=== PATIENT | male | born 1945 | race Caucasian/White ===

== ENCOUNTER 2023-01-17 14:15 | Emergency (ER) | payer OTHER, MEDICARE, SELFPAY ==
--- NOTE | 2023-01-17 14:16 | XR_ITS ---
WS: [id number] Portable AP upright chest, 01/17/2023 Clinical Data: chest pain Comparison: Portable chest, 02/01/2015 Findings: No nodules, masses or effusions are seen. The heart is normal. The pulmonary vascularity is not increased. No pneumonia or pneumothorax is seen. The aortic arch shows mild tortuosity. Monitor leads are on the chest wall. Impression: Atherosclerosis.
--- NOTE | 2023-01-17 14:17 | ECG_ITS ---
[facility] Test Date: 2023-01-17 Pat Name: Emery Ramires Department: Room: Gender: Male Applications Support Specialist: : 1945 Requested By: Lui Alcantara Order Number: [id number] Ulises MD: Jeaneth Gaona M.D. Measurements Intervals [place] Rate: 76 P: 21 ME: 188 QRS: 8 QRSD: 104 T: 77 QT: 382 QTc: 431 Interpretive Statements SINUS RHYTHM WITH OCCASIONAL VENTRICULAR PREMATURE COMPLEXES WITH FREQUENT SUPRAVENTRICULAR PREMATURE COMPLEXES POSSIBLE LEFT ATRIAL ENLARGEMENT [-0.1mV P-WAVE IN V1/V2] NONSPECIFIC ST & T-WAVE ABNORMALITY ABNORMAL RHYTHM ECG INTERPRETATION BASED ON A DEFAULT AGE OF 40 YEARS No previous ECG available for comparison Electronically Signed On 01-17-2023 21:33:34 CDT by Jeaneth Gaona M.D. [id number]
--- NOTE | 2023-01-17 14:26 | W.ED.CHESTPA ---
HPI - Chest Pain General: Chief Complaint: Chest Pain Stated Complaint: chest pain Time Seen by Provider: 01/17/23 14:16 Source: patient Mode of arrival: EMS History of Present Illness: 77-year-old male presents emergency room stating he has a history of coronary disease he was recently hospitalized at [place] and he evidently was supposed to have bypass surgery it was delayed he ended up becoming frustrated and left AMA a couple of days ago. He is not having any chest pain now. It is difficult to get him to focus on what precipitated his visit to the emergency room today ultimately was able to get from that is primarily because he was told he had major heart problems and needed bypass urgently that he came back. He spends the majority of his time in telling me how frustrated he was with how things transpired at [place]. He denies any chest pain shortness of breath or discomfort now no abdominal pain no other symptoms at all other than he is scared because he was told he need surgery urgently. He had chest pain earlier today but it has not recurred. Onset (ago): minute(s) Timing of current episode: episodic Prior episodes: Yes Onset: during rest Pain location: left chest Relieving factors: nothing Exacerbating factors: nothing Associated symptoms: Deny abdominal pain, dyspnea or fever(s) Review of Systems Const: Denies: fever(s) or chills Card: Denies: chest pain Resp: Denies: dyspnea GI: Denies: abdominal pain : Denies: dysuria, urinary frequency or urinary urgency Musc: Denies: neck pain or back pain Skin/Breast: Denies: rash Physical Exam Const: COMMON NORMALS: no acute distress GENERAL APPEARANCE: cooperative and comfortable ORIENTATION/CONSCIOUSNESS: Yes awake, Yes oriented to person, Yes oriented to place and Yes oriented to time HENMT: COMMON NORMALS: normocephalic, atraumatic and hearing grossly normal bilaterally HEAD & SCALP: normocephalic and atraumatic Resp: COMMON NORMALS: normal respiratory effort, No retractions, No use of accessory muscles and clear to auscultation bilaterally AUSCULTATION: clear to auscultation bilaterally Cardio: COMMON NORMALS: regular rate, regular rhythm and No murmurs present (Cardio) RATE: regular rate RHYTHM: regular rhythm GI: COMMON NORMALS: Soft to palpation and No hepatosplenomegaly present AUSCULTATION: Yes normoactive bowel sounds PALPATION: Yes Soft to palpation, No Tenderness to palpation present (GI), No Guarding due to palpation present (GI) and Yes No hepatosplenomegaly present Extremity: COMMON NORMALS: normal to inspection, capillary refill normal, no clubbing, cyanosis or edema, no calf tenderness and no pedal edema Neuro: SENSORIUM/ORIENTATION: Yes oriented to person, Yes oriented to place and Yes oriented to time Skin: COMMON NORMALS: no rashes or lesions noted GENERAL SKIN EXAM: no rashes or lesions noted Course Vital Signs: Vital signs: Vital Signs Temperature 97.9 F 01/17/23 18:30 Pulse Rate 78 01/17/23 18:30 Respiratory Rate 18 01/17/23 18:30 Blood Pressure 115/81 01/17/23 18:30 Pulse Oximetry 100 01/17/23 18:30 Oxygen Delivery Me thod Room Air 01/17/23 14:46 MDM - Chest Pain Medical Decision Making No acute EKG changes troponins trending negative. Patient is not having any chest pain at this time. We did attempt to get records from [place] were not able to do so but I was able to talk to one of the physicians who cared for him while he was there. He was scheduled for bypass and instead opted to sign out AGAINST MEDICAL ADVICE. He is actually below the troponin level that he had while he was at [place] according to the records would I talk to the chief transfer and pumphouse operator on the phone who is reviewing his labs for comparison for us. I encouraged the patient to contact the cardiology group he was seeing at [place] to discuss what could be done to get him scheduled for what ever procedure they had anticipated doing. The other option would be to establish with another cardiology group which would have to reevaluate all the previous work-up and likely refer. Patient had anticipated that by signing out from [place] and coming to the emergency room his surgery could be rescheduled and expedited. At this point he is not having an acute coronary event. Discussed with him that by choosing to leave [place] unfortunately he probably has ended up creating a greater delay to the time of his surgery. The physician I talked to on-call for cardiology from [place] stated they would make contact with the patient. He was familiar with this patient and had participated in his care at [place]. Medical Records I reviewed the patient's medical records. Lab Data I reviewed the patient's lab results. 01/17/23 14:30 01/17/23 14:30 Laboratory Results WBC 12.58 10^3/uL (3.29-11.43) H 01/17/23 14:30 RBC 3.98 10^6/uL (3.85-5.65) 01/17/23 14:30 Hgb 12.30 g/dL (11.27-16.99) 01/17/23 14:30 Hct 37.8 % (37-53) 01/17/23 14:30 MCV 95.0 fl (82-101) 01/17/23 14:30 MCH 30.9 pg (27-33) 01/17/23 14:30 MCHC 32.5 g/dL (30-55) 01/17/23 14:30 RDW 13.0 % (12.1-15.1) 01/17/23 14:30 Plt Count 283 10^3/cmm (157-399) 01/17/23 14:30 MPV 11.9 fL (7.4-10.4) H 01/17/23 14:30 Neut % (Auto) 80.0 % 01/17/23 14:30 Lymph % (Auto) 10.3 % 01/17/23 14:30 [place] % (Auto) 7.6 % 01/17/23 14:30 Eos % (Auto) 0.7 % 01/17/23 14:30 Baso % (Auto) 0.7 % 01/17/23 14:30 Neut # (Auto) 10.07 10^3/uL (1.8-7.7) H 01/17/23 14:30 Lymph # (Auto) 1.3 10^3/uL (0.8-4.8) 01/17/23 14:30 [place] # (Auto) 1.0 10^3/uL (0.2-0.9) H 01/17/23 14:30 Eos # (Auto) 0.1 10^3/uL (0.0-0.8) 01/17/23 14:30 Baso # (Auto) 0.1 10^3/uL (0.0-0.1) 01/17/23 14:30 Nucleated RBC % (auto) 0 % 01/17/23 14:30 Nucleated RBCs # 0.0 /100WBC 01/17/23 14:30 Sodium 140 mmol/L (136-145) 01/17/23 14:30 Potassium 4.3 mmol/L (3.5-5.1) 01/17/23 14:30 Chloride 104 mmol/L (98-107) 01/17/23 14:30 Carbon Dioxide 23 mmol/L (22-29) 01/17/23 14:30 Anion Gap 17.3 (5-19) 01/17/23 14:30 BUN 16 mg/dL (8-23) 01/17/23 14:30 Creatinine 1.1 mg/dL (0.7-1.2) 01/17/23 14:30 GFR Calculation Not Reportable 01/17/23 14:30 Glucose 174 mg/dL (65-115) H 01/17/23 14:30 Calculated Osmolality 295 mOsm/kg (285-295) 01/17/23 14:30 Calcium 8.7 mg/dL (8.5-10.5) 01/17/23 14:30 Total Bilirubin 0.6 mg/dL (0.15-1.2) 01/17/23 14:30 AST 26 U/L (0-40) 01/17/23 14:30 ALT 50 U/L (0-41) H 01/17/23 14:30 Alkaline Phosphatase 94 U/L (40-130) 01/17/23 14:30 Creatine Kinase 69 U/L (39-308) 01/17/23 14:30 Troponin T Baseline 34 ng/L (0-15) H 01/17/23 14:30 Troponin T 120 Minute 32.14 ng/L (0-15) H 01/17/23 16:35 Delta Troponin T -1.86 ABS# (0-10) L 01/17/23 16:35 Total Protein 6.7 g/dL (6.6-8.7) 01/17/23 14:30 Albumin 3.9 g/dL (3.5-5.2) 01/17/23 14:30 Globulin 2.8 g/dL (1.3-4.6) 01/17/23 14:30 All radiology interpretation(s) finalized by discharge Discharge Plan Discharge Patient Disposition: Home Clinical Impression: CAD (coronary artery disease) Condition: Stable Discharge Orders: Discharge ED (Routine); Ordered 01/17/23 Ordered By: Lui Victoria Patient Instructions: Opioid Safety, Pain Management Coding Level of Care Code ED Control Integration Engineer for Jason Dunlap
[2023-01-17 14:27] VITALS: BP 115/81; PULSE 87; RESP 16; TEMP 36.9; O2SAT 96; BMI 28.1
[2023-01-17 14:31] VITALS: PULSE 72; TEMP 37.1
[2023-01-17 14:35] LABS: Basophils # 0.1 10^3/uL (0.0-0.1); Basophils % 0.7 %; Eosinophils # 0.1 10^3/uL (0.0-0.8); Eosinophils % 0.7 %; Hematocrit 37.8 % (37-53); Lymphocytes # 1.3 10^3/uL (0.8-4.8); Lymphocytes % 10.3 %; Mean Corpuscular HGB Conc 32.5 g/dL (30-55); Mean Corpuscular Hemoglobin 30.9 pg (27-33); Mean Platelet Volume 11.9 fL (7.4-10.4); Monocytes % 7.6 %; Neutrophils # 10.07 10^3/uL (1.8-7.7); Nucleated Red Blood Cells % 0 %; Platelet Count 283 10^3/cmm (157-399); Red Blood Count 3.98 10^6/uL (3.85-5.65); White Blood Count 12.58 10^3/uL (3.29-11.43)
[2023-01-17 14:46] VITALS: BP 127/97; RESP 18; O2SAT 98
--- NOTE | 2023-01-17 14:47 | PC.PHAR ---
Addendum entered by Daiana Vargas 01/17/23 16:02: [facility] PM 01/17/23 Original Note: [facility] 2:45 PM 01/17/23
[2023-01-17 14:53] LABS: Alanine Aminotransferase 50 U/L (0-41); Albumin Level 3.9 g/dL (3.5-5.2); Alkaline Phosphatase 94 U/L (40-130); Anion Gap 17.3 (5-19); Aspartate Amino Transferase 26 U/L (0-40); Blood Urea Nitrogen 16 mg/dL (8-23); Calcium 8.7 mg/dL (8.5-10.5); Carbon Dioxide 23 mmol/L (22-29); Chloride 104 mmol/L (98-107); Globulin 2.8 g/dL (1.3-4.6); Glucose 174 mg/dL (65-115); Osmolality Calculated 295 mOsm/kg (285-295); Potassium 4.3 mmol/L (3.5-5.1); Sodium 140 mmol/L (136-145); Total Bilirubin 0.6 mg/dL (0.15-1.2); Total Protein 6.7 g/dL (6.6-8.7); Troponin(5th) Baseline 34 ng/L (0-15)
[2023-01-17 15:17] LABS: Creatine Phosphokinase 69 U/L (39-308)
[2023-01-17 15:31] VITALS: BP 128/82; PULSE 82
[2023-01-17 16:01] VITALS: BP 115/81
--- NOTE | 2023-01-17 16:17 | ECG_ITS ---
[facility] Test Date: 2023-01-17 Pat Name: Emery Ramires Department: Room: Gender: Male Nuclear Licensing Engineer: : 1945 Requested By: Lui Alcantara Order Number: [id number] Reading MD: Jeaneth Gaona M.D. Measurements Intervals [place] Rate: 75 P: 52 ME: 183 QRS: 18 QRSD: 104 T: 120 QT: 396 QTc: 444 Interpretive Statements SINUS RHYTHM WITH OCCASIONAL SUPRAVENTRICULAR PREMATURE COMPLEXES NONSPECIFIC ST & T-WAVE ABNORMALITY No previous ECG available for comparison Electronically Signed On 01-17-2023 21:39:37 CDT by Jeaenth Gaona M.D. [id number]
[2023-01-17 17:21] LABS: Troponin 5 2HR 32.14 ng/L (0-15)
[2023-01-17 17:35] LABS: Troponin 5 2HR Delta -1.86 ABS# (0-10)
[2023-01-17 18:30] VITALS: BP 115/81; PULSE 78; RESP 18; TEMP 36.6; O2SAT 100
== END 2023-01-17 18:30 | disposition home or self-care (01) ==
PROVIDERS: Emergency Provider Family Medicine; PCP Nurse Practitioner Family
DX: I25.10 Atherosclerotic heart disease of native coronary artery without angina pectoris (principal)
CPT/HCPCS: 36415; 71045; 80053; 82550; 84484; 85025; 93005; 99285

== ENCOUNTER 2023-02-06 16:46 | Inpatient (IN) | payer OTHER, SELFPAY ==
[2023-02-06 16:47] VITALS: BP 128/58; PULSE 73; RESP 17; TEMP 36.6; O2SAT 100; BMI 28.1
--- NOTE | 2023-02-06 19:14 | ECG_ITS ---
[facility] Test Date: 2023-02-06 Pat Name: Emery Ramires Department: Room: Gender: Male Wealth Management Director: : 1945 Requested By: Meghan Tinoco Order Number: [id number] Ulises MD: Brendan Zhang M.D. Measurements Intervals [place] Rate: 73 P: 27 CA: 160 QRS: 9 QRSD: 109 T: 70 QT: 415 QTc: 459 Interpretive Statements SINUS RHYTHM POSSIBLE ANTERIOR MYOCARDIAL INFARCTION , OF INDETERMINATE AGE [30 ms Q WAVE IN V3/V4, OR R < 0.2 mV IN V4] Compared to ECG 01/17/2023 16:13:04 Myocardial infarct finding now present T-wave abnormality no longer present Electronically Signed On 02-07-2023 6:23:54 CDT by Brendan Zhang M.D. [id number]
--- NOTE | 2023-02-06 19:14 | W.ED.GENADLT ---
HPI - General Adult General: Chief complaint: General Medical Stated complaint: [facility] Time Seen by Provider: 02/06/23 18:56 Source: patient Mode of arrival: wheelchair Limitations: no limitations History of Present Illness: Patient presents emergency department today brought by friends for evaluation treatment for lab work. Chart review shows patient was evaluated here in the emergency department several weeks ago after he left AMA from [facility] due to frustrations with delay in heart surgery. Chart review shows he came to the emergency department in an effort to expedite getting his heart surgery performed-he was asymptomatic at the time of his evaluation in the ER, but, wound up going to [facility] and had triple bypass -Per patient, with Dr. Plata on 01/25/2023. We do not have any records of this visit or surgery at this time. Per patient report, he again left AMA after his surgery and did not participate in cardiac rehab. For that reason they did not provide him any of his discharge medications. Patient typically sees the CT and when he spoke to them about getting his medications, they sent him here to the emergency department stating he needed lab work for his blood thinner use. Patient does not know what blood thinners he was on. He does not know what medications he was supposed to have at the time of his AMA. Patient reports significant bilateral lower extremity swelling having developed recently. Patient also reports he developed A-fib after his procedure. Patient comes in today with a stack of papers-not from his heart surgery but from the CT. On it it indicates Eliquis 5 mg tablets to be taken twice a day for A-fib. It also indicates Plavix 75 mg daily. It also lists Lasix 40 mg daily as well as metoprolol 12.5 twice a day and amiodarone 200 mg tablet twice a day. He also has medications listed for diabetes-insulin specifically, Flomax, and other medications-primarily for constipation. Review of Systems General: Reports: 10 or more systems reviewed and unremarkable except in HPI and below Physical Exam Const: COMMON NORMALS: no acute distress, patient oriented x3, no limitations and alert HENMT: COMMON NORMALS: normocephalic, atraumatic, hearing grossly normal bilaterally, Normal external nose present and moist oral mucous membranes HEAD & SCALP: normocephalic and atraumatic NOSE: Normal external nose present Eye: COMMON NORMALS: Equal, round and reactive pupils present, EOMs intact bilaterally and conjunctivae normal CONJUNCTIVA: Yes conjunctivae normal PUPIL: Yes Equal, round and reactive pupils present Neck/C-Spine: COMMON NORMALS: full ROM and no meningeal signs Lymph: LYMPHATIC: no lymphadenopathy noted Chest: OTHER: Patient with well-healing surgical wound appreciated overlying the sternum. No signs of erythema or draining. Resp: COMMON NORMALS: normal respiratory effort, No retractions and No use of accessory muscles OTHER: Pulse ox 98% on room air. Cardio: COMMON NORMALS: regular rate and regular rhythm RATE: regular rate RHYTHM: regular rhythm GI: COMMON NORMALS: Normal to inspection, nondistended, normoactive bowel sounds present, Soft to palpation and non-tender PALPATION: Yes Soft to palpation : COMMON NORMALS: Yes no CVA tenderness BLADDER/KIDNEY EXAM: Yes no CVA tenderness Back/Pelvis: COMMON NORMALS: no CVA tenderness and thoraco-lumbar ROM normal Extremity: GENERAL: Yes normal exam except as noted OTHER: Patient with full range of motion appreciated to the extremities. Patient has obvious 2-3+ pitting edema starting mid sexton bilaterally affecting the ankles and feet. Neuro: COMMON NORMALS: patient oriented x3, CN's II-XII intact bilaterally, moves all extremities, no focal motor deficits and no sensory deficits noted SENSORIUM/ORIENTATION: Yes alert MENINGEAL SIGNS: Yes no meningeal signs Course Vital Signs: Vital signs: Vital Signs Temperature 97.9 F 02/06/23 16:47 Pulse Rate 68 02/06/23 23:05 Respiratory Rate 18 02/06/23 23:05 Blood Pressure 136/49 02/06/23 23:05 Pulse Oximetry 98 02/06/23 23:05 Oxygen Delivery Me thod Room Air 02/06/23 23:05 MDM - General Adult Medical Decision Making Patient presented to the emergency department today requesting his hospital discharge medication be prescribed and dispensed. He does not have his discharge paperwork from [facility] as he left from cardiac rehab AMA. [facility] told him he needed to have lab work done and that we could prescribe these medications to him. I did discuss the case with Dr. Bergeron at length during the patient's evaluation. Patient reports he is post to be on a blood thinning medication. He is not sure what the medication is. He also states that they were going to give him medicine to keep fluid from accumulating in his lower legs but he did not receive that medication either. Patient is denying any acute chest pains. He denies shortness of breath, cough, or fevers. EKG reveals no acute changes but, patient has some significant findings on his lab work today. Patient has an elevated white blood cell count. Patient has a BNP greater than 9000. Chest x-ray shows cardiomegaly with a mild to moderate left-sided pleural effusion and mild right-sided pleural effusion. Patient's oxygen saturation has been in the upper 90s on room air during his time here in the emergency department. I discussed with the patient the concern for findings of CHF including the pleural effusions. Explained to him that the recommendation would be for him to be admitted to get back on track with cardiac rehab, his chronic medications and, the acute medications recommended for his postoperative status. Patient states he will not be transferred to [place]. He states he lives here in [place] and wants to remain here. I told him that I would attempt to reach out to the providers here but, it is very possible that given his recent surgery at an outside health system, they may wish to have him transferred back to [facility]. I reached out to cardiology and spoke with Dr. Zhang. After going through the patient's x-rays and lab work, he agreed to be a consult to this patient after hospital admission. I then spoke with Dr. Doan regarding the findings of CHF. She did request we obtain the discharge paperwork from [facility] on this patient but agrees to the admission at this time. At this time, I did asked Dr. Espinosa to help place an order for admission as Dr. Bergeron has left for the evening. We will defer care for further intervention and treatment of this patient to the hospitalist services at this time. Differential Diagnosis DDx: Postop complication, pericardial effusion, myocarditis, CHF, pneumonia, electrolyte imbalance, [place] Lab Data 02/06/23 19:31 02/06/23 19:31 Radiology Impressions Chest X-Ray 02/06/23 19:15 IMPRESSION: 1. Mild cardiomegaly noted. 2. Left lower lobe atelectasis versus infiltrate. 3. Mild atelectasis at the right lung base. 4. Small to moderate sized left pleural effusion. 5. Small right pleural effusion. Laboratory Results WBC 19.32 10^3/uL (3.29-11.43) H 02/06/23 19: RBC 3.74 10^6/uL (3.85-5.65) L 02/06/23 19:31 Hgb 11.40 g/dL (11.27-16.99) 02/06/23 19: Hct 36.4 % (37-53) L 02/06/23: MCV 97.3 fl (82-101) 02/06/23 19: MCH 30.5 pg (27-33) 02/06/23 19: MCHC 31.3 g/dL (30-55) 02/06/23: RDW 13.1 % (12.1-15.1) 02/06/23: Plt Count 535 10^3/cmm (157-399) H 02/06/23: MPV 9.5 fL (7.4-10.4) 02/06/23 19: Neut % (Auto) 81.4 % 02/06/23 19: Lymph % (Auto) 8.2 % 02/06/23 19:31 [place] % (Auto) 7.3 % 02/06/23: Eos % (Auto) 1.1 % 02/06/23: Baso % (Auto) 0.6 % 02/06/23: Neut # (Auto) 15.71 10^3/uL (1.8-7.7) H 02/06/23 19: Lymph # (Auto) 1.6 10^3/uL (0.8-4.8) 02/06/23 19:31 [place] # (Auto) 1.4 10^3/uL (0.2-0.9) H 02/06/23: Eos # (Auto) 0.2 10^3/uL (0.0-0.8) 02/06/23: Baso # (Auto) 0.1 10^3/uL (0.0-0.1) 02/06/23 19:31 Nucleated RBC % (auto) 0 % 02/06/23: Nucleated RBCs # 0.0 /100WBC 02/06/23 19:31 PT 16.40 SECONDS (12.1-14.9) H 02/06/23 19:31 INR 1.28 (0.8-1.2) H 02/06/23 19:31 APTT 32.3 SECONDS (23.9-36.7) 02/06/23 19:31 Sodium 138 mmol/L (136-145) 02/06/23 19:31 Potassium 4.8 mmol/L (3.5-5.1) 02/06/23 19:31 Chloride 103 mmol/L (98-107) 02/06/23 19:31 Carbon Dioxide 25 mmol/L (22-29) 02/06/23 19:31 Anion Gap 14.8 (5-19) 02/06/23 19:31 BUN 37 mg/dL (8-23) H 02/06/23 19:31 Creatinine 1.3 mg/dL (0.7-1.2) H 02/06/23 19:31 GFR Calculation Not Reportable 02/06/23 19:31 Glucose 218 mg/dL (65-115) H 02/06/23 19:31 Calculated Osmolality 301 mOsm/kg (285-295) H 02/06/23 19:31 Calcium 8.3 mg/dL (8.5-10.5) L 02/06/23 19:31 Total Bilirubin 0.3 mg/dL (0.15-1.2) 02/06/23 19:31 AST 22 U/L (0-40) 02/06/23 19:31 ALT 32 U/L (0-41) 02/06/23 19:31 Alkaline Phosphatase 108 U/L (40-130) 02/06/23 19:31 NT-Pro-B Natriuret Pep 9128 pg/mL (0-450) H 02/06/23 19:31 Total Protein 6.7 g/dL (6.6-8.7) 02/06/23 19:31 Albumin 3.5 g/dL (3.5-5.2) 02/06/23 19:31 Globulin 3.2 g/dL (1.3-4.6) 02/06/23 19:31 All radiology interpretation(s) finalized by discharge Discharge Plan Discharge Patient Disposition: Admitted As Inpatient Admit Provider: Ramandeep Doan Clinical Impression: CHF (congestive heart failure), Pleural effusion, History of open heart surgery Condition: Stable Coding Level of Care Code ED Street Department Dispatcher for Jason Dunlap
--- NOTE | 2023-02-06 19:15 | XRR_ITS ---
PROCEDURE INFORMATION: Exam: XR Chest Exam date and time: 02/06/2023 8:14 PM Age: 77 years old Clinical indication: Cough; Additional info: Ble swelling, S/P triple bypass, ble swelling TECHNIQUE: Imaging protocol: Radiologic exam of the chest. Views: 1 view. COMPARISON: CR XR chest 1V portable [id number] 01/17/2023 2:25 PM FINDINGS: Lungs: Left lower lobe atelectasis versus infiltrate. Mild atelectasis at the right lung base. Pleural spaces: Small to moderate sized left pleural effusion. Small right pleural effusion. Heart/Mediastinum: Mild cardiomegaly. Bones/joints: Median sternotomy noted. XR/XR chest 1V [id number] IMPRESSION: 1. Mild cardiomegaly noted. 2. Left lower lobe atelectasis versus infiltrate. 3. Mild atelectasis at the right lung base. 4. Small to moderate sized left pleural effusion. 5. Small right pleural effusion.
[2023-02-06 19:38] LABS: Basophils # 0.1 10^3/uL (0.0-0.1); Basophils % 0.6 %; Eosinophils # 0.2 10^3/uL (0.0-0.8); Eosinophils % 1.1 %; Hematocrit 36.4 % (37-53); Lymphocytes # 1.6 10^3/uL (0.8-4.8); Lymphocytes % 8.2 %; Mean Corpuscular HGB Conc 31.3 g/dL (30-55); Mean Corpuscular Hemoglobin 30.5 pg (27-33); Mean Corpuscular Volume 97.3 fl (82-101); Mean Platelet Volume 9.5 fL (7.4-10.4); Monocytes # 1.4 10^3/uL (0.2-0.9); Monocytes % 7.3 %; Neutrophils # 15.71 10^3/uL (1.8-7.7); Neutrophils % 81.4 %; Nucleated Red Blood Cells % 0 %; Platelet Count 535 10^3/cmm (157-399); Red Blood Count 3.74 10^6/uL (3.85-5.65); Red Cell Distribution Width 13.1 % (12.1-15.1); White Blood Count 19.32 10^3/uL (3.29-11.43)
[2023-02-06 19:47] LABS: INR 1.28 (0.8-1.2)
[2023-02-06 19:48] LABS: Partial Thromboplastin Time 32.3 SECONDS (23.9-36.7)
[2023-02-06 19:52] VITALS: BP 144/74; PULSE 78; RESP 18; O2SAT 98
[2023-02-06 20:03] LABS: Alanine Aminotransferase 32 U/L (0-41); Albumin Level 3.5 g/dL (3.5-5.2); Alkaline Phosphatase 108 U/L (40-130); Aspartate Amino Transferase 22 U/L (0-40); Blood Urea Nitrogen 37 mg/dL (8-23); Calcium 8.3 mg/dL (8.5-10.5); Carbon Dioxide 25 mmol/L (22-29); Chloride 103 mmol/L (98-107); Globulin 3.2 g/dL (1.3-4.6); Glucose 218 mg/dL (65-115); NT Pro B Type Natriuretic Pept 9128 pg/mL (0-450); Osmolality Calculated 301 mOsm/kg (285-295); Sodium 138 mmol/L (136-145); Total Bilirubin 0.3 mg/dL (0.15-1.2); Total Protein 6.7 g/dL (6.6-8.7)
[2023-02-06 20:07] LABS: Anion Gap 14.8 (5-19); Potassium 4.8 mmol/L (3.5-5.1)
[2023-02-06 21:06] VITALS: PULSE 73; RESP 20; O2SAT 96
[2023-02-06] MEDS: FUROsemide 10 mg/mL SDV 4mL 40 MG IVP (22:24)
[2023-02-06 23:05] VITALS: BP 136/49; PULSE 68; RESP 18; O2SAT 98
[2023-02-07] VITALS (11 sets, daily range): BP systolic 105–123; BP diastolic 48–70; PULSE 60–76; RESP 15–19; TEMP 36.4–36.9; O2SAT 93–98
--- NOTE | 2023-02-07 02:54 | P.HP_ITS ---
Providers/Chief Complaint Admitting Physician: Ramandeep Doan MD Primary Care Provider: Ruby Lindsey Chief Complaint: [facility] History of Present Illness Emery Ramires is a 77 year old male who was recently diagnosed with coronary artery disease, underwent angiogram at [facility] about a month ago which showed significant three-vessel coronary artery disease, moderate LV dysfunction and transthoracic echo suggestive of moderate to severe MR. He is status post CABG (FU to distal LAD, saphenous vein graft to obtuse marginal, extensive RCA endarterectomy and saphenous graft to distal RCA at the proximal) at [facility] on January 25, 2023. Postoperative echo showed good overall function and no abnormalities with the valvular function. Postoperative course was notable for development of atrial fibrillation needing amiodarone infusion. He underwent BELÉN cardioversion on January 30, 2023. He was started on Eliquis. Course also complicated by LORETA, it appears peak creatinine was at 1.69. Aldactone was on hold. Diuretics were converted to oral on February 03, 2023. It appears he was to be discharged with a LifeVest and arrangements were being made for the same. Sternal incision was noted to be healing well. No apparent infectious complications. He was recommended to be discharged to inpatient rehab on February 05, 2023, however patient declined to go to rehab and instead opted to return home. Patient states that since he left [facility] he never got any prescriptions. I am able to review some of the paperwork from [facility] and the list of his discharge medications include amiodarone 200 mg p.o. twice daily for 14 days followed by 200 mg daily for the next 2 weeks. Eliquis 5 mg twice daily, Pepcid 20 mg daily, Lasix 40 mg daily for 14 days, insulin glargine 30 units subcutaneous with breakfast, insulin lispro sliding scale with meals, metoprolol 25 mg p.o. twice daily, oxycodone 5 mg every 4 hours as needed for pain, rosuvastatin 20 mg daily, Plavix 75 mg daily, paroxetine. His pre-existing amlodipine, aspirin and glipizide, hydrochlorothiazide, lisinopril were discontinued. Patient states that since returning home he went to the [place] today to get all of his prescriptions, however it appears since there were no records available his prescriptions were not filled and he was directed to come into the ER for labs. Here he reported bilateral lower extremity edema, he is noted to have pitting edema bilaterally and small to moderate bilateral pleural effusions, he states that his edema has been persisting ever since he left [facility], he has not noticed any improvement or worsening. He complains of some dyspnea on walking. Denies any chest pain palpitations or syncope. He is not currently established with cardiology services for outpatient at any hospital. He would like to continue further follow-ups here at [facility] in [place], declines going back to [facility]. Review of Systems General: Reports: 10 or more systems reviewed and unremarkable except in HPI and below Const: Denies: fever(s), chills or body aches Eyes: Denies: change in vision, blurry vision or photophobia ENMT: Reports: hoarseness; Denies: throat pain, enlarged tonsils, odynophagia or nasal congestion Card: Denies: chest pain, palpitations, irregular heart rhythm, edema, swelling of feet/ankles, lightheadedness, pre-syncope, dyspnea on exertion or orthopnea Resp: Denies: dyspnea, productive cough, non-productive cough, wheezing, stridor, pain on inspiration, change in phlegm color, hemoptysis or chest congestion GI: Denies: abdominal pain, nausea, vomiting, hematemesis, coffee ground emesis, dysphagia, heartburn, diarrhea, constipation, GI cramping, change in stool character, hematochezia or melena : Denies: flank pain, dysuria, urinary frequency, urinary urgency, urinary hesitancy or hematuria Musc: Denies: neck pain, back pain, extremity pain, joint swelling, joint warmth or deformity Neuro: Denies: headache(s), numbness in extremities, weakness in extremities, sensory changes, difficulty walking, frequent falls, dizziness, vertigo, behavioral changes, Slurred speech present or seizure-like activity Psych: Denies: anxiety, depression, suicidal ideation or homicidal ideation Endo: Denies: polyuria, polydipsia, tired all the time, cold intolerance or hot flashes Nathan/Lymph: Denies: easy bruising or easy bleeding Medications/Allergies Allergies Allergy/AdvReac Type Severity Reaction Status Date / Time procaine [From Novocain] Allergy ALGY-Difficulty Verified 02/06/23 16:57 Breathing PFSH Acute PFSH: Medical History (Updated 02/07/23 @ 05:20 by Ramandeep Doan MD) A-fib Diabetes Hypertension Surgical History (Updated 02/07/23 @ 05:20 by Ramandeep Doan MD) Hx of CABG Vitals/I&O/Wt Last Vital Signs Temp 97.9 F 02/06/23 16:47 Pulse 68 02/06/23 23:05 Resp 18 02/06/23 23:05 BP 136/49 02/06/23 23:05 Pulse Ox 98 02/06/23 23:05 O2 Del Method Room Air 02/07/23 01:00 Weight last 48 hrs Weight 83.915 kg Physical Exam Narrative: General: No acute distress, AO x3 HEENT: PERRLA, pupils bilaterally equal and reactive, pallors not present Chest: Normal vesicular breath sounds, no added sounds, equal good air entry bilaterally CVS: S1-S2 regular, no murmurs, no tachycardia, no gallops, no rubs Abdomen: Soft, nontender, no organomegaly, bowel sounds present Neuro: No focal deficits, no facial deformity, AO x3, power 5/5 in all limbs Extremities: pitting edema B/L LE , L>R, left is site of vein harvest, incisons healing well over chest wall and left leg Data 02/06/23 19:31 02/06/23 19:31 Other Labs: Radiology Impressions Chest X-Ray 02/06/23 19:15 IMPRESSION: 1. Mild cardiomegaly noted. 2. Left lower lobe atelectasis versus infiltrate. 3. Mild atelectasis at the right lung base. 4. Small to moderate sized left pleural effusion. 5. Small right pleural effusion. Laboratory Results WBC 19.32 10^3/uL (3.29-11.43) H 02/06/23 19:31 RBC 3.74 10^6/uL (3.85-5.65) L 02/06/23 19:31 Hgb 11.40 g/dL (11.27-16.99) 02/06/23 19:31 Hct 36.4 % (37-53) L 02/06/23 19:31 MCV 97.3 fl (82-101) 02/06/23 19:31 MCH 30.5 pg (27-33) 02/06/23 19: MCHC 31.3 g/dL (30-55) 02/06/23: RDW 13.1 % (12.1-15.1) 02/06/23 19: Plt Count 535 10^3/cmm (157-399) H 02/06/23 19: MPV 9.5 fL (7.4-10.4) 02/06/23: Neut % (Auto) 81.4 % 02/06/23: Lymph % (Auto) 8.2 % 02/06/23: [place] % (Auto) 7.3 % 02/06/23: Eos % (Auto) 1.1 % 02/06/23: Baso % (Auto) 0.6 % 02/06/23: Neut # (Auto) 15.71 10^3/uL (1.8-7.7) H 02/06/23: Lymph # (Auto) 1.6 10^3/uL (0.8-4.8) 02/06/23 19: [place] # (Auto) 1.4 10^3/uL (0.2-0.9) H 02/06/23: Eos # (Auto) 0.2 10^3/uL (0.0-0.8) 02/06/23: Baso # (Auto) 0.1 10^3/uL (0.0-0.1) 02/06/23: Nucleated RBC % (auto) 0 % 02/06/23: Nucleated RBCs # 0.0 /100WBC 02/06/23 19: PT 16.40 SECONDS (12.1-14.9) H 02/06/23: INR 1.28 (0.8-1.2) H 02/06/23: APTT 32.3 SECONDS (23.9-36.7) 02/06/23 19:31 Sodium 138 mmol/L (136-145) 02/06/23 19: Potassium 4.8 mmol/L (3.5-5.1) 02/06/23: Chloride 103 mmol/L (98-107) 02/06/23 19:31 Carbon Dioxide 25 mmol/L (22-29) 02/06/23 19:31 Anion Gap 14.8 (5-19) 02/06/23 19:31 BUN 37 mg/dL (8-23) H 02/06/23 19:31 Creatinine 1.3 mg/dL (0.7-1.2) H 02/06/23 19:31 GFR Calculation Not Reportable 02/06/23 19:31 Glucose 218 mg/dL (65-115) H 02/06/23 19:31 Calculated Osmolality 301 mOsm/kg (285-295) H 02/06/23 19:31 Calcium 8.3 mg/dL (8.5-10.5) L 02/06/23 19:31 Total Bilirubin 0.3 mg/dL (0.15-1.2) 02/06/23 19:31 AST 22 U/L (0-40) 02/06/23 19:31 ALT 32 U/L (0-41) 02/06/23 19:31 Alkaline Phosphatase 108 U/L (40-130) 02/06/23 19:31 NT-Pro-B Natriuret Pep 9128 pg/mL (0-450) H 02/06/23 19:31 Total Protein 6.7 g/dL (6.6-8.7) 02/06/23 19:31 Albumin 3.5 g/dL (3.5-5.2) 02/06/23 19:31 Globulin 3.2 g/dL (1.3-4.6) 02/06/23 19:31 Other data: Launch?Image [address] [address] XRay Report Signed Patient: Emery Ramires Unit #: [id number] : 1945 Age/Sex: 77 / M ADM Date: 02/06/23 Loc: ER Room/Bed: Attending Dr: Ordering Provider/Ordering MD: Meghan Duarte Date of Service: 02/06/23 Procedure(s): XR chest 1V 11371 Accession Number(s): [id number] Report Number: [id number] PROCEDURE INFORMATION: Exam: XR Chest Exam date and time: 02/06/2023 8:14 PM Age: 77 years old Clinical indication: Cough; Additional info: Ble swelling, S/P triple bypass, ble swelling TECHNIQUE: Imaging protocol: Radiologic exam of the chest. Views: 1 view. COMPARISON: CR XR chest 1V portable [id number] 01/17/2023 2:25 PM FINDINGS: Lungs: Left lower lobe atelectasis versus infiltrate. Mild atelectasis at the right lung base. Pleural spaces: Small to moderate sized left pleural effusion. Small right pleural effusion. Heart/Mediastinum: Mild cardiomegaly. Bones/joints: Median sternotomy noted. XR/XR chest 1V [id number] IMPRESSION: 1. ? Mild cardiomegaly noted. 2. ? Left lower lobe atelectasis versus infiltrate. 3. ? Mild atelectasis at the right lung base. 4. ? Small to moderate sized left pleural effusion. 5. ? Small right pleural effusion. A&P Assessment and plan (1) CHF (congestive heart failure): (2) Pleural effusion: (3) History of open heart surgery: Plan 77-year-old male with recent coronary artery bypass surgery as noted above on January 25, 2023, recently left the hospital on February 04, 2023. Has not taken any of his discharge medications since leaving the hospital. Came to the emergency room today needing prescriptions , was noted to have egn ateral lower extremity edema, bilateral pleural effusions, elevated white blood cell count, and atelectasis versus infiltrate on his chest x-ray. Complains of some dyspnea on exertion. Chest pain-free currently. EKG today shows sinus rhythm, no acute ST-T wave changes, troponins 30s range, downtrending at 2 hours, not concerning for ACS currently. Thus far he has received 40 mg of IV Lasix in the emergency room, will continue 20 mg IV every 12 hours. Closely monitor urine output and renal function with initiating diuresis. He has recently suffered from acute kidney injury, at the time of discharge it appears his creatinine was at 1.6, currently at 1.3 which is downtrending. Unable to comment on the nature (systolic/diastolic) or chronicity of CHF at this time as echocardiogram results are not available for review. Assuming chronic CHF given that he ws on diuretics and recommended a life vest at discharge. Records have been requested. CXR with atelactasis vs pneumonia - start CTX 1 gm iv daily currently , denies any symptoms such as cough or chest discomfort. Check procal, MRSA screen , bacterial Ag panel. Obtain WBC count from discharge. Continue medications recommneded at discharge as detailed above in HPI . cardiology consult to optimize medications and establish/expedite CV follow up here locally after recent surgery. Arrangements for life vest based on cardiology consult Dvt ppx: Eliquis Full code Attestations Medical Necessity Statement*: > 2 midnight admission anticipated for iv diuresis, review of recent surgery records, cardiology assessment Coding Level of Care Code Acute Code for Chg Fwd Diagnoses CHF (congestive heart failure) I50.9 Pleural effusion J90 History of open heart surgery Z98.890
[2023-02-07] MEDS: cefTRIAXone 1,000 MG in sodium chloride 0.9% (plus) 50 ML 100 MG IV (04:01)
[2023-02-07 06:24] LABS: Procalcitonin 0.11 ng/mL (0-0.5)
[2023-02-07 06:37] LABS: Estmated Average Glucose 148; Hemoglobin A1C 6.8 % (4.0-6.0)
--- NOTE | 2023-02-07 08:00 | P.CONIM_ITS ---
Providers/Reason For Consult Consulting Physician/Specialty*: Brendan Zhang MD/ Cardiology Reason for Consult*: CHF exacerbation Requesting Physician: Dr Doan Attending Physician: Gyu Frederick MD Primary Care [facility]: [facility] History of Present Illness History of Present Illness Emery Ramires is a 77 year old male with past medical history of diabetes, recent CABG on 01/25/2023 at [facility] in [place]. Patient was sent to rehab however came out early. Prior to cabg he had left [facility]. He has been having worsening dyspnea on exertion and lower extremity edema. Denies chest pain. NT proBNP is elevated. EKG did not show any ischemic changes. He was discharged home on LifeVest however he does not want to wear it at this time. He was also not taking all his medications. During hospitalization he was in A-fib and was discharged home on Eliquis as well. Review of Systems General: Reports: 10 or more systems reviewed and unremarkable except in HPI and below Const: Denies: fever(s), chills or body aches Eyes: Denies: change in vision, blurry vision or photophobia ENMT: Reports: hoarseness; Denies: throat pain, enlarged tonsils, odynophagia or nasal congestion Card: Reports: dyspnea on exertion; Denies: chest pain, palpitations, irregular heart rhythm, edema, swelling of feet/ankles, lightheadedness, pre-syncope or orthopnea Resp: Reports: dyspnea; Denies: productive cough, non-productive cough, wheezing, stridor, pain on inspiration, change in phlegm color, hemoptysis or chest congestion GI: Denies: diarrhea or constipation : Denies: flank pain, dysuria, urinary frequency, urinary urgency, urinary hesitancy or hematuria Musc: Denies: neck pain, back pain, extremity pain, joint swelling, joint warmth or deformity Neuro: Denies: headache(s), numbness in extremities, weakness in extremities, sensory changes, difficulty walking, frequent falls, dizziness, vertigo, behavioral changes, Slurred speech present or seizure-like activity Psych: Denies: anxiety, depression, suicidal ideation or homicidal ideation Endo: Denies: polyuria, polydipsia, tired all the time, cold intolerance or hot flashes Nathan/Lymph: Denies: easy bruising or easy bleeding Medications/Allergies Home Medications Medication Instructions Recorded Confirmed Last Taken Type amiodarone 200 mg tablet See Rx Instructions .Route .COMPLEX 02/07/23 02/07/23 Unknown History amlodipine 2.5 mg tablet 2.5 mg PO DAILY 02/07/23 02/07/23 Unknown History bromfenac 0.07 % eye drops 1 drp ophthalmic (eye) DAILY 02/07/23 02/07/23 Unknown History difluprednate 0.05 % eye drops 1 drp ophthalmic (eye) QID 02/07/23 02/07/23 Unknown History empagliflozin 25 mg tablet 12.5 mg PO DAILY 02/07/23 02/07/23 Unknown History glipizide 10 mg tablet 10 mg PO BID 02/07/23 02/07/23 Unknown History lisinopril 20 2 tab PO QAM 02/07/23 02/07/23 Unknown History mg-hydrochlorothiazide 12.5 mg tablet metoprolol tartrate 25 mg tablet 25 mg PO BID 02/07/23 02/07/23 Unknown History paroxetine HCl 30 mg tablet (Paxil) 30 mg PO DAILY 02/07/23 02/07/23 Unknown History timolol maleate 0.5 % eye drops 1 drp ophthalmic (eye) BEDTIME 02/07/23 02/07/23 Unknown History Allergies Allergy/AdvReac Type Severity Reaction Status Date / Time procaine [From Novocain] Allergy ALGY-Difficulty Verified 02/06/23 16:57 Breathing Current Medications Generic Name Dose Route Start Last Admin Trade Name Freq PRN Reason Stop Dose Admin Ceftriaxone Sodium 1,000 mg/ 50 mls @ 100 mls/hr 02/07/23 03:00 02/07/23 05:01 Sodium Chloride IV Infused Q24H CHRIST Infusion Protocol PFSH Acute PFSH: Medical History (Updated 02/08/23 @ 08:18 by Brendan Zhang M.D) A-fib Diabetes Hypertension Surgical History Hx of CABG Vitals/I&O/Wt Last Vital Signs Temp 98.3 F 02/07/23 07:39 Pulse 75 02/07/23 07:39 Resp 16 02/07/23 07:39 BP 120/61 02/07/23 07:39 Pulse Ox 93 02/07/23 07:39 O2 Del Method Room Air 02/07/23 07:39 02/06/23 02/07/23 02/07/23 22:59 06:59 14:59 Intake Total 50 / 50 Output Total 250 / 250 Balance -200 / -200 Weight last 48 hrs Weight 185 lb Physical Exam Narrative: GENERAL: Patient is alert, awake and oriented x3. [] NECK: No jugular vein distension. [] HEENT: No cyanosis. No icterus. No pallor. [] HEART: Regular S1 and S2. No murmur, rub or gallop. [] LUNGS: Clear to auscultate bilaterally. [] CENTRAL NERVOUS SYSTEM: Grossly nonfocal. [] EXTREMITIES: Lower extremities with 1-2+ edema bilaterally. Data 02/08/23 05:27 02/08/23 05:27 A&P Assessment and plan (1) CHF (congestive heart failure): (2) History of open heart surgery: (3) Pleural effusion: (4) A-fib: (5) Diabetes: (6) Hypertension: Plan Patient appears volume overloaded. Does not have any chest pain or EKG changes. At this time he needs IV diuresis. Monitor renal function. Close I&O's. Can obtain a limited echocardiogram. Can also obtain records from [facility] for the last known EF. I did have a discussion about LifeVest. He will not really compliant with LifeVest. Thank you for involving us with care of this patient. We will continue to follow. Please call with questions Consult Attestations Medical Necessity Statement: Care expected to cross 2 midnights. Coding Level of Care Code Acute Code for Chg Fwd Diagnoses CHF (congestive heart failure) I50.9 History of open heart surgery Z98.890 Pleural effusion J90 A-fib I48.91 Diabetes E11.9 Hypertension I10
[2023-02-07 08:01] LABS: Glucose Point of Care 170 mg/dL (70-110)
[2023-02-07] MEDS: pantoprazole DR 40 mg Tablet PO (08:55)
[2023-02-07] MEDS: amiodarone 200 mg Tablet PO ×2 (08:55→17:44)
[2023-02-07] MEDS: apixaban 5 mg Tablet PO ×2 (08:55→20:28)
[2023-02-07] MEDS: metoprolol tartrate 25 mg Tablet PO ×2 (08:55→20:27)
[2023-02-07] MEDS: insulin lispro 100 unit/1 mL SUBCUT ×3 (08:56→21:19)
[2023-02-07] MEDS: clopidogrel 75 mg Tablet PO (08:56)
--- NOTE | 2023-02-07 08:58 | PC.PHAR ---
PT UNABLE TO VERIFY ALL MEDICATIONS-PT STATES WHAT [facility] ON HIS [facility] MED LIST IS WHAT HE WAS TAKING BEFORE HE WENT INTO THE HOSPITAL-PT STATES HE TAKES NO INSULINS STATES HE USE TO BE ON INSULIN A LONG TIME AGO BUT STATES THE DR CHANGED TO GLIPIZIDE-PTS VA MED LIST HAS AMIODARONE 200MG BID FOR 14 DAYS THEN 200MG PO DAILY FOR 14 DAYS-AND METOPROLOL TARTRATE 25MG BID BOTH PENDING MEDS ON 02/05/23-PT STATES WHEN HE LEFT THE HOSPITAL AND REHAB HE WAS GIVEN NO MEDICATIONS-
--- NOTE | 2023-02-07 10:30 | PC.CHAP ---
Pastoral Care Encounter/Spiritual Assessment Type of Contact [] Declined intranet developer visit [] Patient/Family/Request visit [] Outpatient visit [] Follow-up visit [] Physician referral [] Code/Alert [x ] Routine visit [] Staff referral [] Actively dying [] Patient sleeping [] Family support [] [] Out of room [] Palliative care [] [x] Receiving care in room [] Pre-surgical visit [] Trauma [] Long length of stay [] ICU visit [] Other: Relational/Emotional Strength [x] Patient feels connected with others/family/visitors/staff [] Distress [] Loneliness/isolation [] Abandonment Spirituality of Patient [x] Person of Deborah [] Attends Orthodox of their Deborah [x] Believes in Prayer [] Reads Bible or Caodaism materials [] There are Spiritual issues to be addressed Correctional Counselor/Case Manager Interventions [x] Prayer [x] Active listening [x] Non-anxious presence [x] Spiritual/emotional support [] Crisis/trauma care [x] Spiritual counseling [] Bereavement support [] Provided bereavement packet [] Provided Bible/devotional materials [] Provided toy/stuffed animal, coloring book to patient or family member [] Provided Communion [] Anointing/[place] [] Salvation [x] Completed spiritual assessment [] Other: Impact on Illness or Injury [] Angry [] Fearful [] Anxious [] Often cries [] Exhaustion [] Unable to work [] Unable to attend uatsdin [] Unable to walk/stand [] Unable to read [] Unable to drive [] Unable to eat/drink [] Unable to sleep [] Unable to be with family [] Patient intubated [] Other: Summary confused about his health negetive feelings uder staff not sure when he well go home Time spent with patient 10 mins
[2023-02-07 11:13] LABS: Glucose Point of Care 137 mg/dL (70-110)
[2023-02-07] MEDS: FUROsemide 10 mg/mL SDV 2mL 20 MG IVP ×2 (12:49→20:28)
--- NOTE | 2023-02-07 15:18 | PM.PN ---
Subjective Subjective: Patient was seen this morning, he tells me that originally he was at [place] urgent care, when he had to acid reflux-like symptoms chest pain like symptoms, so he was sent to [facility], in which they ran a lot of tests, it sounds a lot like they did an angiogram on him, and he was found to have multivessel CAD from there he was transferred to [place], at [place] he tells me they did a lot of test, there was plans on doing an open heart surgery but they kept delaying it so he became upset and left AGAINST MEDICAL ADVICE, and went to [facility] in [place] where he had his open heart surgery January 25, since then he has been been in rehab, but he was not too impressed with rehab, so he left early he tells me, [facility] to [facility] of his medications, but he ended up here in the hospital, he does note he has lower extremity edema, increased shortness of breath, no fevers, no chills Vitals/I&O/Wt Last Vital Signs Temp 98.5 F 02/07/23 11:35 Pulse 62 02/07/23 11:35 Resp 18 02/07/23 11:35 BP 110/70 02/07/23 11:35 Pulse Ox 98 02/07/23 11:35 O2 Del Method Room Air 02/07/23 11:35 02/07/23 02/07/23 02/07/23 06:59 14:59 22:59 Intake Total 50 / 50 360 / 360 Output Total 250 / 250 750 / 750 Balance -200 / -200 -390 / -390 Weight last 48 hrs Weight 83.915 kg Physical Exam Const: COMMON NORMALS: no acute distress and patient oriented x3 Resp: COMMON NORMALS: normal respiratory effort, No retractions, No use of accessory muscles and clear to auscultation bilaterally AUSCULTATION: clear to auscultation bilaterally Cardio: COMMON NORMALS: regular rate, regular rhythm, S1 normal heart sound present and S2 normal heart sound present RATE: regular rate RHYTHM: regular rhythm HEART SOUNDS: S1 normal heart sound present and S2 normal heart sound present GI: COMMON NORMALS: Normal to inspection, nondistended, normoactive bowel sounds present and non-tender Extremity: COMMON NORMALS: no pedal edema Neuro: COMMON NORMALS: patient oriented x3 Data 02/06/23 19:31 02/06/23 19:31 A&P Assessment and plan (1) CHF (congestive heart failure): (2) Pleural effusion: (3) History of open heart surgery: Plan 77-year-old male with recent coronary artery bypass surgery as noted above on January 25, 2023, recently left the hospital on February 04, 2023. Has not taken any of his discharge medications since leaving the hospital. Came to the emergency room today needing prescriptions , was noted to have bilateral lower extremity edema, bilateral pleural effusions, elevated white blood cell count, and atelectasis versus infiltrate on his chest x-ray. Complains of some dyspnea on exertion. Chest pain-free currently. CHF exacerbation, systolic, requiring Lasix therapy, fluid restrictions EKG today shows sinus rhythm, no acute ST-T wave changes, troponins 30s range, Thus far he has received 40 mg of IV Lasix in the emergency room, will continue 20 mg IV every 12 hours. Closely monitor urine output and renal function with initiating diuresis. He has recently suffered from acute kidney injury, at the time of discharge it appears his creatinine was at 1.6, currently at 1.3 which is downtrending. Unable to comment on the nature (systolic/diastolic) or chronicity of CHF at this time as echocardiogram results are not available for review. Assuming chronic CHF given that he ws on diuretics and recommended a life vest at discharge. Records have been requested. CXR with atelactasis vs pneumonia - start CTX 1 gm iv daily currently , denies any symptoms such as cough or chest discomfort. Check procal, MRSA screen , bacterial Ag panel. Obtain WBC count from discharge. Continue medications recommneded at discharge as detailed above in HPI . cardiology consult to optimize medications and establish/expedite CV follow up here locally after recent surgery. Arrangements for life vest based on cardiology consult Plan for today is to continue diuresis, continue antibiotics, PT OT, continue Eliquis, Plavix, watch urine output Dvt ppx: Eliquis Full code Attestations Medical Necessity Statement*: This is a 77-year-old male, who requires hospitalization for CHF exacerbation, systolic, bilateral pleural effusions, history of CABG Diagnoses CHF (congestive heart failure) I50.9 Pleural effusion J90 History of open heart surgery Z98.890
[2023-02-07 17:00] LABS: Glucose Point of Care 251 mg/dL (70-110)
[2023-02-07] MEDS: atorvastatin 40 mg Tablet PO (20:27)
[2023-02-07 20:55] LABS: Glucose Point of Care 183 mg/dL (70-110)
[2023-02-07] MEDS: TRAMadol 50 mg Tablet PO (23:49)
[2023-02-08 03:20] VITALS: BP 123/69; PULSE 66; RESP 16; TEMP 36.6; O2SAT 94
[2023-02-08] MEDS: cefTRIAXone 1,000 MG in sodium chloride 0.9% (plus) 50 ML 100 MG IV (03:39)
[2023-02-08 05:46] LABS: Basophils # 0.1 10^3/uL (0.0-0.1); Basophils % 0.8 %; Eosinophils # 0.3 10^3/uL (0.0-0.8); Eosinophils % 1.8 %; Hematocrit 33.1 % (37-53); Lymphocytes # 1.9 10^3/uL (0.8-4.8); Lymphocytes % 12.7 %; Mean Corpuscular HGB Conc 31.1 g/dL (30-55); Mean Corpuscular Hemoglobin 30.5 pg (27-33); Mean Corpuscular Volume 97.9 fl (82-101); Mean Platelet Volume 9.2 fL (7.4-10.4); Monocytes # 1.1 10^3/uL (0.2-0.9); Monocytes % 7.3 %; Neutrophils # 11.09 10^3/uL (1.8-7.7); Neutrophils % 76.4 %; Nucleated Red Blood Cells % 0 %; Platelet Count 472 10^3/cmm (157-399); Red Blood Count 3.38 10^6/uL (3.85-5.65); White Blood Count 14.51 10^3/uL (3.29-11.43)
[2023-02-08 06:05] LABS: Alanine Aminotransferase 24 U/L (0-41); Albumin Level 3.1 g/dL (3.5-5.2); Alkaline Phosphatase 82 U/L (40-130); Anion Gap 14.4 (5-19); Aspartate Amino Transferase 14 U/L (0-40); Blood Urea Nitrogen 31 mg/dL (8-23); Calcium 8.2 mg/dL (8.5-10.5); Carbon Dioxide 25 mmol/L (22-29); Chloride 106 mmol/L (98-107); Globulin 2.6 g/dL (1.3-4.6); Glucose 149 mg/dL (65-115); Osmolality Calculated 301 mOsm/kg (285-295); Potassium 4.4 mmol/L (3.5-5.1); Sodium 141 mmol/L (136-145); Total Bilirubin 0.3 mg/dL (0.15-1.2); Total Protein 5.7 g/dL (6.6-8.7)
[2023-02-08 06:06] LABS: Magnesium 2.2 mg/dL (1.7-2.3)
[2023-02-08 07:04] LABS: Glucose Point of Care 156 mg/dL (70-110)
[2023-02-08 08:03] VITALS: BP 116/62; PULSE 59; RESP 18; TEMP 36.6; O2SAT 98
--- NOTE | 2023-02-08 08:22 | USCV_ITS ---
Emery Ramires Age: 77 Gender: M : 1945 Exam Date: 02/08/2023 09:56 Ordering Phys: Brendan Zhang M.D ([email or web address]) Technologist: Keron Pantoja Exam Location: [facility] [place] Indication: CHF BP: 116 / 62 HR: 72 Rhythm: Sinus Technical Quality: Adequate MEASUREMENTS (Male / Female) Normal Values 2D ECHO LVOT Diameter 2.1 cm LV Ejection Fraction MOD 2C 48.1 % LV Ejection Fraction 2C AL 47.6 % LA Diameter 4.0 cm LA Width 3.9 cm LA Height 4.9 cm RA Width 4.8 cm RA Height 5.9 cm Aorta at Sinotubular Diameter 2.7 cm M-MODE Aortic Annulus Diameter 3.3 cm LA Ao Ratio MM 1.1 MV E Point Septal Separation 1.3 cm DOPPLER AV Peak Velocity 154.0 cm/s LVOT Peak Velocity 92.0 cm/s AV Area Cont Eq vti 1.8 cm squared AV Area Cont Eq pk 2.0 cm squared MV Peak Velocity 172.0 cm/s MV Area PHT 4.3 cm squared Mitral E to A Ratio 1.1 MV E' Velocity 53.0 cm/s Mitral E to MV E' Ratio 17.9 Mitral E to LV E' Lateral Ratio 16.1 Mitral E to LV E' Septal Ratio 20.4 TR Peak Velocity 276.4 cm/s TR Peak Gradient 30.6 mmHg TR Mean Velocity 264.2 cm/s TR Mean Gradient 29.7 mmHg TR Velocity Time Integral 98.3 cm Right Atrial Pressure 8.0 mmHg Pulmonary Artery Systolic Pressu 38.6 mmHg PV Peak Velocity 83.3 cm/s RV Acceleration Time 0.1 s RV Ejection Time 0.3 s RV AcT/ET 0.2 FINDINGS Left Ventricle Normal left ventricular cavity size. Mildly decreased left ventricular systolic function. Left ventricular ejection fraction is estimated at 45 %. Mild global hypokinesis with severe hypokinesis of basal to mid inferoseptal, basal to mid anteroseptal, apical septal, basal to apical inferior ramirez. Right Ventricle Normal right ventricular size and systolic function. Right ventricular systolic pressure 43 mmHg. Right Atrium Mildly increased right atrial size. Left Atrium Moderately increased left atrial size. Mitral Valve Structurally normal mitral valve. No mitral valve stenosis. Mild to moderate mitral valve regurgitation. Aortic Valve Aortic valve not well visualized. Probably trileaflet aortic valve. No aortic valve stenosis. Moderate aortic valve regurgitation. Tricuspid Valve Structurally normal tricuspid valve. No tricuspid valve stenosis. Mild tricuspid valve regurgitation. Pulmonic Valve Pulmonic valve not well visualized. No pulmonary valve stenosis. Trace pulmonary valve regurgitation. Pericardium No pericardial effusion. Aorta Normal size aortic root and proximal ascending aorta. IVC Inferior vena cava not visualized. CONCLUSIONS 1. Normal left ventricular cavity size. Mildly decreased left ventricular systolic function. Left ventricular ejection fraction is estimated at 45 %. Mild global hypokinesis with severe hypokinesis of basal to mid inferoseptal, basal to mid anteroseptal, apical septal, basal to apical inferior ramirez. 2. Mild to moderate mitral valve regurgitation. 3. Mild tricuspid valve regurgitation and moderate aortic valve regurgitation. 4. Pulmonary artery pressure estimated at 43 mmHg. 5. No prior similar studies to compare Loraine Hale MD (Electronically Signed) Final Date: 10 February 2023 09:44 S
--- NOTE | 2023-02-08 08:22 | PM.PN ---
Subjective Subjective: Patient is feeling better. He wants to go home today. Has diuresed. Vitals/I&O/Wt Last Vital Signs Temp 97.9 F 02/08/23 08:03 Pulse 59 L 02/08/23 08:03 Resp 18 02/08/23 08:03 BP 116/62 02/08/23 08:03 Pulse Ox 98 02/08/23 08:03 O2 Del Method Room Air 02/08/23 08:03 02/07/23 02/08/23 02/08/23 22:59 06:59 14:59 Intake Total 840 / 1200 50 / 1250 Output Total 200 / 950 Balance 640 / 250 50 / 300 Weight last 48 hrs Weight 185 lb Physical Exam Narrative: GENERAL: Patient is alert, awake and oriented x3. [] NECK: No jugular vein distension. [] HEENT: No cyanosis. No icterus. No pallor. [] HEART: Regular S1 and S2. No murmur, rub or gallop. [] LUNGS: Clear to auscultate bilaterally. [] CENTRAL NERVOUS SYSTEM: Grossly nonfocal. [] EXTREMITIES: Lower extremities with 1-2+ edema bilaterally. Data 02/08/23 05:27 02/08/23 05:27 A&P Assessment and plan (1) Diabetes: (2) History of open heart surgery: (3) Pleural effusion: (4) A-fib: (5) Hypertension: Plan Patient's volume status has improved. Can switch to p.o. Lasix today. Echocardiogram shows mildly reduced LV systolic function with EF of 45%. And Continue Eliquis. Thank you for involving us with care of this patient. Please call with questions. Please call with questions Attestations Medical Necessity Statement*: Care expected to cross 2 midnights. Coding Level of Care Code Acute Code for Chg Fwd Diagnoses Diabetes E11.9 History of open heart surgery Z98.890 Pleural effusion J90 A-fib I48.91 Hypertension I10
--- NOTE | 2023-02-08 08:51 | PC.SOCIAL ---
Pg 2 IMM Explained to pt Pg 2 IMM. No questions voiced. Provided pt a copy. Initialed, dated, & timed a copy & placed in chart.
[2023-02-08] MEDS: clopidogrel 75 mg Tablet PO (09:11)
[2023-02-08] MEDS: pantoprazole DR 40 mg Tablet PO (09:11)
[2023-02-08] MEDS: apixaban 5 mg Tablet PO (09:11)
[2023-02-08] MEDS: insulin lispro 100 unit/1 mL SUBCUT ×2 (09:12→11:59)
[2023-02-08 09:25] LABS: NT Pro B Type Natriuretic Pept 9614 pg/mL (0-450)
[2023-02-08] MEDS: FUROsemide 10 mg/mL SDV 2mL 20 MG IVP (10:13)
[2023-02-08] MEDS: amiodarone 200 mg Tablet PO (10:15)
[2023-02-08 11:37] LABS: Glucose Point of Care 190 mg/dL (70-110)
--- NOTE | 2023-02-08 12:14 | PM.DCS ---
Discharge Providers Date of Admission: 02/06/23 23:45 Date of Discharge: February 08, 2023 Attending Provider at Admission: Ramandeep Doan MD Attending Provider at Discharge: Guy Frederick MD Primary Care Provider: [facility] Diagnoses at Discharge Discharge Diagnosis (1) CHF (congestive heart failure): Status: Acute (2) History of open heart surgery: Status: Acute (3) Pleural effusion: Status: Acute (4) A-fib: Status: Acute (5) Diabetes: Status: Acute (6) Hypertension: Status: Acute Reason for Visit Reason for Visit[facility] Hospital Course Hospital Course Emery Ramires is a 77 year old male who was recently diagnosed with coronary artery disease, underwent angiogram at [facility] about a month ago which showed significant three-vessel coronary artery disease, moderate LV dysfunction and transthoracic echo suggestive of moderate to severe MR. He is status post CABG (FU to distal LAD, saphenous vein graft to obtuse marginal, extensive RCA endarterectomy and saphenous graft to distal RCA at the proximal) at [facility] on January 25, 2023.? Postoperative echo showed good overall function and no abnormalities with the valvular function.? Postoperative course was notable for development of atrial fibrillation needing amiodarone infusion.? He underwent BELÉN cardioversion on January 30, 2023.? He was started on Eliquis.? Course also complicated by LORETA, it appears peak creatinine was at 1.69.? Aldactone was on hold. Diuretics were converted to oral on February 03, 2023.? It appears he was to be discharged with a LifeVest and arrangements were being made for the same.? Sternal incision was noted to be healing well.? No apparent infectious complications.? He was recommended to be discharged to inpatient rehab on February 05, 2023, however patient declined to go to rehab and instead opted to return home.? Patient states that since he left [place] he never got any prescriptions. I am able to review some of the paperwork from [facility] and the list of his discharge medications include amiodarone 200 mg p.o. twice daily for 14 days followed by 200 mg daily for the next 2 weeks. Eliquis 5 mg twice daily, Pepcid 20 mg daily, Lasix 40 mg daily for 14 days, insulin glargine 30 units subcutaneous with breakfast, insulin lispro sliding scale with meals, metoprolol 25 mg p.o. twice daily, oxycodone 5 mg every 4 hours as needed for pain, rosuvastatin 20 mg daily, Plavix 75 mg daily, paroxetine.? His pre-existing amlodipine, aspirin and glipizide, hydrochlorothiazide, lisinopril were discontinued. Patient states that since returning [facility], however it appears since there were no records available his prescriptions were not filled and he was directed to come into the ER for labs. Here he reported bilateral lower extremity edema, he is noted to have pitting edema bilaterally and small to moderate bilateral pleural effusions, he states that his edema has been persisting ever since he left [facility], he has not noticed any improvement or worsening.? He complains of some dyspnea on walking.? Denies any chest pain palpitations or syncope.? He is not currently established with cardiology services for outpatient at any hospital.? He would like to continue further follow-ups here at [facility] in [place], declines going back to [facility]. Patient was admitted to [facility], for CHF exacerbation, received inpatient diuresis, overall improved, discharged on Lasix 20 twice daily with potassium replacement therapy, follow-up cardiology in 1 week follow-up with primary care A-fib discharged on Eliquis 5 mg twice daily, discharged on amiodarone History of CAD, history of CABG, follow-up with cardiology, follow-up with [facility] in [place] Patient had concerns for pneumonia after hospitalization discharged on cefdinir, For diabetes, discharged on NovoLog, Patient was advised to monitor for chest pain, shortness of breath if so go to emergency room, Patient has declined LifeVest, understands morbidity mortality associated, Physical Exam Const: COMMON NORMALS: no acute distress and patient oriented x3 Resp: COMMON NORMALS: normal respiratory effort, No retractions, No use of accessory muscles and clear to auscultation bilaterally AUSCULTATION: clear to auscultation bilaterally Cardio: COMMON NORMALS: regular rate, regular rhythm, S1 normal heart sound present and S2 normal heart sound present RATE: regular rate RHYTHM: regular rhythm HEART SOUNDS: S1 normal heart sound present and S2 normal heart sound present GI: COMMON NORMALS: Normal to inspection, nondistended, normoactive bowel sounds present and non-tender Extremity: COMMON NORMALS: no pedal edema Neuro: COMMON NORMALS: patient oriented x3 Psych: COMMON NORMALS: mental status grossly normal Discharge Data Studies Completed and Pending Completed Studies During Hospitalization Category Date Time Status XR chest 1V [id number] Stat Exams 02/06/23 19:15 Completed Pending at discharge Category Date Time Status MRSA [Methicillin Resistant S.aureu] Routine Lab 02/07/23 05:40 Ordered CV. echo complete* [id number] Routine Ultrasound 02/08/23 08:22 Taken Radiology Impressions Chest X-Ray 02/06/23 19:15 IMPRESSION: 1. Mild cardiomegaly noted. 2. Left lower lobe atelectasis versus infiltrate. 3. Mild atelectasis at the right lung base. 4. Small to moderate sized left pleural effusion. 5. Small right pleural effusion. Laboratory Results WBC 14.51 10^3/uL (3.29-11.43) H 02/08/23 05:27 RBC 3.38 10^6/uL (3.85-5.65) L 02/08/23 05:27 Hgb 10.30 g/dL (11.27-16.99) L 02/08/23 05:27 Hct 33.1 % (37-53) L 02/08/23 05:27 MCV 97.9 fl (82-101) 02/08/23 05:27 MCH 30.5 pg (27-33) 02/08/23 05:27 MCHC 31.1 g/dL (30-55) 02/08/23 05:27 RDW 13.0 % (12.1-15.1) 02/08/23 05:27 Plt Count 472 10^3/cmm (157-399) H 02/08/23 05:27 MPV 9.2 fL (7.4-10.4) 02/08/23 05:27 Neut % (Auto) 76.4 % 02/08/23 05:27 Lymph % (Auto) 12.7 % 02/08/23 05:27 Page % (Auto) 7.3 % 02/08/23 05:27 Eos % (Auto) 1.8 % 02/08/23 05:27 Baso % (Auto) 0.8 % 02/08/23 05:27 Neut # (Auto) 11.09 10^3/uL (1.8-7.7) H 02/08/23 05:27 Lymph # (Auto) 1.9 10^3/uL (0.8-4.8) 02/08/23 05:27 Page # (Auto) 1.1 10^3/uL (0.2-0.9) H 02/08/23 05:27 Eos # (Auto) 0.3 10^3/uL (0.0-0.8) 02/08/23 05:27 Baso # (Auto) 0.1 10^3/uL (0.0-0.1) 02/08/23 05:27 Nucleated RBC % (auto) 0 % 02/08/23 05:27 Nucleated RBCs # 0.0 /100WBC 02/08/23 05:27 PT 16.40 SECONDS (12.1-14.9) H 02/06/23 19:31 INR 1.28 (0.8-1.2) H 02/06/23 19:31 APTT 32.3 SECONDS (23.9-36.7) 02/06/23 19:31 Sodium 141 mmol/L (136-145) 02/08/23 05:27 Potassium 4.4 mmol/L (3.5-5.1) 02/08/23 05:27 Chloride 106 mmol/L (98-107) 02/08/23 05:27 Carbon Dioxide 25 mmol/L (22-29) 02/08/23 05:27 Anion Gap 14.4 (5-19) 02/08/23 05:27 BUN 31 mg/dL (8-23) H 02/08/23 05:27 Creatinine 1.1 mg/dL (0.7-1.2) 02/08/23 05:27 GFR Calculation Not Reportable 02/08/23 05:27 Glucose 149 mg/dL (65-115) H 02/08/23 05:27 POC Glucose 190 mg/dL (70-110) H 02/08/23 11:29 Estimat Average Glucose 148 02/06/23 19:31 Hemoglobin A1c 6.8 % (4.0-6.0) H 02/06/23 19:31 Calculated Osmolality 301 mOsm/kg (285-295) H 02/08/23 05:27 Calcium 8.2 mg/dL (8.5-10.5) L 02/08/23 05:27 Magnesium 2.2 mg/dL (1.7-2.3) 02/08/23 05:27 Total Bilirubin 0.3 mg/dL (0.15-1.2) 02/08/23 05:27 AST 14 U/L (0-40) 02/08/23 05:27 ALT 24 U/L (0-41) 02/08/23 05:27 Alkaline Phosphatase 82 U/L (40-130) 02/08/23 05:27 NT-Pro-B Natriuret Pep 9614 pg/mL (0-450) H 02/08/23 05:27 Total Protein 5.7 g/dL (6.6-8.7) L 02/08/23 05:27 Albumin 3.1 g/dL (3.5-5.2) L 02/08/23 05:27 Globulin 2.6 g/dL (1.3-4.6) 02/08/23 05:27 Procalcitonin 0.11 ng/mL (0-0.5) 02/06/23 19:31 Vitals Last Vital Signs Temp 97.9 F 02/08/23 08:03 Pulse 59 L 02/08/23 08:03 Resp 18 02/08/23 08:03 BP 116/62 02/08/23 08:03 Pulse Ox 98 02/08/23 08:03 O2 Del Method Room Air 02/08/23 08:03 Discharge Plan Discharge Patient Disposition: Home Condition: Stable Prescriptions: New atorvastatin 40 mg Tablet 40 mg PO BEDTIME 30 Days Qty: 30 0RF clopidogrel 75 mg Tablet 75 mg PO DAILY 30 Days Qty: 30 0RF Eliquis 5 mg Tablet 5 mg PO BID@0900,2100 30 Days Qty: 60 0RF Novolog FlexPen U-100 Insulin 100 unit/mL (3 mL) insulin pen See Rx Instructions .ROUTE .COMPLEX Qty: 15 0RF Rx Instructions: Inject, subcu, 3 times daily, after meals, based on sign scale provided (DME) glucometer testing kit See Rx Instructions .Route .MEDSUPPLY Qty: 1 0RF Rx Instructions: lancets#100 strips#100 Lasix 20 mg tablet 20 mg PO BID 30 Days Qty: 60 0RF Klor-Con 10 10 mEq tablet extended release 10 meq PO BID 30 Days Qty: 60 0RF cefdinir 300 mg capsule 300 mg PO BID 5 Days Qty: 10 0RF Continued timolol maleate 0.5 % Drops 1 drp ophthalmic (eye) BEDTIME Qty: 10 0RF Rx Instructions: IN LEFT EYE difluprednate 0.05 % Drops 1 drp OPHTHALMIC (EYE) QID Qty: 5 0RF bromfenac 0.07 % Drops 1 drp OPHTHALMIC (EYE) DAILY Qty: 3 0RF Rx Instructions: IN LEFT EYE empagliflozin 25 mg Tablet 12.5 mg PO DAILY 30 Days Qty: 30 0RF Changed lisinopril-hydrochlorothiazide 20-12.5 mg Tablet 0.5 tab PO QAM 30 Days Qty: 15 0RF amiodarone 200 mg Tablet See Rx Instructions .ROUTE .COMPLEX Qty: 42 0RF Rx Instructions: TAKE ONE TAB PO BID 14 DAYS THEN ONE TAB DAILY FOR 14 DAYS Paxil 30 mg Tablet 15 mg PO DAILY 30 Days Qty: 15 0RF metoprolol tartrate 25 mg Tablet 12.5 mg PO BID 30 Days Qty: 30 0RF Discontinued glipizide 10 mg Tablet 10 mg PO BID amlodipine 2.5 mg Tablet 2.5 mg PO DAILY Discharge Orders: Discharge Order (Routine); Ordered 02/08/23 Ordered By: Guy Frederick Referrals: Ruby Lindsey APRN-BC [Primary Care Provider] - 1-3 days Inga Pittman FNP [Nurse Practitioner] - 1-3 days Discharge Diet: Cardiac Discharge Activity: Resume usual activity Patient Instructions: Opioid Safety Activity Restrictions/Additional Instructions: -Please monitor your blood sugars closely -Monitor your blood sugars 3 times daily as after meals -Please record your blood sugars, and a blood sugar log -For your NovoLog -Please inject blood sugar after meals based on sliding scale provided -Do not inject insulin if you do not eat as hypoglycemia kills -This is a NovoLog sliding scale -Insulin sliding ?fingerstick? Insulin ?141-180?0 units/sq 181-220?2 units/sq ?221-260?4 units/sq ?261-300 6 units/sq ?301-350?8 units/sq ?351-400 10 units/sq ?401-450?12 units/sq >450? 14units/sq -If your blood sugar is greater than 500 go to the emergency room -If your blood sugar is less than 60 or at anytime you feel lightheaded or dizzy or diaphoretic or have chest palpitations check your blood sugar, and eat a hard candy or drink orange juice and go immediately to the emergency room -Remember hypoglycemia kills, so?if his blood sugar is less than 60 we have to increase it by taking in a sugary meal such as a hard candy or orange juice and go to the emergency room -If you have any questions please call us where here to help -If you have chest pain or shortness of breath go to emergency room -follow-up primary care provider 1 week, recheck kidney function Discharge Attestations Time Spent in Discharge Care*: greater than 30 min Quality Metrics Clinical Quality Measures [ No reported AMI, CVA or VTE this stay] Coding Level of Care Code 01176 Total time (in minutes) for Discharge: 45 Diagnoses CHF (congestive heart failure) I50.9 History of open heart surgery Z98.890 Pleural effusion J90 A-fib I48.91 Diabetes E11.9 Hypertension I10
[2023-02-08 12:26] VITALS: BP 127/67; PULSE 67; RESP 16; TEMP 36.8; O2SAT 98
--- NOTE | 2023-02-08 15:33 | PC.NURSE ---
Discharge Note Patient discharged to home via private vehicle accompanied by friends. Discharge instructions reviewed with patient and/or agency sales representative. Mobile pharmacy medications and/or prescriptions provided. Belongings/home medications returned. Educated patient on how to use insulin pens and why insulin was required instead of PO medication.
[2023-02-08 15:35] VITALS: BP 127/67; PULSE 67; RESP 16; TEMP 36.8; O2SAT 98
[2023-02-09 13:49] LABS: Methicillin-Resist S.aureu PCR NOT DETECTED (NOT DETECTED)
== END 2023-02-08 15:36 | disposition home or self-care (01) | DRG 291 ==
LOC: ER 23:25 → MEDSURG 23:46
PROVIDERS: Admitting Provider Student in an Organized Health Care Education/Training Program; Emergency Provider Physician Assistant; PCP Nurse Practitioner Family; Visit Provider Family Medicine
DX: I11.0 Hypertensive heart disease with heart failure (principal); I50.23 Acute on chronic systolic (congestive) heart failure; E11.9 Type 2 diabetes mellitus without complications; Z79.4 Long term (current) use of insulin; Z79.01 Long term (current) use of anticoagulants; K59.00 Constipation, unspecified; I25.10 Atherosclerotic heart disease of native coronary artery without angina pectoris; Z95.1 Presence of aortocoronary bypass graft; I34.0 Nonrheumatic mitral (valve) insufficiency; I48.91 Unspecified atrial fibrillation
CPT/HCPCS: 36415; 36416; 71045; 80053; 82962; 83036; 83735; 83880; 84145; 85025; 85610; 85730; 86403; 87641; 93005; 93306; 96372; 96374; 97110; 97161; 97165; 97530; 99285; J0696; J1815; J1940

== ENCOUNTER 2023-02-09 19:07 | Emergency (ER) | payer OTHER, SELFPAY ==
[2023-02-09 19:10] VITALS: BP 137/71; PULSE 76; RESP 18; TEMP 36.7; O2SAT 94; BMI 30.4
--- NOTE | 2023-02-09 19:21 | ECG_ITS ---
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 Measurements Intervals [place] Rate: 77 P: 0 HI: 0 QRS: 21 QRSD: 106 T: 71 QT: 420 QTc: 476 Interpretive Statements SUPRAVENTRICULAR RHYTHM LOW QRS VOLTAGE IN PRECORDIAL LEADS [QRS DEFLECTION < 1.0 mV IN CHEST LEADS] POSSIBLE ANTERIOR MYOCARDIAL INFARCTION , OF INDETERMINATE AGE [30 ms Q WAVE IN V3/V4, OR R < 0.2 mV IN V4] Compared to ECG 02/06/2023 21:07:57 Supraventricular rhythm now present Low QRS voltage now present Sinus rhythm no longer present Myocardial infarct finding still present Electronically Signed On 02-10-2023 5:51:05 CONTACT LENS CUTTER by Loraine Hale M.D. [email or web address]
--- NOTE | 2023-02-09 19:21 | XRR_ITS ---
PROCEDURE INFORMATION: Exam: XR Chest Exam date and time: 02/09/2023 7:28 PM Age: 77 years old Clinical indication: Chest pressure; Prior surgery; Surgery date: <1 month; Patient HX: Chest pain; SOB; Recent cabg (01/25/23); Fluid retention; Additional info: Cp SOB TECHNIQUE: Imaging protocol: Radiologic exam of the chest. Views: 1 view. COMPARISON: CR (CHEST, ) 02/06/2023 8:14 PM FINDINGS: Lungs: Bibasilar atelectasis. Pleural spaces: Trace right and moderate left pleural effusion. Heart/Mediastinum: Unremarkable. No cardiomegaly. Bones/joints: Sternotomy wires. XR/XR chest 1V portable [id number] IMPRESSION: 1. Trace right and moderate left pleural effusion. 2. Sternotomy wires. 3. Bibasilar atelectasis.
[2023-02-09] MEDS: nitroglycerin 1 gm/inch oint Pkt 1 INCH TOPICAL (19:34)
[2023-02-09] MEDS: FUROsemide 10 mg/mL SDV 10mL 80 MG IVP (19:34)
[2023-02-09 19:35] LABS: Basophils # 0.1 10^3/uL (0.0-0.1); Basophils % 0.8 %; Eosinophils # 0.2 10^3/uL (0.0-0.8); Eosinophils % 1.2 %; Hematocrit 37.3 % (37-53); Lymphocytes # 1.7 10^3/uL (0.8-4.8); Lymphocytes % 10.2 %; Mean Corpuscular HGB Conc 31.4 g/dL (30-55); Mean Corpuscular Hemoglobin 30.4 pg (27-33); Mean Corpuscular Volume 96.9 fl (82-101); Mean Platelet Volume 9.7 fL (7.4-10.4); Monocytes # 1.1 10^3/uL (0.2-0.9); Monocytes % 6.4 %; Neutrophils # 13.64 10^3/uL (1.8-7.7); Neutrophils % 80.6 %; Nucleated Red Blood Cells % 0 %; Platelet Count 526 10^3/cmm (157-399); Red Blood Count 3.85 10^6/uL (3.85-5.65); Red Cell Distribution Width 13.2 % (12.1-15.1); White Blood Count 16.93 10^3/uL (3.29-11.43)
[2023-02-09 19:51] LABS: INR 1.18 (0.8-1.2)
[2023-02-09 19:52] LABS: Partial Thromboplastin Time 28.5 SECONDS (23.9-36.7)
--- NOTE | 2023-02-09 19:54 | ED_ITS ---
HPI - Chest Pain General: Chief Complaint: Chest Pain Stated Complaint: COUGH/EXTREMITY SWELLING Time Seen by Provider: 02/09/23 19:10 History of Present Illness: 77-year-old male with a history of coronary disease status post CABG recently, heart failure and atrial fibrillation. He presents with increased lower extremity swelling, shortness of breath and chest tightness. He says that he has been taking his Lasix at home, but it has not been helping. He has had water weight gain. No fever, some cough, no sputum production. Associated symptoms: Reports dyspnea; Deny abdominal pain, fever(s), nausea, palpitations or vomiting Review of Systems Const: Denies: fever(s) ENMT: Denies: throat pain Card: Reports: chest pain and irregular heart rhythm; Denies: palpitations Resp: Reports: dyspnea and non-productive cough GI: Denies: abdominal pain, nausea or vomiting PFS ED PFSH: Medical History A-fib Diabetes Hypertension Surgical History Hx of CABG Physical Exam Const: GENERAL APPEARANCE: cooperative; not frail appearing HENMT: COMMON NORMALS: normocephalic, atraumatic and Normal external nose present HEAD & SCALP: normocephalic and atraumatic FACE & SINUS: normal facial exam and face symmetric NOSE: Normal external nose present Eye: COMMON NORMALS: Equal, round and reactive pupils present and EOMs intact bilaterally PUPIL: Yes Equal, round and reactive pupils present Neck/C-Spine: GENERAL: Yes trachea midline Chest: CHEST: Yes Symmetrical chest wall rise Resp: COMMON NORMALS: normal respiratory effort, No retractions, No use of accessory muscles and clear to auscultation bilaterally AUSCULTATION: clear to auscultation bilaterally Cardio: COMMON NORMALS: regular rate and regular rhythm RATE: regular rate RHYTHM: regular rhythm GI: COMMON NORMALS: Normal to inspection, nondistended, normoactive bowel s ounds present Extremity: GENERAL: Yes edema (2-3+) Neuro: JESSICA COMA SCALE: document GCS findings [place] coma scale eye opening: Spontaneous Jessica coma scale verbal response: Orientated [place] coma scale motor response: Obey commands [place] coma scale total score: 15 SE NSORY EXAM: Yes extremities (intact) Psych: COMMON NORMALS: speech normal SPEECH: Yes normal speech Skin: COMMON NORMALS: no rashes or lesions noted GENERAL SKIN EXAM: no rashes or lesions noted Course Vital Signs: Vital signs: Vital Signs Temperature 98.0 F 02/09/23 19:10 Pulse Rate 75 02/09/23 22:00 Respiratory Rate 18 02/09/23 22:00 Blood Pressure 128/68 02/09/23 22:00 Pulse Oximetry 93 02/09/23 22:00 Oxygen Delivery Me thod Room Air 02/09/23 21:00 [facility] - Chest Pain Medical Decision Making Vital signs are stable. This patient is oxygenating appropriately on room air without respiratory distress. His white blood cell count is elevated 17. Plat elet count is also elevated. Blood sugar 173, BUN is 26 with a creatinine of 1.2. His BNP is 15,000. He has trace right and moderate left pleural effusions on chest x-ray, similar to his prior admission here. Urinalysis is negative. His troponin is -53 at 2 hours, indicating a decrease in heart strain likely from heart failure. He notes that his Lasix is not working well at home. He is currently taking 20 twice daily. We will discontinue, and put him on bumetanide to see if that improves his diuresis to some degree. After 80 mg of Lasix IV here, he has put out nearly 2 L and is feeling improved. Lab Data 02/09/23 19:20 02/09/23 20:07 Radiology Impressions Chest X-Ray 02/09/23 19:21 IMPRESSION: 1. Trace right and moderate left pleural effusion. 2. Sternotomy wires. 3. Bibasilar atelectasis. Laboratory Results WBC 16.93 10^3/uL (3.29-11.43) H 02/09/23 19:20 RBC 3.85 10^6/uL (3.85-5.65) 02/09/23 19:20 Hgb 11.70 g/dL (11.27-16.99) 02/09/23 19:20 Hct 37.3 % (37-53) 02/09/23 19:20 MCV 96.9 fl (82-101) 02/09/23 19:20 MCH 30.4 pg (27-33) 02/09/23 19:20 MCHC 31.4 g/dL (30-55) 02/09/23 19:20 RDW 13.2 % (12.1-15.1) 02/09/23 19:20 Plt Count 526 10^3/cmm (157-399) H 02/09/23 19:20 MPV 9.7 fL (7.4-10.4) 02/09/23 19:20 Neut % (Auto) 80.6 % 02/09/23 19:20 Lymph % (Auto) 10.2 % 02/09/23 19:20 [place] % (Auto) 6.4 % 02/09/23 19:20 Eos % (Auto) 1.2 % 02/09/23 19:20 Baso % (Auto) 0.8 % 02/09/23 19:20 Neut # (Auto) 13.64 10^3/uL (1.8-7.7) H 02/09/23 19:20 Lymph # (Auto) 1.7 10^3/uL (0.8-4.8) 02/09/23 19:20 [place] # (Auto) 1.1 10^3/uL (0.2-0.9) H 02/09/23 19:20 Eos # (Auto) 0.2 10^3/uL (0.0-0.8) 02/09/23 19:20 Baso # (Auto) 0.1 10^3/uL (0.0-0.1) 02/09/23 19:20 Nucleated RBC % (auto) 0 % 02/09/23 19:20 Nucleated RBCs # 0.0 /100WBC 02/09/23 19:20 PT 15.40 SECONDS (12.1-14.9) H 02/09/23 19:20 INR 1.18 (0.8-1.2) 02/09/23 19:20 APTT 28.5 SECONDS (23.9-36.7) 02/09/23 19:20 Sodium 139 mmol/L (136-145) 02/09/23 20:07 Potassium 4.3 mmol/L (3.5-5.1) 02/09/23 20:07 Chloride 102 mmol/L (98-107) 02/09/23 20:07 Carbon Dioxide 28 mmol/L (22-29) 02/09/23 20:07 Anion Gap 13.3 (5-19) 02/09/23 20:07 BUN 26 mg/dL (8-23) H 02/09/23 20:07 Creatinine 1.2 mg/dL (0.7-1.2) 02/09/23 20:07 GFR Calculation Not Reportable 02/09/23 20:07 Glucose 173 mg/dL (65-115) H 02/09/23 20:07 Calculated Osmolality 297 mOsm/kg (285-295) H 02/09/23 20:07 Calcium 8.4 mg/dL (8.5-10.5) L 02/09/23 20:07 Creatine Kinase 59 U/L (39-308) 02/09/23 20:07 Troponin T Baseline 80 ng/L (0-15) H 02/09/23 19:20 Troponin T 120 Minute 26.97 ng/L (0-15) H 02/09/23 21:32 Delta Troponin T -53.03 ABS# (0-10) L 02/09/23 21:32 NT-Pro-B Natriuret Pep 10582 pg/mL (0-450) H 02/09/23 20:07 Urine Color Colorless (Yellow) 02/09/23 20:39 Urine Appearance Clear (CLEAR) 02/09/23 20:39 Urine pH 7 (5-7) 02/09/23 20:39 Ur Specific [place] 1.005 (1.005-1.030) 02/09/23 20:39 Urine Protein Neg (Negative) 02/09/23 20:39 Urine Glucose (UA) 4+ (Normal) H 02/09/23 20:39 Urine Ketones Negative (Negative) 02/09/23 20:39 Urine Blood Trace (Negative) H 02/09/23 20:39 Urine Nitrate Negative (Negative) 02/09/23 20:39 Urine Bilirubin Neg (Negative) 02/09/23 20:39 Urine Urobilinogen Neg mg/dL (Negative) 02/09/23 20:39 Ur Leukocyte Esterase Negative (Negative) 02/09/23 20:39 Urine RBC Rare /hpf (0-2) 02/09/23 20:39 Urine WBC None /hpf (0-5) 02/09/23 20:39 Ur Squamous Epith Cells None /hpf (0-5) 02/09/23 20:39 Amorphous Sediment Not Reportable 02/09/23 20:39 Urine Bacteria None /hpf (NONE) 02/09/23 20:39 All radiology interpretation(s) finalized by discharge Discharge Plan Discharge Patient Disposition: Home Clinical Impression: CHF (congestive heart failure) Condition: Stable Prescriptions: New bumetanide 2 mg tablet 1 mg PO BID Qty: 30 0RF Discontinued furosemide [Lasix] 20 mg tablet 20 mg PO BID 30 Days Qty: 60 0RF No Action atorvastatin 40 mg Tablet 40 mg PO BEDTIME 30 Days Qty: 30 0RF clopidogrel 75 mg Tablet 75 mg PO DAILY 30 Days Qty: 30 0RF Eliquis 5 mg Tablet 5 mg PO BID@0900,2100 30 Days Qty: 60 0RF timolol maleate 0.5 % Drops 1 drp ophthalmic (eye) BEDTIME Qty: 10 0RF Rx Instructions: IN LEFT EYE difluprednate 0.05 % Drops 1 drp OPHTHALMIC (EYE) QID Qty: 5 0RF bromfenac 0.07 % Drops 1 drp OPHTHALMIC (EYE) DAILY Qty: 3 0RF Rx Instructions: IN LEFT EYE empagliflozin 25 mg Tablet 12.5 mg PO DAILY 30 Days Qty: 30 0RF Novolog FlexPen U-100 Insulin 100 unit/mL (3 mL) insulin pen See Rx Instructions .ROUTE .COMPLEX Qty: 15 0RF Rx Instructions: Inject, subcu, 3 times daily, after meals, based on sign [place] [place] glucom[place] kit See Rx Instructions .Route .MEDSUPPLY Qty: 1 0RF Rx Instructions: lancets#100 strips#100 Klor-Con 10 10 mEq tablet extended release 10 meq PO BID 30 Days Qty: 60 0RF lisinopril-hydrochlorothiazide 20-12.5 mg Tablet 0.5 tab PO QAM 30 Days Qty: 15 0RF amiodarone 200 mg Tablet See Rx Instructions .ROUTE .COMPLEX Qty: 42 0RF Rx Instructions: TAKE ONE TAB PO BID 14 DAYS THEN ONE TAB DAILY FOR 14 DAYS Paxil 30 mg Tablet 15 mg PO DAILY 30 Days Qty: 15 0RF metoprolol tartrate 25 mg Tablet 12.5 mg PO BID 30 Days Qty: 30 0RF cefdinir 300 mg capsule 300 mg PO BID 5 Days Qty: 10 0RF Discharge Orders: Discharge ED (Routine); Ordered 02/09/23 Ordered By: Durga Carter Referrals: Ruby Lindsey APRN-NATASHA [Primary Care Provider] - 1-3 days Patient Instructions: Heart Failure (ED), Opioid Safety, Pain Management Activity Restrictions/Additional Instructions: Stop your furosemide for now in favor of the medication you were prescribed tonight. Take twice daily as directed. Follow-up with your doctor next week. Return for worsening shortness of breath despite treatment, fever, worsening chest discomfort, any other concerning symptoms. Coding Level of Care Code ED Cleaner And Dyer for Jason Dunlap
[2023-02-09 19:59] LABS: Troponin(5th) Baseline 80 ng/L (0-15)
[2023-02-09 20:00] VITALS: BP 134/68; PULSE 70; RESP 20; O2SAT 93
[2023-02-09 20:40] LABS: Anion Gap 13.3 (5-19); Blood Urea Nitrogen 26 mg/dL (8-23); Calcium 8.4 mg/dL (8.5-10.5); Carbon Dioxide 28 mmol/L (22-29); Chloride 102 mmol/L (98-107); Creatine Phosphokinase 59 U/L (39-308); Creatinine Clr Calc Pharmacy 56.3844; Glucose 173 mg/dL (65-115); NT Pro B Type Natriuretic Pept 15130 pg/mL (0-450); Osmolality Calculated 297 mOsm/kg (285-295); Potassium 4.3 mmol/L (3.5-5.1); Sodium 139 mmol/L (136-145)
[2023-02-09 21:00] VITALS: BP 137/70; PULSE 77; RESP 18; O2SAT 93
[2023-02-09 21:04] LABS: Add Urine Culture? No; Add Urine Microscopic? YES; Bilirubin Urine Neg (Negative); Blood Urine Trace (Negative); Glucose Urine UA 4+ (Normal); Ketones Urine Negative (Negative); Leukocyte Esterase Urine Negative (Negative); Nitrate Urine Negative (Negative); Protein Urine Neg (Negative); RBC Urine RARE /hpf (0-2); Specific Gravity, Urine 1.005 (1.005-1.030); Urine Appearance Clear (CLEAR); Urine Color Colorless (Yellow); Urobilinogen Urine Neg (Negative); pH Urine 7 (5-7)
--- NOTE | 2023-02-09 21:43 | PC.NURSE ---
Pt. angry with logging rafter laborer when she tried to draw his second troponin level. Pt. has peripheral line in place , but cannot pull blood.
[2023-02-09 21:58] LABS: Troponin 5 2HR 26.97 ng/L (0-15)
[2023-02-09 22:00] VITALS: BP 128/68; PULSE 75; RESP 18; O2SAT 93
--- NOTE | 2023-02-11 09:05 | DCPLANNER ---
Message was sent to heart care on 02/11 at 0906. Clinic to contact patient.
== END 2023-02-09 22:58 | disposition home or self-care (01) ==
PROVIDERS: Emergency Provider Emergency Medicine; PCP Nurse Practitioner Family
DX: I11.0 Hypertensive heart disease with heart failure (principal); I50.9 Heart failure, unspecified; Z79.01 Long term (current) use of anticoagulants; Z79.02 Long term (current) use of antithrombotics/antiplatelets; Z79.4 Long term (current) use of insulin; I25.810 Atherosclerosis of coronary artery bypass graft(s) without angina pectoris; E11.9 Type 2 diabetes mellitus without complications; Z95.1 Presence of aortocoronary bypass graft
CPT/HCPCS: 36415; 71045; 80048; 81001; 82550; 83880; 84484; 85025; 85610; 85730; 93005; 96374; 99285; J1940

== ENCOUNTER → 2023-02-21 15:55 | Outpatient (BNVA) | payer OTHER, SELFPAY | PROVIDERS: PCP Nurse Practitioner Family; Visit Provider Nurse Practitioner Family | DX: I10 Essential (primary) hypertension (principal); I50.9 Heart failure, unspecified | CPT/HCPCS: 36415; 80048; 83880; 99214 ==

== ENCOUNTER → 2023-03-05 11:32 | Outpatient (BNVA) | payer OTHER, SELFPAY | PROVIDERS: PCP Nurse Practitioner Family; Visit Provider Nurse Practitioner Family | DX: I48.91 Unspecified atrial fibrillation (principal); I11.0 Hypertensive heart disease with heart failure; I50.23 Acute on chronic systolic (congestive) heart failure; I48.0 Paroxysmal atrial fibrillation | CPT/HCPCS: 93005; 99214 ==

== ENCOUNTER 2023-04-03 13:02 | Emergency (ER) | payer OTHER, SELFPAY ==
--- NOTE | 2023-04-03 13:07 | XRR_ITS ---
PROCEDURE INFORMATION: Exam: XR Chest Exam date and time: 04/03/2023 1:15 PM Age: 77 years old Clinical indication: Other: Chest pain; Prior surgery; Surgery date: 6+ months; Surgery type: Cabg; Additional info: Cp TECHNIQUE: Imaging protocol: Radiologic exam of the chest. Views: 1 view. COMPARISON: CR XR chest 1V portable [id number] 02/09/2023 7:28 PM FINDINGS: Lungs: No new focal consolidation. Pleural spaces: Moderate left pleural effusion. No pneumothorax. Heart/Mediastinum: No cardiomegaly. Bones/joints: No acute findings. XR/XR chest 1V portable [id number] IMPRESSION: Moderate left pleural effusion.
--- NOTE | 2023-04-03 13:10 | ECG_ITS ---
[facility] Test Date: 2023-04-03 Pat Name: Emery Ramires Department: Room: Gender: Male Suspender Maker: : 1945 Requested By: Curtis Espinosa Order Number: [id number] Ulises MD: Brendan Zhang M.D. Measurements Intervals [place] Rate: 131 P: 0 ND: 0 QRS: 8 QRSD: 80 T: 0 QT: 187 QTc: 276 Interpretive Statements ATRIAL FLUTTER WITH RAPID VENTRICULAR RESPONSE POSSIBLE ANTERIOR MYOCARDIAL INFARCTION , PROBABLY OLD [30 ms Q WAVE IN V3/V4, OR R < 0.2 mV IN V4] Compared to ECG 03/05/2023 11:38:26 Myocardial infarct finding now present Supraventricular tachycardia no longer present T-wave abnormality no longer present Electronically Signed On 04-04-2023 7:10:19 PRODUCT HANDLER by Brendan Zhang M.D. [id number]
[2023-04-03 13:11] VITALS: BP 132/84; PULSE 130; RESP 16; TEMP 37.1; O2SAT 98; BMI 30.1
[2023-04-03 13:37] LABS: Basophils # 0.1 10^3/uL (0.0-0.1); Basophils % 0.5 %; Eosinophils # 0.1 10^3/uL (0.0-0.8); Eosinophils % 0.5 %; Hematocrit 42.7 % (37-53); Lymphocytes # 1.8 10^3/uL (0.8-4.8); Lymphocytes % 12.4 %; Mean Corpuscular HGB Conc 31.9 g/dL (30-55); Mean Corpuscular Hemoglobin 29.2 pg (27-33); Mean Corpuscular Volume 91.8 fl (82-101); Mean Platelet Volume 10.6 fL (7.4-10.4); Monocytes # 1.1 10^3/uL (0.2-0.9); Monocytes % 7.7 %; Neutrophils # 11.18 10^3/uL (1.8-7.7); Neutrophils % 78.5 %; Nucleated Red Blood Cells % 0 %; Platelet Count 371 10^3/cmm (157-399); Red Blood Count 4.65 10^6/uL (3.85-5.65); Red Cell Distribution Width 14.2 % (12.1-15.1); White Blood Count 14.24 10^3/uL (3.29-11.43)
--- NOTE | 2023-04-03 13:51 | ED_ITS ---
HPI - Arrhythmia/Palpitations 2 General: Chief Complaint: Arrhythmia/Palpitations Stated Complaint: sent by [place], chest tightness Time Seen by Provider: 04/03/23 13:38 Source: patient Mode of arrival: ambulatory Limitations: no limitations History of Present Illness: 77-year-old male he had a CABG done 2 mo nths ago he is sent here from [facility] for atrial flutter. Patient states that he has a history atrial flutter he states he has not been taking his meds as prescribed at home he denies any chest pain he states he feels fine he has no medical complaints he has some slight palpitations denies any shortness of breath. Associated symptoms: Deny nausea or vomiting Review of Systems 2 Const: Denies: fever(s), chills, body aches or change in appetite ENMT: Denies: throat pain or dental pain Card: Reports: palpitations and irregular heart rhythm; Denies: chest pain Resp: Denies: dyspnea GI: Denies: abdominal pain, nausea, vomiting or diarrhea : Denies: dysuria Musc: Denies: neck pain or back pain Skin/Breast: Denies: rash Neuro: Denies: headache(s) PFSH ED 2 PFSH: Medical History Hypertension A-fib Diabetes Surgical History Hx of CABG Physical Exam 2 Const: COMMON NORMALS: no acute distress, patient oriented x3 and healthy appearing HENMT: COMMON NORMALS: normocephalic and atraumatic HEAD & SCALP: n ormocephalic and atraumatic Eye: COMMON NORMALS: Equal, round and reactive pupils present PUPIL: Yes Equal, round and reactive pupils present Neck/C-Spine: COMMON NORMALS: full ROM and supple Chest: COMMONS NORMALS: normal inspection of the chest and normal palpation of entire chest wall Resp: COMMON NORMALS: normal respiratory effort, No retractions, No use of accessory muscles and clear to auscultation bilaterally AUSCULTATION: clear to auscultation bilaterally Cardio: COMMON NORMALS: No murmurs present (Cardio) RATE: tachycardic R HYTHM: abnormal rhythm irregularly irregular GI: COMMON NORMALS: Normal to inspection, nondistended, normoactive bowel sounds present, Soft to palpation, non-tender and no masses PALPATION: Yes Soft to palpation Extremity: COMMON NORMALS: normal to inspection and full ROM Neuro: COMMON NORMALS: patient oriented x3, moves all extremities and no focal motor deficits Psych: COMMON NORMALS: mental status grossly normal, Normal thought process present and cooperative THOUGHT PROCESS: Normal thought process present Skin: COMMON NORMALS: no rashes or lesions noted and no wounds GENERAL SKIN EXAM: no rashes or lesions noted Course 2 Vital Signs: Vital signs: Vital Signs Temperature 98.8 F 04/03/23 13:11 Pulse Rate 130 H 04/03/23 13:11 Respiratory Rate 16 04/03/23 13:11 Blood Pressure 132/84 04/03/23 13:11 Pulse Oximetry 98 04/03/23 13:11 Oxygen Delivery Me thod Room Air 04/03/23 13:11 MDM - Arrhythmia/Palpitations Medical Decision Making Patient presents here in atrial flutter also CHF. Patient has been angry since he got here. When he first got here he states he cannot stay long he does not know [facility] he does not want to be here. Did give him Cardizem his heart rate still in the 130s when offered admission he refused he said he has meds at home and does not want to stay in the hospital he has to leave right now he understands the risk he does have medical decision-making capacity I discharged him he does have home health he is return if he changes his mind or worsens he understands. Medical Records I reviewed the patient's medical records. Lab Data I reviewed the patient's lab results. 04/03/23 13:28 04/03/23 13:28 Radiology Impressions Chest X-Ray 04/03/23 13:07 IMPRESSION: Moderate left pleural effusion. Laboratory Results WBC 14.24 10^3/uL (3.29-11.43) H 04/03/23 13:28 RBC 4.65 10^6/uL (3.85-5.65) 04/03/23 13:28 Hgb 13.60 g/dL (11.27-16.99) 04/03/23 13:28 Hct 42.7 % (37-53) 04/03/23 13:28 MCV 91.8 fl (82-101) 04/03/23 13:28 MCH 29.2 pg (27-33) 04/03/23 13:28 MCHC 31.9 g/dL (30-55) 04/03/23 13:28 RDW 14.2 % (12.1-15.1) 04/03/23 13:28 Plt Count 371 10^3/cmm (157-399) 04/03/23 13:28 MPV 10.6 fL (7.4-10.4) H 04/03/23 13:28 Neut % (Auto) 78.5 % 04/03/23 13:28 Lymph % (Auto) 12.4 % 04/03/23 13:28 [place] % (Auto) 7.7 % 04/03/23 13:28 Eos % (Auto) 0.5 % 04/03/23 13:28 Baso % (Auto) 0.5 % 04/03/23 13:28 Neut # (Auto) 11.18 10^3/uL (1.8-7.7) H 04/03/23 13:28 Lymph # (Auto) 1.8 10^3/uL (0.8-4.8) 04/03/23 13:28 [place] # (Auto) 1.1 10^3/uL (0.2-0.9) H 04/03/23 13:28 Eos # (Auto) 0.1 10^3/uL (0.0-0.8) 04/03/23 13:28 Baso # (Auto) 0.1 10^3/uL (0.0-0.1) 04/03/23 13:28 Nucleated RBC % (auto) 0 % 04/03/23 13:28 Nucleated RBCs # 0.0 /100WBC 04/03/23 13:28 PT 14.70 SECONDS (12.1-14.9) 04/03/23 13:28 INR 1.11 (0.8-1.2) 04/03/23 13:28 Sodium 137 mmol/L (136-145) 04/03/23 13:28 Potassium 4.7 mmol/L (3.5-5.1) 04/03/23 13:28 Chloride 99 mmol/L (98-107) 04/03/23 13:28 Carbon Dioxide 27 mmol/L (22-29) 04/03/23 13:28 Anion Gap 15.7 (5-19) 04/03/23 13:28 BUN 24 mg/dL (8-23) H 04/03/23 13:28 Creatinine 1.3 mg/dL (0.7-1.2) H 04/03/23 13:28 GFR Calculation Not Reportable 04/03/23 13:28 Glucose 235 mg/dL (65-115) H 04/03/23 13:28 Calculated Osmolality 296 mOsm/kg (285-295) H 04/03/23 13:28 Calcium 9.2 mg/dL (8.5-10.5) 04/03/23 13:28 Total Bilirubin 1.1 mg/dL (0.15-1.2) 04/03/23 13:28 AST 27 U/L (0-40) 04/03/23 13:28 ALT 33 U/L (0-41) 04/03/23 13:28 Alkaline Phosphatase 95 U/L (40-130) 04/03/23 13:28 Troponin T Baseline 39 ng/L (0-15) H 04/03/23 13:28 NT-Pro-B Natriuret Pep 51424 pg/mL (0-450) H 04/03/23 13:28 Total Protein 7.3 g/dL (6.6-8.7) 04/03/23 13:28 Albumin 4.2 g/dL (3.5-5.2) 04/03/23 13:28 Globulin 3.1 g/dL (1.3-4.6) 04/03/23 13:28 All radiology interpretation(s) finalized by discharge EKG Data EKG 1: I personally reviewed and interpreted this EKG as follows: EKG interpretation date: 04/03/23 EKG interpretation time: 13:10 Interpretation: atrial flutter hr [address] or t wave abnormalities qrs 80 qtc 264 Other EKG comments: Chest X-Ray 04/03/23 13:07 IMPRESSION: Moderate left pleural effusion. Discharge Plan Discharge Patient Disposition: Home Clinical Impression: A-fib Qualifiers: Atrial fibrillation type: paroxysmal Qualified Code(s): I48.0 - Paroxysmal atrial fibrillation Condition: Stable Prescriptions: No Action Novolog FlexPen U-100 Insulin 100 unit/mL (3 mL) insulin pen See Rx Instructions .ROUTE .COMPLEX Qty: 15 0RF Rx Instructions: 181-220 2 units/sq, 221-260 4 units/sq, 261-300 6 units/sq, 301-350 8 units/sq, 351-400 10 units/sq, 401-450 12 units/sq, >450 14 units/sq amiodarone 200 mg tablet 200 mg PO DAILY Qty: 90 3RF Rx Instructions: begin on 03/20/23 bumetanide 1 mg tablet 1 mg PO BID Qty: 180 1RF Klor-Con 10 10 mEq tablet extended release 10 meq PO BID 30 Days Qty: 180 1RF timolol maleate 0.5 % Drops 1 drp ophthalmic (eye) BEDTIME Qty: 10 0RF Rx Instructions: IN LEFT EYE difluprednate 0.05 % Drops 1 drp OPHTHALMIC (EYE) QID Qty: 5 0RF bromfenac 0.07 % Drops 1 drp OPHTHALMIC (EYE) DAILY Qty: 3 0RF Rx Instructions: IN LEFT EYE empagliflozin 25 mg Tablet 12.5 mg PO DAILY 30 Days Qty: 30 0RF (DME) glucometer testing kit See Rx Instructions .Route .MEDSUPPLY Qty: 1 0RF Rx Instructions: lancets#100 strips#100 lisinopril-hydrochlorothiazide 20-12.5 mg Tablet 0.5 tab PO QAM 30 Days Qty: 15 0RF Paxil 30 mg Tablet 15 mg PO DAILY 30 Days Qty: 15 0RF metoprolol tartrate 25 mg Tablet 12.5 mg PO BID 30 Days Qty: 30 0RF Discharge Orders: Discharge ED (Routine); Ordered 04/03/23 Ordered By: Curtis Espinosa Referrals: Ruby Lindsey APRN-NATASHA [Primary Care Provider] - Discharge Diet: Advance as tolerated Discharge Activity: Resume usual activity Patient Instructions: Atrial Flutter (ED) Coding Level of Care Code ED Manager Inspection for Jason Dunlap
[2023-04-03 13:55] LABS: Alanine Aminotransferase 33 U/L (0-41); Albumin Level 4.2 g/dL (3.5-5.2); Alkaline Phosphatase 95 U/L (40-130); Anion Gap 15.7 (5-19); Aspartate Amino Transferase 27 U/L (0-40); Blood Urea Nitrogen 24 mg/dL (8-23); Calcium 9.2 mg/dL (8.5-10.5); Carbon Dioxide 27 mmol/L (22-29); Chloride 99 mmol/L (98-107); Globulin 3.1 g/dL (1.3-4.6); Glucose 235 mg/dL (65-115); Osmolality Calculated 296 mOsm/kg (285-295); Potassium 4.7 mmol/L (3.5-5.1); Sodium 137 mmol/L (136-145); Total Bilirubin 1.1 mg/dL (0.15-1.2); Total Protein 7.3 g/dL (6.6-8.7)
[2023-04-03 13:57] LABS: Troponin(5th) Baseline 39 ng/L (0-15)
[2023-04-03 13:58] LABS: INR 1.11 (0.8-1.2)
[2023-04-03] MEDS: dilTIAZem 5 mg/mL SDV 5 mL 15 MG IVP (14:04)
[2023-04-03 14:21] LABS: NT Pro B Type Natriuretic Pept 12438 pg/mL (0-450)
[2023-04-03 15:04] VITALS: PULSE 131
[2023-04-03] MEDS: dilTIAZem 60 mg Tablet PO (15:04)
== END 2023-04-03 15:10 | disposition home or self-care (01) ==
PROVIDERS: Emergency Provider Emergency Medicine; PCP Nurse Practitioner Family
DX: I48.0 Paroxysmal atrial fibrillation (principal); Z79.4 Long term (current) use of insulin; J90 Pleural effusion, not elsewhere classified; I10 Essential (primary) hypertension; E11.9 Type 2 diabetes mellitus without complications; Z95.1 Presence of aortocoronary bypass graft
CPT/HCPCS: 36415; 71045; 80053; 83880; 84484; 85025; 85610; 93005; 96374; 99285; J3490

== ENCOUNTER 2023-04-05 16:55 | Inpatient (IN) | payer OTHER, SELFPAY ==
[2023-04-05 17:01] VITALS: BP 138/85; PULSE 117; RESP 18; TEMP 36.6; O2SAT 97; BMI 29.3
--- NOTE | 2023-04-05 17:10 | XRR_ITS ---
PROCEDURE INFORMATION: Exam: XR Chest Exam date and time: 04/05/2023 6:56 PM Age: 77 years old Clinical indication: Shortness of breath; Prior surgery; Surgery date: 1-6 months; Surgery type: Cabg x 2mo ago; Patient HX: Increased SOB; Recent cabg (2mo ago); Additional info: Increased SOB; Recent cabg (2mo ago) TECHNIQUE: Imaging protocol: Radiologic exam of the chest. Views: 1 view. COMPARISON: CR XR chest 1V portable [id number] 04/03/2023 1:15 PM FINDINGS: Lungs: No new focal consolidation. Pleural spaces: Similar moderate left pleural effusion. No pneumothorax. Heart/Mediastinum: Heart size unchanged. Bones/joints: No acute findings. XR/XR chest 1V portable [id number] IMPRESSION: No significant change.
--- NOTE | 2023-04-05 17:12 | ECG_ITS ---
[facility] Test Date: 2023-04-05 Pat Name: Emery Ramires Department: Room: Gender: Male Floor Director: : 1945 Requested By: Curtis Espinosa Order Number: [id number] Ulises MD: Brendan Zhang M.D. Measurements Intervals [place] Rate: 119 P: 0 [place]: 0 QRS: 120 QRSD: 121 T: 0 QT: 225 QTc: 317 Interpretive Statements ATRIAL TACHYCARDIA POSSIBLE RIGHT VENTRICULAR HYPERTROPHY [SOME/ALL OF: PROMINENT R IN V1, LATE TRANSITION, RAD, FATIMAH, SSS] SEPTAL MYOCARDIAL INFARCTION , PROBABLY OLD [40+ ms Q WAVE IN V1/V2] Compared to ECG 04/03/2023 13:10:15 Atrial abnormality now present Myocardial infarct finding still present Electronically Signed On 04-06-2023 13:33:31 FOSTER CARE THERAPIST by Brendan Zhang M.D. [id number]
--- NOTE | 2023-04-05 18:15 | W.ED.SOB ---
Documented by User: DONALD Rob 04/05/23 19:38 HPI - SOB/Dyspnea General: Chief Complaint: Shortness of Breath/Dyspnea Stated Complaint: sob Time Seen by Provider: 04/05/23 17:34 History of Present Illness: HPI Narrative: Mr. Ramires is a 77-year-old man that presents to the emergency department with complaints of tachycardia and shortness of breath. Onset of symptoms several days ago. He was seen on 04/03 here in the emergency department with A-fib RVR and CHF. He signed out AMA Patient was evaluated yesterday by a walk-in clinic/PCP(?) and was started on bumex. He was referred to the emergency department if his symptoms did not improve. Patient ambulated in without difficulty and denies chest pain. He does not appear to be in any acute distress. He does have a history of A-fib, congestive heart failure, and underwent cardiac bypass 2 months ago. He has taken his prescribed medications without any relief of symptoms Associated symptoms: Reports lightheadedness, orthopnea and palpitations; Deny abdominal pain, chest congestion, chest pain, dizziness, extremity pain, fever(s), nausea, polydipsia, polyuria or vomiting Review of Systems General: Reports: 10 or more systems reviewed and unremarkable except in HPI and below Const: Denies: fever(s), chills, change in appetite, change in weight, fatigue or malaise Card: Reports: palpitations, irregular heart rhythm, edema, swelling of feet/ankles, lightheadedness, dyspnea on exertion and orthopnea; Denies: chest pain or leg pain with exertion Resp: Denies: dyspnea, productive cough, non-productive cough, wheezing, stridor or chest congestion GI: Denies: abdominal pain, nausea, vomiting, dysphagia, diarrhea, constipation, bloating, GI cramping or hematochezia : Denies: flank pain, dysuria, urinary frequency, urinary urgency, urinary hesitancy, oliguria or hematuria Musc: Denies: neck pain, back pain, extremity pain, joint pain, joint swelling, joint redness, joint warmth or muscle weakness Skin/Breast: Denies: rash, pruritus, erythema, photosensitivity or new lesions Neuro: Denies: headache(s), numbness in extremities, weakness in extremities, sensory changes, lack of coordination, difficulty walking, frequent falls, dizziness, confusion, Slurred speech present, difficulty communicating thoughts, seizure-like activity or involuntary movements Endo: Denies: polyuria, polydipsia or tired all the time Nathan/Lymph: Denies: easy bruising or easy bleeding PFSH ED PFSH: Medical History Hypertension A-fib Diabetes Surgical History Hx of CABG Physical Exam Const: COMMON NORMALS: no acute distress, patient oriented x3 and alert GENERAL APPEARANCE: cooperative ORIENTATION/CONSCIOUSNESS: Yes awake, Yes oriented to person, Yes oriented to place and Yes oriented to time Neck/C-Spine: COMMON NORMALS: full ROM GENERAL: Yes normal visual inspection Lymph: LYMPHATIC: no lymphadenopathy noted Chest: COMMONS NORMALS: normal inspection of the chest Breast/axilla inspection: Yes no chest deformity, asymmetry, normal contours, no nodules, masses, tenderness Resp: COMMON NORMALS: normal respiratory effort, No retractions, No use of accessory muscles and clear to auscultation bilaterally EFFORT & INSPECTION: Yes able to speak in complete sentences and Yes symmetric chest movement AUSCULTATION: clear to auscultation bilaterally Cardio: COMMON NORMALS: regular rate, regular rhythm and Peripheral pulses 2+ throughout RATE: regular rate RHYTHM: regular rhythm PERIPHERAL PULSES: Peripheral pulses 2+ throughout GI: COMMON NORMALS: Normal to inspection, nondistended, normoactive bowel sounds present, Soft to palpation, non-tender and No hepatosplenomegaly present INSPECTION: Yes normal to inspection AUSCULTATION: Yes normoactive bowel sounds PALPATION: Yes Soft to palpation and Yes No hepatosplenomegaly present RECTAL EXAM: Yes deferred Extremity: COMMON NORMALS: normal to inspection GENERAL: Yes normal exam except as noted Neuro: COMMON NORMALS: patient oriented x3 SENSORIUM/ORIENTATION: Yes alert, Yes oriented to person, Yes oriented to place and Yes oriented to time CRANIAL NERVES: Yes CN normal except as noted Psych: COMMON NORMALS: mental status grossly normal, Normal thought process present, cooperative, activity/motor behavior normal, denies homicidal ideation and denies suicidal ideation THOUGHT PROCESS: Normal thought process present Skin: COMMON NORMALS: no rashes or lesions noted, no wounds and turgor normal GENERAL SKIN EXAM: no rashes or lesions noted and turgor normal Course Vital Signs: Vital signs: Vital Signs Temperature 98 F 04/05/23 17:01 Pulse Rate 131 H 04/05/23 20:37 Respiratory Rate 32 H 04/05/23 20:37 Blood Pressure 110/83 04/05/23 20:37 Pulse Oximetry 95 04/05/23 20:37 Oxygen Delivery Me thod Room Air 04/05/23 18:59 MDM - SOB/Dyspnea Lab Data 04/05/23 18:13 04/05/23 18:13 Labs/Radiology: Radiology Impressions Chest X-Ray 04/05/23 17:10 IMPRESSION: No significant change. Laboratory Results WBC 13.29 10^3/uL (3.29-11.43) H 04/05/23 18:13 RBC 4.76 10^6/uL (3.85-5.65) 04/05/23 18:13 Hgb 14.00 g/dL (11.27-16.99) 04/05/23 18:13 Hct 42.8 % (37-53) 04/05/23 18:13 MCV 89.9 fl (82-101) 04/05/23 18:13 MCH 29.4 pg (27-33) 04/05/23 18:13 MCHC 32.7 g/dL (30-55) 04/05/23 18:13 RDW 14.4 % (12.1-15.1) 04/05/23 18:13 Plt Count 404 10^3/cmm (157-399) H 04/05/23 18:13 MPV 10.9 fL (7.4-10.4) H 04/05/23 18:13 Neut % (Auto) 77.1 % 04/05/23 18:13 Lymph % (Auto) 12.1 % 04/05/23 18:13 [place] % (Auto) 9.3 % 04/05/23 18:13 Eos % (Auto) 0.2 % 04/05/23 18:13 Baso % (Auto) 0.7 % 04/05/23 18:13 Neut # (Auto) 10.25 10^3/uL (1.8-7.7) H 04/05/23 18:13 Lymph # (Auto) 1.6 10^3/uL (0.8-4.8) 04/05/23 18:13 [place] # (Auto) 1.2 10^3/uL (0.2-0.9) H 04/05/23 18:13 Eos # (Auto) 0.0 10^3/uL (0.0-0.8) 04/05/23 18:13 Baso # (Auto) 0.1 10^3/uL (0.0-0.1) 04/05/23 18:13 Nucleated RBC % (auto) 0 % 04/05/23 18:13 Nucleated RBCs # 0.0 /100WBC 04/05/23 18:13 PT 16.30 SECONDS (12.1-14.9) H 04/05/23 18:13 INR 1.27 (0.8-1.2) H 04/05/23 18:13 Sodium 136 mmol/L (136-145) 04/05/23 18:13 Potassium 5.0 mmol/L (3.5-5.1) 04/05/23 18:13 Chloride 97 mmol/L (98-107) L 04/05/23 18:13 Carbon Dioxide 21 mmol/L (22-29) L 04/05/23 18:13 Anion Gap 23.0 (5-19) H 04/05/23 18:13 BUN 44 mg/dL (8-23) H 04/05/23 18:13 Creatinine 1.9 mg/dL (0.7-1.2) H 04/05/23 18:13 GFR Calculation Not Reportable 04/05/23 18:13 Glucose 199 mg/dL (65-115) H 04/05/23 18:13 Calculated Osmolality 299 mOsm/kg (285-295) H 04/05/23 18:13 Calcium 9.2 mg/dL (8.5-10.5) 04/05/23 18:13 Total Bilirubin 1.1 mg/dL (0.15-1.2) 04/05/23 18:13 AST 51 U/L (0-40) H 04/05/23 18:13 ALT 59 U/L (0-41) H 04/05/23 18:13 Alkaline Phosphatase 118 U/L (40-130) 04/05/23 18:13 Troponin T Baseline 51 ng/L (0-15) H 04/05/23 18:13 Troponin T 120 Minute 44.11 ng/L (0-15) H 04/05/23 20:20 Delta Troponin T -6.89 ABS# (0-10) L 04/05/23 20:20 NT-Pro-B Natriuret Pep 58413 pg/mL (0-450) H 04/05/23 18:13 Total Protein 7.2 g/dL (6.6-8.7) 04/05/23 18:13 Albumin 4.4 g/dL (3.5-5.2) 04/05/23 18:13 Globulin 2.8 g/dL (1.3-4.6) 04/05/23 18:13 Influenza Type A Ag negative (Negative) 04/05/23 18:03 Influenza Type B Ag negative (Negative) 04/05/23 18:03 Discharge Plan Discharge Patient Disposition: Admitted As Inpatient Admit Provider: Dexter Weinberg Clinical Impression: CHF (congestive heart failure), Hypertension, A-fib Condition: Stable Coding Level of Care Code ED Room Service Attendant for Chg Fwd Documented by User: Javid Friend MD 04/06/23 00:28 HPI - SOB/Dyspnea General: Chief Complaint: Shortness of Breath/Dyspnea Stated Complaint: sob Time Seen by Provider: 04/05/23 17:34 [facility] ED PFSH: Medical History Hypertension A-fib Diabetes Surgical History Hx of CABG Course Consultations: Consultation #1: Discussed patient with Dr. Wheeler who gladly accept patient for inpatient treatment. She remained stable without any acute distress. His heart rate did improved below 100. Vital Signs: Vital signs: Vital Signs Temperature 98 F 04/05/23 17:01 Pulse Rate 131 H 04/05/23 20:37 Respiratory Rate 32 H 04/05/23 20:37 Blood Pressure 110/83 04/05/23 20:37 Pulse Oximetry 95 04/05/23 20:37 Oxygen Delivery Me thod Room Air 04/05/23 18:59 MDM - SOB/Dyspnea Medical Decision Making Took over care pending admission to the hospitalist. Took over the care from midlevel. Upon reassessment patient was awake alert denies any chest pain or shortness of breath at this time. Patient is responding very well to the Lasix which was given IV. Discussed the lab findings and the x-ray finding with patient and family at bedside. Discussed patient with hospitalist patient admitted for further evaluation. Patient was given IV Cardizem drip and bolus. She was given IV digoxin and heart rate improved significantly prior to admission. Differential Diagnosis Likely acute exacerbation of chronic obstructive airways disease, congestive heart failure, community acquired pneumonia, asthma with exacerbation and pulmonary embolism Lab Data 04/05/23 18:13 04/05/23 18:13 Labs/Radiology: Radiology Impressions Chest X-Ray 04/05/23 17:10 IMPRESSION: No significant change. Laboratory Results WBC 13.29 10^3/uL (3.29-11.43) H 04/05/23 18:13 RBC 4.76 10^6/uL (3.85-5.65) 04/05/23 18:13 Hgb 14.00 g/dL (11.27-16.99) 04/05/23 18:13 Hct 42.8 % (37-53) 04/05/23 18:13 MCV 89.9 fl (82-101) 04/05/23 18:13 MCH 29.4 pg (27-33) 04/05/23 18:13 MCHC 32.7 g/dL (30-55) 04/05/23 18:13 RDW 14.4 % (12.1-15.1) 04/05/23 18:13 Plt Count 404 10^3/cmm (157-399) H 04/05/23 18:13 MPV 10.9 fL (7.4-10.4) H 04/05/23 18:13 Neut % (Auto) 77.1 % 04/05/23 18:13 Lymph % (Auto) 12.1 % 04/05/23 18:13 [place] % (Auto) 9.3 % 04/05/23 18:13 Eos % (Auto) 0.2 % 04/05/23 18:13 Baso % (Auto) 0.7 % 04/05/23 18:13 Neut # (Auto) 10.25 10^3/uL (1.8-7.7) H 04/05/23 18:13 Lymph # (Auto) 1.6 10^3/uL (0.8-4.8) 04/05/23 18:13 [place] # (Auto) 1.2 10^3/uL (0.2-0.9) H 04/05/23 18:13 Eos # (Auto) 0.0 10^3/uL (0.0-0.8) 04/05/23 18:13 Baso # (Auto) 0.1 10^3/uL (0.0-0.1) 04/05/23 18:13 Nucleated RBC % (auto) 0 % 04/05/23 18:13 Nucleated RBCs # 0.0 /100WBC 04/05/23 18:13 PT 16.30 SECONDS (12.1-14.9) H 04/05/23 18:13 INR 1.27 (0.8-1.2) H 04/05/23 18:13 Sodium 136 mmol/L (136-145) 04/05/23 18:13 Potassium 5.0 mmol/L (3.5-5.1) 04/05/23 18:13 Chloride 97 mmol/L (98-107) L 04/05/23 18:13 Carbon Dioxide 21 mmol/L (22-29) L 04/05/23 18:13 Anion Gap 23.0 (5-19) H 04/05/23 18:13 BUN 44 mg/dL (8-23) H 04/05/23 18:13 Creatinine 1.9 mg/dL (0.7-1.2) H 04/05/23 18:13 GFR Calculation Not Reportable 04/05/23 18:13 Glucose 199 mg/dL (65-115) H 04/05/23 18:13 Calculated Osmolality 299 mOsm/kg (285-295) H 04/05/23 18:13 Calcium 9.2 mg/dL (8.5-10.5) 04/05/23 18:13 Total Bilirubin 1.1 mg/dL (0.15-1.2) 04/05/23 18:13 AST 51 U/L (0-40) H 04/05/23 18:13 ALT 59 U/L (0-41) H 04/05/23 18:13 Alkaline Phosphatase 118 U/L (40-130) 04/05/23 18:13 Troponin T Baseline 51 ng/L (0-15) H 04/05/23 18:13 Troponin T 120 Minute 44.11 ng/L (0-15) H 04/05/23 20:20 Delta Troponin T -6.89 ABS# (0-10) L 04/05/23 20:20 NT-Pro-B Natriuret Pep 40027 pg/mL (0-450) H 04/05/23 18:13 Total Protein 7.2 g/dL (6.6-8.7) 04/05/23 18:13 Albumin 4.4 g/dL (3.5-5.2) 04/05/23 18:13 Globulin 2.8 g/dL (1.3-4.6) 04/05/23 18:13 Influenza Type A Ag negative (Negative) 04/05/23 18:03 Influenza Type B Ag negative (Negative) 04/05/23 18:03 No radiology studies performed this visit EKG Data EKG 1: Interpretation: Atrial flutter tacky with rapid ventricular response. Rate of 131. Nonspecific ST changes. No ST elevation. QTc 291. Critical Care Time Critical Care Time: Critical Care Time: Yes Total Critical Care Time: 45 Attestation: Time spent reviewing patient's chart and past medical record. Time spent discussing patient with family. Time spent reevaluating patient after each treatment. Time spent discussing patient with the hospitalist. Discharge Plan Discharge Patient Disposition: Admitted As Inpatient Admit Provider: Dexter Weinberg Clinical Impression: CHF (congestive heart failure), Hypertension, A-fib Condition: Stable Coding Level of Care Code ED Room Service Attendant for Jason Dunlap
[2023-04-05 18:23] LABS: Basophils # 0.1 10^3/uL (0.0-0.1); Basophils % 0.7 %; Eosinophils % 0.2 %; Hematocrit 42.8 % (37-53); Lymphocytes # 1.6 10^3/uL (0.8-4.8); Lymphocytes % 12.1 %; Mean Corpuscular HGB Conc 32.7 g/dL (30-55); Mean Corpuscular Hemoglobin 29.4 pg (27-33); Mean Corpuscular Volume 89.9 fl (82-101); Mean Platelet Volume 10.9 fL (7.4-10.4); Monocytes # 1.2 10^3/uL (0.2-0.9); Monocytes % 9.3 %; Neutrophils # 10.25 10^3/uL (1.8-7.7); Neutrophils % 77.1 %; Nucleated Red Blood Cells % 0 %; Platelet Count 404 10^3/cmm (157-399); Red Blood Count 4.76 10^6/uL (3.85-5.65); Red Cell Distribution Width 14.4 % (12.1-15.1); White Blood Count 13.29 10^3/uL (3.29-11.43)
[2023-04-05 18:25] LABS: Influenza A by IFA negative (Negative); Influenza B by IFA negative (Negative)
[2023-04-05 18:35] LABS: INR 1.27 (0.8-1.2)
[2023-04-05 18:42] LABS: Troponin(5th) Baseline 51 ng/L (0-15)
[2023-04-05 18:51] LABS: Alanine Aminotransferase 59 U/L (0-41); Albumin Level 4.4 g/dL (3.5-5.2); Alkaline Phosphatase 118 U/L (40-130); Aspartate Amino Transferase 51 U/L (0-40); Blood Urea Nitrogen 44 mg/dL (8-23); Calcium 9.2 mg/dL (8.5-10.5); Carbon Dioxide 21 mmol/L (22-29); Chloride 97 mmol/L (98-107); Globulin 2.8 g/dL (1.3-4.6); Glucose 199 mg/dL (65-115); NT Pro B Type Natriuretic Pept 24823 pg/mL (0-450); Osmolality Calculated 299 mOsm/kg (285-295); Sodium 136 mmol/L (136-145); Total Bilirubin 1.1 mg/dL (0.15-1.2); Total Protein 7.2 g/dL (6.6-8.7)
[2023-04-05] MEDS: dilTIAZem 5 mg/mL SDV 5 mL 10 MG IVP (18:56)
[2023-04-05] MEDS: FUROsemide 10 mg/mL SDV 4mL 40 MG IVP (18:56)
[2023-04-05 18:59] VITALS: BP 114/83; PULSE 128; RESP 19; O2SAT 96
[2023-04-05] MEDS: dilTIAZem 100 MG in sodium chloride 0.9% (add-van) 100 ML IV (19:50)
[2023-04-05 19:53] VITALS: BP 113/79; PULSE 127; RESP 18; O2SAT 96
--- NOTE | 2023-04-05 19:57 | ECG_ITS ---
[facility] Test Date: 2023-04-05 Pat Name: Emery Ramires Department: Room: Gender: Male Net Manager: : 1945 Requested By: Yaron Landa Order Number: [id number] Ulises MD: Brendan Zhang M.D. Measurements Intervals [place] Rate: 127 P: -74 VT: 176 QRS: 92 QRSD: 115 T: 222 QT: 408 QTc: 594 Interpretive Statements ATIRAL FLUTTER WITH RVR BORDERLINE RIGHT AXIS DEVIATION [QRS AXIS > 90] MODERATE INTRAVENTRICULAR CONDUCTION DELAY [110+ ms QRS DURATION] NONSPECIFIC ST & T-WAVE ABNORMALITY Compared to ECG 04/05/2023 17:12:13 Intraventricular conduction delay now present T-wave abnormality now present Atrial abnormality no longer present Myocardial infarct finding no longer present Electronically Signed On 04-06-2023 13:35:10 FEED HOUSE SUPERVISOR by Brendan Zhang M.D. [id number]
--- NOTE | 2023-04-05 20:36 | ECG_ITS ---
[facility] Test Date: 2023-04-05 Pat Name: Emery Ramires Department: Room: Gender: Male Business Supervisor: : 1945 Requested By: Yaron Landa Order Number: [id number] Ulises MD: Brendan Zhang M.D. Measurements Intervals [place] Rate: 131 P: 0 OR: 0 QRS: 77 QRSD: 121 T: 210 QT: 291 QTc: 429 Interpretive Statements ATRIAL FLUTTER WITH RAPID VENTRICULAR RESPONSE MODERATE INTRAVENTRICULAR CONDUCTION DELAY [110+ ms QRS DURATION] NONSPECIFIC T-WAVE ABNORMALITY Compared to ECG 04/05/2023 19:57:46 Sinus tachycardia no longer present T-wave abnormality still present Electronically Signed On 04-06-2023 13:34:39 PROJECT/PRODUCTION MANAGER IMAGING by Brendan Zhang M.D. [id number]
[2023-04-05 20:37] VITALS: BP 110/83; PULSE 131; RESP 32; O2SAT 95
[2023-04-05] MEDS: digoxin 250 mcg/ml INJ 2 mL IVP (20:45)
[2023-04-05 20:53] LABS: Troponin 5 2HR 44.11 ng/L (0-15)
[2023-04-05 21:58] VITALS: BMI 29.0
[2023-04-05 22:00] VITALS: PULSE 87
[2023-04-05] MEDS: cefTRIAXone 1,000 MG in sodium chloride 0.9% (plus) 50 ML 100 MG IV (22:57)
[2023-04-06] VITALS (11 sets, daily range): BP systolic 93–116; BP diastolic 59–71; PULSE 82–108; RESP 10–26; TEMP 36.4–36.5; O2SAT 92–98
--- NOTE | 2023-04-06 00:15 | P.HP_ITS ---
Providers/Chief Complaint 2 Admitting Physician: Dexter Weinberg MD Primary Care Provider: Ruby Lindsey [facility] Chief Complaint: sob History of Present Illness Emery Ramires is a 77 year old male with PMH coronary artery disease, s/p CABG at [facility] January 25, 2023 course complicated by A fib s/p cardioversion Jan 30, on amiodarone and Eliquis thereafter, CHF last known EF 45%, Supposed to be on Bumex, however has not been compliant with medications recently due to being overwhelmed by polypharmacy. He presents to the ER today with c/o dyspnea, A fib with RVR and orthopena with increased LE swelling. Review of Systems 2 General: Reports: 10 or more systems reviewed and unremarkable except in HPI and below Const: Denies: fever(s), chills or body aches Eyes: Denies: change in vision, blurry vision or photophobia ENMT: Reports: hoarseness; Denies: throat pain, enlarged tonsils, odynophagia or nasal congestion Card: Denies: chest pain, palpitations, irregular heart rhythm, edema, swelling of feet/ankles, lightheadedness, pre-syncope, dyspnea on exertion or orthopnea Resp: Denies: dyspnea, productive cough, non-productive cough, wheezing, stridor, pain on inspiration, change in phlegm color, hemoptysis or chest congestion GI: Denies: abdominal pain, nausea, vomiting, hematemesis, coffee ground emesis, dysphagia, heartburn, diarrhea, constipation, GI cramping, change in stool character, hematochezia or melena : Denies: flank pain, dysuria, urinary frequency, urinary urgency, urinary hesitancy or hematuria Musc: Denies: neck pain, back pain, extremity pain, joint swelling, joint warmth or deformity Neuro: Denies: headache(s), numbness in extremities, weakness in extremities, sensory changes, difficulty walking, frequent falls, dizziness, vertigo, behavioral changes, Slurred speech present or seizure-like activity Psych: Denies: anxiety, depression, suicidal ideation or homicidal ideation Endo: Denies: polyuria, polydipsia, tired all the time, cold intolerance or hot flashes Nathan/Lymph: Denies: easy bruising or easy bleeding Medications/Allergies Home Medications Medication Instructions Recorded Confirmed Last Taken Type bromfenac 0.07 % eye drops 1 drp ophthalmic (eye) DAILY #3 mL 02/08/23 03/05/23 Unknown Rx difluprednate 0.05 % eye drops 1 drp ophthalmic (eye) QID #5 mL 02/08/23 03/05/23 Unknown Rx empagliflozin 25 mg tablet 12.5 mg (1/2 x 25 mg) PO DAILY 30 02/08/23 03/05/23 Unknown Rx days #30 tabs glucometer testing kit #1 ea 02/08/23 03/05/23 Unknown Rx lisinopril 20 0.5 tab PO QAM 30 days #15 tabs 02/08/23 03/05/23 Unknown Rx mg-hydrochlorothiazide 12.5 mg tablet metoprolol tartrate 25 mg tablet 12.5 mg (1/2 x 25 mg) PO BID 30 02/08/23 03/05/23 Unknown Rx days #30 tabs paroxetine HCl 30 mg tablet (Paxil) 15 mg (1/2 x 30 mg) PO DAILY 30 02/08/23 03/05/23 Unknown Rx days #15 tabs timolol maleate 0.5 % eye drops 1 drp ophthalmic (eye) BEDTIME #10 02/08/23 03/05/23 Unknown Rx mL amiodarone 200 mg tablet 200 mg PO DAILY #90 tabs 03/05/23 03/05/23 Unknown Rx bumetanide 1 mg tablet 1 mg PO BID #180 tabs 03/05/23 03/05/23 Unknown Rx insulin aspart U-100 100 unit/mL See Rx Instructions .Route 03/05/23 03/05/23 Unknown Rx (3 mL) subcutaneous pen (Novolog .COMPLEX #15 mL FlexPen U-100 Insulin aspart) potassium chloride 10 mEq 10 meq PO BID 30 days #180 tabs 03/05/23 03/05/23 Unknown Rx tablet,extended release (Klor-Con) Allergies Allergy/AdvReac Type Severity Reaction Status Date / Time procaine [From Novocain] Allergy ALGY-Difficulty Verified 03/05/23 11:11 Breathing PFSH Acute 2 PFSH: Medical History (Updated 04/06/23 @ 02:16 by Ramandeep Doan MD) CAD (coronary artery disease) Hypertension A-fib Diabetes Surgical History Hx of CABG Vitals/I&O/Wt Last Vital Signs Temp 98 F 04/05/23 17:01 Pulse 131 H 04/05/23 20:37 Resp 32 H 04/05/23 20:37 BP 110/83 04/05/23 20:37 Pulse Ox 95 04/05/23 20:37 O2 Del Method Room Air 04/05/23 18:59 04/05/23 04/05/23 04/06/23 14:59 22:59 06:59 Intake Total 33.417 / 33.417 50 / 83.417 Output Total 400 / 400 Balance -366.583 / -366.583 50 / -316.583 Weight last 48 hrs Weight 86.545 kg Weight 87.543 kg Physical Exam 2 Narrative: General: No acute distress, AO x3 HEENT: PERRLA, pupils bilaterally equal and reactive, pallors not present Chest: Normal vesicular breath sounds, no added sounds, equal good air entry bilaterally CVS: S1-S2 regular, no murmurs, no tachycardia, no gallops, no rubs Abdomen: Soft, nontender, no organomegaly, bowel sounds present Neuro: No focal deficits, no facial deformity, AO x3, power 5/5 in all limbs Extremities: LE pitting edema B/L Data 04/05/23 18:13 04/05/23 18:13 A&P Assessment and plan (1) Atrial fibrillation with RVR: Presenting with A fib with RVR Likely related to non compliance as as result of being overwhelmed with multiple medications and reading about their side effect profile Currently on a cardizem gtt which we will continue with attempt to titrate Overlap with po metoprolol 25mg BID and attempt to wean down drip Continue home dose of amiodarone at 200mg daily States that he has home health services starting next week and feels that he will do better with supervision and encouragement from nurse Continue Eliquis 5mg BID (2) CHF (congestive heart failure): Acute on chronic systolic HF 45% received lasix 40mg IVP x 1 continue lasix 40mg IVP daily monitor I/o and kidney function closely Hold lisinopril as cr at 1.9 Qualifiers: Heart failure chronicity: acute on chronic Heart failure type: systolic Qualified Code(s): I50.23 - Acute on chronic systolic (congestive) heart failure Plan DM: insulin sliding scale Dvt ppx: Eliquis will suffice Full code Attestations 2 Medical Necessity Statement*: > 2 midnight admission is anticipated for above care Coding Level of Care Code Acute Code for Chg Fwd High MDM includes number and complexity of problems actively addressed during encounter, amount and/or complexity of data reviewed/ordered and described risk of complication, morbidity or mortality of management as documented Diagnoses Atrial fibrillation with RVR I48.91 Acute on chronic systolic congestive heart failure I50.23 Heart failure chronicity: acute on chronic Heart failure type: systolic
[2023-04-06 00:50] LABS: Estmated Average Glucose 174; Hemoglobin A1C 7.7 % (4.0-6.0)
[2023-04-06 01:19] LABS: Troponin 5 6HR 46.41 ng/L (0-15)
[2023-04-06 01:20] LABS: Troponin 5 6HR Delta -4.59 ng/L (0-12)
[2023-04-06] MEDS: metoprolol tartrate 25 mg Tablet PO ×3 (02:01→17:47)
[2023-04-06 06:19] LABS: Glucose Point of Care 232 mg/dL (70-110)
--- NOTE | 2023-04-06 09:12 | P.CONIM_ITS ---
Providers/Reason For Consult 2 Attending Physician: Luis Carlos Vazquez Primary Care Provider: Ruby Lindsey History of Present Illness History of Present Illness Emery Ramires is a 77 year old male Medications/Allergies Home Medications Medication Instructions Recorded Confirmed Last Taken Type bromfenac 0.07 % eye drops 1 drp ophthalmic (eye) DAILY #3 mL 02/08/23 03/05/23 Unknown Rx difluprednate 0.05 % eye drops 1 drp ophthalmic (eye) QID #5 mL 02/08/23 03/05/23 Unknown Rx empagliflozin 25 mg tablet 12.5 mg (1/2 x 25 mg) PO DAILY 30 02/08/23 03/05/23 Unknown Rx days #30 tabs glucometer testing kit #1 ea 02/08/23 03/05/23 Unknown Rx lisinopril 20 0.5 tab PO QAM 30 days #15 tabs 02/08/23 03/05/23 Unknown Rx mg-hydrochlorothiazide 12.5 mg tablet metoprolol tartrate 25 mg tablet 12.5 mg (1/2 x 25 mg) PO BID 30 02/08/23 03/05/23 Unknown Rx days #30 tabs paroxetine HCl 30 mg tablet (Paxil) 15 mg (1/2 x 30 mg) PO DAILY 30 02/08/23 03/05/23 Unknown Rx days #15 tabs timolol maleate 0.5 % eye drops 1 drp ophthalmic (eye) BEDTIME #10 02/08/23 03/05/23 Unknown Rx mL amiodarone 200 mg tablet 200 mg PO DAILY #90 tabs 03/05/23 03/05/23 Unknown Rx bumetanide 1 mg tablet 1 mg PO BID #180 tabs 03/05/23 03/05/23 Unknown Rx insulin aspart U-100 100 unit/mL See Rx Instructions .Route 03/05/23 03/05/23 Unknown Rx (3 mL) subcutaneous pen (Novolog .COMPLEX #15 mL FlexPen U-100 Insulin aspart) potassium chloride 10 mEq 10 meq PO BID 30 days #180 tabs 03/05/23 03/05/23 Unknown Rx tablet,extended release (Klor-Con) Allergies Allergy/AdvReac Type Severity Reaction Status Date / Time procaine [From Novocain] Allergy ALGY-Difficulty Verified 03/05/23 11:11 Breathing Current Medications Generic Name Dose Route Start Last Admin Trade Name Margie PRN Reason Stop Dose Admin Diltiazem HCl 100 mg/ Sodium 100 mls @ 0 mls/hr 04/05/23 19:45 04/06/23 04:00 Chloride IV 0 mg/hr .Q0M CHRIST 0 mls/hr Titration Protocol Per Protocol Metoprolol Tartrate 25 mg 04/06/23 00:10 04/06/23 02:01 Metoprolol Tartrate 25 Mg Tablet PO 25 mg BID CHRIST Administration PFSH Acute 2 PFSH: Medical History (Updated 04/06/23 @ 02:16 by Ramandeep Doan MD) CAD (coronary artery disease) Hypertension A-fib Diabetes Surgical History Hx of CABG Vitals/I&O/Wt Last Vital Signs Temp 97.5 F L 04/06/23 04:00 Pulse 89 04/06/23 08:00 Resp 22 H 04/06/23 04:00 BP 98/59 04/06/23 04:00 Pulse Ox 97 04/06/23 04:00 O2 Del Method Room Air 04/06/23 04:00 04/05/23 04/06/23 04/06/23 22:59 06:59 14:59 Intake Total 33.417 / 33.417 564.042 / 597.459 Output Total 400 / 400 Balance -366.583 / -366.583 564.042 / 197.459 Weight last 48 hrs Weight 190 lb 11.2 oz Weight 190 lb 12.8 oz Weight 193 lb Data 04/05/23 18:13 04/05/23 18:13 Coding Level of Care Code Acute Code for Chg Fwd
--- NOTE | 2023-04-06 09:20 | USR_ITS ---
PROCEDURE INFORMATION: Exam: US Retroperitoneal; Complete; Kidneys and Bladder Exam date and time: 04/06/2023 2:27 PM Age: 77 years old Clinical indication: Condition or disease; Kidney or ureter condition; Other: Jason TECHNIQUE: Imaging protocol: Real-time ultrasound of the retroperitoneum with image documentation. Complete exam focused on the kidneys and bladder. COMPARISON: No relevant prior studies available. FINDINGS: Right kidney: Normal. No stones. No hydronephrosis. Measures 9.6 cm. Incidental note is made of cyst in interpolar region measuring 2.7 cm. Left kidney: Normal. No stones. No hydronephrosis. Measures 9.7 cm. Urinary bladder: Unremarkable. US/US renal BI* [id number] IMPRESSION: Unremarkable kidneys and bladder.
[2023-04-06] MEDS: apixaban 5 mg Tablet PO ×2 (10:21→20:50)
[2023-04-06] MEDS: insulin lispro 100 unit/1 mL SUBCUT ×3 (10:21→20:51)
[2023-04-06] MEDS: pantoprazole DR 40 mg Tablet PO (10:21)
[2023-04-06] MEDS: amiodarone 200 mg Tablet PO (10:21)
[2023-04-06 11:28] LABS: Glucose Point of Care 138 mg/dL (70-110)
[2023-04-06 15:04] LABS: Creatine Phosphokinase 192 U/L (39-308)
[2023-04-06 17:24] LABS: Glucose Point of Care 237 mg/dL (70-110)
[2023-04-06 17:24] LABS: Glucose Point of Care 241 mg/dL (70-110)
[2023-04-06 20:29] LABS: Glucose Point of Care 220 mg/dL (70-110)
--- NOTE | 2023-04-06 21:26 | P.PN_ITS ---
Subjective 2 Subjective: Denies chest pain or pressure. Overall feeling slightly better. Has been producing urine. Vitals/I&O/Wt Last Vital Signs Temp 97.5 F L 04/06/23 19:12 Pulse 99 04/06/23 19:12 Resp 22 H 04/06/23 19:12 BP 98/67 04/06/23 19:12 Pulse Ox 92 04/06/23 19:12 O2 Del Method Room Air 04/06/23 19:12 04/06/23 04/06/23 04/06/23 06:59 14:59 22:59 Intake Total 564.042 / 597.459 480 / 480 480 / 960 Output Total 300 / 300 Balance 564.042 / 197.459 180 / 180 480 / 660 Weight last 48 hrs Weight 86.5 kg Weight 86.545 kg Weight 87.543 kg Physical Exam 2 Narrative: Sitting up at bedside. Const: COMMON NORMALS: patient oriented x3 and alert GENERAL APPEARANCE: c ooperative ORIENTATION/CONSCIOUSNESS: Yes awake HENMT: COMMON NORMALS: oropharynx normal Neck/C-Spine: COMMON NORMALS: no JVD Resp: COMMON NORMALS: normal respiratory effort and clear to auscultation bilaterally AUSCULTATION: clear to auscultation bilaterally Cardio: COMMON NORMALS: no JVD, regular rhythm, S1 normal heart sound present, S2 normal heart sound present and No murmurs present (Cardio) RHYTHM: regular rhythm HEART SOUNDS: S1 normal heart sound present and S2 normal heart sound present GI: COMMON NORMALS: Normal to inspection, nondistended, normoactive bowel sounds present, Soft to palpation and non-tender PALPATION: Yes Soft to palpation Extremity: COMMON NORMALS: no joint enlargement GENERAL: Yes edema (3+) Neuro: COMMON NORMALS: patient oriented x3 and moves all extremities S ENSORIUM/ORIENTATION: Yes alert Skin: COMMON NORMALS: no rashes or lesions noted GENERAL SKIN EXAM: no rashes or lesions noted Data 04/05/23 18:13 04/05/23 18:13 A&P Assessment and plan (1) LORETA (acute kidney injury): Reviewed chemistry, BUN, creatinine, with noted worsened renal function, creatinine up to 1.9. He is producing urine. Requested kidney ultrasound. CK. Assess intravascular depletion, he does report having diarrhea with multiple bowel movements a day recently. Will request C. difficile. However, he also has continued diuretics, and Zaroxolyn was added recently to his Bumex. For now held off additional diuretics. Avoiding IV fluids due to CHF decompensation. Follow-up kidney function. (2) CHF (congestive heart failure): Reviewed vitals, CBC, CMP, NT proBNP, I&O, weight. Discussed with him noted worsened renal function, creatinine up to 1.9. Holding off additional diuretics. Holding off on hydration due to risk of further decompensation of CHF. Patient blood pressure noted soft. Reduce metoprolol down to 12.5 mg, at risk of further hypotension, bradycardia. Monitor on telemetry. Has weaned off diltiazem drip. Encouraged him to elevate lower extremities. monitor I/o and kidney function closely Hold lisinopril as cr at 1.9 Qualifiers: Heart failure chronicity: acute on chronic Heart failure type: systolic Qualified Code(s): I50.23 - Acute on chronic systolic (congestive) heart failure (3) Atrial fibrillation with RVR: A-fib with RVR improved. Blood pressure soft. Decrease metoprolol to 12.5 mg. Has weaned off Cardizem drip. Continue amiodarone. Continue Eliquis. Monitor on telemetry. Follow-up chemistry, magnesium. Likely related to non compliance as as result of being overwhelmed with multiple medications and reading about their side effect profile States that he has home health services starting next week and feels that he will do better with supervision and encouragement from nurse Plan DM: insulin sliding scale Physical deconditioning: Did not have rehabilitation after CABG. Will request PT evaluation. Dvt ppx: Eliquis will suffice Full code Attestations 2 Medical Necessity Statement*: Continue admission for assessment management of decompensated CHF, LORETA with worsening renal function, soft blood pressure, optimization of control of A-fib with RVR. Diagnoses LORETA (acute kidney injury) N17.9 Acute on chronic systolic congestive heart failure I50.23 Heart failure chronicity: acute on chronic Heart failure type: systolic Atrial fibrillation with RVR I48.91
[2023-04-07] VITALS (9 sets, daily range): BP systolic 99–121; BP diastolic 64–88; PULSE 73–120; RESP 17–32; TEMP 36.3–36.9; O2SAT 93–98
[2023-04-07 03:29] LABS: Basophils # 0.1 10^3/uL (0.0-0.1); Basophils % 0.7 %; Eosinophils # 0.1 10^3/uL (0.0-0.8); Eosinophils % 0.6 %; Hematocrit 40.7 % (37-53); Lymphocytes # 2.1 10^3/uL (0.8-4.8); Lymphocytes % 15.8 %; Mean Corpuscular HGB Conc 32.2 g/dL (30-55); Mean Corpuscular Hemoglobin 29.5 pg (27-33); Mean Corpuscular Volume 91.7 fl (82-101); Monocytes # 1.5 10^3/uL (0.2-0.9); Monocytes % 11.3 %; Neutrophils # 9.39 10^3/uL (1.8-7.7); Neutrophils % 70.9 %; Nucleated Red Blood Cells % 0 %; Platelet Count 314 10^3/cmm (157-399); Red Blood Count 4.44 10^6/uL (3.85-5.65); Red Cell Distribution Width 14.6 % (12.1-15.1); White Blood Count 13.23 10^3/uL (3.29-11.43)
[2023-04-07 04:00] LABS: Alanine Aminotransferase 60 U/L (0-41); Albumin Level 3.6 g/dL (3.5-5.2); Alkaline Phosphatase 119 U/L (40-130); Blood Urea Nitrogen 61 mg/dL (8-23); Calcium 8.4 mg/dL (8.5-10.5); Carbon Dioxide 25 mmol/L (22-29); Chloride 97 mmol/L (98-107); Globulin 2.9 g/dL (1.3-4.6); Glucose 155 mg/dL (65-115); Magnesium 2.3 mg/dL (1.7-2.3); Osmolality Calculated 298 mOsm/kg (285-295); Sodium 134 mmol/L (136-145); Thyroid Stimulating Hormone 2.47 uIU/mL (0.27-4.20); Total Bilirubin 0.3 mg/dL (0.15-1.2); Total Protein 6.5 g/dL (6.6-8.7)
[2023-04-07 04:03] LABS: Anion Gap 16.4 (5-19); Aspartate Amino Transferase 50 U/L (0-40); Potassium 4.4 mmol/L (3.5-5.1)
[2023-04-07 07:42] LABS: Glucose Point of Care 176 mg/dL (70-110)
[2023-04-07] MEDS: insulin lispro 100 unit/1 mL SUBCUT ×3 (09:21→21:21)
[2023-04-07] MEDS: apixaban 5 mg Tablet PO ×2 (09:21→21:21)
[2023-04-07] MEDS: amiodarone 200 mg Tablet PO (09:21)
[2023-04-07] MEDS: pantoprazole DR 40 mg Tablet PO (09:21)
[2023-04-07] MEDS: metoprolol tartrate 25 mg Tablet 12.5 MG PO ×2 (09:21→18:16)
[2023-04-07 12:11] LABS: Glucose Point of Care 339 mg/dL (70-110)
[2023-04-07 16:43] LABS: Glucose Point of Care 123 mg/dL (70-110)
--- NOTE | 2023-04-07 19:55 | PC.NURSE ---
made aware patient bm is soft, not diarrhea. said ok to stop cdiff sample.
--- NOTE | 2023-04-07 19:59 | P.PN_ITS ---
Subjective 2 Subjective: He has been feeling tired. Having orthopnea. Vitals/I&O/Wt Last Vital Signs Temp 97.9 F 04/07/23 16:00 Pulse 120 H 04/07/23 16:00 Resp 24 H 04/07/23 16:00 BP 121/88 04/07/23 16:00 Pulse Ox 98 04/07/23 16:00 O2 Del Method Room Air 04/07/23 16:00 04/07/23 04/07/23 04/07/23 06:59 14:59 22:59 Intake Total 720 / 720 240 / 960 Output Total 350 / 650 Balance -350 / 310 720 / 720 240 / 960 Weight last 48 hrs Weight 88.632 kg Weight 86.5 kg Weight 86.545 kg Physical Exam 2 Narrative: Sitting up at bedside. Const: COMMON NORMALS: patient oriented x3 and alert GENERAL APPEARANCE: c ooperative ORIENTATION/CONSCIOUSNESS: Yes awake HENMT: COMMON NORMALS: oropharynx normal Neck/C-Spine: COMMON NORMALS: no JVD Resp: COMMON NORMALS: normal respiratory effort and clear to auscultation bilaterally AUSCULTATION: clear to auscultation bilaterally Cardio: COMMON NORMALS: no JVD, regular rhythm, S1 normal heart sound present, S2 normal heart sound present and No murmurs present (Cardio) RHYTHM: regular rhythm HEART SOUNDS: S1 normal heart sound present and S2 normal heart sound present GI: COMMON NORMALS: Normal to inspection, nondistended, normoactive bowel sounds present, Soft to palpation and non-tender PALPATION: Yes Soft to palpation Extremity: COMMON NORMALS: no joint enlargement GENERAL: Yes edema (3+) Neuro: COMMON NORMALS: patient oriented x3 and moves all extremities S ENSORIUM/ORIENTATION: Yes alert Skin: COMMON NORMALS: no rashes or lesions noted GENERAL SKIN EXAM: no rashes or lesions noted Data 04/07/23 03:10 04/07/23 03:10 Micro: Microbiology 04/05/23 21:43 Blood Culture - Preliminary Blood 04/05/23 21:37 Blood Culture - Preliminary Blood A&P Assessment and plan (1) LORETA (acute kidney injury): Without further worsening of renal function but without improvement, creatinine at 1.9. He is having somewhat dry mouth, diarrhea has subsided. At the moment still concern for intravascular depletion, although does have lower extremity edema. Encouraged him to elevate lower extremities. Will hold off on IV hydration given high risk of fluid overload/decompensation of CHF, he is already having symptoms of orthopnea, dyspnea on exertion. Reassess renal function. Reassess electrolytes. Reviewed vitals, CBC, CMP. Magnesium. TSH. Recheck labs requested. Reviewed ultrasound of kidney, CK. Assess intravascular depletion, he does report having diarrhea with multiple bowel movements a day recently. However, he also has continued diuretics, and Zaroxolyn was added recently to his Bumex. For now held off additional diuretics. Avoiding IV fluids due to CHF decompensation. Follow-up kidney function. (2) CHF (congestive heart failure): Creatinine 1.9. Holding off additional diuretics. Holding off on hydration due to risk of further decompensation of CHF. Patient blood pressure noted soft. Reduce metoprolol down to 12.5 mg, at risk of further hypotension, bradycardia. Monitor on telemetry. Has weaned off diltiazem drip. Encouraged him to elevate lower extremities. monitor I/o and kidney function closely Hold lisinopril as cr at 1.9 Qualifiers: Heart failure chronicity: acute on chronic Heart failure type: systolic Qualified Code(s): I50.23 - Acute on chronic systolic (congestive) heart failure (3) Atrial fibrillation with RVR: A-fib with RVR improved. Blood pressure soft. Decrease metoprolol to 12.5 mg. Has weaned off Cardizem drip. Continue amiodarone. Continue Eliquis. Monitor on telemetry. Follow-up chemistry, magnesium. Likely related to non compliance as as result of being overwhelmed with multiple medications and reading about their side effect profile States that he has home health services starting next week and feels that he will do better with supervision and encouragement from nurse Plan DM: insulin sliding scale Physical deconditioning: Did not have rehabilitation after CABG. Would benefit from cardiac rehab. Dvt ppx: Eliquis will suffice Full code Attestations 2 Medical Necessity Statement*: Continue admission for assessment management of decompensated CHF, LORETA Diagnoses LORETA (acute kidney injury) N17.9 Acute on chronic systolic congestive heart failure I50.23 Heart failure chronicity: acute on chronic Heart failure type: systolic Atrial fibrillation with RVR I48.91
[2023-04-07 21:41] LABS: Glucose Point of Care 316 mg/dL (70-110)
[2023-04-08] VITALS (8 sets, daily range): BP systolic 102–127; BP diastolic 67–91; PULSE 73–119; RESP 12–26; TEMP 36.4–36.6; O2SAT 96–100
[2023-04-08 05:38] LABS: Basophils # 0.1 10^3/uL (0.0-0.1); Basophils % 0.8 %; Eosinophils % 0.1 %; Hematocrit 42.9 % (37-53); Lymphocytes # 2.2 10^3/uL (0.8-4.8); Lymphocytes % 15.4 %; Mean Corpuscular HGB Conc 31.7 g/dL (30-55); Mean Corpuscular Hemoglobin 29.6 pg (27-33); Mean Corpuscular Volume 93.3 fl (82-101); Mean Platelet Volume 10.8 fL (7.4-10.4); Monocytes # 1.6 10^3/uL (0.2-0.9); Neutrophils % 71.9 %; Nucleated Red Blood Cells % 0 %; Platelet Count 380 10^3/cmm (157-399); Red Cell Distribution Width 14.6 % (12.1-15.1); White Blood Count 14.33 10^3/uL (3.29-11.43)
[2023-04-08 06:12] LABS: Anion Gap 14.2 (5-19); Blood Urea Nitrogen 67 mg/dL (8-23); Calcium 8.6 mg/dL (8.5-10.5); Carbon Dioxide 27 mmol/L (22-29); Chloride 98 mmol/L (98-107); Glucose 156 mg/dL (65-115); Osmolality Calculated 303 mOsm/kg (285-295); Potassium 4.2 mmol/L (3.5-5.1); Sodium 135 mmol/L (136-145)
[2023-04-08 06:15] LABS: Magnesium 2.5 mg/dL (1.7-2.3)
[2023-04-08 07:34] LABS: Glucose Point of Care 157 mg/dL (70-110)
[2023-04-08] MEDS: insulin lispro 100 unit/1 mL SUBCUT ×4 (08:13→22:18)
[2023-04-08] MEDS: metoprolol tartrate 25 mg Tablet 12.5 MG PO (08:14)
[2023-04-08] MEDS: amiodarone 200 mg Tablet PO (08:14)
[2023-04-08] MEDS: apixaban 5 mg Tablet PO ×2 (08:14→21:02)
[2023-04-08] MEDS: pantoprazole DR 40 mg Tablet PO (08:14)
--- NOTE | 2023-04-08 11:54 | P.CONIM_ITS ---
Providers/Reason For Consult 2 Consulting Physician/Specialty*: INO Gaona MD/cardiology Reason for Consult*: Patient with atrial fibrillation and rapid ventricular rate not responding to amiodarone, calcium valentin and beta-valentin Requesting Physician: Dr. Vazquez Attending Physician: Luis Carlos Vazquez Primary Care Provider: Ruby [facility] History of Present Illness History of Present Illness Emery Ramires is a 77 year old male with history of atherosclerotic heart disease, status post coronary artery bypass surgery, presenting with complaints of shortness of breath and generalized weakness. Found to be in atrial fibrillation with rapid ventricular rate, not responding to amiodarone, beta- valentin and Calcium channel valentin. This patient had a three-vessel coronary bypass surgery at the [facility] in [place] in January of this year. Prior to this, he presented with with complaints of heartburn-like symptoms associated with left arm pain to the [facility] clinic. He underwent a cardiac catheterization at the [facility]. He was recommended for coronary bypass surgery. Initially he was sent to [facility] in [place]. According the patient, his surgery was postponed multiple times and for that reason, he went to the [facility] by himself. Patient underwent a three-vessel coronary bypass surgery at the [facility]-(UF to distal LAD, saphenous vein graft to obtuse marginal, extensive RCA endarterectomy and saphenous graft to distal RCA ). Following the bypass surgery, he developed atrial fibrillation while still being in the hospital. He had a electrical cardioversion once . He was placed on amiodarone and a beta-valentin. He was also prescribed Eliquis. According the patient, he was confused with all his medications and apparently he stopped taking many of these medications at home. He tried having shortness of breath and chest tightness along with generalized weakness for the last 2 weeks. He also has been noticing swelling of both lower extremities. He was finding it difficult to lie flat. No fever, chills or cough. No abdominal pain or dysuria. No other associated symptoms. Patient has a history of chronic renal insufficiency. Also is known to have insulin requiring diabetes, high blood pressure and dyslipidemia. No history for CVA or peripheral artery disease. No history for liver disease or bleeding disorders. Apparently this patient was admitted to this hospital on 02/07/2023 With the features of decompensated heart failure. He was told to have a LV ejection fraction around 19% before and was recommended LifeVest. The patient declined. The LV ejection fraction by echocardiogram on 02/08/2023 was found to be 45% He has no history for smoking abuse or alcohol abuse. One of his brothers had atherosclerotic heart disease and of the same. No other relevant family history. Review of Systems 2 Narrative: CONSTITUTIONAL: No fever or chills. Feeling of weakness/tiredness as mentioned above EYES: No blurring of vision or other visual disturbances lately. ENT: No hoarseness of voice, auditory disturbances or sore throat. CARDIOVASCULAR: As mentioned above. RESPIRATORY: Shortness of breath as mentioned above GASTROINTESTINAL: No hematemesis or melena. GENITOURINARY: No dysuria or hematuria. INTEGUMENTARY: No skin rashes or history of skin cancer. NEURO: No transient ischemic attacks or amaurosis. PSYCHIATRIC: No history of psychosis or major depression. HEMATOLOGIC: Has been noncompliant with oral anticoagulation ENDOCRINE: No history of polyuria or polydipsia. MUSCULOSKELETAL: No recent joint pain or swelling. ALLERGY/IMMUNOLOGY: As mentioned above. Medications/Allergies Home Medications Medication Instructions Recorded Confirmed Last Taken Type bromfenac 0.07 % eye drops 1 drp ophthalmic (eye) DAILY #3 mL 02/08/23 04/06/23 Unknown Rx difluprednate 0.05 % eye drops 1 drp ophthalmic (eye) QID #5 mL 02/08/23 04/06/23 Unknown Rx empagliflozin 25 mg tablet 12.5 mg (1/2 x 25 mg) PO DAILY 30 02/08/23 04/06/23 Unknown Rx days #30 tabs glucometer testing kit #1 ea 02/08/23 04/06/23 Unknown Rx lisinopril 20 0.5 tab PO QAM 30 days #15 tabs 02/08/23 04/06/23 Unknown Rx mg-hydrochlorothiazide 12.5 mg tablet metoprolol tartrate 25 mg tablet 12.5 mg (1/2 x 25 mg) PO BID 30 02/08/23 04/06/23 Unknown Rx days #30 tabs paroxetine HCl 30 mg tablet (Paxil) 15 mg (1/2 x 30 mg) PO DAILY 30 02/08/23 04/06/23 Unknown Rx days #15 tabs timolol maleate 0.5 % eye drops 1 drp ophthalmic (eye) BEDTIME #10 02/08/23 04/06/23 Unknown Rx mL amiodarone 200 mg tablet 200 mg PO DAILY #90 tabs 03/05/23 04/06/23 Unknown Rx bumetanide 1 mg tablet 1 mg PO BID #180 tabs 03/05/23 04/06/23 Unknown Rx insulin aspart U-100 100 unit/mL See Rx Instructions .Route 03/05/23 04/06/23 Unknown Rx (3 mL) subcutaneous pen (Novolog .COMPLEX #15 mL FlexPen U-100 Insulin aspart) potassium chloride 10 mEq 10 meq PO BID 30 days #180 tabs 03/05/23 04/06/23 Unknown Rx tablet,extended release (Klor-Con) clopidogrel 75 mg tablet 75 mg PO DAILY 04/06/23 04/06/23 Unknown History Allergies Allergy/AdvReac Type Severity Reaction Status Date / Time procaine [From Novocain] Allergy ALGY-Difficulty Verified 03/05/23 11:11 Breathing Current Medications Generic Name Dose Route Start Last Admin Trade Name Freq PRN Reason Stop Dose Admin Amiodarone HCl 200 mg 04/06/23 09:00 04/08/23 08:14 Amiodarone 200 Mg Tablet PO 200 mg DAILY CHRIST Administration Apixaban 5 mg 04/06/23 09:00 04/08/23 08:14 Apixaban 5 Mg Tablet PO 5 mg BID@0900,2100 CHRIST Administration Diltiazem HCl 100 mg/ Sodium 100 mls @ 0 mls/hr 04/05/23 19:45 04/07/23 19:22 Chloride IV Infused .Q0M CHRIST Titration Protocol Per Protocol Insulin Human Lispro 0 unit 04/06/23 08:00 04/08/23 08:13 Insulin Lispro 100 Unit/1 Ml SUBCUT 4 unit WM&BEDTIME CHRIST Administration Protocol Metoprolol Tartrate 12.5 mg 04/07/23 09:00 04/08/23 08:14 Metoprolol Tartrate 25 Mg Tablet PO 12.5 mg BID CHRIST Administration Pantoprazole Sodium 40 mg 04/06/23 09:00 04/08/23 08:[address] 40 Mg Tablet PO 40 mg DAILY CHRIST Administration PFSH Acute 2 PFSH: Medical History CAD (coronary artery disease) Hypertension A-fib Diabetes Surgical History Hx of CABG Vitals/I&O/Wt Last Vital Signs Temp 97.8 F 04/08/23 07:41 Pulse 119 H 04/08/23 07:41 Resp 16 04/08/23 07:41 BP 127/91 04/08/23 07:41 Pulse Ox 96 04/08/23 07:41 O2 Del Method Nasal Cannula 04/08/23 04:00 04/07/23 04/08/23 04/08/23 22:59 06:59 14:59 Intake Total 240 / 960 720 / 720 Balance 240 / 960 720 / 720 Weight last 48 hrs Weight 198 lb Weight 195 lb 6.4 oz Physical Exam 2 Narrative: GENERAL: The patient is alert and oriented times three. Not in any acute distress. HEENT: No significant pallor, icterus or lymphadenopathy.Oral cavity: There are no mucous membrane lesions. NECK: Trachea appears to be central. No masses noted. No JVD or thyromegaly appreciated. RESPIRATORY: Chest is symmetrical. No intercostals muscle retraction or any accessory muscle activation. There is no chest wall tenderness. Breath sounds are heard bilaterally. No rales or rhonchi heard. No evidence of any consolidation. BREASTS: Deferred. HEART: The heart sounds are normal. No S3 or S4. Short systolic murmur in the lower sternal border. No diastolic murmurs.. No pericardial rub ABDOMEN: No vessel pulsations or distention. No tenderness. No organomegaly appreciated. Bowel sounds are normally heard. : Deferred. RECTAL: Deferred. LYMPHATIC: No lymphadenopathy noted in the neck. EXTREMITIES: 2+ edema both lower extremities. No cyanosis. The peripheral pulses are deep to palpate MUSCULOSKELETAL: No acute joint deformities or swelling SKIN: There are no significant rashes or ecchymosis NEUROPSYCHIATRIC: The patient is alert and oriented x3. Appears to be in a good mood. No tremors or rigidity noted. Data 04/09/23 04:34 04/09/23 04:34 Other Labs: Laboratory Last Values WBC 14.33 10^3/uL (3.29-11.43) H 04/08/23 05:27 RBC 4.60 10^6/uL (3.85-5.65) 04/08/23 05:27 Hgb 13.60 g/dL (11.27-16.99) 04/08/23 05:27 Hct 42.9 % (37-53) 04/08/23 05:27 MCV 93.3 fl (82-101) 04/08/23 05:27 MCH 29.6 pg (27-33) 04/08/23 05:27 MCHC 31.7 g/dL (30-55) 04/08/23 05:27 RDW 14.6 % (12.1-15.1) 04/08/23 05:27 Plt Count 380 10^3/cmm (157-399) 04/08/23 05:27 MPV 10.8 fL (7.4-10.4) H 04/08/23 05:27 Neut % (Auto) 71.9 % 04/08/23 05:27 Lymph % (Auto) 15.4 % 04/08/23 05:27 [place] % (Auto) 11.0 % 04/08/23 05:27 Eos % (Auto) 0.1 % 04/08/23 05:27 Baso % (Auto) 0.8 % 04/08/23 05:27 Neut # (Auto) 10.30 10^3/uL (1.8-7.7) H 04/08/23 05:27 Lymph # (Auto) 2.2 10^3/uL (0.8-4.8) 04/08/23 05:27 [place] # (Auto) 1.6 10^3/uL (0.2-0.9) H 04/08/23 05:27 Eos # (Auto) 0.0 10^3/uL (0.0-0.8) 04/08/23 05:27 Baso # (Auto) 0.1 10^3/uL (0.0-0.1) 04/08/23 05:27 Nucleated RBC % (auto) 0 % 04/08/23 05:27 Nucleated RBCs # 0.0 /100WBC 04/08/23 05:27 PT 16.30 SECONDS (12.1-14.9) H 04/05/23 18:13 INR 1.27 (0.8-1.2) H 04/05/23 18:13 Sodium 135 mmol/L (136-145) L 04/08/23 05:27 Potassium 4.2 mmol/L (3.5-5.1) 04/08/23 05:27 Chloride 98 mmol/L (98-107) 04/08/23 05:27 Carbon Dioxide 27 mmol/L (22-29) 04/08/23 05:27 Anion Gap 14.2 (5-19) 04/08/23 05:27 BUN 67 mg/dL (8-23) H 04/08/23 05:27 Creatinine 1.9 mg/dL (0.7-1.2) H 04/08/23 05:27 GFR Calculation Not Reportable 04/08/23 05:27 Glucose 156 mg/dL (65-115) H 04/08/23 05:27 POC Glucose 157 mg/dL (70-110) H 04/08/23 06:33 Estimat Average Glucose 174 04/05/23 18:13 Hemoglobin A1c 7.7 % (4.0-6.0) H 04/05/23 18:13 Calculated Osmolality 303 mOsm/kg (285-295) H 04/08/23 05:27 Calcium 8.6 mg/dL (8.5-10.5) 04/08/23 05:27 Magnesium 2.5 mg/dL (1.7-2.3) H 04/08/23 05:27 Total Bilirubin 0.3 mg/dL (0.15-1.2) 04/07/23 03:10 AST 50 U/L (0-40) H 04/07/23 03:10 ALT 60 U/L (0-41) H 04/07/23 03:10 Alkaline Phosphatase 119 U/L (40-130) 04/07/23 03:10 Creatine Kinase 192 U/L (39-308) 04/06/23 00:40 Troponin T Baseline 51 ng/L (0-15) H 04/05/23 18:13 Troponin T 120 Minute 44.11 ng/L (0-15) H 04/05/23 20:20 Delta Troponin T -6.89 ABS# (0-10) L 04/05/23 20:20 Troponin T Hi Sens 6Hr 46.41 ng/L (0-15) H 04/06/23 00:40 Troponin T Hi Sens 6Hr Delta -4.59 ng/L (0-12) L 04/06/23 00:40 NT-Pro-B Natriuret Pep 98378 pg/mL (0-450) H 04/05/23 18:13 Total Protein 6.5 g/dL (6.6-8.7) L 04/07/23 03:10 Albumin 3.6 g/dL (3.5-5.2) 04/07/23 03:10 Globulin 2.9 g/dL (1.3-4.6) 04/07/23 03:10 TSH 2.47 uIU/mL (0.27-4.20) 04/07/23 03:10 Influenza Type A Ag negative (Negative) 04/05/23 18:03 Influenza Type B Ag negative (Negative) 04/05/23 18:03 Micro: Microbiology 04/05/23 21:43 Blood Culture - Preliminary Blood 04/05/23 21:37 Blood Culture - Preliminary Blood Other data: Chest x-ray Mild cardiomegaly. Moderate left-sided pleural effusion The EKG shows Atrial fibrillation with rapid ventricular rate Diffuse nonspecific T wave changes. Poor R wave progression Echocardiogram on 02/08/2023 1. Normal left ventricular cavity size. Mildly decreased left ventricular systolic function. Left ventricular ejection fraction is estimated at 45 %. Mild global hypokinesis with severe hypokinesis of basal to mid inferoseptal, basal to mid anteroseptal, apical septal, basal to apical inferior ramirez. 2. Mild to moderate mitral valve regurgitation. 3. Mild tricuspid valve regurgitation and moderate aortic valve regurgitation. 4. Pulmonary artery pressure estimated at 43 mmHg. 5. No prior similar studies to compare A&P Assessment and plan (1) Atrial fibrillation with RVR: in view of the patient's LV systolic dysfunction, I may discontinue the Cardizem and go up on the metoprolol. (2) Acute on chronic systolic heart failure: Patient may be carefully treated with IV diuretics. Currently on the other current medications. (3) Atherosclerotic heart disease of [place] coronary artery without angina pectoris: No evidence of any mitral injury. May continue on the current medications. Qualifiers: [place] vs. transplanted heart: [place] heart Qualified Code(s): I25.10 - Atherosclerotic heart disease of [place] coronary artery without angina pectoris (4) Benign hypertension: Currently normotensive. The blood pressure and the heart rate needs to be closely monitored because of medication changes. (5) Dyslipidemia: May continue on the current medications. (6) Diabetes: may continue on the current management. Qualifiers: Diabetes mellitus complication status: without complication Diabetes mellitus terminal operations supervisor insulin use: without half-way use Diabetes mellitus type: t ype 2 Qualified Code(s): E11.9 - Type 2 diabetes mellitus without complications Plan Based on the results of the above tests and the patient's clinical progress, further recommendations will be made. He is a patient continues to be in atrial fibrillation, we may consider electrical cardioversion. Will keep him n.p.o. after midnight. Reevaluate in the morning. We may have to do a BELÉN cardioversion since the patient was noncompliant with the oral anticoagulation. Thank you for the opportunity to evaluate this patient and make these recommendations Consult Attestations 2 Medical Necessity Statement: patient requires continued hospital stay for close monitoring and further management Coding Level of Care Code 99448 Diagnoses Atrial fibrillation with RVR I48.91 Acute on chronic systolic heart failure I50.23 Atherosclerosis of [place] coronary artery of [place] heart without angina pectoris I25.10 [place] vs. transplanted heart: [place] heart Benign hypertension I10 Dyslipidemia E78.5 Type 2 diabetes mellitus without complication, without long-term current use of insulin E11.9 Diabetes mellitus complication status: without complication Diabetes mellitus terminal operations supervisor insulin use: without terminal operations supervisor use Diabetes mellitus type: type 2
--- NOTE | 2023-04-08 12:03 | PC.SOCIAL ---
IMM Update Pg. 2 of IMM updated and reviewed with patient who verbalized understanding. Copy provided. Copy placed in chart.
[2023-04-08 12:51] LABS: Glucose Point of Care 261 mg/dL (70-110)
--- NOTE | 2023-04-08 13:44 | P.PN_ITS ---
Subjective 2 Subjective: He has been feeling tired. Having orthopnea. Vitals/I&O/Wt Last Vital Signs Temp 97.8 F 04/08/23 07:41 Pulse 119 H 04/08/23 07:41 Resp 16 04/08/23 07:41 BP 127/91 04/08/23 07:41 Pulse Ox 96 04/08/23 07:41 O2 Del Method Nasal Cannula 04/08/23 04:00 04/07/23 04/08/23 04/08/23 22:59 06:59 14:59 Intake Total 240 / 960 720 / 720 Balance 240 / 960 720 / 720 Weight last 48 hrs Weight 89.811 kg Weight 88.632 kg Physical Exam 2 Narrative: Sitting up at bedside. Const: COMMON NORMALS: patient oriented x3 and alert GENERAL APPEARANCE: c ooperative ORIENTATION/CONSCIOUSNESS: Yes awake HENMT: COMMON NORMALS: oropharynx normal Neck/C-Spine: COMMON NORMALS: no JVD Resp: COMMON NORMALS: normal respiratory effort and clear to auscultation bilaterally AUSCULTATION: clear to auscultation bilaterally Cardio: COMMON NORMALS: no JVD, regular rhythm, S1 normal heart sound present, S2 normal heart sound present and No murmurs present (Cardio) RHYTHM: regular rhythm HEART SOUNDS: S1 normal heart sound present and S2 normal heart sound present GI: COMMON NORMALS: Normal to inspection, nondistended, normoactive bowel sounds present, Soft to palpation and non-tender PALPATION: Yes Soft to palpation Extremity: COMMON NORMALS: no joint enlargement GENERAL: Yes edema (2+) Neuro: COMMON NORMALS: patient oriented x3 and moves all extremities S ENSORIUM/ORIENTATION: Yes alert Skin: COMMON NORMALS: no rashes or lesions noted GENERAL SKIN EXAM: no rashes or lesions noted Data 04/08/23 05:27 04/08/23 05:27 Micro: Microbiology 04/05/23 21:43 Blood Culture - Preliminary Blood 04/05/23 21:37 Blood Culture - Preliminary Blood A&P Assessment and plan (1) LORETA (acute kidney injury): Without improvement in creatinine so far. Continue to hold diuretics. Possible component of cardiorenal renal etiology with cardiomyopathy, atrial fibrillation. Discussed with cardiology, appreciate consultation, reviewed note, plans for DC cardioversion as he seems to be dependent on atrial kick both with renal function worsening, as well as symptomatically with fatigue, decompensation of CHF. Reviewed kidney ultrasound. No obstruction. Decompressed urinary bladder. Check UA. Check urine creatinine, urine urea. Reviewed vitals, CBC, Without further worsening of renal function but without improvement, creatinine at 1.9. He is having somewhat dry mouth, diarrhea has subsided. At the moment still concern for intravascular depletion, although does have lower extremity edema. Encouraged him to elevate lower extremities. Will hold off on IV hydration given high risk of fluid overload/decompensation of CHF, he is already having symptoms of orthopnea, dyspnea on exertion. Assess intravascular depletion, he does report having diarrhea with multiple bowel movements a day recently. However, he also has continued diuretics, and Zaroxolyn was added recently to his Bumex. For now held off additional diuretics. Avoiding IV fluids due to CHF decompensation. Follow-up kidney function. (2) CHF (congestive heart failure): Discussed with cardiology, appreciate consultation. He is dependent on atrial kick it appears, plans for BELÉN cardioversion. He understands that there is possibility that rhythm will revert again into atrial fibrillation. At this point consideration may be given to ablation although she understands that also may not guarantee staying in sinus rhythm. Creatinine 1.9. Holding off additional diuretics. Holding off on hydration due to risk of further decompensation of CHF. Patient blood pressure noted soft. Metoprolol cased to 25 mg twice daily. Soft blood pressure. Monitor blood pressures, risk of hypotension. Monitor on telemetry. Has weaned off diltiazem drip. Encouraged him to elevate lower extremities. monitor I/o and kidney function closely Hold lisinopril as cr at 1.9 Qualifiers: Heart failure chronicity: acute on chronic Heart failure type: systolic Qualified Code(s): I50.23 - Acute on chronic systolic (congestive) heart failure (3) Atrial fibrillation with RVR: Reviewed chemistry. Reviewed magnesium. Discussed with cardiology. As he is symptomatic, with fatigue, decompensated CHF, possible cardiorenal component, dependent on atrial kick, plans for cardioversion tomorrow. Recheck chemistry. Likely related to non compliance as as result of being overwhelmed with multiple medications and reading about their side effect profile States that he has home health services starting next week and feels that he will do better with supervision and encouragement from nurse Plan Leukocytosis: Reviewed CBC. Leukocytosis, predominantly neutrophilic, monocytic. Check UA. Check respiratory viral panel. Constipation: Diarrhea resolved, now reports some constipation. Declined magnesium citrate. Added senna instead. DM: Reviewed Accu-Cheks. Continue sliding scale insulin. Change to consistent carbohydrate diet. 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 Would benefit from cardiac rehab. Dvt ppx: Eliquis will suffice Full code Attestations 2 Medical Necessity Statement*: Continue admission for assessment management of difficult to control symptomatic atrial fibrillation with RVR, decompensated CHF, LORETA in a gentleman with underlying cardiomyopathy. Diagnoses LORETA (acute kidney injury) N17.9 Acute on chronic systolic congestive heart failure I50.23 Heart failure chronicity: acute on chronic Heart failure type: systolic Atrial fibrillation with RVR I48.91
--- NOTE | 2023-04-08 16:26 | PC.NURSE ---
pt refused mag citrated ordered by hospitalist for his constipation. he said he wants it milder than this medication. he is concerned of taking this and has a harsh effect. notified hospitalist.
[2023-04-08 17:15] LABS: Glucose Point of Care 199 mg/dL (70-110)
[2023-04-08] MEDS: sennosides 8.6 mg Tablet PO (18:44)
[2023-04-08] MEDS: metoprolol tartrate 25 mg Tablet PO (21:02)
[2023-04-08 21:37] LABS: Glucose Point of Care 147 mg/dL (70-110)
--- NOTE | 2023-04-08 23:13 | XRR_ITS ---
PROCEDURE INFORMATION: Exam: XR Abdomen Exam date and time: 04/09/2023 12:24 AM Age: 77 years old Clinical indication: Patient HX: Persistent loose stool; Additional info: Diarrhea TECHNIQUE: Imaging protocol: Radiologic exam of the abdomen. Views: Frontal supine view of the abdomen. 1 View. COMPARISON: CR (CHEST, ) 05/04/2023 18:56 FINDINGS: Gastrointestinal tract: Small amount of gas and stool in the distal colon and rectum. The remainder of the abdomen is gasless. Bones/joints: Sternotomy wires. XR/XR KUB portable [id number] IMPRESSION: Nonspecific nonobstructive bowel gas pattern.
--- NOTE | 2023-04-08 23:44 | PC.NURSE ---
Patient insistent on talking with doctor. Stating that you are not a doctor when I asked what symptoms he was having. Dr Chiang notified and talked with patient. GI cocktail and ambien was ordered.
[2023-04-08] MEDS: zolpidem 5 mg Tablet PO (23:54)
[2023-04-08] MEDS: lidocaine 2% viscous 15 ML, aluminum-mag hydrox-simethicon 30 ML, sucralfate oral liq 1 GM PO (23:54)
[2023-04-09] VITALS (12 sets, daily range): BP systolic 94–144; BP diastolic 60–103; PULSE 56–69; RESP 18–28; TEMP 36.8; O2SAT 96–99; BMI 30.3
[2023-04-09 00:30] LABS: Adenovirus Not Detected (NOT DETECT); Chlamydia Pneumoniae Not Detected (NOT DETECT); Coronavirus 229E,HKU1,NL63,OC4 Not Detected (NOT DETECT); Human Metapneumovirus Not Detected (NOT DETECT); Human Rhinovirus/Enterovirus Not Detected (NOT DETECT); Influenza A Not Detected (NOT DETECT); Influenza A H1 Not Detected (NOT DETECT); Influenza A H1-2009 Not Detected (NOT DETECT); Influenza A H3 Not Detected (NOT DETECT); Influenza B Not Detected (NOT DETECT); Mycoplasma Pneumoniae Not Detected (NOT DETECT); Parainfluenza Virus Type 1 Not Detected (NOT DETECT); Parainfluenza Virus Type 2 Not Detected (NOT DETECT); Parainfluenza Virus Type 3 Not Detected (NOT DETECT); Parainfluenza Virus Type 4 Not Detected (NOT DETECT); Respiratory Syncytial Virus A Not Detected (NOT DETECT); Respiratory Syncytial Virus B Not Detected (NOT DETECT); SARS-COV-2 Not Detected (NOT DETECT)
--- NOTE | 2023-04-09 00:48 | CTR_ITS ---
PROCEDURE INFORMATION: Exam: CT Head Without Contrast Exam date and time: 04/09/2023 12:59 AM Age: 77 years old Clinical indication: Injury or trauma; Blunt trauma (contusions or hematomas); Patient HX: Fall in inpatient room. Small abrasion to upper forehead. Patient lethargic. TECHNIQUE: Imaging protocol: Computed tomography of the head without contrast. Radiation optimization: All CT scans at this facility use at least one of these dose optimization techniques: automated exposure control; mA and/or kV adjustment per patient size (includes targeted exams where dose is matched to clinical indication); or iterative reconstruction. REPORTING DATA: Count of CT and Cardiac NM exams in prior 12 months: This patient has received 0 known CTs and 0 known cardiac nuclear medicine studies in the 12 months prior to the current study. COMPARISON: No relevant prior studies available. RADIATION DOSE METRICS: Total DLP (mGy-cm): 1823.25 FINDINGS: Brain: No acute intracranial hemorrhage or mass effect. There is mild decreased attenuation in the periventricular white matter, likely from microvascular disease. No definite acute infarct by CT. MRI would be more sensitive/specific for detection, as clinically directed. Cerebral ventricles: Ventricle size is normal for age. Paranasal sinuses: Included paranasal sinuses are essentially clear. Mastoid air cells: No significant acute finding. Bones/joints: No definite acute skull fracture. Soft tissues: No significant acute finding. Vasculature: Vascular calcifications in the internal carotid and vertebral basilar systems. CT/CT head wo con* [id number] IMPRESSION: 1. No acute intracranial hemorrhage or mass effect. 2. Changes of microvascular disease. 3. No definite acute infarct by CT, see above. 4. Other findings discussed above.
[2023-04-09 00:55] LABS: Glucose Point of Care 138 mg/dL (70-110)
--- NOTE | 2023-04-09 01:50 | PC.NURSE ---
Fall 53 - This nurse was called into pt room to help assist pt back to bed. Pt was laying on left side with head near main door frame. Pt was arousable to verbal command but fell back to sleep immediately. Pt placed on clerical investigator immediately and spo2, both wnl. Pt had lac to medial forehead with blood dripping on floor. Physician called to bedside. Pt assisted back to bed x 3 RN, placed on all monitors and transported to CT.
--- NOTE | 2023-04-09 02:54 | PC.NURSE ---
Educated patient on medications GI cocktail and ashwin, administered medications. Asked patient if I could assist him back to bed, patient stated I will go to bed when I'm ready . Patient was sitting on side of bed with bedside in front of him when nurse left the room.
--- NOTE | 2023-04-09 02:58 | PC.NURSE ---
Was called into patient room, patient was lying on left side with head lac to medial forehead with blood dripping on floor. Patient was able to follow commands but was lethargic. Patient was assisted to a sitting position then assisted to bed x 3 RN's. Patient vitals were assessed and was found to be wnl. Dr was called to room and ordered head ct without contrast. Patient was taken by bed to CT.
--- NOTE | 2023-04-09 03:22 | PC.NURSE ---
Patient converted into sinus rhythm at 21:25.
[2023-04-09 05:16] LABS: Basophils # 0.1 10^3/uL (0.0-0.1); Basophils % 0.5 %; Hematocrit 42.6 % (37-53); Lymphocytes # 1.1 10^3/uL (0.8-4.8); Lymphocytes % 6.5 %; Mean Corpuscular HGB Conc 32.6 g/dL (30-55); Mean Corpuscular Hemoglobin 29.7 pg (27-33); Mean Platelet Volume 11.1 fL (7.4-10.4); Monocytes # 1.3 10^3/uL (0.2-0.9); Monocytes % 7.3 %; Neutrophils # 14.84 10^3/uL (1.8-7.7); Neutrophils % 84.5 %; Nucleated Red Blood Cells % 0.1 %; Platelet Count 386 10^3/cmm (157-399); Red Blood Count 4.68 10^6/uL (3.85-5.65); Red Cell Distribution Width 15.2 % (12.1-15.1); White Blood Count 17.55 10^3/uL (3.29-11.43)
[2023-04-09 05:44] LABS: Blood Urea Nitrogen 76 mg/dL (8-23); Calcium 8.6 mg/dL (8.5-10.5); Carbon Dioxide 20 mmol/L (22-29); Chloride 98 mmol/L (98-107); Glucose 190 mg/dL (65-115); Osmolality Calculated 302 mOsm/kg (285-295); Sodium 132 mmol/L (136-145)
[2023-04-09 06:29] LABS: Glucose Point of Care 177 mg/dL (70-110)
--- NOTE | 2023-04-09 07:27 | ECG_ITS ---
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 Measurements Intervals [place] Rate: 67 P: 31 MT: 245 QRS: 87 QRSD: 132 T: 149 QT: 447 QTc: 474 Interpretive Statements SINUS RHYTHM WITH FIRST DEGREE AV BLOCK INTRAVENTRICULAR CONDUCTION DELAY [130+ ms QRS DURATION] Compared to ECG 04/05/2023 20:36:22 First degree AV block now present Atrial flutter no longer present T-wave abnormality no longer present Electronically Signed On 04-09-2023 21:39:51 BUSINESS INTELLIGENCE MANAGER by Jeaneth Gaona M.D. [id number]
--- NOTE | 2023-04-09 08:52 | PC.NURSE ---
pt still sleeping post administration of ambien last night. HR-69, SR w/firstdegree av block on ekg. BP-121/73, RR-23, spo2 on RA-98%. Bed Alarm on.
--- NOTE | 2023-04-09 09:03 | CTR_ITS ---
PROCEDURE INFORMATION: Exam: CT Chest Without Contrast; Diagnostic Exam date and time: 04/09/2023 12:41 PM Age: 77 years old Clinical indication: Other: Malaise; Prior surgery; Surgery date: 6+ months; Surgery type: Cabg; Additional info: Malaise, worsening leukocytosis TECHNIQUE: Imaging protocol: Diagnostic computed tomography of the chest without contrast. Radiation optimization: All CT scans at this facility use at least one of these dose optimization techniques: automated exposure control; mA and/or kV adjustment per patient size (includes targeted exams where dose is matched to clinical indication); or iterative reconstruction. COMPARISON: CR (CHEST, ) 04/05/2023 6:56 PM RADIATION DOSE METRICS: Total DLP (mGy-cm): 888.75 FINDINGS: Lungs: Compressive left lower lobe atelectasis. Mild dependent atelectasis. Streaky linear horizontal opacities at the dependent left upper and left lower lobes. Bilateral calcified granulomata. Pleural spaces: Moderate agbt-oebjxea-sqys-right pleural effusions. No pneumothorax. Heart: Cardiomegaly. No pericardial effusion. Coronary arteries: Moderate to heavy coronary artery calcification. Status post CABG. Lymph nodes: No enlarged lymph nodes. Calcified hilar lymph nodes in keeping with sequela of old granulomatous disease. Vasculature: Mild systemic atherosclerotic calcification without aortic aneurysm. Bones/joints: No acute fracture. Prior median sternotomy. Multilevel syndesmophytes, costovertebral ankylosis and supraspinous calcification. Soft tissues: Unremarkable. PROCEDURE INFORMATION: Exam: CT Abdomen And Pelvis Without Contrast Exam date and time: 04/09/2023 12:41 PM Age: 77 years old Clinical indication: Other: Malaise; Prior surgery; Surgery date: 6+ months; Surgery type: Cabg; Additional info: Malaise, worsening leukocytosis TECHNIQUE: Imaging protocol: Computed tomography of the abdomen and pelvis without contrast. Radiation optimization: All CT scans at this facility use at least one of these dose optimization techniques: automated exposure control; mA and/or kV adjustment per patient size (includes targeted exams where dose is matched to clinical indication); or iterative reconstruction. COMPARISON: 1. CR (ABDOMEN, ) 04/09/2023 12:24 AM 2. US renal BI* [id number] 04/06/2023 2:27 PM 3. CR (CHEST, ) 04/05/2023 6:56 PM RADIATION DOSE METRICS: Total DLP (mGy-cm): 888.75 FINDINGS: Liver: Normal without focal lesions. Gallbladder and bile ducts: Mild layering hyperdensity in the gallbladder compatible with sludge. No calcified stones. No biliary ductal dilatation. Pancreas: Normal without ductal dilatation. Spleen: Tiny splenic calcifications in keeping with sequela of old granulomatous disease. No splenomegaly. Adrenal glands: Bilateral adrenal thickening may indicate hyperplasia. Kidneys and ureters: Simple right renal cyst requires no dedicated imaging follow-up. Mild symmetric bilateral perirenal fat stranding. Otherwise unremarkable. Stomach and bowel: No bowel dilatation to suggest obstruction. Colonic diverticulosis without findings of diverticulitis. Appendix: Evidence of prior appendectomy. Intraperitoneal space: Mild free fluid in the pelvis and left abdomen. No free air or focal well organized fluid collection. Vasculature: Heavy systemic atherosclerotic calcification without abdominal aortic aneurysm. Lymph nodes: No enlarged lymph nodes. Urinary bladder: Underdistended urinary bladder with mild circumferential wall thickening. Reproductive: Enlarged prostate measures 4.7 cm in transverse dimension. Otherwise unremarkable as visualized. Bones/joints: No acute fracture. Degenerative changes along the spine, pubic symphysis and hips. Mild grade 1 anterolisthesis of L5 on S1 in the setting of bilateral L5 pars interarticularis defects. Right sacroiliac joint ankylosis, possibly early on the left. Soft tissues: Small fat containing bilateral inguinal hernias. Diffuse body wall edema. CT/[place] [id number] IMPRESSION: 1. Moderate jjec-bodgalh-vhah-right pleural effusions with mild compressive left lower lobe atelectasis. 2. Mild streaky left lung opacities with ground-glass attenuation favored to represent atelectasis, early infiltrate not entirely excluded. 3. Cardiomegaly with coronary artery calcification status post CABG. 4. Bony findings may be seen in the setting of ankylosing spondylitis. IMPRESSION: 1. Circumferential urinary bladder wall thickening may be on the basis of underdistention, cystitis, or chronic outlet obstruction in the setting of prostatomegaly. 2. Mild ascites. 3. Additional chronic and incidental findings as above, to include atherosclerosis and colonic diverticulosis. COMMENTS: Consistent with the [employer]'s Incidental Findings Committee white paper (J Am Jessica Radiol 2018): Any incidental renal lesion less than 1 cm or classified as too small to characterize, or any incidental cystic renal lesion characterized as simple-appearing, is likely benign. No follow-up imaging is recommended for these lesions per consensus recommendations based on imaging criteria.
[2023-04-09] MEDS: amiodarone 200 mg Tablet PO (09:57)
[2023-04-09] MEDS: apixaban 5 mg Tablet PO (09:58)
[2023-04-09] MEDS: metoprolol tartrate 25 mg Tablet PO (09:58)
[2023-04-09 10:00] LABS: LAB Peripheral Smear Sent for Review
[2023-04-09 10:15] LABS: Alanine Aminotransferase 534 U/L (0-41); Albumin Level 3.9 g/dL (3.5-5.2); Alkaline Phosphatase 210 U/L (40-130); Aspartate Amino Transferase 653 U/L (0-40); Globulin 2.4 g/dL (1.3-4.6); Total Bilirubin 0.9 mg/dL (0.15-1.2); Total Protein 6.3 g/dL (6.6-8.7)
--- NOTE | 2023-04-09 12:04 | USCV_ITS ---
Emery Ramires Age: 77 Gender: M : 1945 Exam Date: 04/09/2023 15:25 Ordering Phys: Luis Carlos Vazquez MD Technologist: JAYRO [place] [facility] [place]ication: DECOMPENSATED CHF BP: 116 / 70 HR: 104 Rhythm: Sinus Technical Quality: Adequate MEASUREMENTS (Male / Female) Normal Values 2D ECHO LVOT Diameter 2.0 cm LV Ejection Fraction MOD 2C 28.3 % LV Ejection Fraction 2C AL 27.7 % LA Diameter 4.7 cm LA Width 4.1 cm LA Height 5.0 cm RA Width 4.2 cm RA Height 5.5 cm Aorta at Sinotubular Diameter 2.6 cm IVC Diameter 2.9 cm M-MODE Aortic Annulus Diameter 3.6 cm LA Ao Ratio MM 1.3 MV E Point Septal Separation 1.6 cm DOPPLER AV Peak Velocity 97.0 cm/s LVOT Peak Velocity 67.0 cm/s AV Area Cont Eq vti 1.9 cm squared AV Area Cont Eq pk 2.2 cm squared MV Peak Velocity 145.0 cm/s MV Area PHT 5.4 cm squared Mitral E to A Ratio 2.4 MV E' Velocity 68.5 cm/s Mitral E to MV E' Ratio 20.9 Mitral E to LV E' Lateral Ratio 15.0 Mitral E to LV E' Septal Ratio 34.5 TR Peak Velocity 222.9 cm/s TR Peak Gradient 19.9 mmHg TR Mean Velocity 186.3 cm/s TR Mean Gradient 15.4 mmHg TR Velocity Time Integral 76.1 cm TV Peak E Velocity 53.0 cm/s Right Atrial Pressure 15.0 mmHg Pulmonary Artery Systolic Pressu 34.9 mmHg PV Peak Velocity 73.0 cm/s RV Acceleration Time 0.0 s RV Ejection Time 0.3 s RV AcT/ET 0.2 FINDINGS Left Ventricle Left ventricle is dilated. LV systolic function is severely reduced with EF of 25 to 30%. Severe global hypokinesis. Grade 3 diastolic dysfunction Right Ventricle Dilated and hypokinetic Right Atrium Dilated Left Atrium Dilated Mitral Valve Structurally normal valve. Moderate mitral regurgitation Aortic Valve Structurally normal aortic valve. No significant stenosis or regurgitation. Tricuspid Valve Mild tricuspid regurgitation. RVSP is 35 to 40 mmHg. Mild pulmonary hypertension Pulmonic Valve Not well visualized. Mild pulmonic regurgitation. Pericardium Normal. Pleural effusion is seen Aorta Normal in size IVC Dilated CONCLUSIONS LV systolic function is severely reduced with EF of 25 to 30%. Grade 3 diastolic dysfunction. Biatrial enlargement. Moderate mitral regurgitation Mild tricuspid regurgitation. Mild pulmonary hypertension Mild pulmonic regurgitation Pleural effusion is noted IVC is dilated. LV systolic function has decreased significantly from last echo from 02/2023 and is severely reduced now. Brendan Zhang MD (Electronically Signed) Final Date: 09 April 2023 17:00 S
[2023-04-09 12:10] LABS: Glucose Point of Care 167 mg/dL (70-110)
[2023-04-09 13:03] LABS: Lactic Sepsis W/Reflex 3.3 mmol/L (0.5-2.2)
[2023-04-09] MEDS: linezolid premix 600 MG/300 ML PREMIX 300 MG IV (13:20)
[2023-04-09] MEDS: piperacillin-tazobactam 3.375 GM in sodium chloride 0.9% (plus) 50 ML IV ×2 (13:44→21:13)
[2023-04-09] MEDS: clopidogrel 75 mg Tablet PO (13:44)
--- NOTE | 2023-04-09 14:06 | P.CONIM_ITS ---
Providers/Reason For Consult 2 Consulting Physician/Specialty*: kommana/Nephrology Reason for Consult*: LORETA Attending Physician: Luis Carlos Vazquez Primary Care Provider: Ruby Lindsey History of Present Illness History of Present Illness Emery Ramires is a 77 year old male Patient is a 77-year-old male with past medical history of coronary artery disease, prior CABG, CHF with ejection fraction 45%, A-fib, who presented to the emergency department due to shortness of breath. Patient was noted to have pulmonary edema and increased leg swelling, and he was noncompliant with his diuretics. Also noted to be in A-fib with RVR. His creatinine on presentation was 1.9 he was placed on Lasix, cardiology following patient. Repeat echocardiogram showed ejection fraction of 25 to 30% and his renal function has progressively gotten worse in the last few days to 2.4 of creatinine currently. Was noted also to have altered mental status, likely metabolic encephalopathy. Today patient was started on dobutamine drip per cardiology. No hydronephrosis on CT. Bilateral pleural effusions seen on CT. Review of Systems 2 Narrative: Other review of systems negative Medications/Allergies Home Medications Medication Instructions Recorded Confirmed Last Taken Type bromfenac 0.07 % eye drops 1 drp ophthalmic (eye) DAILY #3 mL 02/08/23 04/06/23 Unknown Rx difluprednate 0.05 % eye drops 1 drp ophthalmic (eye) QID #5 mL 02/08/23 04/06/23 Unknown Rx empagliflozin 25 mg tablet 12.5 mg (1/2 x 25 mg) PO DAILY 30 02/08/23 04/06/23 Unknown Rx days #30 tabs glucometer testing kit #1 ea 02/08/23 04/06/23 Unknown Rx lisinopril 20 0.5 tab PO QAM 30 days #15 tabs 02/08/23 04/06/23 Unknown Rx mg-hydrochlorothiazide 12.5 mg tablet metoprolol tartrate 25 mg tablet 12.5 mg (1/2 x 25 mg) PO BID 30 02/08/23 04/06/23 Unknown Rx days #30 tabs paroxetine HCl 30 mg tablet (Paxil) 15 mg (1/2 x 30 mg) PO DAILY 30 02/08/23 04/06/23 Unknown Rx days #15 tabs timolol maleate 0.5 % eye drops 1 drp ophthalmic (eye) BEDTIME #10 02/08/23 04/06/23 Unknown Rx mL amiodarone 200 mg tablet 200 mg PO DAILY #90 tabs 03/05/23 04/06/23 Unknown Rx bumetanide 1 mg tablet 1 mg PO BID #180 tabs 03/05/23 04/06/23 Unknown Rx insulin aspart U-100 100 unit/mL See Rx Instructions .Route 03/05/23 04/06/23 Unknown Rx (3 mL) subcutaneous pen (Novolog .COMPLEX #15 mL FlexPen U-100 Insulin aspart) potassium chloride 10 mEq 10 meq PO BID 30 days #180 tabs 03/05/23 04/06/23 Unknown Rx tablet,extended release (Klor-Con) clopidogrel 75 mg tablet 75 mg PO DAILY 04/06/23 04/06/23 Unknown History Allergies Allergy/AdvReac Type Severity Reaction Status Date / Time procaine [From Novocain] Allergy ALGY-Difficulty Verified 03/05/23 11:11 Breathing Current Medications Generic Name Dose Route Start Last Admin Trade Name Freq PRN Reason Stop Dose Admin Amiodarone HCl 200 mg 04/06/23 09:00 04/09/23 09:57 Amiodarone 200 Mg Tablet PO 200 mg DAILY CHRIST Administration Apixaban 5 mg 04/06/23 09:00 04/09/23 09:58 Apixaban 5 Mg Tablet PO 5 mg BID@0900,2100 CHRIST Administration Clopidogrel Bisulfate 75 mg 04/09/23 12:25 04/09/23 13:44 Clopidogrel 75 Mg Tablet PO 75 mg DAILY CHRIST Administration Piperacillin Sod/Tazobactam 50 mls @ 12.5 mls/hr 04/09/23 12:15 04/09/23 13:44 Sod 3.375 gm/ Sodium Chloride IV 12.5 mls/hr Q8H CHRIST Administration Protocol Linezolid 600 mg in 300 mls @ 300 mls/hr 04/09/23 12:30 04/09/23 13:20 Zyvox Premix IV 300 mls/hr Q12H CHRIST Administration Protocol Insulin Human Lispro 0 unit 04/06/23 08:00 04/09/23 14:03 Insulin Lispro 100 Unit/1 Ml SUBCUT Not Given WM&BEDTIME CHRIST Protocol Metoprolol Tartrate 25 mg 04/08/23 21:00 04/09/23 09:58 Metoprolol Tartrate 25 Mg Tablet PO 25 mg BID@0900,2100 CHRIST Administration Senna 8.6 mg 04/08/23 16:42 04/08/23 18:44 Sennosides 8.6 Mg Tablet PO 8.6 mg BEDTIME PRN Administration CONSTIPATION PFSH Acute 2 PFSH: Medical History CAD (coronary artery disease) Hypertension A-fib Diabetes Surgical History Hx of CABG Vitals/I&O/Wt Last Vital Signs Temp 98 F 04/08/23 20:03 Pulse 56 L 04/09/23 12:00 Resp 27 H 04/09/23 12:00 BP 116/70 04/09/23 12:00 Pulse Ox 97 04/09/23 12:00 O2 Del Method Room Air 04/09/23 12:00 04/08/23 04/09/23 04/09/23 22:59 06:59 14:59 Intake Total 360 / 1330 0 / 1330 Output Total 100 / 100 0 / 100 Balance 260 / 1230 0 / 1230 Weight last 48 hrs Weight 89.811 kg Physical Exam 2 Narrative: Awake alert, mild distress HEENT Has edema Data 04/09/23 04:34 04/09/23 04:34 A&P Assessment and plan (1) LORETA (acute kidney injury): Plan 1. Acute on chronic kidney disease: Creatinine was normal at 1.0 in February/2023. Etiology of LORETA likely cardiorenal in the setting of worsening ejection fraction. -No hydronephrosis, no nephrotoxin exposure no IV contrast -Started on dobutamine drip, -Will give a dose of IV Lasix 60 mg for an monitor the response, if not responded we will try Lasix drip 2. Hyponatremia: Likely hypervolemic, check urine sodium and osmolality 3. Metabolic acidosis: Mild, will add Bicitra 4. CHF: With worsening ejection fraction, dropped from 45% to 25 to 30% currently, diuretics as above, on dobutamine drip 5. History of A-fib Patient evaluated using audiovisual cart. Time spent 40 minutes. Consult Attestations 2 Medical Necessity Statement: Per medicine team Coding Level of Care Code Acute Code for Chg Fwd Diagnoses LORETA (acute kidney injury) N17.9
[2023-04-09 14:24] LABS: Reflex Lactate Order REFLEX LACTIC ORDERD
[2023-04-09] MEDS: albumin 25 G/100 ML BAG 60 G IV (14:43)
--- NOTE | 2023-04-09 16:17 | P.PN_ITS ---
Subjective 2 Subjective: Patient is complaining of being tired and dizzy. Had an echocardiogram today. LV ejection fraction is around 25%. The rhythm converted to normal sinus last night. Currently he is in sinus rhythm/sinus bradycardia. The BUN and creatinine levels are going up. No fever or chills. No cough. The urine output has been low Medications: Medication Review Details: Current Medications Acetaminophen (Acetaminophen 325 Mg Tablet) 650 mg PO Q6H PRN PRN Reason: Mild/Mod Pain Or Temp >/= 101 Amiodarone HCl (Amiodarone 200 Mg Tablet) 200 mg PO DAILY [facility] Last Admin: 04/09/23 09:57 Dose: 200 mg Apixaban (Apixaban 5 Mg Tablet) 5 mg PO BID@0900,2100 [facility] Last Admin: 04/09/23 09:58 Dose: 5 mg Clopidogrel Bisulfate (Clopidogrel 75 Mg Tablet) 75 mg PO DAILY [facility] Last Admin: 04/09/23 13:44 Dose: 75 mg Dextrose (Dextrose 50% Syringe 50 Ml) 25 ml IVP ONCE PRN; Protocol PRN Reason: hypoglycemia protocol Dextrose (Dextrose 50% Syringe 50 Ml) 50 ml IVP PRN PRN; Protocol PRN Reason: hypoglycemia protocol Dextrose (D5w) 500 mls @ 0 mls/hr IV ONCE PRN; Protocol PRN Reason: Adult Acute Hypoglycemia Prot Piperacillin Sod/Tazobactam (Sod 3.375 gm/ Sodium Chloride) 50 mls @ 12.5 mls/hr IV Q8H [facility]; Protocol Last Titration: 04/09/23 14:54 Dose: 0 mls/hr Linezolid (Zyvox Premix) 600 mg in 300 mls @ 300 mls/hr IV Q12H [facility]; Protocol Last Titration: 04/09/23 14:55 Dose: 0 mls/hr Insulin Human Lispro (Insulin Lispro 100 Unit/1 Ml) 0 unit SUBCUT WM&BEDTIME [facility]; Protocol Last Admin: 04/09/23 14:03 Dose: Not Given Metoprolol Tartrate (Metoprolol Tartrate 25 Mg Tablet) 25 mg PO BID@0900,2100 [facility] Last Admin: 04/09/23 09:58 Dose: 25 mg Morphine Sulfate (Morphine 4 Mg/Ml Sdv 1 Ml) 2 mg IVP Q4H PRN PRN Reason: SEVERE PAIN Non-Formulary Medication (Paroxetine Hcl [Paxil]) 15 mg PO DAILY [facility] Sen[facility] (Sennosides 8.6 Mg Tablet) 8.6 mg PO BEDTIME PRN PRN Reason: CONSTIPATION Last Admin: 04/08/23 18:44 Dose: 8.6 mg Vitals/I&O/Wt Last Vital Signs Temp 98 F 04/08/23 20:03 Pulse 56 L 04/09/23 12:00 Resp 27 H 04/09/23 12:00 BP 116/70 04/09/23 12:00 Pulse Ox 97 04/09/23 12:00 O2 Del Method Room Air 04/09/23 12:00 04/09/23 04/09/23 04/09/23 06:59 14:59 22:59 Intake Total 0 / 1330 432.583 / 432.583 Output Total 0 / 100 Balance 0 / 1230 432.583 / 432.583 Weight last 48 hrs Weight 198 lb Physical Exam 2 Narrative: GENERAL: The patient is alert and oriented times three. Not in any acute distress. HEENT: No significant pallor, icterus or lymphadenopathy.Oral cavity: There are no mucous membrane lesions. NECK: Trachea appears to be central. No masses noted. No JVD or thyromegaly appreciated. RESPIRATORY: Chest is symmetrical. No intercostals muscle retraction or any accessory muscle activation. There is no chest wall tenderness. Breath sounds are heard bilaterally. No rales or rhonchi heard. No evidence of any consolidation. BREASTS: Deferred. HEART: The heart sounds are normal. No S3 or S4. Short systolic murmur in the lower sternal border. No diastolic murmurs.. No pericardial rub ABDOMEN: No vessel pulsations or distention. No tenderness. No organomegaly appreciated. Bowel sounds are normally heard. : Deferred. RECTAL: Deferred. LYMPHATIC: No lymphadenopathy noted in the neck. EXTREMITIES: 1+ edema both lower extremities. No cyanosis. The peripheral pulses are deep to palpate. Some features of chronic venous stasis. MUSCULOSKELETAL: No acute joint deformities or swelling SKIN: There are no significant rashes or ecchymosis NEUROPSYCHIATRIC: The patient is alert and oriented x3. Appears to be in a good mood. No tremors or rigidity noted. Data 04/09/23 04:34 04/09/23 04:34 Other Labs: Laboratory Last Values WBC 17.55 10^3/uL (3.29-11.43) H 04/09/23 04:34 RBC 4.68 10^6/uL (3.85-5.65) 04/09/23 04:34 Hgb 13.90 g/dL (11.27-16.99) 04/09/23 04:34 Hct 42.6 % (37-53) 04/09/23 04:34 MCV 91.0 fl (82-101) 04/09/23 04:34 MCH 29.7 pg (27-33) 04/09/23 04:34 MCHC 32.6 g/dL (30-55) 04/09/23 04:34 RDW 15.2 % (12.1-15.1) H 04/09/23 04:34 Plt Count 386 10^3/cmm (157-399) 04/09/23 04:34 MPV 11.1 fL (7.4-10.4) H 04/09/23 04:34 Neut % (Auto) 84.5 % 04/09/23 04:34 Lymph % (Auto) 6.5 % 04/09/23 04:34 [place] % (Auto) 7.3 % 04/09/23 04:34 Eos % (Auto) 0.0 % 04/09/23 04:34 Baso % (Auto) 0.5 % 04/09/23 04:34 Neut # (Auto) 14.84 10^3/uL (1.8-7.7) H 04/09/23 04:34 Lymph # (Auto) 1.1 10^3/uL (0.8-4.8) 04/09/23 04:34 Madison # (Auto) 1.3 10^3/uL (0.2-0.9) H 04/09/23 04:34 Eos # (Auto) 0.0 10^3/uL (0.0-0.8) 04/09/23 04:34 Baso # (Auto) 0.1 10^3/uL (0.0-0.1) 04/09/23 04:34 Nucleated RBC % (auto) 0.1 % 04/09/23 04:34 Nucleated RBCs # 0.0 /100WBC 04/09/23 04:34 Peripher Smr Path Cons Sent for review 04/09/23 04:34 PT 16.30 SECONDS (12.1-14.9) H 04/05/23 18:13 INR 1.27 (0.8-1.2) H 04/05/23 18:13 Sodium 132 mmol/L (136-145) L 04/09/23 04:34 Potassium 5.0 mmol/L (3.5-5.1) 04/09/23 04:34 Chloride 98 mmol/L (98-107) 04/09/23 04:34 Carbon Dioxide 20 mmol/L (22-29) L 04/09/23 04:34 Anion Gap 19.0 (5-19) 04/09/23 04:34 BUN 76 mg/dL (8-23) H 04/09/23 04:34 Creatinine 2.4 mg/dL (0.7-1.2) H 04/09/23 04:34 GFR Calculation Not Reportable 04/09/23 04:34 Glucose 190 mg/dL (65-115) H 04/09/23 04:34 POC Glucose 167 mg/dL (70-110) H 04/09/23 11:53 Estimat Average Glucose 174 04/05/23 18:13 Hemoglobin A1c 7.7 % (4.0-6.0) H 04/05/23 18:13 Calculated Osmolality 302 mOsm/kg (285-295) H 04/09/23 04:34 Lactic Acid 3.3 mmol/L (0.5-2.2) H 04/09/23 12:26 Calcium 8.6 mg/dL (8.5-10.5) 04/09/23 04:34 Magnesium 2.5 mg/dL (1.7-2.3) H 04/08/23 05:27 Total Bilirubin 0.9 mg/dL (0.15-1.2) 04/09/23 04:34 Direct Bilirubin 0.40 mg/dL (0.00-0.30) H 04/09/23 04:34 AST 653 U/L (0-40) H 04/09/23 04:34 ALT 534 U/L (0-41) H 04/09/23 04:34 Alkaline Phosphatase 210 U/L (40-130) H 04/09/23 04:34 Creatine Kinase 192 U/L (39-308) 04/06/23 00:40 Troponin T Baseline 51 ng/L (0-15) H 04/05/23 18:13 Troponin T 120 Minute 44.11 ng/L (0-15) H 04/05/23 20:20 Delta Troponin T -6.89 ABS# (0-10) L 04/05/23 20:20 Troponin T Hi Sens 6Hr 46.41 ng/L (0-15) H 04/06/23 00:40 Troponin T Hi Sens 6Hr Delta -4.59 ng/L (0-12) L 04/06/23 00:40 NT-Pro-B Natriuret Pep 56462 pg/mL (0-450) H 04/05/23 18:13 Total Protein 6.3 g/dL (6.6-8.7) L 04/09/23 04:34 Albumin 3.9 g/dL (3.5-5.2) 04/09/23 04:34 Globulin 2.4 g/dL (1.3-4.6) 04/09/23 04:34 TSH 2.47 uIU/mL (0.27-4.20) 04/07/23 03:10 Nasal Influ A H1 2008 PCR Not detected (NOT DETECT) 04/08/23 22:40 Adenovirus (PCR) Not detected (NOT DETECT) 04/08/23 22:40 C. pneumoniae DNA (PCR) Not detected (NOT DETECT) 04/08/23 22:40 Coronavirus 229E (PCR) Not detected (NOT DETECT) 04/08/23 22:40 Human Metapneumovir PCR Not detected (NOT DETECT) 04/08/23 22:40 Influenza A (H1) PCR Not detected (NOT DETECT) 04/08/23 22:40 Influenza A (H3) PCR Not detected (NOT DETECT) 04/08/23 22:40 Influenza Type A Ag negative (Negative) 04/05/23 18:03 Influenza Type A (PCR) Not detected (NOT DETECT) 04/08/23 22:40 Influenza Type B Ag negative (Negative) 04/05/23 18:03 Influenza Type B (PCR) Not detected (NOT DETECT) 04/08/23 22:40 M. pneumoniae (PCR) Not detected (NOT DETECT) 04/08/23 22:40 Parainfluenza 1 (PCR) Not detected (NOT DETECT) 04/08/23 22:40 Parainfluenza 2 (PCR) Not detected (NOT DETECT) 04/08/23 22:40 Parainfluenza 3 (PCR) Not detected (NOT DETECT) 04/08/23 22:40 Parainfluenza 4 (PCR) Not detected (NOT DETECT) 04/08/23 22:40 RSV Type A (PCR) Not detected (NOT DETECT) 04/08/23 22:40 RSV Type B (PCR) Not detected (NOT DETECT) 04/08/23 22:40 Entero/Rhino (PCR) Not detected (NOT DETECT) 04/08/23 22:40 SARS-CoV-2 (PCR) Not detected (NOT DETECT) 04/08/23 22:40 A&P Assessment and plan (1) Acute on chronic systolic heart failure: The heart failure seems to be fairly compensated. The patient has class -III heart failure symptoms (2) Atherosclerotic heart disease of [place] coronary artery without angina pectoris: Patient currently has no ischemic symptoms. However the worsening of the left- ventricular systolic function could suggest underlying coronary ischemia. This may need to be further evaluated Qualifiers: [place] vs. transplanted heart: [place] heart Qualified Code(s): I25.10 - Atherosclerotic heart disease of [place] coronary artery without angina pectoris (3) Atrial fibrillation with RVR: Currently the patient is in sinus rhythm. (4) Acute kidney injury superimposed on chronic kidney disease: The worsening kidney function, etiology is unclear. Patient has been having diarrhea at home. It seems to be getting worse. This might be contributing to the worsening BUN/creatinine ratio. Low output state also could be a contributing factor. (5) Benign hypertension: Currently normotensive. Continue on the current medication. (6) Dyslipidemia: Continue on the current medicines. (7) Elevated liver enzymes: The exact etiology is not clear. Because of the high enzyme, I may hold off on the amiodarone at this point Ischemia could be a contributing factor. Other etiologies cannot be excluded. A liver ultrasound might be helpful Plan Because of the low urine output and worsening LV systolic function, it might be appropriate to try a low-dose of Dobutrex, starting 2.5 mics per KG per minute to a maximum of 5 mics per KG per minute. Need to watch for any tachyarrhythmia. May need to consider a Myocardial perfusion imaging to evaluate for any ischemia. Attestations 2 Medical Necessity Statement*: Patient requires continued hospital stay for close monitoring and further management Coding Level of Care Code 13786 Diagnoses Acute on chronic systolic heart failure I50.23 Atherosclerosis of [place] coronary artery of [place] heart without angina pectoris I25.10 [place] vs. transplanted heart: [place] heart Atrial fibrillation with RVR I48.91 Acute kidney injury superimposed on chronic kidney disease N17.9; N18.9 Benign hypertension I10 Dyslipidemia E78.5 Elevated liver enzymes R74.8
[2023-04-09 16:52] LABS: Lactic Acid level (Lactate) 3.9 mmol/L (0.5-2.2)
[2023-04-09 17:33] LABS: Glucose Point of Care 199 mg/dL (70-110)
--- NOTE | 2023-04-09 18:00 | PC.NURSE ---
pt refused to stay in bed-he said he needs to go to the bathroom now. Pt stated, i want to be independent and not tied up in bed. Explained to pt that he still need to let the nurse know to assist him with his IV drips and higgins catheter and his his risk for fall. Pt stated, I want to go to the bathroom. Assisted pt to bathroom. pt has unsteady gait. Informed pt that he needs to push the button when he is ready to go back to bed.
--- NOTE | 2023-04-09 18:06 | PC.NURSE ---
pt refused to have another IV access yet due to incompatibility of dobutamine and antibiotics and he is going to the bathroom.
[2023-04-09 18:27] LABS: Hepatitis A Antibody IgM Non-Reactive (Nonreactive); Hepatitis B Core IgM Non-Reactive (Nonreactive); Hepatitis B Surface Antigen Non-Reactive (Nonreactive); Hepatitis C Virus Antibody Non-Reactive (Nonreactive)
[2023-04-09] MEDS: DOBUTamine drip 500 MG/250 ML PREMIX 6.74 MG IV (18:27)
[2023-04-09] MEDS: insulin lispro 100 unit/1 mL SUBCUT ×2 (18:36→22:30)
--- NOTE | 2023-04-09 18:40 | USR_ITS ---
PROCEDURE INFORMATION: Exam: US Abdomen, Limited; Right Upper Quadrant Exam date and time: 04/09/2023 8:31 PM Age: 77 years old Clinical indication: Abnormal findings; Abnormal lab test; Other: Worsening transaminitis; Additional info: Hepatobiliary US, worsening transaminitis TECHNIQUE: Imaging protocol: Real time ultrasound of the abdomen with image documentation. Limited exam focused on the right upper quadrant. COMPARISON: [place] [id number] 04/09/2023 12:41 PM FINDINGS: Pleural spaces: Chest: Right lower lung pleural effusion. Liver: Diffuse increased echogenicity is seen consistent with hepatic steatosis. There is hepatomegaly the liver span is 18 cm. There is Marielena hepatic ascites seen. Gallbladder: Normal. No gallstones. There is wall thickening. GB wall measures 8 0.7 mm negative Rachel sign Biliary ducts: Normal. No stones. No dilation. Pancreas: Visualized pancreas is unremarkable. Right kidney: Small cyst lower pole 9.7 mm. Benign cyst lower pole 2.5 cm x 2.5 cm No mass. No hydronephrosis. Measures 11.4 cm x 4.8 cm x 6.6 cm Spleen: Partial visualization of the spleen showing no focal abnormality. Aorta: The abdominal aorta and IVC are unremarkable US/US gall bladder [id number] IMPRESSION: 1. Right lower lung pleural effusion 2. Hepatomegaly and hepatic steatosis 3. Gallbladder wall thickening no gallstones 4. Marielena hepatic ascites. 5. Benign cyst right kidney
--- NOTE | 2023-04-09 19:36 | P.PN_ITS ---
Subjective 2 Subjective: He converted to sinus rhythm overnight, but also had a difficult night, could not sleep, received Ambien, subsequently fell he states he knows somewhat confused state, sustained a small laceration on his forehead. He has been feeling overall weak. No other new symptoms. Vitals/I&O/Wt Last Vital Signs Temp 98 F 04/08/23 20:03 Pulse 68 04/09/23 19:17 Resp 18 04/09/23 19:17 BP 106/66 04/09/23 16:00 Pulse Ox 98 04/09/23 19:17 O2 Del Method Room Air 04/09/23 19:17 04/09/23 04/09/23 04/09/23 06:59 14:59 22:59 Intake Total 0 / 1330 432.583 / 432.583 135.417 / 568.000 Output Total 0 / 100 Balance 0 / 1230 432.583 / 432.583 135.417 / 568.000 Weight last 48 hrs Weight 89.811 kg Physical Exam 2 Narrative: Earlier in the day lethargic. Subsequently more awake. Const: COMMON NORMALS: patient oriented x3 and alert GENERAL APPEARANCE: c ooperative ORIENTATION/CONSCIOUSNESS: Yes awake HENMT: COMMON NORMALS: oropharynx normal Neck/C-Spine: COMMON NORMALS: no JVD Resp: COMMON NORMALS: normal respiratory effort and clear to auscultation bilaterally AUSCULTATION: clear to auscultation bilaterally Cardio: COMMON NORMALS: no JVD, regular rhythm, S1 normal heart sound present, S2 normal heart sound present and No murmurs present (Cardio) RHYTHM: regular rhythm HEART SOUNDS: S1 normal heart sound present and S2 normal heart sound present GI: COMMON NORMALS: Normal to inspection, nondistended, normoactive bowel sounds present, Soft to palpation and non-tender PALPATION: Yes Soft to palpation Extremity: COMMON NORMALS: no joint enlargement NARRATIVE EXTREMITY EXAM: Extremities cool to touch. GENERAL: Yes edema (2+) Neuro: COMMON NORMALS: patient oriented x3 and moves all extremities S ENSORIUM/ORIENTATION: Yes alert Skin: COMMON NORMALS: no rashes or lesions noted GENERAL SKIN EXAM: no rashes or lesions noted Data 04/09/23 04:34 04/09/23 04:34 A&P Assessment and plan (1) Acute encephalopathy: Lethargic through the day today, possibly prolonged effect of Ambien. Later in the day more awake. Acute encephalopathy, also with noted soft blood pressure, after converted to sinus rhythm also some bradycardia, but noted worsened kidney injury and low urine output today, requested CMP and with finding of worsened transaminitis, concern for worsening ejection fraction with decompensated congestive heart failure, fatigue, obtained reassessment echocardiogram. Ejection fraction noted with severe reduction down to 25-30%, grade 3 diastolic dysfunction. Moderate mitral regurgitation. Mild tricuspid regurgitation. Mild pulmonary hypertension. Dilated IVC. Concern for low output heart failure. In the afternoon he is more awake, lucid, discussed with him the above concerns. Discussed with cardiology, discussed options for treatment, starting dobutamine drip, risk of arrhythmia with atrial fibrillation or other possibly life- threatening arrhythmia with cardiomyopathy. He denies other new symptoms, but also noted some worsening leukocytosis today, CT chest abdomen pelvis obtained, noted moderate pleural effusions worse on the left, some hazy streaking in lower lungs, possibly atelectasis, requested I-S, however, could not exclude pneumonia, discussed with him starting prickly on antibiotics with Zosyn, linezolid for now. Reassess. Obtained lactic acid, noted 3.3. Not a candidate for fluid resuscitation. In case of possible sepsis obtain blood culture. On reassessment with good capillary refill. He has developed constipation, but otherwise abdomen is soft, nontender, benign. With risk of arrhythmia, possibility of progressively worsening cardiomyopathy, transferred to intensive care unit requested, although due to high census currently in bed is not available. He is on waiting list. Per discussion with patient he would like his brother bobby to be cold in case of changes in his condition. I attempted to reach his brother Mario to give him an update as well but could not get a hold of him on the listed phone number. Per discussion with patient additionally he feels it would not be reasonable to start chest compressions in case of PEA, but otherwise he would be okay with resuscitation/CPR in case of shockable rhythm, defibrillation, cardioversion, medications, etc. (2) LORETA (acute kidney injury): Discussed with him worsening LORETA. Creatinine up to 2.4 this morning. As noted above obtain repeat echocardiogram with noted worsening ejection fraction, noted valvular abnormalities. Discussed with nephrology. Discussing with him he is okay with placing Cabrera catheter. Monitor JOSE. As per above discussion starting dobutamine, transfer to ICU. As per discussion with nephrology trial of Lasix.Discussed with him he is at risk of progressive renal failure and may end up requiring renal replacement therapy. Reviewed BUN, creatinine, anion gap, potassium potassium noted with rise up to 5. Change diet to low potassium. Reviewed CT abdomen pelvis, no urinary bladder dilation/sign of obstruction. (3) CHF (congestive heart failure): Decompensated congestive heart failure, concern for worsening ejection fraction, low output heart failure. Noted moderate pleural effusions worse on the left on CT scan. Peripheral edema. Worsening LORETA appears to be progressing to renal failure. Worsened transaminitis. Soft blood pressure. Bradycardia. Fatigue. Discussed with cardiology, will plan repeat echocardiogram, noted worsening ejection fraction down to 25-30%. Moderate MVR. Mild TVR. Mild pulmonary hypertension. Mild PVR. Pleural effusions. Dilated IVC. Discussed with him risk of arrhythmia, blood pressure fluctuation with dobutamine infusion. He is agreeable to start, would like to try to see if could see improvement. Request records from [facility]. Cardiology may additionally reach out tomorrow to colleagues in [place] for consideration of [employer]. Hold lisinopril At discharge from [place] he was supposed to go with a LifeVest but refused. Additionally as per discussion with him has not been taking his medications at home. EKG without sign of ischemia, but could be at risk of decreased perfusion/bypass graft stenosis, cardiology considering additional assessment with stress testing. 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 Possible Takotsubo? His brother had last week in the hospital room next to his. Qualifiers: Heart failure chronicity: acute on chronic Heart failure type: systolic Qualified Code(s): I50.23 - Acute on chronic systolic (congestive) heart failure (4) Transaminitis: Added liver function test, noted worsened transaminitis, AST up to 653, ALT up to 534. Noted some worsening of alk phos 210. Requested hepatitis panel. Concern for low output heart failure as above, additionally discussed with cardiology, possibility of amiodarone toxicity contributing, amiodarone held at this time. Has not been on statin at home. Records requested. (5) Goals of care, counseling/discussion: Per discussion with patient he would like his brother bobby to be cold in case of changes in his condition. I attempted to reach his brother Mario to give him an update as well but could not get a hold of him on the listed phone number. Per discussion with patient additionally he feels it would not be reasonable to start chest compressions in case of PEA, but otherwise he would be okay with resuscitation/CPR in case of shockable rhythm, defibrillation, cardioversion, medications, etc. (6) Atrial fibrillation with RVR: Converted to sinus rhythm overnight. Reviewed chemistry. Reviewed magnesium. Discussed with cardiology. As he is symptomatic, with fatigue, decompensated CHF, possible cardiorenal component, dependent on atrial kick, plans for cardioversion tomorrow. Recheck chemistry. Likely related to non compliance as as result of being overwhelmed with multiple medications and reading about their side effect profile States that he has home health services starting next week and feels that he will do better with supervision and encouragement from nurse Plan Leukocytosis: Reviewed CBC. Leukocytosis, predominantly neutrophilic, monocytic. Check UA. Check respiratory viral panel. Reviewed WBC, hemoglobin, platelets. Worsening leukocytosis today up to 17.55. Concern for low output heart failure, possibility of organ hypoperfusion. Assess CT chest abdomen pelvis. Some haziness in the lower lungs, atelectasis suspected but cannot exclude pneumonia. For now empiric coverage with Zosyn, linezolid. Blood cultures obtained. Lactic acidosis noted but suspect secondary to cardiac cause. CT abdomen unremarkable. Reviewed viral panel, noted unremarkable. UA so far uncollected.No recurrence of diarrhea. Pleural effusions: Moderate pleural effusions noted on CT review, left greater than right. Trial of diuresis. Dobutamine for suspected low output heart failure. May benefit from thoracentesis but is on Eliquis, hold Eliquis, Lovenox for now. Fall overnight: Small laceration of the forehead. Acute encephalopathy overnight, possibly combination low output heart failure, Ambien. Not sure if may be orthostatic. Discussed with him bedrest for now. Constipation: Diarrhea resolved, now reports some constipation. Senna instead. DM: Reviewed Accu-Cheks. Continue sliding scale insulin. Change to consistent carbohydrate diet. 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 Would benefit from cardiac rehab if recovers from above. Discussed with him prognosis guarded given worsened now severe cardiomyopathy, suspected low output failure. Could not reach his brother to discuss. Attestations 2 Medical Necessity Statement*: Continue admission for decompensated congestive heart failure, suspected low output heart failure, worsening acute kidney injury, concern for progression to renal failure, worsened transaminitis. Diagnoses Acute encephalopathy G93.40 LORETA (acute kidney injury) N17.9 Acute on chronic systolic congestive heart failure I50.23 Heart failure chronicity: acute on chronic Heart failure type: systolic Transaminitis R74.01 Goals of care, counseling/discussion Z71.89 Atrial fibrillation with RVR I48.91
[2023-04-09] MEDS: FUROsemide 10 mg/mL SDV 10mL 60 MG IVP (19:48)
--- NOTE | 2023-04-09 20:05 | PC.NURSE ---
shift report vegetable farmworker shift, pt has been sleepy and lethargic. Able to appropriately answer questions when asked. Oriented to person, place and time. Pt stated he is just tired and weak. Decrease appetite, refused meal trays. Oral liquid intake is tolerated. 0930AM- Notified hospitalist Pt HR- has maintained to SR since conversion last night. Left lobe lung sounds noted to be absent and diminished. SpO2-98-100% on room air. Noted SB HR-upper 50s to 60s after oral amiodarone and 25 mg metoprolol were taken this morning. pt reports of diarrhea. 1100AM pt started to have pale and cool skin,still sleepy and lethargic, no urine output noted. pt ushered to ct scan for abd/pelvis/chest. 1423-pt is sitting up on edge of bed, awake, alert and talking to his brother Mario at bedside. Educated pt on starting new IV to start his antibiotics. pt verbalizes understanding. 1730-Hospitalist in room with pt. received order to insert Cabrera and start on dobutamine drip.Educated pt that we need to also start a new IV access due to incompatibilities of iv antibiotics with dobutamine. pt agreeable to start Cabrera cath and iv access. 1800pm pt is adamant to go to the bathroom to have a bowel movement. educated pt that dr wants him to be on bedrest. pt has been refusing. assisted to the bathroom. noted unsteadiness on his legs. BED ALARM reset. 1846pm-received voalte message and a transfer order to icu for close monitoring. notified warehouse order selector about the transfer order.
--- NOTE | 2023-04-09 21:21 | PC.NURSE ---
Patient complaining of needing to urinate while having an abdominal scan. Checked higgins catheter for patency, draining appropriately. Educated patient on presence of higgins catheter and why it was needed, also educated on orders to be moved to ICU. Patient became belligerent with both nurses and lab, raising voice, refusing care. Patient refused Enoxaparin and blood sugar check. ICU nurse came to transfer patient and he exhibited same behavior towards that nurse. Notified hospitalist, Dr. Chiang of patients behavior. Dr came and spoke to patient about his concerns, patient transferred to ICU via bed.
[2023-04-09 21:43] LABS: Anion Gap 22.8 (5-19); Calcium 8.4 mg/dL (8.5-10.5); Carbon Dioxide 21 mmol/L (22-29); Chloride 94 mmol/L (98-107); Glucose 253 mg/dL (65-115); Osmolality Calculated 311 mOsm/kg (285-295); Potassium 4.8 mmol/L (3.5-5.1); Sodium 133 mmol/L (136-145)
[2023-04-09 21:58] LABS: Blood Urea Nitrogen 88 mg/dL (8-23)
[2023-04-09] MEDS: oxybutynin chloride XL 5 MG TABLET 15 MG PO (22:18)
[2023-04-09] MEDS: enoxaparin 100 mg/mL Syringe 90 MG SUBCUT (22:29)
[2023-04-09 23:32] LABS: Glucose Point of Care 208 mg/dL (70-110)
[2023-04-10] VITALS (36 sets, daily range): BP systolic 90–120; BP diastolic 50–74; PULSE 63–81; RESP 14–30; O2SAT 92–99; BMI 30.3
[2023-04-10 00:18] LABS: Bilirubin Urine Neg (Negative); Blood Urine 3+ (Negative); Glucose Urine UA Norm (Normal); Ketones Urine Negative (Negative); Leukocyte Esterase Urine Negative (Negative); Nitrate Urine Negative (Negative); Protein Urine Neg (Negative); Urine Appearance SL Hazy (CLEAR); Urine Color Yellow (Yellow); Urobilinogen Urine Neg (Negative); pH Urine 5 (5-7)
[2023-04-10 00:20] LABS: Add Urine Microscopic? YES; RBC Urine 25-40 /hpf (0-2)
[2023-04-10 00:21] LABS: Bacteria Urine 1+ /hpf
[2023-04-10 00:22] LABS: Add Urine Culture? Yes; Mucus Urine 1+ /hpf
[2023-04-10 00:24] LABS: Urine Creatinine 67 mg/dL (39-259)
[2023-04-10 00:26] LABS: Other Casts Urine WAXY /lpf
[2023-04-10] MEDS: linezolid premix 600 MG/300 ML PREMIX 300 MG IV ×2 (00:53→12:20)
[2023-04-10 01:01] LABS: Urea Nitrogen,Urine Random 414 mg/dL
--- NOTE | 2023-04-10 02:34 | PC.NURSE ---
Pt complaining of excess pain with the higgins catheter. nurse suggested exchanging for a smaller size. pt agreeable. no issues with insertion. no current complaints from patient.
[2023-04-10] MEDS: piperacillin-tazobactam 3.375 GM in sodium chloride 0.9% (plus) 50 ML IV ×3 (04:50→20:09)
[2023-04-10 05:31] LABS: Basophils # 0.1 10^3/uL (0.0-0.1); Basophils % 0.3 %; Hematocrit 38.2 % (37-53); Lymphocytes # 1.2 10^3/uL (0.8-4.8); Lymphocytes % 8.3 %; Mean Corpuscular Hemoglobin 29.4 pg (27-33); Mean Corpuscular Volume 89.3 fl (82-101); Mean Platelet Volume 10.9 fL (7.4-10.4); Monocytes # 1.6 10^3/uL (0.2-0.9); Monocytes % 11.3 %; Neutrophils # 11.45 10^3/uL (1.8-7.7); Neutrophils % 79.3 %; Nucleated Red Blood Cells % 0.1 %; Platelet Count 347 10^3/cmm (157-399); Red Blood Count 4.28 10^6/uL (3.85-5.65); Red Cell Distribution Width 15.6 % (12.1-15.1); White Blood Count 14.46 10^3/uL (3.29-11.43)
[2023-04-10 05:56] LABS: Anion Gap 19.9 (5-19); Calcium 8.4 mg/dL (8.5-10.5); Carbon Dioxide 24 mmol/L (22-29); Chloride 95 mmol/L (98-107); Glucose 199 mg/dL (65-115); Osmolality Calculated 311 mOsm/kg (285-295); Potassium 4.9 mmol/L (3.5-5.1); Sodium 134 mmol/L (136-145)
[2023-04-10 06:09] LABS: Blood Urea Nitrogen 90 mg/dL (8-23)
--- NOTE | 2023-04-10 07:52 | PM.PN ---
Subjective Subjective: Patient on dobutamine drip. Renal function worsening. Vitals/I&O/Wt Last Vital Signs Temp 98.2 F 04/09/23 20:10 Pulse 68 04/10/23 06:00 Resp 26 H 04/10/23 05:00 BP 104/64 04/10/23 05:00 Pulse Ox 98 04/10/23 05:00 O2 Del Method Room Air 04/10/23 05:00 04/09/23 04/10/23 04/10/23 22:59 06:59 14:59 Intake Total 315.417 / 748.000 530 / 1278.000 Output Total 590 / 590 Balance 315.417 / 748.000 -60 / 688.000 Weight last 48 hrs Weight 199 lb 8 oz Weight 199 lb 8 oz Physical Exam Narrative: GENERAL: Patient is alert, awake and oriented x3. [] NECK: No jugular vein distension. [] HEENT: No cyanosis. No icterus. No pallor. [] HEART: Regular S1 and S2. No murmur, rub or gallop. [] LUNGS: Clear to auscultate bilaterally. [] CENTRAL NERVOUS SYSTEM: Grossly nonfocal. [] EXTREMITIES: Lower extremities with 1-2+ edema bilaterally. [] Urinary Catheter Management: Cabrera Latex Free: Cath Placed During This Visit: yes Reason for Continuing Indwelling Catheter: Accurate Measurement of Urinary Output in Critically Ill Patients Urinary Catheter Date of Insertion: 04/10/23 Urinary Catheter Time of Insertion: 02:30 Data 04/11/23 05:50 04/11/23 05:50 A&P Assessment and plan (1) Acute on chronic systolic heart failure: Patient is overall volume overloaded. His renal function is worsening secondary to cardiorenal syndrome. Continue dobutamine and will need higher doses of IV Lasix. May need Lasix drip (2) Atherosclerotic heart disease of enterprise coronary artery without angina pectoris: Patient currently has no ischemic symptoms. He has significant drop in cardiac function. Will need coronary angiography once renal function stabilizes. Qualifiers: [place] vs. transplanted heart: enterprise heart Qualified Code(s): I25.10 - Atherosclerotic heart disease of enterprise coronary artery without angina pectoris (3) Atrial fibrillation with RVR: Currently the patient is in sinus rhythm. (4) Acute kidney injury superimposed on chronic kidney disease: Cardiorenal. Continue diuresis with dobutamine. Monitor I&O's. (5) Benign hypertension: Currently normotensive. Continue on the current medication. (6) Dyslipidemia: Continue on the current medicines. (7) Elevated liver enzymes: Plan Thank you for involving us with care of this patient. Will continue to follow. Please call with questions. Attestations Medical Necessity Statement*: Care expected to cross 2 midnights. Coding Level of Care Code Acute Code for [facility] Fwd Diagnoses Acute on chronic systolic heart failure I50.23 Atherosclerosis of enterprise coronary artery of enterprise heart without angina pectoris I25.10 [place] vs. transplanted heart: enterprise heart Atrial fibrillation with RVR I48.91 Acute kidney injury superimposed on chronic kidney disease N17.9; N18.9 Benign hypertension I10 Dyslipidemia E78.5 Elevated liver enzymes R74.8
--- NOTE | 2023-04-10 08:00 | NM_ITS ---
WS: [id number] NUCLEAR MEDICINE LUNG VENTILATION AND PERFUSION CLINICAL INFORMATION: assess for PE TECHNIQUE: Ventilation/perfusion lung scan with 32.0 mCi technetium 99m DTPA and 5 mCi Tc 99m MAA. COMPARISON: None. FINDINGS: Cardiomegaly. LEFT greater than RIGHT pleural effusions. Moderate LEFT pleural effusion. Patchy radio tracer deposition on the ventilatory images. No large mismatched ventilation/perfusion defects to ind icate pulmonary embolus. IMPRESSION: 1. Low probability for pulmonary embolus.
[2023-04-10 08:07] LABS: Glucose Point of Care 186 mg/dL (70-110)
--- NOTE | 2023-04-10 09:06 | PC.SOCIAL ---
IMM Updated Updated pt on IMM. No questions voiced. Provided pt a copy. Initialed, dated, & timed copy in chart.
[2023-04-10] MEDS: insulin lispro 100 unit/1 mL SUBCUT ×3 (10:06→20:31)
[2023-04-10] MEDS: FUROsemide 10 mg/mL SDV 10mL 60 MG IVP ×2 (10:06→20:13)
[2023-04-10] MEDS: oxybutynin chloride XL 5 MG TABLET 15 MG PO (10:06)
[2023-04-10] MEDS: clopidogrel 75 mg Tablet PO (10:06)
[2023-04-10 10:37] LABS: Alanine Aminotransferase 566 U/L (0-41); Albumin Level 3.7 g/dL (3.5-5.2); Alkaline Phosphatase 157 U/L (40-130); Aspartate Amino Transferase 380 U/L (0-40); Globulin 2.5 g/dL (1.3-4.6); Total Protein 6.2 g/dL (6.6-8.7)
--- NOTE | 2023-04-10 11:31 | PM.PN ---
Subjective Subjective: on dobutamine gtt Medications: Reviewed: Yes Vitals/I&O/Wt Last Vital Signs Temp 98.2 F 04/09/23 20:10 Pulse 67 04/10/23 08:00 Resp 27 H 04/10/23 08:00 BP 97/58 04/10/23 08:00 Pulse Ox 98 04/10/23 05:00 O2 Del Method Room Air 04/10/23 05:00 04/09/23 04/10/23 04/10/23 22:59 06:59 14:59 Intake Total 315.417 / 748.000 530 / 1278.000 180 / 180 Output Total 590 / 590 Balance 315.417 / 748.000 -60 / 688.000 180 / 180 Weight last 48 hrs Weight 90.492 kg Weight 90.492 kg Physical Exam Narrative: Awake alert, mild distress HEENT Has edema Urinary Catheter Management: Cabrera Latex Free: Cath Placed During This Visit: yes Reason for Continuing Indwelling Catheter: Accurate Measurement of Urinary Output in Critically Ill Patients Urinary Catheter Date of Insertion: 04/10/23 Urinary Catheter Time of Insertion: 02:30 Data 04/10/23 05:05 04/10/23 05:05 A&P Assessment and plan (1) LORETA (acute kidney injury): Plan 1. Acute on chronic kidney disease: Creatinine was normal at 1.0 in February/2023. Etiology of LORETA likely cardiorenal in the setting of worsening ejection fraction. -No hydronephrosis, no nephrotoxin exposure no IV contrast -Started on dobutamine drip, -s/p IV Lasix 60 mg - he is in room air , gentle diuresis - ordered Po lasix - worsening BUN /cr , may require renal replacement therapy 2. Hyponatremia: Likely hypervolemic, check urine sodium and osmolality 3. Metabolic acidosis: Mild, will add Bicitra 4. CHF: decreased ejection fraction, dropped from 45% to 25 to 30% currently, diuretics as above, on dobutamine drip 5. History of A-fib Patient evaluated using audiovisual cart. Time spent 20 minutes. Attestations Medical Necessity Statement*: per [facility] Coding Level of Care Code Acute Code for [facility] Diagnoses LORETA (acute kidney injury) N17.9
[2023-04-10 11:55] LABS: Glucose Point of Care 222 mg/dL (70-110)
--- NOTE | 2023-04-10 13:30 | P.PN_ITS ---
Subjective 2 Subjective: Today he is feeling mildly better. Energy is slightly better. Later on reporting poor appetite, nausea. Vitals/I&O/Wt Last Vital Signs Temp 98.2 F 04/09/23 20:10 Pulse 77 04/10/23 12:00 Resp 29 H 04/10/23 12:00 BP 115/71 04/10/23 12:00 Pulse Ox 98 04/10/23 05:00 O2 Del Method Room Air 04/10/23 05:00 04/09/23 04/10/23 04/10/23 22:59 06:59 14:59 Intake Total 315.417 / 748.000 530 / 1278.000 350 / 350 Output Total 590 / 590 850 / 850 Balance 315.417 / 748.000 -60 / 688.000 -500 / -500 Weight last 48 hrs Weight 90.492 kg Weight 90.492 kg Physical Exam 2 Const: COMMON NORMALS: patient oriented x3 and alert GENERAL APPEARANCE: c ooperative ORIENTATION/CONSCIOUSNESS: Yes awake HENMT: COMMON NORMALS: oropharynx normal Neck/C-Spine: COMMON NORMALS: no JVD Resp: COMMON NORMALS: normal respiratory effort and clear to auscultation bilaterally AUSCULTATION: clear to auscultation bilaterally Cardio: COMMON NORMALS: no JVD, regular rhythm, S1 normal heart sound present, S2 normal heart sound present and No murmurs present (Cardio) RHYTHM: regular rhythm HEART SOUNDS: S1 normal heart sound present and S2 normal heart sound present GI: COMMON NORMALS: Normal to inspection, nondistended, normoactive bowel sounds present, Soft to palpation and non-tender PALPATION: Yes Soft to palpation Extremity: COMMON NORMALS: no joint enlargement NARRATIVE EXTREMITY EXAM: Extremities warm and to touch. GENERAL: Yes edema (2+) Neuro: COMMON NORMALS: patient oriented x3 and moves all extremities S ENSORIUM/ORIENTATION: Yes alert Skin: COMMON NORMALS: no rashes or lesions noted GENERAL SKIN EXAM: no rashes or lesions noted Urinary Catheter Management: Cabrera Latex Free: Cath Placed During This Visit: yes Reason for Continuing Indwelling Catheter: Accurate Measurement of Urinary Output in Critically Ill Patients Urinary Catheter Date of Insertion: 04/10/23 Urinary Catheter Time of Insertion: 02:30 Data 04/10/23 05:05 04/10/23 05:05 A&P Assessment and plan (1) CHF (congestive heart failure): Low output heart failure with cardiorenal syndrome, shock liver, acute encephalopathy. Cardiorenal syndrome and improved today, creatinine still elevated, but transaminitis and mental status have improved. Continue dobutamine. Received diuretic last night and today. Reviewed nephrology note, discussed with cardiology., Per discussion with cardiology continue diuretics with dobutamine. Pending reassessment, subsequent consideration of risk stratification, possibly stress test. Echocardiogram, noted worsening ejection fraction down to 25-30%. Moderate MVR. Mild TVR. Mild pulmonary hypertension. Mild PVR. Pleural effusions. Dilated IVC. Discussed with him risk of arrhythmia, blood pressure fluctuation with dobutamine infusion. He is agreeable to start, would like to try to see if could see improvement. Request records from [facility]. 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 Hold lisinopril At discharge from [place] he was supposed to go with a LifeVest but refused. Additionally as per discussion with him has not been taking his medications at home. EKG without sign of ischemia, but could be at risk of decreased perfusion/bypass graft stenosis, cardiology considering additional assessment with stress testing. 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 Possible Takotsubo? His brother had last week in the hospital room next to his. Discussed with his brother Mario. Discussed with watch case polisher. Qualifiers: Heart failure chronicity: acute on chronic Heart failure type: systolic Qualified Code(s): I50.23 - Acute on chronic systolic (congestive) heart failure (2) LORETA (acute kidney injury): Reviewed nephrology note. Discussed with cardiology. Assessed to be in cardiorenal syndrome. Blood pressure, mental status, transaminitis with improvement with dobutamine. So far renal function without improvement, BUN reviewed, noted worsened to 90, creatinine reviewed, noted worsened to 2.7. Urine without urine output. We discussed with him in case of worsening renal dysfunction, renal failure, may need dialysis. Continue dobutamine. Monitor JOSE. Reviewed CT abdomen pelvis, no urinary bladder dilation/sign of obstruction. (3) Acute encephalopathy: Resolved. Lethargic through the day today, possibly prolonged effect of Ambien. Later in the day more awake. Acute encephalopathy, also with noted soft blood pressure, after converted to sinus rhythm also some bradycardia, but noted worsened kidney injury and low urine output today, requested CMP and with finding of worsened transaminitis, concern for worsening ejection fraction with decompensated congestive heart failure, fatigue, obtained reassessment echocardiogram. Ejection fraction noted with severe reduction down to 25-30%, grade 3 diastolic dysfunction. Moderate mitral regurgitation. Mild tricuspid regurgitation. Mild pulmonary hypertension. Dilated IVC. Concern for low output heart failure. In the afternoon he is more awake, lucid, discussed with him the above concerns. Discussed with cardiology, discussed options for treatment, starting dobutamine drip, risk of arrhythmia with atrial fibrillation or other possibly life- threatening arrhythmia with cardiomyopathy. He denies other new symptoms, but also noted some worsening leukocytosis today, CT chest abdomen pelvis obtained, noted moderate pleural effusions worse on the left, some hazy streaking in lower lungs, possibly atelectasis, requested I-S, however, could not exclude pneumonia, discussed with him starting prickly on antibiotics with Zosyn, linezolid for now. Reassess. Obtained lactic acid, noted 3.3. Not a candidate for fluid resuscitation. In case of possible sepsis obtain blood culture. On reassessment with good capillary refill. He has developed constipation, but otherwise abdomen is soft, nontender, benign. With risk of arrhythmia, possibility of progressively worsening cardiomyopathy, transferred to intensive care unit requested, although due to high census currently in bed is not available. He is on waiting list. Per discussion with patient he would like his brother bobby to be cold in case of changes in his condition. I attempted to reach his brother Mario to give him an update as well but could not get a hold of him on the listed phone number. Per discussion with patient additionally he feels it would not be reasonable to start chest compressions in case of PEA, but otherwise he would be okay with resuscitation/CPR in case of shockable rhythm, defibrillation, cardioversion, medications, etc. (4) Transaminitis: Reviewed AST, ALT, alk phos. T. bili. Suspected hypoperfusion, shock liver secondary to low output cardiac failure, possible component from amiodarone, but with rapid improvement today after initiation of dobutamine, less likely secondary to amiodarone. It has been held just in case. Reassess liver parameters. Reviewed hepatitis panel. Concern for low output heart failure as above, additionally discussed with cardiology, possibility of amiodarone toxicity contributing, amiodarone held at this time. Has not been on statin at home. Records requested. (5) Goals of care, counseling/discussion: Per discussion with patient he would like his brother Mario to be cold in case of changes in his condition. Per discussion with patient additionally he feels it would not be reasonable to start chest compressions in case of PEA, but otherwise he would be okay with resuscitation/CPR in case of shockable rhythm, defibrillation, cardioversion, medications, etc. (6) Atrial fibrillation with RVR: Converted to sinus rhythm overnight. Reviewed chemistry. Reviewed magnesium. Discussed with cardiology. As he is symptomatic, with fatigue, decompensated CHF, possible cardiorenal component, dependent on atrial kick, plans for cardioversion tomorrow. Recheck chemistry. Likely related to non compliance as as result of being overwhelmed with multiple medications and reading about their side effect profile States that he has home health services starting next week and feels that he will do better with supervision and encouragement from nurse Plan Leukocytosis: Reviewed WBC, noted improving today. He has had no appetite, although suspect this may be due to worsening renal function. Discussed with him and his brother with low output failure, possibility of GI translocation, elevated risk of infection, compromised immune response. She is empirically on antibiotic coverage. Continue. Afebrile. Leukocytosis with improvement. Reviewed CBC. Leukocytosis, predominantly neutrophilic, monocytic. Check UA. Check respiratory viral panel. Reviewed WBC, hemoglobin, platelets. Worsening leukocytosis today up to 17.55. Concern for low output heart failure, possibility of organ hypoperfusion. Assess CT chest abdomen pelvis. Some haziness in the lower lungs, atelectasis suspected but cannot exclude pneumonia. For now empiric coverage with Zosyn, linezolid. Blood cultures obtained. Lactic acidosis noted but suspect secondary to cardiac cause. CT abdomen unremarkable. Reviewed viral panel, noted unremarkable. UA so far uncollected.No recurrence of diarrhea. Pleural effusions: Moderate pleural effusions noted on CT review, left greater than right. Trial of diuresis. Dobutamine for suspected low output heart failure. May benefit from thoracentesis but is on Eliquis, hold Eliquis, Lovenox for now. Fall overnight: Small laceration of the forehead. Acute encephalopathy overnight, possibly combination low output heart failure, Ambien. Not sure if may be orthostatic. Discussed with him bedrest for now. Constipation: Diarrhea resolved, now reports some constipation. Senna instead. DM: Reviewed Accu-Cheks. With acceptable control,Continue as currently. 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 Would benefit from cardiac rehab if recovers from above. Given worsening cardiac function bedrest for now. Discussed with him prognosis guarded given worsened now severe cardiomyopathy, suspected low output failure. Discussed with his brother. Attestations 2 Medical Necessity Statement*: Continue admission for assessment management of decompensated CHF, low heart failure, multiorgan injury, worsening renal dysfunction, progressing to renal failure, additional comorbidities as above. Coding Level of Care Code Critical Care >/= 30 minutes Critical care time (in minutes): 40 The high probability of a clinically significant, sudden or life threatening deterioration, as referenced in this documentation, required my full and direct attention, intervention and personal management. The critical care time shown is in addition to time spent performing any reported separately billable procedures and includes the following: [x] Data and vital sign review and interpretation [x ] Patient assessment, examination and intervention [x] Medication orders and management [x] Patient/Family updates as able [x] Care Coordination and Documentation. Diagnoses Acute on chronic systolic congestive heart failure I50.23 Heart failure chronicity: acute on chronic Heart failure type: systolic LORETA (acute kidney injury) N17.9 Acute encephalopathy G93.40 Transaminitis R74.01 Goals of care, counseling/discussion Z71.89 Atrial fibrillation with RVR I48.91
[2023-04-10 15:29] LABS: KAPPA LIGHT CHAIN, FREE, SERUM 59.3 mg/L (3.3-19.4); LAMBDA LIGHT CHAIN, FREE, SERU 37.1 mg/L (5.7-26.3)
[2023-04-10] MEDS: FUROsemide 40 mg Tablet PO (15:55)
[2023-04-10] MEDS: ondansetron 2 mg/ML SDV 2 mL 4 MG IVP (16:46)
[2023-04-10 17:39] LABS: Glucose Point of Care 142 mg/dL (70-110)
[2023-04-10 20:30] LABS: Glucose Point of Care 218 mg/dL (70-110)
[2023-04-10] MEDS: enoxaparin 100 mg/mL Syringe 90 MG SUBCUT (20:31)
[2023-04-11] VITALS (64 sets, daily range): BP systolic 96–131; BP diastolic 43–75; PULSE 62–86; RESP 16–30; TEMP 36.6–37.2; O2SAT 82–94
[2023-04-11] MEDS: linezolid premix 600 MG/300 ML PREMIX 300 MG IV ×2 (00:24→13:28)
[2023-04-11] MEDS: piperacillin-tazobactam 3.375 GM in sodium chloride 0.9% (plus) 50 ML IV ×3 (04:24→20:47)
[2023-04-11 06:10] LABS: Basophils % 0.3 %; Eosinophils % 0.2 %; Hematocrit 40.9 % (37-53); Lymphocytes # 1.1 10^3/uL (0.8-4.8); Lymphocytes % 9.8 %; Mean Corpuscular HGB Conc 30.3 g/dL (30-55); Mean Corpuscular Hemoglobin 29.5 pg (27-33); Mean Corpuscular Volume 97.1 fl (82-101); Mean Platelet Volume 10.4 fL (7.4-10.4); Monocytes # 1.3 10^3/uL (0.2-0.9); Monocytes % 12.1 %; Neutrophils % 76.7 %; Nucleated Red Blood Cells % 0 %; Platelet Count 202 10^3/cmm (157-399); Red Blood Count 4.21 10^6/uL (3.85-5.65); Red Cell Distribution Width 16.2 % (12.1-15.1); White Blood Count 10.69 10^3/uL (3.29-11.43)
[2023-04-11 06:38] LABS: Alanine Aminotransferase 368 U/L (0-41); Albumin Level 3.1 g/dL (3.5-5.2); Alkaline Phosphatase 122 U/L (40-130); Blood Urea Nitrogen 72 mg/dL (8-23); Calcium 7.9 mg/dL (8.5-10.5); Carbon Dioxide 21 mmol/L (22-29); Chloride 95 mmol/L (98-107); Globulin 2.6 g/dL (1.3-4.6); Glucose 181 mg/dL (65-115); Osmolality Calculated 300 mOsm/kg (285-295); Sodium 132 mmol/L (136-145); Total Bilirubin 0.9 mg/dL (0.15-1.2); Total Protein 5.7 g/dL (6.6-8.7)
[2023-04-11 06:46] LABS: Anion Gap 19.8 (5-19); Potassium 3.8 mmol/L (3.5-5.1)
[2023-04-11 06:47] LABS: Aspartate Amino Transferase 138 U/L (0-40)
[2023-04-11] MEDS: DOBUTamine drip 500 MG/250 ML PREMIX 6.74 MG IV (07:27)
--- NOTE | 2023-04-11 07:56 | PM.PN ---
Subjective Subjective: Patient is diuresing well. Feeling much better today. Renal function improving. Vitals/I&O/Wt Last Vital Signs Temp 97.8 F 04/11/23 07:30 Pulse 70 04/11/23 07:30 Resp 18 04/11/23 07:30 BP 113/57 04/11/23 07:30 Pulse Ox 91 04/11/23 07:30 O2 Del Method Room Air 04/11/23 07:30 04/10/23 04/11/23 04/11/23 22:59 06:59 14:59 Intake Total 438.812 / 1088.812 357.542 / 1446.354 33.026 / 33.026 Output Total 1000 / 1850 1850 / 3700 Balance -561.188 / -761.188 -1492.458 / -2253.646 33.026 / 33.026 Weight last 48 hrs Weight 192 lb Weight 199 lb 8 oz Weight 199 lb 8 oz Physical Exam Narrative: GENERAL: Patient is alert, awake and oriented x3. [] NECK: No jugular vein distension. [] HEENT: No cyanosis. No icterus. No pallor. [] HEART: Regular S1 and S2. No murmur, rub or gallop. [] LUNGS: Clear to auscultate bilaterally. [] CENTRAL NERVOUS SYSTEM: Grossly nonfocal. [] EXTREMITIES: Lower extremities with 1-2+ edema bilaterally. [] Urinary Catheter Management: Cabrera Latex Free: Cath Placed During This Visit: yes Reason for Continuing Indwelling Catheter: Accurate Measurement of Urinary Output in Critically Ill Patients Urinary Catheter Date of Insertion: 04/10/23 Urinary Catheter Time of Insertion: 02:30 Data 04/12/23 04:33 04/12/23 04:33 Micro: Microbiology 04/09/23 12:31 Blood Culture - Preliminary Blood 04/09/23 12:26 Blood Culture - Preliminary Blood A&P Assessment and plan (1) Acute on chronic systolic heart failure: Patient is responding well to IV Lasix 60 mg twice daily and dobutamine. Continue diuresis. His symptoms sever secondary to cardiorenal syndrome (2) Atherosclerotic heart disease of three affiliated coronary artery without angina pectoris: Patient currently has no ischemic symptoms. He has significant drop in cardiac function. Will need coronary angiography once renal function stabilizes. Qualifiers: [place] vs. transplanted heart: three affiliated heart Qualified Code(s): I25.10 - Atherosclerotic heart disease of three affiliated coronary artery without angina pectoris (3) Atrial fibrillation with RVR: Currently the patient is in sinus rhythm. Continue monitoring. (4) Acute kidney injury superimposed on chronic kidney disease: Cardiorenal. Continue diuresis with dobutamine. Monitor I&O's. (5) Benign hypertension: Currently normotensive. Continue on the current medication. (6) Dyslipidemia: Continue on the current medicines. (7) Elevated liver enzymes: Plan Thank you for involving us with care of this patient. Will continue to follow. Please call with questions. Attestations Medical Necessity Statement*: Care expected to cross 2 midnights. Coding Level of Care Code Acute Code for [facility] Fwd Diagnoses Acute on chronic systolic heart failure I50.23 Atherosclerosis of three affiliated coronary artery of three affiliated heart without angina pectoris I25.10 [place] vs. transplanted heart: three affiliated heart Atrial fibrillation with RVR I48.91 Acute kidney injury superimposed on chronic kidney disease N17.9; N18.9 Benign hypertension I10 Dyslipidemia E78.5 Elevated liver enzymes R74.8
[2023-04-11 08:30] LABS: Glucose Point of Care 185 mg/dL (70-110)
[2023-04-11 08:40] LABS: Anti-Nuclear AB Pattern #2 Nuclear, Centromere; Anti-Nuclear Antibody Pattern Nuclear, Homogeneous; Anti-Nuclear Antibody Screen POSITIVE (NEGATIVE)
--- NOTE | 2023-04-11 08:44 | P.PN_ITS ---
Subjective 2 Subjective: alert, feels better, reports cough, less edema Vitals/I&O/Wt Last Vital Signs Temp 97.8 F 04/11/23 07:30 Pulse 70 04/11/23 07:30 Resp 18 04/11/23 07:30 BP 113/57 04/11/23 07:30 Pulse Ox 91 04/11/23 07:30 O2 Del Method Room Air 04/11/23 07:30 04/10/23 04/11/23 04/11/23 22:59 06:59 14:59 Intake Total 438.812 / 1088.812 357.542 / 1446.354 33.026 / 33.026 Output Total 1000 / 1850 1850 / 3700 Balance -561.188 / -761.188 -1492.458 / -2253.646 33.026 / 33.026 Weight last 48 hrs Weight 87.09 kg Weight 90.492 kg Weight 90.492 kg Physical Exam 2 Const: COMMON NORMALS: no acute distress and alert Extremity: NARRATIVE EXTREMITY EXAM: trace edema Neuro: SENSORIUM/ORIENTATION: Yes alert Urinary Catheter Management: Cabrera Latex Free: Cath Placed During This Visit: yes Reason for Continuing Indwelling Catheter: Accurate Measurement of Urinary Output in Critically Ill Patients Urinary Catheter Date of Insertion: 04/10/23 Urinary Catheter Time of Insertion: 02:30 Data 04/11/23 05:50 04/11/23 05:50 Other Labs: + BANDAR 1:320 nuclear homogenous + BANDAR 1:1280 nuclear centromere K/L 1.6 albumin 3.1, corrected calcium 8.7 LFTs improving Micro: Microbiology 04/09/23 12:31 Blood Culture - Preliminary Blood 04/09/23 12:26 Blood Culture - Preliminary Blood Echo: Radiologist's impression: LV systolic function is severely reduced with EF of 25 to 30%. Grade 3 diastolic dysfunction. Biatrial enlargement. Moderate mitral regurgitation Mild tricuspid regurgitation. Mild pulmonary hypertension Mild pulmonic regurgitation Pleural effusion is noted IVC is dilated. LV systolic function has decreased significantly from last echo from 02/2023 and is severely reduced now. CT Abd/Pel: Radiologist's impression: NO contrrast Adrenal glands: Bilateral adrenal thickening may indicate hyperplasia. Kidneys and ureters: Simple right renal cyst requires no dedicated imaging follow-up. Mild symmetric bilateral perirenal fat stranding. Otherwise unremarkable US: Radiologist's impression: Right kidney: Normal. No stones. No hydronephrosis. Measures 9.6 cm. Incidental note is made of cyst in interpolar region measuring 2.7 cm. Left kidney: Normal. No stones. No hydronephrosis. Measures 9.7 cm. Urinary bladder: Unremarkable. Other data: seen via telemedicine with assistance of RN at bedside A&P Assessment and plan (1) LORETA (acute kidney injury): Plan 1. Acute kidney injury, HFrEF, cardiorenal, diuresing on dobutamine infusion and IV furosemide. Renal function improving 2. Metabolic acidosis improved 3. + BANDAR, denies history of lupus, will order DsDNA and complements. + hematuria, no overt proteinuria Recommend: continue IV dobutamine and lasix Attestations 2 Medical Necessity Statement*: see above Time Spent in Patient Care: 16 - 35 minutes Coding Level of Care Code Acute Code for [facility] Fwd Diagnoses LORETA (acute kidney injury) N17.9
[2023-04-11] MEDS: insulin lispro 100 unit/1 mL SUBCUT ×3 (08:59→20:49)
[2023-04-11] MEDS: oxybutynin chloride XL 5 MG TABLET 15 MG PO (09:00)
[2023-04-11] MEDS: FUROsemide 10 mg/mL SDV 10mL 60 MG IVP ×2 (09:03→20:47)
[2023-04-11] MEDS: clopidogrel 75 mg Tablet PO (09:03)
--- NOTE | 2023-04-11 10:50 | PC.NURSE ---
Pt has a neoprene gun case at bedside. He is using thisto pad his cellphone. No weapons resent.
[2023-04-11 11:57] LABS: Glucose Point of Care 227 mg/dL (70-110)
--- NOTE | 2023-04-11 17:14 | P.PN_ITS ---
Subjective 2 Subjective: He feels his condition is improving. Feeling stronger. Vitals/I&O/Wt Last Vital Signs Temp 98.3 F 04/11/23 13:30 Pulse 74 04/11/23 16:30 Resp 18 04/11/23 16:30 BP 109/58 04/11/23 16:30 Pulse Ox 94 04/11/23 16:30 O2 Del Method Room Air 04/11/23 16:30 04/11/23 04/11/23 04/11/23 06:59 14:59 22:59 Intake Total 357.542 / 1446.354 483.026 / 483.026 Output Total 1850 / 3700 1250 / 1250 Balance -1492.458 / -2253.646 -766.974 / -766.974 Weight last 48 hrs Weight 87.09 kg Weight 90.492 kg Weight 90.492 kg Physical Exam 2 Narrative: Earlier in the day lethargic. Subsequently more awake. Const: COMMON NORMALS: patient oriented x3 and alert GENERAL APPEARANCE: c ooperative ORIENTATION/CONSCIOUSNESS: Yes awake HENMT: COMMON NORMALS: oropharynx normal Neck/C-Spine: COMMON NORMALS: no JVD Resp: COMMON NORMALS: normal respiratory effort and clear to auscultation bilaterally AUSCULTATION: clear to auscultation bilaterally Cardio: COMMON NORMALS: no JVD, regular rhythm, S1 normal heart sound present, S2 normal heart sound present and No murmurs present (Cardio) RHYTHM: regular rhythm HEART SOUNDS: S1 normal heart sound present and S2 normal heart sound present GI: COMMON NORMALS: Normal to inspection, nondistended, normoactive bowel sounds present, Soft to palpation and non-tender PALPATION: Yes Soft to palpation Extremity: COMMON NORMALS: no joint enlargement NARRATIVE EXTREMITY EXAM: Extremities warmer to touch. GENERAL: Yes edema (2+) Neuro: COMMON NORMALS: patient oriented x3 and moves all extremities S ENSORIUM/ORIENTATION: Yes alert Skin: COMMON NORMALS: no rashes or lesions noted GENERAL SKIN EXAM: no rashes or lesions noted Urinary Catheter Management: Cabrera Latex Free: Cath Placed During This Visit: yes Reason for Continuing Indwelling Catheter: Accurate Measurement of Urinary Output in Critically Ill Patients Urinary Catheter Date of Insertion: 04/10/23 Urinary Catheter Time of Insertion: 02:30 Data 04/11/23 05:50 04/11/23 05:50 Micro: Microbiology 04/09/23 23:53 Urine Culture - Preliminary Urine,Clean Catch 04/09/23 12:31 Blood Culture - Preliminary Blood 04/09/23 12:26 Blood Culture - Preliminary Blood A&P Assessment and plan (1) CHF (congestive heart failure): Improvement in symptoms of CHF, improvement in blood pressure, improvement in alertness, improvement in transaminitis, some improvement in renal function, some increase in urine output, some improvement in creatinine down to 2.2. Continue low rate debridement for now 2.5. Poor peripheral access, lost IV, difficulty with placing IV, needing dobutamine, lab work, requested PICC line. Reviewed vitals, CBC, CMP, JOSE, reviewed nephrology note. Additional studies requested for autoimmune etiology. Discussed with pacs administrator. Low output heart failure with cardiorenal syndrome, shock liver, acute encephalopathy. Cardiorenal syndrome and improved today, creatinine still elevated, but transaminitis and mental status have improved. Continue dobutamine. Received diuretic last night and today. Reviewed nephrology note, discussed with cardiology., Per discussion with cardiology continue diuretics with dobutamine. Pending reassessment, subsequent consideration of risk stratification, possibly stress test. Echocardiogram, noted worsened ejection fraction down to 25-30%. Moderate MVR. Mild TVR. Mild pulmonary hypertension. Mild PVR. Pleural effusions. Dilated IVC. Discussed with him risk of arrhythmia, blood pressure fluctuation with dobutamine infusion. He is agreeable to start, would like to try to see if could see improvement. Request records from [facility]. Cardiology may additionally reach out tomorrow to colleagues in [place] for consideration of ESTIMATING ENGINEER. Hold lisinopril At discharge from [place] he was supposed to go with a LifeVest but refused. Additionally as per discussion with him has not been taking his medications at home. EKG without sign of ischemia, but could be at risk of decreased perfusion/bypass graft stenosis, cardiology considering additional assessment with stress testing. 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 Possible Takotsubo? His brother had last week in the hospital room next to his. Discussed with his brother Mario. Discussed with case resource manager. Qualifiers: Heart failure chronicity: acute on chronic Heart failure type: systolic Qualified Code(s): I50.23 - Acute on chronic systolic (congestive) heart failure (2) LORETA (acute kidney injury): With improvement. Producing urine. Creatinine with improvement. Reviewed nephrology note. Additional studies added for autoimmune etiologies. Reviewed nephrology note. Discussed with cardiology. Assessed to be in cardiorenal syndrome. Blood pressure, mental status, transaminitis with improvement with dobutamine. So far renal function without improvement, BUN reviewed, noted worsened to 90, creatinine reviewed, noted worsened to 2.7. Urine without urine output. We discussed with him in case of worsening renal dysfunction, renal failure, may need dialysis. Continue dobutamine. Monitor JOSE. Reviewed CT abdomen pelvis, no urinary bladder dilation/sign of obstruction. (3) Acute encephalopathy: Resolved. Lethargic through the day today, possibly prolonged effect of Ambien. Later in the day more awake. Acute encephalopathy, also with noted soft blood pressure, after converted to sinus rhythm also some bradycardia, but noted worsened kidney injury and low urine output today, requested CMP and with finding of worsened transaminitis, concern for worsening ejection fraction with decompensated congestive heart failure, fatigue, obtained reassessment echocardiogram. Ejection fraction noted with severe reduction down to 25-30%, grade 3 diastolic dysfunction. Moderate mitral regurgitation. Mild tricuspid regurgitation. Mild pulmonary hypertension. Dilated IVC. Concern for low output heart failure. In the afternoon he is more awake, lucid, discussed with him the above concerns. Discussed with cardiology, discussed options for treatment, starting dobutamine drip, risk of arrhythmia with atrial fibrillation or other possibly life- threatening arrhythmia with cardiomyopathy. Risk of tachycardia, hypotension with dobutamine. Monitor closely. Monitor electrolytes. Recheck magnesium. He denies other new symptoms, but also noted some worsening leukocytosis today, CT chest abdomen pelvis obtained, noted moderate pleural effusions worse on the left, some hazy streaking in lower lungs, possibly atelectasis, requested I-S, however, could not exclude pneumonia, discussed with him starting prickly on antibiotics with Zosyn, linezolid for now. Reassess. Obtained lactic acid, noted 3.3. Not a candidate for fluid resuscitation. In case of possible sepsis obtain blood culture. On reassessment with good capillary refill. He has developed constipation, but otherwise abdomen is soft, nontender, benign. With risk of arrhythmia, possibility of progressively worsening cardiomyopathy, transferred to intensive care unit requested, although due to high census currently in bed is not available. He is on waiting list. Per discussion with patient he would like his brother bobby to be cold in case of changes in his condition. I attempted to reach his brother Mario to give him an update as well but could not get a hold of him on the listed phone number. Per discussion with patient additionally he feels it would not be reasonable to start chest compressions in case of PEA, but otherwise he would be okay with resuscitation/CPR in case of shockable rhythm, defibrillation, cardioversion, medications, etc. (4) Transaminitis: Reviewed T. bili, AST, LT, alk phos. AST, ALT improving, alk phos normalized. T. bili normal. Reassess CMP. Continue dobutamine. Suspected hypoperfusion, shock liver secondary to low output cardiac failure, possible component from amiodarone, but with rapid improvement today after initiation of dobutamine, less likely secondary to amiodarone. It has been held just in case. Reassess liver parameters. Reviewed hepatitis panel. Concern for low output heart failure as above, additionally discussed with cardiology, possibility of amiodarone toxicity contributing, amiodarone held at this time. Has not been on statin at home. Records requested. (5) Goals of care, counseling/discussion: Per discussion with patient he would like his brother Mario to be called in case of changes in his condition. Per discussion with patient additionally he feels it would not be reasonable to start chest compressions in case of PEA, but otherwise he would be okay with resuscitation/CPR in case of shockable rhythm, defibrillation, cardioversion, medications, etc. (6) Atrial fibrillation with RVR: Converted to sinus rhythm. Reviewed chemistry. Reviewed magnesium. Discussed with cardiology. As he is symptomatic, with fatigue, decompensated CHF, possible cardiorenal component, dependent on atrial kick, plans for cardioversion tomorrow. Recheck chemistry. Likely related to non compliance as as result of being overwhelmed with multiple medications and reading about their side effect profile States that he has home health services starting next week and feels that he will do better with supervision and encouragement from nurse Plan Leukocytosis: Reviewed WBC, noted normalized. For now continue empiric antibiotics. Continue dobutamine as above. He denies any change in symptoms. Urine culture reviewed, without growth. Blood culture reviewed, no growth to date. He has had no appetite, although suspect this may be due to worsening renal function. Discussed with him and his brother with low output failure, possibility of GI translocation, elevated risk of infection, compromised immune response. She is empirically on antibiotic coverage. Continue. Afebrile. Leukocytosis with improvement. For now empiric coverage with Zosyn, linezolid. Monitor with risk of adrenal cytosis with linezolid. Pleural effusions: Moderate pleural effusions noted on CT review, left greater than right. Trial of diuresis. Dobutamine for suspected low output heart failure. May benefit from thoracentesis but is on Eliquis, hold Eliquis, Lovenox for now. Diuresis as above. Producing urine. Fall overnight: Small laceration of the forehead. Acute encephalopathy overnight, possibly combination low output heart failure, Ambien. Not sure if may be orthostatic. Discussed with him bedrest for now. Constipation: Constipation, but reports having bowel movement last night. Diarrhea resolved, now reports some constipation. Senna instead. DM: Reviewed Accu-Cheks. With acceptable control,Continue as currently. 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 Would benefit from cardiac rehab if recovers from above. Given worsening cardiac function bedrest for now. Discussed with him prognosis guarded given worsened now severe cardiomyopathy, suspected low output failure. Discussed with his brother. Attestations 2 Medical Necessity Statement*: Continue admission for assessment and management of low output heart failure with multiorgan injury. Diagnoses Acute on chronic systolic congestive heart failure I50.23 Heart failure chronicity: acute on chronic Heart failure type: systolic LORETA (acute kidney injury) N17.9 Acute encephalopathy G93.40 Transaminitis R74.01 Goals of care, counseling/discussion Z71.89 Atrial fibrillation with RVR I48.91
[2023-04-11 17:18] LABS: Glucose Point of Care 121 mg/dL (70-110)
--- NOTE | 2023-04-11 19:29 | PC.NURSE ---
Shift summary: Pt rested in the bed for most of the shift. He did sit on the side of the bed for dinner with the agreement that he would use the call light before he became drowsy. He remained in sinus, first degree block throughout the shift, no ectopy noted. He remained normotensive. Afebrile this shift. he does have pitting edema lower legs, this am 1+, it did increase to 2+ after dangling off side of bed at dinner. Dobutamine remained infusing at 2.5mcg/kg/min. He has someanxiety about medical care. he stated when he was discharged after his CABG they just handed him a big bag of medications and it ws up to him to figure it out. He stated it was overwhelming. He was offered a PICC today, as one IV blew and needed to be stuck 3 times to get another. ( he also has Dobutamine infusing). He decline stating he just could not handling it( referring to the line going up thorough his arm to the subclavian vessel. He stated it scared he. This nurse offered reassurance but he still declined. He is also worried about te swelling i his legs, he does not want this to go on forever. We then discussed CHF and the CHF stoplight.
[2023-04-11 20:39] LABS: Glucose Point of Care 276 mg/dL (70-110)
[2023-04-11] MEDS: enoxaparin 100 mg/mL Syringe 90 MG SUBCUT (20:47)
[2023-04-12] VITALS (41 sets, daily range): BP systolic 106–132; BP diastolic 45–78; PULSE 71–108; RESP 16–29; TEMP 36.3–37.1; O2SAT 88–98
[2023-04-12] MEDS: linezolid premix 600 MG/300 ML PREMIX 300 MG IV ×3 (00:37→23:50)
[2023-04-12] MEDS: piperacillin-tazobactam 3.375 GM in sodium chloride 0.9% (plus) 50 ML IV ×3 (04:29→20:08)
[2023-04-12 04:48] LABS: Basophils # 0.1 10^3/uL (0.0-0.1); Basophils % 0.5 %; Eosinophils # 0.1 10^3/uL (0.0-0.8); Eosinophils % 0.7 %; Hematocrit 38.8 % (37-53); Lymphocytes # 1.2 10^3/uL (0.8-4.8); Lymphocytes % 11.1 %; Mean Corpuscular HGB Conc 32.7 g/dL (30-55); Mean Corpuscular Hemoglobin 29.9 pg (27-33); Mean Corpuscular Volume 91.3 fl (82-101); Mean Platelet Volume 10.4 fL (7.4-10.4); Monocytes # 1.3 10^3/uL (0.2-0.9); Monocytes % 12.2 %; Neutrophils # 8.16 10^3/uL (1.8-7.7); Neutrophils % 74.5 %; Nucleated Red Blood Cells % 0 %; Platelet Count 270 10^3/cmm (157-399); Red Blood Count 4.25 10^6/uL (3.85-5.65); White Blood Count 10.96 10^3/uL (3.29-11.43)
[2023-04-12 05:11] LABS: Alanine Aminotransferase 245 U/L (0-41); Albumin Level 3.2 g/dL (3.5-5.2); Alkaline Phosphatase 109 U/L (40-130); Anion Gap 13.2 (5-19); Aspartate Amino Transferase 68 U/L (0-40); Blood Urea Nitrogen 60 mg/dL (8-23); Calcium 8.2 mg/dL (8.5-10.5); Carbon Dioxide 32 mmol/L (22-29); Chloride 99 mmol/L (98-107); Globulin 2.5 g/dL (1.3-4.6); Glucose 149 mg/dL (65-115); Magnesium 2.1 mg/dL (1.7-2.3); Osmolality Calculated 312 mOsm/kg (285-295); Potassium 3.2 mmol/L (3.5-5.1); Sodium 141 mmol/L (136-145); Total Bilirubin 0.9 mg/dL (0.15-1.2); Total Protein 5.7 g/dL (6.6-8.7)
[2023-04-12] MEDS: potassium chloride ER 20 mEq Tablet 40 MEQ PO (06:14)
[2023-04-12 06:47] LABS: Complement C3 64 mg/dL (90-180); Phosphorus 3.5 mg/dL (2.5-4.5)
--- NOTE | 2023-04-12 07:38 | P.PN_ITS ---
Subjective 2 Subjective: Patient is overall doing well. no chest pain. Diuresing well. Vitals/I&O/Wt Last Vital Signs Temp 97.8 F 04/11/23 19:30 Pulse 85 04/12/23 06:00 Resp 22 H 04/12/23 06:00 BP 115/52 04/12/23 06:00 Pulse Ox 88 L 04/12/23 06:00 O2 Del Method Room Air 04/11/23 18:30 04/11/23 04/12/23 04/12/23 22:59 06:59 14:59 Intake Total 800 / 1283.026 350 / 1633.026 Output Total 850 / 2100 1700 / 3800 Balance -50 / -816.974 -1350 / -2166.974 Weight last 48 hrs Weight 191 lb Weight 192 lb Physical Exam 2 Narrative: GENERAL: Patient is alert, awake and oriented x3. [] NECK: No jugular vein distension. [] HEENT: No cyanosis. No icterus. No pallor. [] HEART: Regular S1 and S2. No murmur, rub or gallop. [] LUNGS: Clear to auscultate bilaterally. [] CENTRAL NERVOUS SYSTEM: Grossly nonfocal. [] EXTREMITIES: Lower extremities with 1-2+ edema bilaterally. [] Urinary Catheter Management: Cabrera Latex Free: Cath Placed During This Visit: yes Reason for Continuing Indwelling Catheter: Accurate Measurement of Urinary Output in Critically Ill Patients Urinary Catheter Date of Insertion: 04/10/23 Urinary Catheter Time of Insertion: 02:30 Data 04/12/23 04:33 04/12/23 04:33 Micro: Microbiology 04/09/23 23:53 Urine Culture - Preliminary Urine,Clean Catch A&P Assessment and plan (1) Acute on chronic systolic heart failure: Patient continues to diurese well. Continue IV Lasix. Continue dobutamine for now. Close I&O's. Monitor renal function. Symptoms were secondary to cardiorenal syndrome (2) Atherosclerotic heart disease of [place] coronary artery without angina pectoris: Patient currently has no ischemic symptoms. He has significant drop in cardiac function. Will need coronary angiography once renal function stabilizes. Qualifiers: [place] vs. transplanted heart: [place] heart Qualified Code(s): I25.10 - Atherosclerotic heart disease of [place] coronary artery without angina pectoris (3) Atrial fibrillation with RVR: Currently the patient is in sinus rhythm. Continue monitoring. (4) Acute kidney injury superimposed on chronic kidney disease: Cardiorenal. Continue diuresis with dobutamine. Monitor I&O's. (5) Benign hypertension: Currently normotensive. Continue on the current medication. (6) Dyslipidemia: Continue on the current medicines. (7) Elevated liver enzymes: Plan Thank you for involving us with care of this patient. Will continue to follow. Please call with questions. Attestations 2 Medical Necessity Statement*: Care expected to cross 2 midnights. Coding Level of Care Code Acute Code for [facility] Fwd Diagnoses Acute on chronic systolic heart failure I50.23 Atherosclerosis of [place] coronary artery of [place] heart without angina pectoris I25.10 [place] vs. transplanted heart: [place] heart Atrial fibrillation with RVR I48.91 Acute kidney injury superimposed on chronic kidney disease N17.9; N18.9 Benign hypertension I10 Dyslipidemia E78.5 Elevated liver enzymes R74.8
[2023-04-12 07:49] LABS: Glucose Point of Care 138 mg/dL (70-110)
[2023-04-12] MEDS: clopidogrel 75 mg Tablet PO (08:15)
[2023-04-12] MEDS: FUROsemide 10 mg/mL SDV 10mL 60 MG IVP (08:16)
[2023-04-12] MEDS: oxybutynin chloride XL 5 MG TABLET 15 MG PO (08:16)
[2023-04-12 11:16] LABS: Glucose Point of Care 225 mg/dL (70-110)
[2023-04-12] MEDS: insulin lispro 100 unit/1 mL SUBCUT ×3 (12:30→20:13)
--- NOTE | 2023-04-12 12:38 | P.PN_ITS ---
Subjective 2 Subjective: feeling better Vitals/I&O/Wt Last Vital Signs Temp 98.0 F 04/12/23 12:00 Pulse 77 04/12/23 12:00 Resp 23 H 04/12/23 12:00 BP 128/64 04/12/23 12:00 Pulse Ox 93 04/12/23 12:00 O2 Del Method Room Air 04/11/23 18:30 04/11/23 04/12/23 04/12/23 22:59 06:59 14:59 Intake Total 800 / 1283.026 350 / 1633.026 150 / 150 Output Total 850 / 2100 1700 / 3800 Balance -50 / -816.974 -1350 / -2166.974 150 / 150 Weight last 48 hrs Weight 86.636 kg Weight 87.09 kg Physical Exam 2 Const: COMMON NORMALS: no acute distress and alert Extremity: NARRATIVE EXTREMITY EXAM: trace edema Neuro: SENSORIUM/ORIENTATION: Yes alert Urinary Catheter Management: Cabrera Latex Free: Cath Placed During This Visit: yes Reason for Continuing Indwelling Catheter: Accurate Measurement of Urinary Output in Critically Ill Patients Urinary Catheter Date of Insertion: 04/10/23 Urinary Catheter Time of Insertion: 02:30 Data 04/12/23 04:33 04/12/23 13:45 Other Labs: Ca 8.4, Mg 2.1, phos 3.5 C3 low, dsDNA pending Micro: Microbiology 04/09/23 23:53 Urine Culture - Final Urine,Clean Catch Other data: seen via telemedicine with assistance of RN at bedside A&P Assessment and plan (1) LORETA (acute kidney injury): Plan 1. Acute kidney injury, HFrEF, cardiorenal, diuresing on dobutamine infusion and IV furosemide. Renal function improving 2. Hypokalemia, metabolic alkalosis, replace KCL, reduce furosemide 4. + BANDAR, low C3, DsDNA pending. Recommend rheumatology follow-up as outpatient Recommend: Change furosemide to oral Attestations 2 Medical Necessity Statement*: per primary service Time Spent in Patient Care: 16 - 35 minutes Coding Level of Care Code Acute Code for [facility] Fwd Diagnoses LORETA (acute kidney injury) N17.9
[2023-04-12 14:45] LABS: Anion Gap 14.7 (5-19); Blood Urea Nitrogen 49 mg/dL (8-23); Calcium 8.4 mg/dL (8.5-10.5); Carbon Dioxide 31 mmol/L (22-29); Chloride 98 mmol/L (98-107); Glucose 299 mg/dL (65-115); Osmolality Calculated 314 mOsm/kg (285-295); Potassium 3.7 mmol/L (3.5-5.1); Sodium 140 mmol/L (136-145)
[2023-04-12] MEDS: FUROsemide 40 mg Tablet PO (15:25)
[2023-04-12 16:35] LABS: Glucose Point of Care 203 mg/dL (70-110)
[2023-04-12] MEDS: DOBUTamine drip 500 MG/250 ML PREMIX 6.74 MG IV (16:42)
--- NOTE | 2023-04-12 19:28 | PC.NURSE ---
Shift SUmmary: Uneventful shift. Patient spent most of the day sitting on side of bed. Remained on dobutamine drip at 2.5. Total urine output was 2550 ml. Patient reports swelling in legs has decreased.
[2023-04-12 19:53] LABS: Glucose Point of Care 300 mg/dL (70-110)
[2023-04-12] MEDS: enoxaparin 100 mg/mL Syringe 90 MG SUBCUT (20:13)
--- NOTE | 2023-04-12 20:50 | P.PN_ITS ---
Subjective 2 Subjective: He feels he continues to gradually improve. Vitals/I&O/Wt Last Vital Signs Temp 98.7 F 04/12/23 20:00 Pulse 73 04/12/23 20:00 Resp 24 H 04/12/23 20:00 BP 132/62 04/12/23 20:00 Pulse Ox 94 04/12/23 20:00 O2 Del Method Room Air 04/11/23 18:30 04/12/23 04/12/23 04/12/23 06:59 14:59 22:59 Intake Total 350 / 1633.026 150 / 150 1874.105 / 2024.105 Output Total 1700 / 3800 2550 / 2550 Balance -1350 / -2166.974 150 / 150 -675.895 / -525.895 Weight last 48 hrs Weight 86.636 kg Weight 87.09 kg Physical Exam 2 Const: COMMON NORMALS: patient oriented x3 and alert GENERAL APPEARANCE: c ooperative ORIENTATION/CONSCIOUSNESS: Yes awake HENMT: COMMON NORMALS: oropharynx normal Neck/C-Spine: COMMON NORMALS: no JVD Resp: COMMON NORMALS: normal respiratory effort and clear to auscultation bilaterally AUSCULTATION: clear to auscultation bilaterally Cardio: COMMON NORMALS: no JVD, regular rhythm, S1 normal heart sound present, S2 normal heart sound present and No murmurs present (Cardio) RHYTHM: regular rhythm HEART SOUNDS: S1 normal heart sound present and S2 normal heart sound present GI: COMMON NORMALS: Normal to inspection, nondistended, normoactive bowel sounds present, Soft to palpation and non-tender PALPATION: Yes Soft to palpation Extremity: COMMON NORMALS: no joint enlargement NARRATIVE EXTREMITY EXAM: Extremities warm to touch. GENERAL: Yes edema (1+) Neuro: COMMON NORMALS: patient oriented x3 and moves all extremities S ENSORIUM/ORIENTATION: Yes alert Skin: COMMON NORMALS: no rashes or lesions noted GENERAL SKIN EXAM: no rashes or lesions noted Urinary Catheter Management: Cabrera Latex Free: Cath Placed During This Visit: yes Reason for Continuing Indwelling Catheter: Accurate Measurement of Urinary Output in Critically Ill Patients Urinary Catheter Date of Insertion: 04/10/23 Urinary Catheter Time of Insertion: 02:30 Data 04/12/23 04:33 04/12/23 13:45 Micro: Microbiology 04/05/23 21:43 Blood Culture - Final Blood 04/09/23 23:53 Urine Culture - Final Urine,Clean Catch A&P Assessment and plan (1) CHF (congestive heart failure): Continue to gradually improve. Weaned off oxygen. Renal function gradually improving. Discussed with nephrology, agree with cutting down Lasix. Reviewed nephrology note. Discussed with cardiology. Reviewed cardiology note. Discussed with case packer and sealer. Reviewed CBC, CMP. Renal function improving, transaminitis improving. Continue dobutamine at this time. Monitor for arrhythmia with increase in risk with dobutamine. Monitor for hypotension. Low output heart failure with cardiorenal syndrome, shock liver, acute encephalopathy. Cardiorenal syndrome and improved today, creatinine still elevated, but transaminitis and mental status have improved. Continue dobutamine. Received diuretic last night and today. Reviewed nephrology note, discussed with cardiology., Per discussion with cardiology continue diuretics with dobutamine. Pending reassessment, subsequent consideration of risk stratification, possibly stress test. Echocardiogram, noted worsened ejection fraction down to 25-30%. Moderate MVR. Mild TVR. Mild pulmonary hypertension. Mild PVR. Pleural effusions. Dilated IVC. Discussed with him risk of arrhythmia, blood pressure fluctuation with dobutamine infusion. He is agreeable to start, would like to try to see if could see improvement. Request records from [facility]. Cardiology may additionally reach out tomorrow to colleagues in [place] for consideration of APPLICATION DEVELOPMENT CONSULTANT. Hold lisinopril At discharge from [place] he was supposed to go with a LifeVest but refused. Additionally as per discussion with him has not been taking his medications at home. EKG without sign of ischemia, but could be at risk of decreased perfusion/bypass graft stenosis, cardiology considering additional assessment with stress testing. 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 Possible Takotsubo? His brother had last week in the hospital room next to his. Discussed with his brother Mario. Discussed with case packer and sealer. Qualifiers: Heart failure chronicity: acute on chronic Heart failure type: systolic Qualified Code(s): I50.23 - Acute on chronic systolic (congestive) heart failure (2) LORETA (acute kidney injury): With improvement. Producing urine. Creatinine with improvement. Reviewed nephrology note. Additional studies added for autoimmune etiologies. Reviewed nephrology note. Discussed with cardiology. Assessed to be in cardiorenal syndrome. Blood pressure, mental status, transaminitis with improvement with dobutamine. So far renal function without improvement, BUN reviewed, noted worsened to 90, creatinine reviewed, noted worsened to 2.7. Urine without urine output. We discussed with him in case of worsening renal dysfunction, renal failure, may need dialysis. Continue dobutamine. Monitor JOSE. Reviewed CT abdomen pelvis, no urinary bladder dilation/sign of obstruction. (3) Acute encephalopathy: Resolved. Lethargic through the day today, possibly prolonged effect of Ambien. Later in the day more awake. Acute encephalopathy, also with noted soft blood pressure, after converted to sinus rhythm also some bradycardia, but noted worsened kidney injury and low urine output today, requested CMP and with finding of worsened transaminitis, concern for worsening ejection fraction with decompensated congestive heart failure, fatigue, obtained reassessment echocardiogram. Ejection fraction noted with severe reduction down to 25-30%, grade 3 diastolic dysfunction. Moderate mitral regurgitation. Mild tricuspid regurgitation. Mild pulmonary hypertension. Dilated IVC. Concern for low output heart failure. In the afternoon he is more awake, lucid, discussed with him the above concerns. Discussed with cardiology, discussed options for treatment, starting dobutamine drip, risk of arrhythmia with atrial fibrillation or other possibly life- threatening arrhythmia with cardiomyopathy. Risk of tachycardia, hypotension with dobutamine. Monitor closely. Monitor electrolytes. Recheck magnesium. He denies other new symptoms, but also noted some worsening leukocytosis today, CT chest abdomen pelvis obtained, noted moderate pleural effusions worse on the left, some hazy streaking in lower lungs, possibly atelectasis, requested I-S, however, could not exclude pneumonia, discussed with him starting prickly on antibiotics with Zosyn, linezolid for now. Reassess. Obtained lactic acid, noted 3.3. Not a candidate for fluid resuscitation. In case of possible sepsis obtain blood culture. On reassessment with good capillary refill. He has developed constipation, but otherwise abdomen is soft, nontender, benign. With risk of arrhythmia, possibility of progressively worsening cardiomyopathy, transferred to intensive care unit requested, although due to high census currently in bed is not available. He is on waiting list. Per discussion with patient he would like his brother adals to be cold in case of changes in his condition. I attempted to reach his brother Mario to give him an update as well but could not get a hold of him on the listed phone number. Per discussion with patient additionally he feels it would not be reasonable to start chest compressions in case of PEA, but otherwise he would be okay with resuscitation/CPR in case of shockable rhythm, defibrillation, cardioversion, medications, etc. (4) Transaminitis: Reviewed T. bili, AST, LT, alk phos. AST, ALT improving, alk phos normalized. T. bili normal. Reassess CMP. Continue dobutamine. Suspected hypoperfusion, shock liver secondary to low output cardiac failure, possible component from amiodarone, but with rapid improvement today after initiation of dobutamine, less likely secondary to amiodarone. It has been held just in case. Reassess liver parameters. Reviewed hepatitis panel. Concern for low output heart failure as above, additionally discussed with cardiology, possibility of amiodarone toxicity contributing, amiodarone held at this time. Has not been on statin at home. Records requested. (5) Goals of care, counseling/discussion: Per discussion with patient he would like his brother Mario to be called in case of changes in his condition. Per discussion with patient additionally he feels it would not be reasonable to start chest compressions in case of PEA, but otherwise he would be okay with resuscitation/CPR in case of shockable rhythm, defibrillation, cardioversion, medications, etc. (6) Atrial fibrillation with RVR: Converted to sinus rhythm. Reviewed chemistry. Reviewed magnesium. Discussed with cardiology. As he is symptomatic, with fatigue, decompensated CHF, possible cardiorenal component, dependent on atrial kick, plans for cardioversion tomorrow. Recheck chemistry. Likely related to non compliance as as result of being overwhelmed with multiple medications and reading about their side effect profile States that he has home health services starting next week and feels that he will do better with supervision and encouragement from nurse Plan Leukocytosis: Reviewed WBC, noted normalized. For now continue empiric antibiotics. Continue dobutamine as above. He denies any change in symptoms. Urine culture reviewed, without growth. Blood culture reviewed, no growth to date. He has had no appetite, although suspect this may be due to worsening renal function. Discussed with him and his brother with low output failure, possibility of GI translocation, elevated risk of infection, compromised immune response. She is empirically on antibiotic coverage. Continue. Afebrile. Leukocytosis with improvement. For now empiric coverage with Zosyn, linezolid. Monitor with risk of adrenal cytosis with linezolid. Pleural effusions: Moderate pleural effusions noted on CT review, left greater than right. Trial of diuresis. Dobutamine for suspected low output heart failure. May benefit from thoracentesis but is on Eliquis, hold Eliquis, Lovenox for now. Diuresis as above. Producing urine. Fall overnight: Small laceration of the forehead. Acute encephalopathy overnight, possibly combination low output heart failure, Ambien. Not sure if may be orthostatic. Discussed with him bedrest for now. Constipation: Constipation, but reports having bowel movement last night. Diarrhea resolved, now reports some constipation. Senna instead. DM: Reviewed Accu-Cheks. With acceptable control,Continue as currently. 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 Would benefit from cardiac rehab if recovers from above. Given worsening cardiac function bedrest for now. Discussed with him prognosis guarded given worsened now severe cardiomyopathy, suspected low output failure. Discussed with his brother. Attestations 2 Medical Necessity Statement*: Continue admission for assessment management of low output cardiac failure with multiorgan injury. and High MDM includes amount and/or complexity of data reviewed/ordered [ previous or external records, resulted lab(s)/test(s), ordered lab(s)/test(s) and other healthcare professional discussion] and described risk of complication, morbidity or mortality of management as documented Diagnoses Acute on chronic systolic congestive heart failure I50.23 Heart failure chronicity: acute on chronic Heart failure type: systolic LORETA (acute kidney injury) N17.9 Acute encephalopathy G93.40 Transaminitis R74.01 Goals of care, counseling/discussion Z71.89 Atrial fibrillation with RVR I48.91
[2023-04-13] VITALS (22 sets, daily range): BP systolic 112–137; BP diastolic 60–84; PULSE 80–110; RESP 17–29; TEMP 36.2–36.8; O2SAT 93–98
[2023-04-13 03:58] LABS: Basophils # 0.1 10^3/uL (0.0-0.1); Basophils % 0.6 %; Eosinophils # 0.2 10^3/uL (0.0-0.8); Eosinophils % 1.5 %; Hematocrit 41.8 % (37-53); Lymphocytes # 1.4 10^3/uL (0.8-4.8); Lymphocytes % 13.3 %; Mean Corpuscular HGB Conc 32.5 g/dL (30-55); Mean Corpuscular Hemoglobin 29.4 pg (27-33); Mean Corpuscular Volume 90.5 fl (82-101); Mean Platelet Volume 10.6 fL (7.4-10.4); Monocytes # 1.1 10^3/uL (0.2-0.9); Neutrophils # 7.38 10^3/uL (1.8-7.7); Neutrophils % 72.8 %; Nucleated Red Blood Cells % 0 %; Platelet Count 290 10^3/cmm (157-399); Red Blood Count 4.62 10^6/uL (3.85-5.65); Red Cell Distribution Width 16.2 % (12.1-15.1); White Blood Count 10.13 10^3/uL (3.29-11.43)
[2023-04-13 04:24] LABS: Alanine Aminotransferase 193 U/L (0-41); Albumin Level 3.4 g/dL (3.5-5.2); Alkaline Phosphatase 106 U/L (40-130); Anion Gap 13.3 (5-19); Aspartate Amino Transferase 44 U/L (0-40); Blood Urea Nitrogen 40 mg/dL (8-23); Calcium 8.2 mg/dL (8.5-10.5); Carbon Dioxide 33 mmol/L (22-29); Chloride 99 mmol/L (98-107); Globulin 2.8 g/dL (1.3-4.6); Glucose 129 mg/dL (65-115); Osmolality Calculated 305 mOsm/kg (285-295); Potassium 3.3 mmol/L (3.5-5.1); Sodium 142 mmol/L (136-145); Total Protein 6.2 g/dL (6.6-8.7)
[2023-04-13] MEDS: piperacillin-tazobactam 3.375 GM in sodium chloride 0.9% (plus) 50 ML IV ×3 (04:47→19:37)
--- NOTE | 2023-04-13 05:42 | P.PN_ITS ---
Subjective 2 Subjective: Patient is doing well. no chest pain. Diuresing well. Renal function continues to improve Vitals/I&O/Wt Last Vital Signs Temp 97.1 F L 04/13/23 04:00 Pulse 90 04/13/23 05:38 Resp 21 H 04/13/23 04:00 BP 112/66 04/13/23 04:00 Pulse Ox 96 04/13/23 02:00 O2 Del Method Room Air 04/13/23 04:00 04/12/23 04/12/23 04/13/23 14:59 22:59 06:59 Intake Total 150 / 150 1994.105 / 2144.105 350 / 2494.105 Output Total 3500 / 3500 450 / 3950 Balance 150 / 150 -1505.895 / -1355.895 -100 / -1455.895 Weight last 48 hrs Weight 192 lb 14.4 oz Weight 191 lb Weight 192 lb Physical Exam 2 Narrative: GENERAL: Patient is alert, awake and oriented x3. [] NECK: No jugular vein distension. [] HEENT: No cyanosis. No icterus. No pallor. [] HEART: Regular S1 and S2. No murmur, rub or gallop. [] LUNGS: Clear to auscultate bilaterally. [] CENTRAL NERVOUS SYSTEM: Grossly nonfocal. [] EXTREMITIES: Lower extremities with 1-2+ edema bilaterally. [] Urinary Catheter Management: Cabrera Latex Free: Cath Placed During This Visit: yes Reason for Continuing Indwelling Catheter: Acute Urinary Retention or Obstruction Urinary Catheter Date of Insertion: 04/10/23 Urinary Catheter Time of Insertion: 02:30 Data 04/14/23 06:03 04/14/23 06:03 Micro: Microbiology 04/05/23 21:43 Blood Culture - Final Blood 04/09/23 23:53 Urine Culture - Final Urine,Clean Catch A&P Assessment and plan (1) Acute on chronic systolic heart failure: Patient has diuresed well. Can switch to p.o. Lasix. We will continue with dobutamine today. Had 1 episode of atrial fibrillation with RVR last night but was brief. Can resume amiodarone. Continue anticoagulation. 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 Qualifiers: [place] vs. transplanted heart: [place] heart Qualified Code(s): I25.10 - Atherosclerotic heart disease of [place] coronary artery without angina pectoris (3) Atrial fibrillation with RVR: Currently normal sinus rhythm. Last night had an episode of A-fib with RVR. We will resume amiodarone today. (4) Acute kidney injury superimposed on chronic kidney disease: Significant improvement. Continue diuresis along with dobutamine. (5) Benign hypertension: Currently normotensive. Continue on the current medication. (6) Dyslipidemia: Continue on the current medicines. (7) Elevated liver enzymes: Plan Thank you for involving us with care of this patient. Will continue to follow. Please call with questions. Attestations 2 Medical Necessity Statement*: Care expected to cross 2 midnights. Coding Level of Care Code Acute Code for g Fwd Diagnoses Acute on chronic systolic heart failure I50.23 Atherosclerosis of [place] coronary artery of [place] heart without angina pectoris I25.10 [place] vs. transplanted heart: [place] heart Atrial fibrillation with RVR I48.91 Acute kidney injury superimposed on chronic kidney disease N17.9; N18.9 Benign hypertension I10 Dyslipidemia E78.5 Elevated liver enzymes R74.8
[2023-04-13 08:04] LABS: Glucose Point of Care 124 mg/dL (70-110)
[2023-04-13] MEDS: oxybutynin chloride XL 5 MG TABLET 15 MG PO (09:08)
[2023-04-13] MEDS: clopidogrel 75 mg Tablet PO (09:08)
[2023-04-13] MEDS: FUROsemide 40 mg Tablet PO (09:08)
[2023-04-13] MEDS: potassium chloride ER 20 mEq Tablet 40 MEQ PO ×2 (10:51→12:48)
[2023-04-13 11:15] LABS: Glucose Point of Care 184 mg/dL (70-110)
[2023-04-13] MEDS: insulin lispro 100 unit/1 mL SUBCUT ×3 (11:46→21:29)
[2023-04-13] MEDS: linezolid premix 600 MG/300 ML PREMIX 300 MG IV (11:47)
[2023-04-13] MEDS: amiodarone 200 mg Tablet 400 MG PO (12:48)
--- NOTE | 2023-04-13 13:13 | P.PN_ITS ---
Subjective 2 Subjective: higgins is irritating him, otherwise no new new complaints Vitals/I&O/Wt Last Vital Signs Temp 97.1 F L 04/13/23 04:00 Pulse 91 04/13/23 12:00 Resp 23 H 04/13/23 12:00 BP 120/64 04/13/23 12:00 Pulse Ox 96 04/13/23 02:00 O2 Del Method Room Air 04/13/23 04:00 04/12/23 04/13/23 04/13/23 22:59 06:59 14:59 Intake Total 1994.105 / 2144.105 350 / 2494.105 770 / 770 Output Total 3500 / 3500 450 / 3950 Balance -1505.895 / -1355.895 -100 / -1455.895 770 / 770 Weight last 48 hrs Weight 87.498 kg Weight 86.636 kg Physical Exam 2 Const: COMMON NORMALS: no acute distress and alert Neuro: SENSORIUM/ORIENTATION: Yes alert Urinary Catheter Management: Higgins Latex Free: Cath Placed During This Visit: yes Reason for Continuing Indwelling Catheter: Acute Urinary Retention or Obstruction Urinary Catheter Date of Insertion: 04/10/23 Urinary Catheter Time of Insertion: 02:30 Data 04/13/23 03:02 04/13/23 03:02 Micro: Microbiology 04/05/23 21:43 Blood Culture - Final Blood 04/09/23 23:53 Urine Culture - Final Urine,Clean Catch Other data: seen via telemedicnie with assistance of RN at bedside A&P Assessment and plan (1) LORETA (acute kidney injury): Plan 1. Acute kidney injury, HFrEF, cardiorenal, on dobutamine infusion. Continues to diuresis on oral furosemide. Renal function improving 2. Hypokalemia, metabolic alkalosis, replace KCl. Mag normal 4. + BANDAR, low C3, DsDNA pending. Recommend rheumatology follow-up as outpatient Recommend: discontinue higgins, decrease furosemide Attestations 2 Medical Necessity Statement*: per primary service Time Spent in Patient Care: 16 - 35 minutes Coding Level of Care Code Acute Code for [facility] Fwd Diagnoses LORETA (acute kidney injury) N17.9
[2023-04-13 17:28] LABS: Glucose Point of Care 170 mg/dL (70-110)
[2023-04-13 19:25] LABS: Fungitell 1-3-B Glucan Assay 48 pg/mL; Interpretation NEGATIVE
[2023-04-13] MEDS: enoxaparin 100 mg/mL Syringe 90 MG SUBCUT (21:29)
--- NOTE | 2023-04-13 21:30 | P.PN_ITS ---
Subjective 2 Subjective: He reports he is improving. He is doubtful about LifeVest, states feels that at a certain point if it is someone's time to go, then it started time . Discussed reasoning for LifeVest, he is considering it, will further discuss with cardiology. Vitals/I&O/Wt Last Vital Signs Temp 97.8 F 04/13/23 19:30 Pulse 82 04/13/23 19:30 Resp 27 H 04/13/23 19:30 BP 134/73 04/13/23 18:00 Pulse Ox 98 04/13/23 19:30 O2 Del Method Room Air 04/13/23 19:30 04/13/23 04/13/23 04/13/23 06:59 14:59 22:59 Intake Total 350 / 2494.105 770 / 770 410 / 1180 Output Total 450 / 3950 850 / 850 Balance -100 / -1455.895 -80 / -80 410 / 330 Weight last 48 hrs Weight 87.498 kg Weight 86.636 kg Physical Exam 2 Narrative: Earlier in the day lethargic. Subsequently more awake. Const: COMMON NORMALS: patient oriented x3 and alert GENERAL APPEARANCE: c ooperative ORIENTATION/CONSCIOUSNESS: Yes awake HENMT: COMMON NORMALS: oropharynx normal Neck/C-Spine: COMMON NORMALS: no JVD Resp: COMMON NORMALS: normal respiratory effort and clear to auscultation bilaterally AUSCULTATION: clear to auscultation bilaterally Cardio: COMMON NORMALS: no JVD, regular rhythm, S1 normal heart sound present, S2 normal heart sound present and No murmurs present (Cardio) RHYTHM: regular rhythm HEART SOUNDS: S1 normal heart sound present and S2 normal heart sound present GI: COMMON NORMALS: Normal to inspection, nondistended, normoactive bowel sounds present, Soft to palpation and non-tender PALPATION: Yes Soft to palpation Extremity: COMMON NORMALS: no joint enlargement NARRATIVE EXTREMITY EXAM: Extremities warm to touch. GENERAL: Yes edema (1+) Neuro: COMMON NORMALS: patient oriented x3 and moves all extremities S ENSORIUM/ORIENTATION: Yes alert Skin: COMMON NORMALS: no rashes or lesions noted GENERAL SKIN EXAM: no rashes or lesions noted Urinary Catheter Management: Cabrera Latex Free: Cath Placed During This Visit: yes, but has since been removed by the nurse Reason for Continuing Indwelling Catheter: Accurate Measurement of Urinary Output in Critically Ill Patients Urinary Catheter Date of Insertion: 04/10/23 Urinary Catheter Time of Insertion: 02:30 Date Urinary Catheter Removed: 04/13/23 Time Urinary Catheter Discontinued: 13:49 Data 04/13/23 03:02 04/13/23 03:02 A&P Assessment and plan (1) CHF (congestive heart failure): 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 Reviewed vitals, CBC, potassium, replacement requested, BUN, creatinine, AST, ALT. Improving. Continue dobutamine at this time. Transfer to [facility]. With dobutamine at the tachycardia and yesterday had a run of A-fib with RVR/SVT. Amiodarone and metoprolol have been on hold. Discussed with cardiology, resume amiodarone for now 400 mg daily. Transfer to [facility]SU. Continue dobutamine at this time. Monitor for arrhythmia with increase in risk with dobutamine. Monitor for hypotension. Low output heart failure with cardiorenal syndrome, shock liver, acute encephalopathy. Cardiorenal syndrome and improved today, creatinine still elevated, but transaminitis and mental status have improved. Continue dobutamine. Received diuretic last night and today. Reviewed nephrology note, discussed with cardiology., Per discussion with cardiology continue diuretics with dobutamine. Pending reassessment, subsequent consideration of risk stratification, possibly stress test. Echocardiogram, noted worsened ejection fraction down to 25-30%. Moderate MVR. Mild TVR. Mild pulmonary hypertension. Mild PVR. Pleural effusions. Dilated IVC. Discussed with him risk of arrhythmia, blood pressure fluctuation with dobutamine infusion. He is agreeable to start, would like to try to see if could see improvement. Request records from [facility]. Cardiology may additionally reach out tomorrow to colleagues in [place] for consideration of [employer]. Hold lisinopril At discharge from [place] he was supposed to go with a LifeVest but refused. Additionally as per discussion with him has not been taking his medications at home. EKG without sign of ischemia, but could be at risk of decreased perfusion/bypass graft stenosis, cardiology considering additional assessment with stress testing. 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 Possible Takotsubo? His brother had last week in the hospital room next to his. Qualifiers: Heart failure chronicity: acute on chronic Heart failure type: systolic Qualified Code(s): I50.23 - Acute on chronic systolic (congestive) heart failure (2) LORETA (acute kidney injury): Reviewed nephrology note. BANDAR positive, recommendation for rheumatology follow- up. Additional studies added for autoimmune etiologies pending. Continue dobutamine. Monitor JOSE. CT abdomen pelvis, no urinary bladder dilation/sign of obstruction. (3) Acute encephalopathy: Resolved. Lethargic through the day today, possibly prolonged effect of Ambien. Later in the day more awake. Acute encephalopathy, also with noted soft blood pressure, after converted to sinus rhythm also some bradycardia, but noted worsened kidney injury and low urine output today, requested CMP and with finding of worsened transaminitis, concern for worsening ejection fraction with decompensated congestive heart failure, fatigue, obtained reassessment echocardiogram. Ejection fraction noted with severe reduction down to 25-30%, grade 3 diastolic dysfunction. Moderate mitral regurgitation. Mild tricuspid regurgitation. Mild pulmonary hypertension. Dilated IVC. Concern for low output heart failure. In the afternoon he is more awake, lucid, discussed with him the above concerns. Discussed with cardiology, discussed options for treatment, starting dobutamine drip, risk of arrhythmia with atrial fibrillation or other possibly life- threatening arrhythmia with cardiomyopathy. Risk of tachycardia, hypotension with dobutamine. Monitor closely. Monitor electrolytes. Recheck magnesium. He denies other new symptoms, but also noted some worsening leukocytosis today, CT chest abdomen pelvis obtained, noted moderate pleural effusions worse on the left, some hazy streaking in lower lungs, possibly atelectasis, requested I-S, however, could not exclude pneumonia, discussed with him starting prickly on antibiotics with Zosyn, linezolid for now. Reassess. Obtained lactic acid, noted 3.3. Not a candidate for fluid resuscitation. In case of possible sepsis obtain blood culture. On reassessment with good capillary refill. He has developed constipation, but otherwise abdomen is soft, nontender, benign. With risk of arrhythmia, possibility of progressively worsening cardiomyopathy, transferred to intensive care unit requested, although due to high census currently in bed is not available. He is on waiting list. Per discussion with patient he would like his brother bobby to be cold in case of changes in his condition. I attempted to reach his brother Mario to give him an update as well but could not get a hold of him on the listed phone number. Per discussion with patient additionally he feels it would not be reasonable to start chest compressions in case of PEA, but otherwise he would be okay with resuscitation/CPR in case of shockable rhythm, defibrillation, cardioversion, medications, etc. (4) Transaminitis: Improving. Reviewed T. bili, AST, LT, alk phos. AST, ALT improving, alk phos normalized. T. bili normal. Reassess CMP. Continue dobutamine. Suspected hypoperfusion, shock liver secondary to low output cardiac failure, possible component from amiodarone, but with rapid improvement today after initiation of dobutamine, less likely secondary to amiodarone. It has been held just in case. Reassess liver parameters. Reviewed hepatitis panel. Concern for low output heart failure as above, additionally discussed with cardiology, possibility of amiodarone toxicity contributing, amiodarone held at this time. Has not been on statin at home. Records requested. (5) Goals of care, counseling/discussion: Per discussion with patient he would like his brother Mario to be called in case of changes in his condition. Per discussion with patient additionally he feels it would not be reasonable to start chest compressions in case of PEA, but otherwise he would be okay with resuscitation/CPR in case of shockable rhythm, defibrillation, cardioversion, medications, etc. (6) Atrial fibrillation with RVR: Converted to sinus rhythm. Reviewed chemistry. Reviewed magnesium. Discussed with cardiology. As he is symptomatic, with fatigue, decompensated CHF, possible cardiorenal component, dependent on atrial kick, plans for cardioversion tomorrow. Recheck chemistry. Likely related to non compliance as as result of being overwhelmed with multiple medications and reading about their side effect profile States that he has home health services starting next week and feels that he will do better with supervision and encouragement from nurse Plan Leukocytosis: Reviewed WBC, noted normalized. For now continue empiric antibiotics. Continue dobutamine as above. He denies any change in symptoms. Urine culture reviewed, without growth. Blood culture reviewed, no growth to date. He has had no appetite, although suspect this may be due to worsening renal function. Discussed with him and his brother with low output failure, possibility of GI translocation, elevated risk of infection, compromised immune response. She is empirically on antibiotic coverage. Continue. Afebrile. Leukocytosis with improvement. For now empiric coverage with Zosyn, linezolid. Monitor with risk of adrenal cytosis with linezolid. Pleural effusions: Moderate pleural effusions noted on CT review, left greater than right. Trial of diuresis. Dobutamine for suspected low output heart failure. May benefit from thoracentesis but is on Eliquis, hold Eliquis, Lovenox for now. Diuresis as above. Producing urine. Fall overnight: Small laceration of the forehead. Acute encephalopathy overnight, possibly combination low output heart failure, Ambien. Not sure if may be orthostatic. Discussed with him bedrest for now. Constipation: Constipation, but reports having bowel movement last night. Diarrhea resolved, now reports some constipation. Senna instead. DM: Reviewed Accu-Cheks. With acceptable control,Continue as currently. 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 Would benefit from cardiac rehab if recovers from above. Given worsening cardiac function bedrest for now. Discussed with him prognosis guarded given worsened now severe cardiomyopathy, suspected low output failure. Discussed with his brother. Attestations 2 Medical Necessity Statement*: Continue admission for assessment management of low output cardiac failure with multiorgan injury. Diagnoses Acute on chronic systolic congestive heart failure I50.23 Heart failure chronicity: acute on chronic Heart failure type: systolic LORETA (acute kidney injury) N17.9 Acute encephalopathy G93.40 Transaminitis R74.01 Goals of care, counseling/discussion Z71.89 Atrial fibrillation with RVR I48.91
[2023-04-13 22:10] LABS: Kappa Free Light Chains Urine 28.56 mg/L (<=32.90)
--- NOTE | 2023-04-13 23:35 | PC.NURSE ---
Transfer Patient transferred to CSU bed 105 via bed. All vitals stable upon transfer and all belongings with patient. Receiving nurse at bedside.
[2023-04-14] VITALS (27 sets, daily range): BP systolic 128–148; BP diastolic 69–77; PULSE 81–91; RESP 16–28; TEMP 36.6–36.8; O2SAT 92–98
[2023-04-14] MEDS: linezolid premix 600 MG/300 ML PREMIX 300 MG IV (00:17)
[2023-04-14] MEDS: DOBUTamine drip 500 MG/250 ML PREMIX 6.74 MG IV (00:20)
[2023-04-14 02:11] LABS: Glucose Point of Care 187 mg/dL (70-110)
[2023-04-14] MEDS: piperacillin-tazobactam 3.375 GM in sodium chloride 0.9% (plus) 50 ML IV ×2 (03:46→12:56)
[2023-04-14 06:09] LABS: Basophils % 0.4 %; Eosinophils # 0.2 10^3/uL (0.0-0.8); Eosinophils % 1.8 %; Hematocrit 41.2 % (37-53); Lymphocytes # 1.4 10^3/uL (0.8-4.8); Lymphocytes % 14.5 %; Mean Corpuscular Hemoglobin 29.9 pg (27-33); Mean Corpuscular Volume 93.4 fl (82-101); Mean Platelet Volume 9.8 fL (7.4-10.4); Monocytes # 0.9 10^3/uL (0.2-0.9); Monocytes % 9.2 %; Neutrophils # 7.03 10^3/uL (1.8-7.7); Neutrophils % 73.6 %; Nucleated Red Blood Cells % 0 %; Platelet Count 272 10^3/cmm (157-399); Red Blood Count 4.41 10^6/uL (3.85-5.65); Red Cell Distribution Width 16.3 % (12.1-15.1); White Blood Count 9.55 10^3/uL (3.29-11.43)
[2023-04-14 06:32] LABS: Alanine Aminotransferase 125 U/L (0-41); Albumin Level 3.1 g/dL (3.5-5.2); Alkaline Phosphatase 90 U/L (40-130); Aspartate Amino Transferase 33 U/L (0-40); Blood Urea Nitrogen 26 mg/dL (8-23); Carbon Dioxide 28 mmol/L (22-29); Chloride 102 mmol/L (98-107); Globulin 2.8 g/dL (1.3-4.6); Glucose 187 mg/dL (65-115); Osmolality Calculated 298 mOsm/kg (285-295); Sodium 139 mmol/L (136-145); Total Protein 5.9 g/dL (6.6-8.7)
[2023-04-14 06:48] LABS: Glucose Point of Care 147 mg/dL (70-110)
[2023-04-14 06:52] LABS: Anion Gap 13.2 (5-19); Potassium 4.2 mmol/L (3.5-5.1)
[2023-04-14] MEDS: amiodarone 200 mg Tablet 400 MG PO (08:24)
[2023-04-14] MEDS: oxybutynin chloride XL 5 MG TABLET 15 MG PO (08:24)
[2023-04-14] MEDS: FUROsemide 40 mg Tablet PO ×2 (08:24→18:16)
[2023-04-14] MEDS: insulin lispro 100 unit/1 mL SUBCUT ×3 (08:25→21:21)
[2023-04-14] MEDS: clopidogrel 75 mg Tablet PO (08:37)
--- NOTE | 2023-04-14 08:50 | P.PN_ITS ---
Subjective 2 Subjective: Patient is feeling better. Tolerating diuresis Vitals/I&O/Wt Last Vital Signs Temp 98.1 F 04/14/23 04:00 Pulse 84 04/14/23 06:00 Resp 23 H 04/14/23 06:00 BP 128/69 04/14/23 04:00 Pulse Ox 94 04/14/23 06:00 O2 Del Method Room Air 04/14/23 06:00 04/13/23 04/14/23 04/14/23 22:59 06:59 14:59 Intake Total 410 / 1180 963.209 / 2143.209 Output Total 500 / 1350 Balance 410 / 330 463.209 / 793.209 Weight last 48 hrs Weight 201 lb 11.2 oz Weight 201 lb 14.4 oz Weight 192 lb 14.4 oz Physical Exam 2 Narrative: GENERAL: Patient is alert, awake and oriented x3. [] NECK: No jugular vein distension. [] HEENT: No cyanosis. No icterus. No pallor. [] HEART: Regular S1 and S2. No murmur, rub or gallop. [] LUNGS: Clear to auscultate bilaterally. [] CENTRAL NERVOUS SYSTEM: Grossly nonfocal. [] EXTREMITIES: Lower extremities with 1-2+ edema bilaterally. [] Urinary Catheter Management: Cabrera Latex Free: Cath Placed During This Visit: yes, but has since been removed by the nurse Reason for Continuing Indwelling Catheter: Accurate Measurement of Urinary Output in Critically Ill Patients Urinary Catheter Date of Insertion: 04/10/23 Urinary Catheter Time of Insertion: 02:30 Date Urinary Catheter Removed: 04/13/23 Time Urinary Catheter Discontinued: 13:49 Data 04/15/23 04:59 04/15/23 04:59 Micro: Microbiology 04/05/23 21:37 Blood Culture - Final Blood A&P Assessment and plan (1) Acute on chronic systolic heart failure: Continue PO lasix. Continue dobutamine for today. Plan for coronary angiogram in the AM. NPO past midnight (2) Atherosclerotic heart disease of [place] coronary artery without angina pectoris: Secondary to significant drop in cardiac function, we will proceed with coronary angiography tomorrow Qualifiers: [place] vs. transplanted heart: [place] heart Qualified Code(s): I25.10 - Atherosclerotic heart disease of [place] coronary artery without angina pectoris (3) Atrial fibrillation with RVR: Currently normal sinus rhythm. Continue amiodarone (4) Acute kidney injury superimposed on chronic kidney disease: Significant improvement. Continue monitoring (5) Benign hypertension: Currently normotensive. Continue on the current medication. (6) Dyslipidemia: Continue on the current medicines. (7) Elevated liver enzymes: Plan Thank you for involving us with care of this patient. Will continue to follow. Please call with questions. Attestations 2 Medical Necessity Statement*: Care expected to cross 2 midnights. Coding Level of Care Code Acute Code for Chg Fwd Diagnoses Acute on chronic systolic heart failure I50.23 Atherosclerosis of [place] coronary artery of [place] heart without angina pectoris I25.10 [place] vs. transplanted heart: [place] heart Atrial fibrillation with RVR I48.91 Acute kidney injury superimposed on chronic kidney disease N17.9; N18.9 Benign hypertension I10 Dyslipidemia E78.5 Elevated liver enzymes R74.8
--- NOTE | 2023-04-14 09:52 | PM.PN ---
Subjective Subjective: feels well. higgins removed yesterday, no trouble urinating Vitals/I&O/Wt Last Vital Signs Temp 98.1 F 04/14/23 04:00 Pulse 84 04/14/23 06:00 Resp 23 H 04/14/23 06:00 BP 128/69 04/14/23 04:00 Pulse Ox 94 04/14/23 06:00 O2 Del Method Room Air 04/14/23 06:00 04/13/23 04/14/23 04/14/23 22:59 06:59 14:59 Intake Total 410 / 1180 963.209 / 2143.209 Output Total 500 / 1350 Balance 410 / 330 463.209 / 793.209 Weight last 48 hrs Weight 91.49 kg Weight 91.58 kg Weight 87.498 kg Physical Exam Const: COMMON NORMALS: no acute distress and alert Extremity: NARRATIVE EXTREMITY EXAM: no edema Neuro: SENSORIUM/ORIENTATION: Yes alert Urinary Catheter Management: Higgins Latex Free: Cath Placed During This Visit: yes, but has since been removed by the nurse Reason for Continuing Indwelling Catheter: Accurate Measurement of Urinary Output in Critically Ill Patients Urinary Catheter Date of Insertion: 04/10/23 Urinary Catheter Time of Insertion: 02:30 Date Urinary Catheter Removed: 04/13/23 Time Urinary Catheter Discontinued: 13:49 Data 04/14/23 06:03 04/14/23 06:03 Micro: Microbiology 04/05/23 21:37 Blood Culture - Final Blood Other data: seen via telemedicine with assistance of RN at bedside A&P Assessment and plan (1) LORETA (acute kidney injury): Plan 1. Acute kidney injury, HFrEF, cardiorenal, on dobutamine infusion. Continues to diurese on oral furosemide. Renal function improving 2. Hypokalemia, metabolic alkalosis, resolved 4. + BANDAR, low C3, DsDNA pending. Recommend rheumatology follow-up as outpatient Recommend: will increase oral furosemide back to 40 mg BID. Continue accurate I/O, daily weights, fluid and salt restriction. OK from my standpoint to try low dose entresto OR [id number] with very close follow-up Attestations Medical Necessity Statement*: per primary service Time Spent in Patient Care: 16 - 35 minutes Coding Level of Care Code Acute Code for [facility] Diagnoses LORETA (acute kidney injury) N17.9
[2023-04-14 12:08] LABS: Glucose Point of Care 311 mg/dL (70-110)
[2023-04-14] MEDS: linezolid premix 600 MG/300 ML PREMIX 200 MG IV (14:25)
[2023-04-14 15:14] LABS: Lambda Light Chain, Free Ur 3.41 mg/L (<=3.79)
[2023-04-14 17:01] LABS: Glucose Point of Care 139 mg/dL (70-110)
[2023-04-14 21:19] LABS: Glucose Point of Care 198 mg/dL (70-110)
[2023-04-14] MEDS: enoxaparin 100 mg/mL Syringe 90 MG SUBCUT (21:20)
[2023-04-15] VITALS (58 sets, daily range): BP systolic 109–138; BP diastolic 54–84; PULSE 79–95; RESP 6–34; TEMP 36.5–36.9; O2SAT 92–96
--- NOTE | 2023-04-15 00:33 | PM.PN ---
Subjective Subjective: He reports he is doing well. Denies chest pain or pressure. No trouble breathing. He is being visited by his brother. Discussed with him regarding LifeVest, he states he feels he will get 1. States he feels that if it will be his time, it will be his time to go he gets a life-threatening arrhythmia. We discussed that he is at high risk of them. Vitals/I&O/Wt Last Vital Signs Temp 98.3 F 04/15/23 00:00 Pulse 85 04/15/23 00:00 Resp 30 H 04/15/23 00:00 BP 132/71 04/15/23 00:00 Pulse Ox 97 04/14/23 20:00 O2 Del Method Room Air 04/14/23 20:00 04/14/23 04/14/23 04/15/23 14:59 22:59 06:59 Intake Total 410 / 410 1070 / 1480 Output Total 300 / 300 Balance 110 / 110 1070 / 1180 Weight last 48 hrs Weight 91.49 kg Weight 91.58 kg Weight 87.498 kg Physical Exam Narrative: Visited by his brother. Const: COMMON NORMALS: patient oriented x3 and alert GENERAL APPEARANCE: cooperative ORIENTATION/CONSCIOUSNESS: Yes awake HENMT: COMMON NORMALS: oropharynx normal Neck/C-Spine: COMMON NORMALS: no JVD Resp: COMMON NORMALS: normal respiratory effort and clear to auscultation bilaterally AUSCULTATION: clear to auscultation bilaterally Cardio: COMMON NORMALS: no JVD, regular rhythm, S1 normal heart sound present, S2 normal heart sound present and No murmurs present (Cardio) RHYTHM: regular rhythm HEART SOUNDS: S1 normal heart sound present and S2 normal heart sound present GI: COMMON NORMALS: Normal to inspection, nondistended, normoactive bowel sounds present, Soft to palpation and non-tender PALPATION: Yes Soft to palpation Extremity: COMMON NORMALS: no joint enlargement NARRATIVE EXTREMITY EXAM: Extremities warm to touch. GENERAL: Yes edema (1+) Neuro: COMMON NORMALS: patient oriented x3 and moves all extremities SENSORIUM/ORIENTATION: Yes alert Skin: COMMON NORMALS: no rashes or lesions noted GENERAL SKIN EXAM: no rashes or lesions noted Urinary Catheter Management: Cabrera Latex Free: Cath Placed During This Visit: yes, but has since been removed by the nurse Reason for Continuing Indwelling Catheter: Accurate Measurement of Urinary Output in Critically Ill Patients Urinary Catheter Date of Insertion: 04/10/23 Urinary Catheter Time of Insertion: 02:30 Date Urinary Catheter Removed: 04/13/23 Time Urinary Catheter Discontinued: 13:49 Data 04/14/23 06:03 04/14/23 06:03 Micro: Microbiology 04/05/23 21:37 Blood Culture - Final Blood A&P Assessment and plan (1) CHF (congestive heart failure): He is doing well. Renal function continues to improve. Transaminitis with improvement. Discussed with cardiology, plans for coronary angiogram tomorrow. Reviewed cardiology note. Reviewed vitals, CBC, CMP. He is doubtful about LifeVest. Please revisit with him. With dobutamine at the tachycardia and yesterday had a run of A-fib with RVR/SVT. Amiodarone resumed for now 400 mg daily. Continue dobutamine at this time. Monitor for arrhythmia with increase in risk with dobutamine. Low output heart failure with cardiorenal syndrome, shock liver, acute encephalopathy. Cardiorenal syndrome and improved , transaminitis and mental status have improved. Consider PT reassessment after able to mobilize after angiogram. Echocardiogram, noted worsened ejection fraction down to 25-30%. Moderate MVR. Mild TVR. Mild pulmonary hypertension. Mild PVR. Pleural effusions. Dilated IVC. Records from [facility]. Cardiology may additionally reach out tomorrow to colleagues in [place] for consideration of [employer]. Hold lisinopril At discharge from [place] he was supposed to go with a LifeVest but refused at the time. Additionally as per discussion with him has not been taking his medications at home. EKG without sign of ischemia, but could be at risk of decreased perfusion/bypass graft stenosis, cardiology considering additional assessment with stress testing. 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 Possible Takotsubo? His brother had last week in the hospital room next to his. Qualifiers: Heart failure chronicity: acute on chronic Heart failure type: systolic Qualified Code(s): I50.23 - Acute on chronic systolic (congestive) heart failure (2) LORETA (acute kidney injury): BANDAR positive, recommendation for rheumatology follow-up. Additional studies added for autoimmune etiologies pending. Continue dobutamine. Monitor JOSE. CT abdomen pelvis, no urinary bladder dilation/sign of obstruction. (3) Acute encephalopathy: Resolved. Lethargic through the day today, possibly prolonged effect of Ambien. Later in the day more awake. Acute encephalopathy, also with noted soft blood pressure, after converted to sinus rhythm also some bradycardia, but noted worsened kidney injury and low urine output today, requested CMP and with finding of worsened transaminitis, concern for worsening ejection fraction with decompensated congestive heart failure, fatigue, obtained reassessment echocardiogram. Ejection fraction noted with severe reduction down to 25-30%, grade 3 diastolic dysfunction. Moderate mitral regurgitation. Mild tricuspid regurgitation. Mild pulmonary hypertension. Dilated IVC. Concern for low output heart failure. In the afternoon he is more awake, lucid, discussed with him the above concerns. Discussed with cardiology, discussed options for treatment, starting dobutamine drip, risk of arrhythmia with atrial fibrillation or other possibly life-threatening arrhythmia with cardiomyopathy. Risk of tachycardia, hypotension with dobutamine. Monitor closely. Monitor electrolytes. Recheck magnesium. He denies other new symptoms, but also noted some worsening leukocytosis today, CT chest abdomen pelvis obtained, noted moderate pleural effusions worse on the left, some hazy streaking in lower lungs, possibly atelectasis, requested I-S, however, could not exclude pneumonia, discussed with him starting prickly on antibiotics with Zosyn, linezolid for now. Reassess. Obtained lactic acid, noted 3.3. Not a candidate for fluid resuscitation. In case of possible sepsis obtain blood culture. On reassessment with good capillary refill. He has developed constipation, but otherwise abdomen is soft, nontender, benign. With risk of arrhythmia, possibility of progressively worsening cardiomyopathy, transferred to intensive care unit requested, although due to high census currently in bed is not available. He is on waiting list. Per discussion with patient he would like his brother bobby to be cold in case of changes in his condition. I attempted to reach his brother Mario to give him an update as well but could not get a hold of him on the listed phone number. Per discussion with patient additionally he feels it would not be reasonable to start chest compressions in case of PEA, but otherwise he would be okay with resuscitation/CPR in case of shockable rhythm, defibrillation, cardioversion, medications, etc. (4) Transaminitis: Improving. Reviewed T. bili, AST, LT, alk phos. AST, ALT improving, alk phos normalized. T. bili normal. Reassess CMP. Continue dobutamine. Suspected hypoperfusion, shock liver secondary to low output cardiac failure, possible component from amiodarone, but with rapid improvement today after initiation of dobutamine, less likely secondary to amiodarone. It has been held just in case. Reassess liver parameters. Reviewed hepatitis panel. Concern for low output heart failure as above, additionally discussed with cardiology, possibility of amiodarone toxicity contributing, amiodarone held at this time. Has not been on statin at home. Records requested. (5) Goals of care, counseling/discussion: Per discussion with patient he would like his brother Mario to be called in case of changes in his condition. Per discussion with patient additionally he feels it would not be reasonable to start chest compressions in case of PEA, but otherwise he would be okay with resuscitation/CPR in case of shockable rhythm, defibrillation, cardioversion, medications, etc. (6) Atrial fibrillation with RVR: Converted to sinus rhythm. Reviewed chemistry. Reviewed magnesium. Discussed with cardiology. As he is symptomatic, with fatigue, decompensated CHF, possible cardiorenal component, dependent on atrial kick, plans for cardioversion tomorrow. Recheck chemistry. Likely related to non compliance as as result of being overwhelmed with multiple medications and reading about their side effect profile States that he has home health services starting next week and feels that he will do better with supervision and encouragement from nurse Plan Leukocytosis: Reviewed WBC, noted now resolved. Reviewed urine culture, blood cultures, negative. Unclear cause possibly early cystitis, although no growth on urine culture. Some urinary bladder. Thickening of some pleural effusions, possibly was on the way to develop pneumonia. For now continue empiric antibiotics. Continue dobutamine as above. He denies any change in symptoms. He has had no appetite, although suspect this may be due to worsening renal function. Discussed with him and his brother with low output failure, possibility of GI translocation, elevated risk of infection, compromised immune response. She is empirically on antibiotic coverage. Continue. Afebrile. Leukocytosis with improvement. For now empiric coverage with Zosyn, linezolid. Monitor with risk of adrenal cytosis with linezolid. Pleural effusions: CHF with improvement. Had diuresed with dobutamine. Will follow-up chest x-ray. Moderate pleural effusions noted on CT review, left greater than right. Trial of diuresis. Dobutamine for suspected low output heart failure. May benefit from thoracentesis but is on Eliquis, hold Eliquis, Lovenox for now. Diuresis as above. Producing urine. Fall overnight: Small laceration of the forehead. Acute encephalopathy overnight, possibly combination low output heart failure, Ambien. Not sure if may be orthostatic. Consider PT reassessment after angiogram. Constipation: Constipation, but reports having bowel movement last night. Diarrhea resolved, now reports some constipation. Senna instead. DM: Reviewed Accu-Cheks. With acceptable control,Continue as currently. 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 Would benefit from cardiac rehab if recovers from above. Given worsening cardiac function bedrest for now. Discussed with him prognosis guarded given worsened now severe cardiomyopathy, suspected low output failure. Discussed with his brother. Attestations Medical Necessity Statement*: Continue admission for assessment management of low output cardiac failure with multiorgan injury. Diagnoses Acute on chronic systolic congestive heart failure I50.23 Heart failure chronicity: acute on chronic Heart failure type: systolic LORETA (acute kidney injury) N17.9 Acute encephalopathy G93.40 Transaminitis R74.01 Goals of care, counseling/discussion Z71.89 Atrial fibrillation with RVR I48.91
[2023-04-15 05:26] LABS: Basophils % 0.4 %; Eosinophils # 0.3 10^3/uL (0.0-0.8); Eosinophils % 2.4 %; Hematocrit 41.3 % (37-53); Lymphocytes # 1.6 10^3/uL (0.8-4.8); Lymphocytes % 14.5 %; Mean Corpuscular HGB Conc 31.7 g/dL (30-55); Mean Corpuscular Hemoglobin 29.4 pg (27-33); Mean Corpuscular Volume 92.6 fl (82-101); Mean Platelet Volume 9.8 fL (7.4-10.4); Monocytes # 0.8 10^3/uL (0.2-0.9); Monocytes % 6.8 %; Neutrophils # 8.31 10^3/uL (1.8-7.7); Neutrophils % 75.4 %; Nucleated Red Blood Cells % 0 %; Platelet Count 242 10^3/cmm (157-399); Red Blood Count 4.46 10^6/uL (3.85-5.65); Red Cell Distribution Width 16.3 % (12.1-15.1); White Blood Count 11.01 10^3/uL (3.29-11.43)
[2023-04-15 05:47] LABS: Alanine Aminotransferase 101 U/L (0-41); Albumin Level 3.4 g/dL (3.5-5.2); Alkaline Phosphatase 86 U/L (40-130); Aspartate Amino Transferase 29 U/L (0-40); Blood Urea Nitrogen 24 mg/dL (8-23); Calcium 8.4 mg/dL (8.5-10.5); Carbon Dioxide 26 mmol/L (22-29); Chloride 103 mmol/L (98-107); Globulin 2.8 g/dL (1.3-4.6); Glucose 110 mg/dL (65-115); Osmolality Calculated 297 mOsm/kg (285-295); Sodium 141 mmol/L (136-145); Total Bilirubin 1.1 mg/dL (0.15-1.2); Total Protein 6.2 g/dL (6.6-8.7)
[2023-04-15 07:26] LABS: Glucose Point of Care 98 mg/dL (70-110)
--- NOTE | 2023-04-15 08:00 | XACV_ITS ---
Exam Room: 2 Ht: 173 cm Wt: 92 kg BSA: 2.12 m2 Gender: Male : 1945 Any Known Allergies: Other Exam Priority: Routine Procedure(s): Procedure Description: Diagnostic procedure Procedure Description: Venous Graft Catheterization Procedure Description: FU Graft Catheterization Procedure Description: Coronary Angiography Diagnostic Cath Status: Elective Diagnostic Findings * Left Main: moderate 50% stenosis. * Proximal Left Anterior Descending: severe 90% stenosis. * Mid Right Coronary Artery: severe 90% stenosis. * Bypass grafts: FU to LAD is patent. After touchdown, LAD has diffuse disease. SVG to RCA is patent. SVG to OM is patent.. * Mid Left Anterior Descending: total occlusion, [place]: 0 flow. * Distal Right Coronary Artery: total occlusion, [place]: 0 flow. * Proximal Circumflex: total occlusion, [place]: 0 flow. * Coronary angiography shows right dominance. Conclusions 1. 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 Patent bypass grafts including FU to LAD, SVG to RCA and SVG to OM.. 2. Patient has prior CABG. Recommendations * Aggressive risk factor modification. * Guideline directed heart failure therapy. * Outpatient cardiology follow up in 2 weeks. Interventional RX Recommendation: medical therapy and/or counseling Diagnostic RX Recommendation: medical therapy and/or counseling Pressures Phase:Rest AO : 156 / 84 ( 109 ) @ 9:28:00 AM 150 / 75 ( 106 ) @ 9:31:00 AM Clinical Evaluation EBL: 5mL-10mL Procedural Details Procedure Consent Obtained. Admit Source: In Patient. Pre-Procedure Time Out. Identified patient by full name and date of as verbalized by the patient/guarantor. Does the consent match the physician's order: Yes. Accurate & Complete Informed Consent: Yes. Inpatient/Outpatient History & Physical on Chart: Yes. If H&P is completed, is and addenduem needed: Yes; If yes, is the addendum complete: N/A. Visualize and Verify Site with Patient/Guarantor: N/A. Relevant Radiology Images available: N/A. The risks, benefits, and alternatives of sedation and/or procedure were discussed by physician. The patient agrees to continue. Procedure started. [facility] Clinical Fraility Score: 5: Mildly Frail. [employer] Lead Indications: LV Dysfunction. Correct patient, site and procedure confirmed by cath team. Current diagnosis: LV dysfunction. PERRLA. Strong, equal hand basket turner bilaterally. Lungs clear x 5 lobes. IV Site on Arrival: 20 gauge in the left wrist. IV Fluids: 0.9% NaCl at75ml/hr. 0 mL infused prior to pathology laboratory director. Pre Procedural Pulses: bilateral posterior tibial was Doppled. Pre Procedural Pulses: bilateral dorsalis pedis was Doppled. Oxygen started at 2liters/min via nasal canula. bilateral groins was prepped with chloroprep then draped in the usual sterile fashion. Baseline sample Acquired. HR: 96 BPM. Physician notified. Pt arrived to pathology laboratory director with Dobutamine infusion running at 2.5mcg/kg/min. Physician arrived. Physician scrubbed in. Immediate Pre-Procedure Time Out. Correct Patient: Yes; Correct Procedure: Yes; Correct Site: Yes; Correct Patient Position: Yes; Correct Supplies: Yes; Dried Flammable Prep: Yes; Blood Products Available: N/A;. Lidocaine 1% infiltrated to the right groin. Arterial access obtained with micropuncture set. An attempt to gain access to the right femoral artery was unsuccessful. Manual pressure was held as needed to stop the bleeding. Arterial access obtained with micropuncture set. Lidocaine 1% infiltrated to the right groin. A 5 kittitian JL4 catheter in over wire. Multiple views taken of left coronary artery. Catheter removed over the standard wire. A 5 kittitian JR4 catheter in over wire. Multiple views taken of right coronary artery. Catheter repositioned over standard wire to left subclavian artery. Wire out. FU to LAD visualized. Multiple views taken of FU to LAD. Catheter removed over the standard wire. A 5 kittitian MPA1 catheter in over wire. Catheter removed over the standard wire. A 5 kittitian AL1 catheter in over wire. SVG's to OM visualized and patent. SVG's to RCA visualized and patent. Catheter removed over the standard wire. 6fr 23cm sheath exchanged for 6fr short sheath over the standard wire. A Right femoral angiogram was performed to determine safe placement of closure device. A Mynx was successful obtaining hemostatsis at the Right Femoral artery insertion site. LOT # [id number] EXP 02-05-2025. Post Procedure: Pulses reassessed and unchanged. PERRLA. Strong, equal hand basket turner bilaterally. No VTE prophylaxis required. Medication's Wasted: Lidocaine 1% = 2 mL. Medication's Wasted: Heparin = 1000 unit. Medication's Wasted: Other = Fentanyl 25mcg, Versed 1 mg. Total IV fluids: 100 mL. Post-op diagnosis: Patent Bypass grafts, Severe [place] CAD. Complications: None. Estimated blood loss: 5mL-10mL. Responsiveness - Normal response to verbal stimuli; alert and oriented, PERRLA. Airway - Unaffected, no intervention required; spontaneous ventilation. Circulation: W/N/L, pulses unchanged. Nausea/Vomiting: No. Procedure completed. Patient transferred by bed to 1st floor. Vital chart was stopped. Access Site Site: Right Femoral artery Sheath Size: 6 Fr Hemostasis Method: Mynx Hemostasis Success: Successful Procedure Medications Start: 9:09 AM Stop: 9:09 AM Medication: Diphendryamine Amount: 50 mg Route: I.V. Start: 9:13 AM Stop: 9:13 AM Medication: Versed Amount: 1 mg Route: I.V. Start: 9:13 AM Stop: 9:13 AM Medication: Fentanyl Amount: 50 mcg Start: 9:18 AM Stop: 9:18 AM Medication: Versed Amount: 1 mg Route: I.V. Start: 9:33 AM Stop: 9:33 AM Medication: Versed Amount: 1 mg Route: I.V. Start: 9:59 AM Stop: 9:59 AM Medication: Fentanyl Amount: 25 mcg I, the attending physician, have reviewed and verified all procedure medications. Yes, all medications given per verbal order History/Risk Factors Hypertension: Yes Dyslipidemia: No Peripheral Arterial Disease (PAD): No Myocardial Infarction ([place]): No Obesity: No Renal Disease: No Prior Interventions CABG: Yes Valve Surgery: No Report Signatures Finalized by Brendan Zhang MD on 04/30/2023 12:09 PM
--- NOTE | 2023-04-15 09:08 | W.PM.OPSUD ---
Surgery/Procedure H&P Update DATE OF PROCEDURE: 04/15/2023 DATE H&P PERFORMED: 04/08/23 H&P UPDATE INFORMATION: I have reviewed H&P completed within last 30 days, I have examined patient prior to procedure and No changes to prior documentation PREOP DIAGNOSIS: LV dysfunction PRIMARY INDICATION FOR PROCEDURE: LV dysfunction PLANNED PROCEDURE: Operation Date: 04/15/23 08:00 Proposed Procedures p Cardiac Catheterization(Left) - Brendan Zhang M.D PATIENT REASSESSED PRIOR TO SEDATION, WITH NO CHANGE NOTED: Yes PHYSICAL EXAM: alert, oriented x 3, clear to auscultation bilaterally and regular rate & rhythm AIRWAY EVAL/ANESTHESIA PLAN: normal airway, ASA III, Local Anesthesia, Risks, benefits & alternatives of sedation and/or procedure discussed and Patient agrees to continue as planned ADDITIONAL INFORMATION: Moderate sedation
--- NOTE | 2023-04-15 09:10 | P.PN_ITS ---
Subjective 2 Subjective: Patient is doing well. No chest pain. Vitals/I&O/Wt Last Vital Signs Temp 97.9 F 04/15/23 04:00 Pulse 88 04/15/23 06:00 Resp 14 04/15/23 04:00 BP 109/54 04/15/23 04:00 Pulse Ox 97 04/14/23 20:00 O2 Del Method Room Air 04/14/23 20:00 04/14/23 04/15/23 04/15/23 22:59 06:59 14:59 Intake Total 1070 / 1480 Output Total 300 / 600 Balance 1070 / 1180 -300 / 880 Weight last 48 hrs Weight 202 lb Weight 201 lb 11.2 oz Weight 201 lb 14.4 oz Physical Exam 2 Narrative: GENERAL: Patient is alert, awake and oriented x3. [] NECK: No jugular vein distension. [] HEENT: No cyanosis. No icterus. No pallor. [] HEART: Regular S1 and S2. No murmur, rub or gallop. [] LUNGS: Clear to auscultate bilaterally. [] CENTRAL NERVOUS SYSTEM: Grossly nonfocal. [] EXTREMITIES: Lower extremities with 1+ edema bilaterally. [] Urinary Catheter Management: Cabrera Latex Free: Cath Placed During This Visit: yes, but has since been removed by the nurse Reason for Continuing Indwelling Catheter: Accurate Measurement of Urinary Output in Critically Ill Patients Urinary Catheter Date of Insertion: 04/10/23 Urinary Catheter Time of Insertion: 02:30 Date Urinary Catheter Removed: 04/13/23 Time Urinary Catheter Discontinued: 13:49 Data 04/15/23 04:59 04/15/23 04:59 Micro: Microbiology 04/05/23 21:37 Blood Culture - Final Blood A&P Assessment and plan (1) Acute on chronic systolic heart failure: Continue p.o. Lasix. We will plan on coronary angiography tomorrow. N.p.o. past midnight (2) Atherosclerotic heart disease of [place] coronary artery without angina pectoris: Secondary to significant drop in cardiac function, we will proceed with coronary angiography tomorrow Qualifiers: [place] vs. transplanted heart: [place] heart Qualified Code(s): I25.10 - Atherosclerotic heart disease of [place] coronary artery without angina pectoris (3) Atrial fibrillation with RVR: Currently normal sinus rhythm. Continue amiodarone (4) Acute kidney injury superimposed on chronic kidney disease: Significant improvement. Continue monitoring (5) Benign hypertension: Currently normotensive. Continue on the current medication. (6) Dyslipidemia: Continue on the current medicines. (7) Elevated liver enzymes: Plan Thank you for involving us with care of this patient. Will continue to follow. Please call with questions. Attestations 2 Medical Necessity Statement*: Care expected to cross 2 midnights. Coding Level of Care Code Acute Code for [facility] Fwd Diagnoses Acute on chronic systolic heart failure I50.23 Atherosclerosis of [place] coronary artery of [place] heart without angina pectoris I25.10 [place] vs. transplanted heart: [place] heart Atrial fibrillation with RVR I48.91 Acute kidney injury superimposed on chronic kidney disease N17.9; N18.9 Benign hypertension I10 Dyslipidemia E78.5 Elevated liver enzymes R74.8
[2023-04-15 09:22] LABS: Iron 64 ug/dL (59-158); Total Iron Binding Capacity 206 mcg/dl; Unsaturated Iron Binding 142 ug/dL (112-347)
[2023-04-15 09:38] LABS: Vitamin B12 634 pg/mL (232-1245)
--- NOTE | 2023-04-15 10:33 | P.PN_ITS ---
Subjective 2 Subjective: Patient had coronary angiogram. Has patent FU to LAD, SVG to RCA and SVG to left circumflex artery. No chest pain Vitals/I&O/Wt Last Vital Signs Temp 97.9 F 04/15/23 04:00 Pulse 88 04/15/23 06:00 Resp 14 04/15/23 04:00 BP 109/54 04/15/23 04:00 Pulse Ox 97 04/14/23 20:00 O2 Del Method Room Air 04/14/23 20:00 04/14/23 04/15/23 04/15/23 22:59 06:59 14:59 Intake Total 1070 / 1480 Output Total 300 / 600 Balance 1070 / 1180 -300 / 880 Weight last 48 hrs Weight 202 lb Weight 201 lb 11.2 oz Weight 201 lb 14.4 oz Physical Exam 2 Narrative: GENERAL: Patient is alert, awake and oriented x3. [] NECK: No jugular vein distension. [] HEENT: No cyanosis. No icterus. No pallor. [] HEART: Regular S1 and S2. No murmur, rub or gallop. [] LUNGS: Clear to auscultate bilaterally. [] CENTRAL NERVOUS SYSTEM: Grossly nonfocal. [] EXTREMITIES: Lower extremities with 1+ edema bilaterally. [] Urinary Catheter Management: Cabrera Latex Free: Cath Placed During This Visit: yes, but has since been removed by the nurse Reason for Continuing Indwelling Catheter: Accurate Measurement of Urinary Output in Critically Ill Patients Urinary Catheter Date of Insertion: 04/10/23 Urinary Catheter Time of Insertion: 02:30 Date Urinary Catheter Removed: 04/13/23 Time Urinary Catheter Discontinued: 13:49 Data 04/15/23 04:59 04/15/23 04:59 Micro: Microbiology 04/05/23 21:37 Blood Culture - Final Blood A&P Assessment and plan (1) Acute on chronic systolic heart failure: Coronary angiography revealed patent bypass grafts as mentioned above. Will continue with medical therapy. Continue aspirin. Will put him on Entresto and metoprolol. Continue amiodarone. (2) Atherosclerotic heart disease of [place] coronary artery without angina pectoris: Patent coronary artery bypass grafts. Qualifiers: [place] vs. transplanted heart: [place] heart Qualified Code(s): I25.10 - Atherosclerotic heart disease of [place] coronary artery without angina pectoris (3) Atrial fibrillation with RVR: Staying in normal sinus rhythm. Continue amiodarone. (4) Acute kidney injury superimposed on chronic kidney disease: Has normalized. (5) Benign hypertension: Currently normotensive. Continue on the current medication. (6) Dyslipidemia: Continue on the current medicines. (7) Elevated liver enzymes: Plan Thank you for involving us with care of this patient. Patient is stable to be discharged from cardiology standpoint. Please call with questions. Attestations 2 Medical Necessity Statement*: Care expected to cross 2 midnights. Coding Level of Care Code Acute Code for [facility] Fwd Diagnoses Acute on chronic systolic heart failure I50.23 Atherosclerosis of [place] coronary artery of [place] heart without angina pectoris I25.10 [place] vs. transplanted heart: [place] heart Atrial fibrillation with RVR I48.91 Acute kidney injury superimposed on chronic kidney disease N17.9; N18.9 Benign hypertension I10 Dyslipidemia E78.5 Elevated liver enzymes R74.8
--- NOTE | 2023-04-15 11:51 | P.PN_ITS ---
Subjective 2 Subjective: no new complaints Medications: Reviewed: Yes Vitals/I&O/Wt Last Vital Signs Temp 98.4 F 04/15/23 08:20 Pulse 93 04/15/23 08:20 Resp 25 H 04/15/23 08:20 BP 138/76 04/15/23 08:20 Pulse Ox 96 04/15/23 08:20 O2 Del Method Room Air 04/14/23 20:00 04/14/23 04/15/23 04/15/23 22:59 06:59 14:59 Intake Total 1070 / 1480 Output Total 300 / 600 Balance 1070 / 1180 -300 / 880 Weight last 48 hrs Weight 91.626 kg Weight 91.49 kg Weight 91.58 kg Physical Exam 2 Const: COMMON NORMALS: no acute distress and alert Extremity: NARRATIVE EXTREMITY EXAM: no edema Neuro: SENSORIUM/ORIENTATION: Yes alert Urinary Catheter Management: Cabrera Latex Free: Cath Placed During This Visit: yes, but has since been removed by the nurse Reason for Continuing Indwelling Catheter: Accurate Measurement of Urinary Output in Critically Ill Patients Urinary Catheter Date of Insertion: 04/10/23 Urinary Catheter Time of Insertion: 02:30 Date Urinary Catheter Removed: 04/13/23 Time Urinary Catheter Discontinued: 13:49 Data 04/15/23 04:59 04/15/23 04:59 Micro: Microbiology 04/05/23 21:37 Blood Culture - Final Blood A&P Assessment and plan (1) LORETA (acute kidney injury): Plan 1. Acute kidney injury, HFrEF, cardiorenal, on dobutamine infusion. Continues to diurese on oral furosemide. Renal function improving 2. Hypokalemia, metabolic alkalosis, resolved 4. + BANDAR, low C3, DsDNA pending. Recommend rheumatology follow-up as outpatient Recommend: continue furosemide 40 mg BID. Continue accurate I/O, daily weights, fluid and salt restriction. OK from my standpoint to try low dose entresto OR SGLT2i with very close follow-up Attestations 2 Medical Necessity Statement*: per маринаne team Coding Level of Care Code Acute Code for Chg Fwd Diagnoses LORETA (acute kidney injury) N17.9
[2023-04-15 12:04] LABS: Glucose Point of Care 113 mg/dL (70-110)
--- NOTE | 2023-04-15 13:06 | PC.SOCIAL ---
IMM Update pg 2 of IMM updated and reviewed w/ patient. Copy provided and copy dated, initialed and placed in chart.
--- NOTE | 2023-04-15 13:26 | P.DS_ITS ---
Discharge Providers Date of Admission: 04/05/23 21:26 Date of Discharge: April 15, 2023 Attending Provider at Admission: Dexter Weinberg MD Attending Provider at Discharge: Dexter Weinberg MD Consults: Cardiology: Dr. Zhang Telemetry nephrology Primary [facility] Provider[facility] Diagnoses at Discharge Discharge Diagnosis (1) LORETA (acute kidney injury): Status: Acute Reason for Visit Reason for Visit: sob Brief History: History as per HPI: Emery Ramires is a 77 year old male with PMH coronary artery disease, s/p CABG at [facility] January 25, 2023 course complicated by A fib s/p cardioversion Jan 30, on amiodarone and Eliquis thereafter, CHF last known EF 45%, Supposed to be on Bumex, however has not been compliant with medications recently due to being overwhelmed by polypharmacy. He presents to the ER today with c/o dyspnea, A fib with RVR and orthopena with increased LE swelling. Hospital Course Hospital Course Patient was admitted to the hospital for further evaluation and management of A-fib with RVR and congestive heart failure. He was started on Cardizem drip while continuing his home dose of metoprolol. He was started on aggressive IV diuresis and cardiology was consulted. Heart rate was difficult to control for which he was switched over to amiodarone drip. Repeat echocardiogram was done which showed reduced EF of around 25%. Patient had low urine output with LORETA with concerns for low EF and she was started on dobutamine drip while watching him closely for tachyarrhythmia. After starting dobutamine drip his symptoms of congestive heart failure and LORETA along with low urine output resolved. Patient continued to improve gradually and IV diuretics, due to oral medications. Because of newly reduced EF he underwent cardiac angiogram on 04/15 in which she was found to have patent grafts with some concerns for post graft mild occlusion(complete report not currently available). Patient was advised for further medical treatment. During hospitalization patient was counseled in detail regarding possible need of LifeVest given low EF which even after multiple conversations patient declined. Safe discharge plan was discussed in detail with the patient and he was agreeable with home health. Patient was counseled in detail about compliance with oral medications and regular follow-ups. Patient discharged in hemodynamically stable condition with home health for medication and vital checks. Given advanced age, new low EF, noncompliance patient is at a high risk of readmissions. Physical Exam Const: COMMON NORMALS: patient oriented x3 and alert GENERAL APPEARANCE: cooperative ORIENTATION/CONSCIOUSNESS: Yes awake HENMT: COMMON NORMALS: oropharynx normal Neck/C-Spine: COMMON NORMALS: no JVD Resp: COMMON NORMALS: normal respiratory effort and clear to auscultation bilaterally AUSCULTATION: clear to auscultation bilaterally Cardio: COMMON NORMALS: no JVD, regular rhythm, S1 normal heart sound present, S2 normal heart sound present and No murmurs present (Cardio) RHYTHM: regular rhythm HEART SOUNDS: S1 normal heart sound present and S2 normal heart sound present GI: COMMON NORMALS: Normal to inspection, nondistended, normoactive bowel sounds present, Soft to palpation and non-tender PALPATION: Yes Soft to palpation Extremity: COMMON NORMALS: no joint enlargement NARRATIVE EXTREMITY EXAM: Extremities warm to touch. GENERAL: Yes edema (1+) Neuro: COMMON NORMALS: patient oriented x3 and moves all extremities SENSORIUM/ORIENTATION: Yes alert Skin: COMMON NORMALS: no rashes or lesions noted GENERAL SKIN EXAM: no rashes or lesions noted Urinary Catheter Management: Cabrera Latex Free: Cath Placed During This Visit: yes, but has since been removed by the nurse Reason for Continuing Indwelling Catheter: Accurate Measurement of Urinary Output in Critically Ill Patients Urinary Catheter Date of Insertion: 04/10/23 Urinary Catheter Time of Insertion: 02:30 Date Urinary Catheter Removed: 04/13/23 Time Urinary Catheter Discontinued: 13:49 Discharge Data Studies Completed and Pending Completed Studies During Hospitalization Category [place] [id number] Routine Cat Scan 04/09/23 09:[address] head wo con* [id number] Stat Cat Scan 04/09/23 00:48 Completed XR KUB portable [id number] Stat Exams 04/08/23 23:13 Completed XR chest 1V portable [id number] Stat Exams 04/05/23 17:10 Completed Blood Cultures ([facility]) Routine Lab 04/05/23 21:37 Completed Blood Cultures ([facility]) Routine Lab 04/05/23 21:43 Completed NM pul vent and perfus* [id number] Routine Nuc Med 04/10/23 08:00 Completed CV. echo complete* [id number] Routine Ultrasound 04/09/23 12:04 Completed US gall bladder [id number] Routine Ultrasound 04/09/23 18:40 Completed US renal BI* [id number] Routine Ultrasound 04/06/23 09:20 Completed Pending at discharge Category Date Time Status PROFESSIONAL SECURITY OFFICER request for service Routine Exams 04/15/23 08:00 Ordered XR chest 1V portable [id number] Routine Exams 04/16/23 06:00 Ordered Anti Double Stranded DNA AB Routine Lab 04/12/23 04:33 Received Blood Cultures ([facility]) Routine Lab 04/09/23 12:26 Results Blood Cultures ([facility]) Routine Lab 04/09/23 12:31 Results Complete Blood Count w/Auto AM LABS Lab 04/16/23 04:00 Ordered Comprehensive Metabolic Panel AM LABS Lab 04/16/23 04:00 Ordered Folate Level AM LABS Lab 04/16/23 04:00 Ordered Histoplasma Galactomannan Ag Routine Lab 04/09/23 23:53 Received Histoplasma Quantitative AG Routine Lab 04/09/23 23:53 Received Lipid Profile w/VLDL Routine Lab 04/16/23 04:00 Ordered MAG [Magnesium] AM LABS Lab 04/16/23 04:00 Ordered MAG [Magnesium] AM LABS Lab 04/17/23 04:00 Ordered MAG [Magnesium] AM LABS Lab 04/18/23 04:00 Ordered NM pul vent and perfus* [id number] Routine Nuc Med 04/10/23 08:00 Unverified Radiology Impressions Chest X-Ray 04/05/23 17:10 IMPRESSION: No significant change. Renal Ultrasound 04/06/23 09:20 IMPRESSION: Unremarkable kidneys and bladder. KUB X-Ray 04/08/23 23:13 IMPRESSION: Nonspecific nonobstructive bowel gas pattern. Head CT 04/09/23 00:48 IMPRESSION: 1. No acute intracranial hemorrhage or mass effect. 2. Changes of microvascular disease. 3. No definite acute infarct by CT, see above. 4. Other findings discussed above. Chest/Abdomen/Pelvis CT 04/09/23 09:03 IMPRESSION: 1. Moderate huyh-fzpsktf-qxnb-right pleural effusions with mild compressive left lower lobe atelectasis. 2. Mild streaky left lung opacities with ground-glass attenuation favored to represent atelectasis, early infiltrate not entirely excluded. 3. Cardiomegaly with coronary artery calcification status post CABG. 4. Bony findings may be seen in the setting of ankylosing spondylitis. IMPRESSION: 1. Circumferential urinary bladder wall thickening may be on the basis of underdistention, cystitis, or chronic outlet obstruction in the setting of prostatomegaly. 2. Mild ascites. 3. Additional chronic and incidental findings as above, to include atherosclerosis and colonic diverticulosis. COMMENTS: Consistent with the [place] [employer]'s Incidental Findings Committee white paper (J Am Jessica Radiol 2018): Any incidental renal lesion less than 1 cm or classified as too small to characterize, or any incidental cystic renal lesion characterized as simple-appearing, is likely benign. No follow-up imaging is recommended for these lesions per consensus recommendations based on imaging criteria. Gallbladder Ultrasound 04/09/23 18:40 IMPRESSION: 1. Right lower lung pleural effusion 2. Hepatomegaly and hepatic steatosis 3. Gallbladder wall thickening no gallstones 4. Marielena hepatic ascites. 5. Benign cyst right kidney Echocardiogram: CONCLUSIONS LV systolic function is severely reduced with EF of 25 to 30%. Grade 3 diastolic dysfunction. Biatrial enlargement. Moderate mitral regurgitation Mild tricuspid regurgitation. Mild pulmonary hypertension Mild pulmonic regurgitation Pleural effusion is noted IVC is dilated. LV systolic function has decreased significantly from last echo from 02/2023 and is severely reduced now. Brendan Zhang MD (Electronically Signed) Final Date: 09 April 2023 17:00 Laboratory Results WBC 11.01 10^3/uL (3.29-11.43) 04/15/23 04:59 RBC 4.46 10^6/uL (3.85-5.65) 04/15/23 04:59 Hgb 13.10 g/dL (11.27-16.99) 04/15/23 04:59 Hct 41.3 % (37-53) 04/15/23 04:59 MCV 92.6 fl (82-101) 04/15/23 04:59 MCH 29.4 pg (27-33) 04/15/23 04:59 MCHC 31.7 g/dL (30-55) 04/15/23 04:59 RDW 16.3 % (12.1-15.1) H 04/15/23 04:59 Plt Count 242 10^3/cmm (157-399) 04/15/23 04:59 MPV 9.8 fL (7.4-10.4) 04/15/23 04:59 Neut % (Auto) 75.4 % 04/15/23 04:59 Lymph % (Auto) 14.5 % 04/15/23 04:59 [place] % (Auto) 6.8 % 04/15/23 04:59 Eos % (Auto) 2.4 % 04/15/23 04:59 Baso % (Auto) 0.4 % 04/15/23 04:59 Neut # (Auto) 8.31 10^3/uL (1.8-7.7) H 04/15/23 04:59 Lymph # (Auto) 1.6 10^3/uL (0.8-4.8) 04/15/23 04:59 [place] # (Auto) 0.8 10^3/uL (0.2-0.9) 04/15/23 04:59 Eos # (Auto) 0.3 10^3/uL (0.0-0.8) 04/15/23 04:59 Baso # (Auto) 0.0 10^3/uL (0.0-0.1) 04/15/23 04:59 Nucleated RBC % (auto) 0 % 04/15/23 04:59 Nucleated RBCs # 0.0 /100WBC 04/15/23 04:59 Peripher Smr Path Cons Sent for review 04/09/23 04:34 PT 16.30 SECONDS (12.1-14.9) H 04/05/23 18:13 INR 1.27 (0.8-1.2) H 04/05/23 18:13 Sodium 141 mmol/L (136-145) 04/15/23 04:59 Potassium 4.0 mmol/L (3.5-5.1) 04/15/23 04:59 Chloride 103 mmol/L (98-107) 04/15/23 04:59 Carbon Dioxide 26 mmol/L (22-29) 04/15/23 04:59 Anion Gap 16.0 (5-19) 04/15/23 04:59 BUN 24 mg/dL (8-23) H 04/15/23 04:59 Creatinine 1.1 mg/dL (0.7-1.2) 04/15/23 04:59 GFR Calculation Not Reportable 04/15/23 04:59 Glucose 110 mg/dL (65-115) 04/15/23 04:59 POC Glucose 113 mg/dL (70-110) H 04/15/23 11:36 Estimat Average Glucose 174 04/05/23 18:13 Hemoglobin A1c 7.7 % (4.0-6.0) H 04/05/23 18:13 Calculated Osmolality 297 mOsm/kg (285-295) H 04/15/23 04:59 Lactic Acid 3.3 mmol/L (0.5-2.2) H 04/09/23 12:26 Lactic Acid (Sepsis) 3.9 mmol/L (0.5-2.2) H 04/09/23 16:25 Calcium 8.4 mg/dL (8.5-10.5) L 04/15/23 04:59 Phosphorus 3.5 mg/dL (2.5-4.5) 04/12/23 04:33 Magnesium 2.1 mg/dL (1.7-2.3) 04/12/23 04:33 Iron 64 ug/dL (59-158) 04/15/23 04:59 TIBC 206 mcg/dl 04/15/23 04:59 % Saturation 31.0 % (20-50) 04/15/23 04:59 Unsat Iron Binding 142 ug/dL (112-347) 04/15/23 04:59 Total Bilirubin 1.1 mg/dL (0.15-1.2) 04/15/23 04:59 Direct Bilirubin 0.30 mg/dL (0.00-0.30) 04/10/23 05:05 AST 29 U/L (0-40) 04/15/23 04:59 ALT 101 U/L (0-41) H 04/15/23 04:59 Alkaline Phosphatase 86 U/L (40-130) 04/15/23 04:59 Creatine Kinase 192 U/L (39-308) 04/06/23 00:40 Troponin T Baseline 51 ng/L (0-15) H 04/05/23 18:13 Troponin T 120 Minute 44.11 ng/L (0-15) H 04/05/23 20:20 Delta Troponin T -6.89 ABS# (0-10) L 04/05/23 20:20 Troponin T Hi Sens 6Hr 46.41 ng/L (0-15) H 04/06/23 00:40 Troponin T Hi Sens 6Hr Delta -4.59 ng/L (0-12) L 04/06/23 00:40 NT-Pro-B Natriuret Pep 18421 pg/mL (0-450) H 04/05/23 18:13 Total Protein 6.2 g/dL (6.6-8.7) L 04/15/23 04:59 Albumin 3.4 g/dL (3.5-5.2) L 04/15/23 04:59 Globulin 2.8 g/dL (1.3-4.6) 04/15/23 04:59 Vitamin B12 634 pg/mL (232-1245) 04/15/23 04:59 TSH 2.47 uIU/mL (0.27-4.20) 04/07/23 03:10 Urine Color Yellow (Yellow) 04/09/23 23:53 Urine Appearance Sl hazy (CLEAR) A 04/09/23 23:53 Urine pH 5 (5-7) 04/09/23 23:53 Ur Specific [place] 1.020 (1.005-1.030) 04/09/23 23:53 Urine Protein Neg (Negative) 04/09/23 23:53 Urine Glucose (UA) Norm (Normal) 04/09/23 23:53 Urine Ketones Negative (Negative) 04/09/23 23:53 Urine Blood 3+ (Negative) H 04/09/23 23:53 Urine Nitrate Negative (Negative) 04/09/23 23:53 Urine Bilirubin Neg (Negative) 04/09/23 23:53 Urine Urobilinogen Neg mg/dL (Negative) 04/09/23 23:53 Ur Leukocyte Esterase Negative (Negative) 04/09/23 23:53 Urine RBC 25-40 /hpf (0-2) H 04/09/23 23:53 Urine WBC None /hpf (0-5) 04/09/23 23:53 Ur Squamous Epith Cells None /hpf (0-5) 04/09/23 23:53 Amorphous Sediment Not Reportable 04/09/23 23:53 Urine Bacteria 1+ /hpf (NONE) H 04/09/23 23:53 Other Casts Waxy /lpf 04/09/23 23:53 Urine Mucus 1+ /hpf 04/09/23 23:53 Ur Random Urea Nitrogn 414 mg/dL 04/09/23 23:53 Urine Creatinine 67 mg/dL (39-259) 04/09/23 23:53 U Free [place] Ch 28.56 mg/L (<=32.90) 04/09/23 23:53 U Free [place] Light Ch 3.41 mg/L (<=3.79) 04/09/23 23:53 Nasal Influ A H1 2008 PCR Not detected (NOT DETECT) 04/08/23 22:40 BANDAR Screen Positive (NEGATIVE) A 04/08/23 05:27 BANDAR Titer 1:320 titer H 04/08/23 05:27 BANDAR Titer 2 1:1280 titer H 04/08/23 05:27 BANDAR Pattern Nuclear, homogeneous A 04/08/23 05:27 BANDAR Pattern 2 Nuclear, centromere A 04/08/23 05:27 Complement C3 64 mg/dL (90-180) L 04/12/23 04:33 Complement C4 15 mg/dL (10-40) 04/12/23 04:33 Free [place] Chains 59.3 mg/L (3.3-19.4) H 04/08/23 05:27 Free [place] Chain 37.1 mg/L (5.7-26.3) H 04/08/23 05:27 Free [place]/Lambda Ratio 1.60 (0.26-1.65) 04/08/23 05:27 Adenovirus (PCR) Not detected (NOT DETECT) 04/08/23 22:40 C. pneumoniae DNA (PCR) Not detected (NOT DETECT) 04/08/23 22:40 Coronavirus 229E (PCR) Not detected (NOT DETECT) 04/08/23 22:40 Hepatitis A IgM Ab Non-reactive (Nonreactive) 04/09/23 12:26 Hep Bs Antigen Non-reactive (Nonreactive) 04/09/23 12:26 Hep B Core IgM Ab Non-reactive (Nonreactive) 04/09/23 12:26 Hepatitis C Antibody Non-reactive (Nonreactive) 04/09/23 12:26 Human Metapneumovir PCR Not detected (NOT DETECT) 04/08/23 22:40 Influenza A (H1) PCR Not detected (NOT DETECT) 04/08/23 22:40 Influenza A (H3) PCR Not detected (NOT DETECT) 04/08/23 22:40 Influenza Type A Ag negative (Negative) 04/05/23 18:03 Influenza Type A (PCR) Not detected (NOT DETECT) 04/08/23 22:40 Influenza Type B Ag negative (Negative) 04/05/23 18:03 Influenza Type B (PCR) Not detected (NOT DETECT) 04/08/23 22:40 M. pneumoniae (PCR) Not detected (NOT DETECT) 04/08/23 22:40 Parainfluenza 1 (PCR) Not detected (NOT DETECT) 04/08/23 22:40 Parainfluenza 2 (PCR) Not detected (NOT DETECT) 04/08/23 22:40 Parainfluenza 3 (PCR) Not detected (NOT DETECT) 04/08/23 22:40 Parainfluenza 4 (PCR) Not detected (NOT DETECT) 04/08/23 22:40 RSV Type A (PCR) Not detected (NOT DETECT) 04/08/23 22:40 RSV Type B (PCR) Not detected (NOT DETECT) 04/08/23 22:40 Entero/Rhino (PCR) Not detected (NOT DETECT) 04/08/23 22:40 SARS-CoV-2 (PCR) Not detected (NOT DETECT) 04/08/23 22:40 Beta-(1,3)-D-Glucan 48 pg/mL 04/08/23 05:27 B-(1,3)-D-Glucan Intrp Negative 04/08/23 05:27 Vitals Last Vital Signs Temp 97.7 F 04/15/23 12:00 Pulse 85 04/15/23 12:00 Resp 24 H 04/15/23 12:00 BP 133/70 04/15/23 12:00 Pulse Ox 94 04/15/23 12:00 O2 Del Method Room Air 04/14/23 20:00 Discharge Plan Discharge Patient Disposition: Home Health Service Condition: Stable Prescriptions: New Eliquis 5 mg tablet 5 mg PO Q12H Qty: 60 0RF furosemide 40 mg Tablet 40 mg PO BID 30 Days Qty: 60 0RF Entresto 24-26 mg tablet 1 tab PO BID Qty: 60 0RF Continued Novolog FlexPen U-100 Insulin 100 unit/mL (3 mL) insulin pen See Rx Instructions .ROUTE .COMPLEX Qty: 15 0RF Rx Instructions: PER SLIDING SCALE: BS 181-220= 2 units/sq, 221-260= 4 units/sq, 261-300= 6 units/sq, 301-350= 8 units/sq, 351-400= 10 units/sq, 401-450= 12 units/sq, >450= 14 units/sq amiodarone 200 mg tablet 200 mg PO DAILY Qty: 90 3RF Rx Instructions: begin on 03/20/23 Klor-Con 10 10 mEq tablet extended release 10 meq PO BID 30 Days Qty: 180 1RF clopidogrel 75 mg tablet 75 mg PO DAILY timolol maleate 0.5 % Drops 1 drp ophthalmic (eye) BEDTIME Qty: 10 0RF Rx Instructions: IN LEFT EYE difluprednate 0.05 % Drops 1 drp OPHTHALMIC (EYE) QID Qty: 5 0RF bromfenac 0.07 % Drops 1 drp OPHTHALMIC (EYE) DAILY Qty: 3 0RF Rx Instructions: IN LEFT EYE empagliflozin 25 mg Tablet 12.5 mg PO DAILY 30 Days Qty: 30 0RF (DME) glucometer testing kit See Rx Instructions .Route .MEDSUPPLY Qty: 1 0RF Rx Instructions: lancets#100 strips#100 paroxetine HCl [Paxil] 30 mg Tablet 15 mg PO DAILY 30 Days Qty: 15 0RF metoprolol tartrate 25 mg Tablet 12.5 mg PO BID 30 Days Qty: 30 0RF Discontinued bumetanide 1 mg tablet 1 mg PO BID Qty: 180 1RF lisinopril-hydrochlorothiazide 20-12.5 mg Tablet 0.5 tab PO QAM 30 Days Qty: 15 0RF Discharge Orders: Discharge Order (Routine); Ordered 04/15/23 Ordered By: Dexter Weinberg Referrals: [facility] [Outside] Ruby Lindsey APRN-BC [Primary Care Provider] - 4-7 days Inga Pittman FNP [Nurse Practitioner] - 2 weeks Discharge Diet: Cardiac and Diabetic Discharge Activity: Resume usual activity and Increase activity as tolerated Patient Instructions: Furosemide (By mouth) (Lasix), Apixaban (By mouth) (Eliquis), Sacubitril/Valsartan (By mouth) (Entresto), Heart Failure (DC), Acute Kidney Injury (DC), DASH Eating Plan (DC), Heart Catheterization (DC), CHF Stoplight, Opioid Safety, Post Angiogram Home Care Instructions Activity Restrictions/Additional Instructions: He is to restrict fluid intake to less than 1500 cc, salt intake to less than 2 g daily. He was advised to check his weight daily at home. He is advised that weight today would be his dry weight and if his body weight increases by around 5 pounds he is to take an extra dose of Lasix daily till his body weight comes down to weight today. If not able to come down to dry body weight in 1 week he is to call cardiology office for further recommendations. Patient was counseled in detail to take her medications regularly. Discharge Attestations Time Spent in Discharge Care*: greater than 30 min Specific Discharge Activities: educating patient, educating and/or supporting family/caregiver, discussing with pcp/other providers, discussing with case maker/social workers/dc planners, documenting/other paperwork and evaluating patient/reviewing data Status at Discharge: Cognitive status at discharge: cognitively intact , Behavioral status at discharge: cooperative , Functional status at discharge: independent ambulation , Overall status at discharge: patient is back to baseline Quality Metrics Clinical Quality Measures [ No reported AMI, CVA or VTE this stay] Coding Level of Care Code 56611 Total time (in minutes) for Discharge: 60 Diagnoses LORETA (acute kidney injury) N17.9
[2023-04-15 14:04] LABS: Anti-Double Strand DNA AB 1 IU/mL
[2023-04-15] MEDS: amiodarone 200 mg Tablet 400 MG PO (16:03)
[2023-04-15] MEDS: clopidogrel 75 mg Tablet PO (16:03)
[2023-04-15] MEDS: FUROsemide 40 mg Tablet PO (16:03)
[2023-04-15] MEDS: oxybutynin chloride XL 5 MG TABLET 15 MG PO (16:03)
--- NOTE | 2023-04-15 16:58 | PC.NURSE ---
Discharge Note Patient discharged to [home] via [w/c to POV] accompanied by [his brother]. Discharge instructions reviewed with patient and/or medicare sales representative. Mobile pharmacy medications and/or prescriptions provided. Belongings/home medications returned.
[2023-04-15 20:09] LABS: Histoplasma Galactomannan Ag <0.2 ng/mL
[2023-04-17 08:34] LABS: Histoplasma Antigen (Quant) NONE DETECTED; Histoplasma Antigen Interpreta NEGATIVE; Histoplasma Antigen Specimen URINE
== END 2023-04-15 16:48 | disposition home health service (06) | DRG 286 ==
LOC: ER 19:37 → CSU 21:27 → ICU 04-09 21:50 → CSU 04-13 23:10
PROVIDERS: Emergency Medicine; Hospitalist; Internal Medicine; Nurse Practitioner; Student in an Organized Health Care Education/Training Program; Admitting Provider Student in an Organized Health Care Education/Training Program; Emergency Provider Family Medicine; PCP Nurse Practitioner Family; Visit Provider Student in an Organized Health Care Education/Training Program
PROC: B2111ZZ Fluoroscopy of Multiple Coronary Arteries using Low Osmolar Contrast (ICD-10-PCS; principal; 2023-04-15 08:00)
DX: I13.0 Hypertensive heart and chronic kidney disease with heart failure and stage 1 through stage 4 chronic kidney disease, or unspecified chronic kidney disease (principal); G93.41 Metabolic encephalopathy; I50.23 Acute on chronic systolic (congestive) heart failure; N17.9 Acute kidney failure, unspecified; E87.20 Acidosis, unspecified; E87.1 Hypo-osmolality and hyponatremia; N18.9 Chronic kidney disease, unspecified; E11.22 Type 2 diabetes mellitus with diabetic chronic kidney disease; I25.10 Atherosclerotic heart disease of native coronary artery without angina pectoris; Z95.1 Presence of aortocoronary bypass graft; I48.91 Unspecified atrial fibrillation; Z79.4 Long term (current) use of insulin; E11.9 Type 2 diabetes mellitus without complications; Z91.148 Patient's other noncompliance with medication regimen for other reason; Z11.52 Encounter for screening for COVID-19; E78.5 Hyperlipidemia, unspecified; Z82.49 Family history of ischemic heart disease and other diseases of the circulatory system; Z79.02 Long term (current) use of antithrombotics/antiplatelets; I25.5 Ischemic cardiomyopathy; K59.00 Constipation, unspecified; S01.81XA Laceration without foreign body of other part of head, initial encounter; W18.30XA Fall on same level, unspecified, initial encounter; Y92.230 Patient room in hospital as the place of occurrence of the external cause; R74.8 Abnormal levels of other serum enzymes
CPT/HCPCS: 36415; 36416; 51702; 70450; 71045; 71250; 74018; 74176; 76705; 76770; 78014; 80048; 80053; 80074; 80076; 80503; 81001; 82550; 82570; 82607; 82962; 83036; 83521; 83540; 83550; 83605; 83735; 83880; 83883; 84100; 84156; 84443; 84484; 84540; 85025; 85610; 86038; 86160; 86225; 86335; 87040; 87086; 87385; 87449; 87486; 87581; 87633; 87804; 93005; 93306; 93455; 96365; 96367; 96372; 96375; 96376; 97110; 97161; 97530; 99152; 99153; 99285; A9540; A9567; C1760; C1769; C1887; C1894; J0696; J1160; J1200; J1250; J1644; J1650; J1815; J1940; J2020; J2250; J2405; J2543; J3010; J3490; J7030; P9046; Q3014; Q9967

== ENCOUNTER → 2023-04-30 14:10 | Outpatient (BNVA) | payer OTHER, SELFPAY | PROVIDERS: PCP Nurse Practitioner Family; Visit Provider Internal Medicine | DX: I11.0 Hypertensive heart disease with heart failure (principal); I50.23 Acute on chronic systolic (congestive) heart failure; Z98.890 Other specified postprocedural states; I48.0 Paroxysmal atrial fibrillation; Z79.01 Long term (current) use of anticoagulants; E78.5 Hyperlipidemia, unspecified; I25.10 Atherosclerotic heart disease of native coronary artery without angina pectoris | CPT/HCPCS: 99214 ==

== ENCOUNTER 2023-05-12 19:56 | Emergency (ER) | payer OTHER, SELFPAY ==
[2023-05-12 19:56] VITALS: BP 111/63; PULSE 70; RESP 16; TEMP 36.6; O2SAT 98; BMI 28.8
--- NOTE | 2023-05-12 20:55 | XRR_ITS ---
PROCEDURE INFORMATION: Exam: XR Chest Exam date and time: 05/12/2023 9:00 PM Age: 77 years old Clinical indication: Shortness of breath; Prior surgery; Surgery date: 6+ months; Surgery type: Cabg; Patient HX: SOB; Fluid retention TECHNIQUE: Imaging protocol: Radiologic exam of the chest. Views: 1 view. COMPARISON[place] [id number] 04/09/2023 12:41 PM FINDINGS: Lungs: Ezcd-rkizxbd-whhk-right lung base opacities and effusions again seen. Pleural spaces: No pneumothorax or other change. Heart/Mediastinum: Heart is large. CABG and vascular calcification. Bones/joints: Unremarkable. XR/XR chest 1V portable [id number] IMPRESSION: Stable chest from 04/05/2023.
--- NOTE | 2023-05-12 20:55 | ECG_ITS ---
[facility] Test Date: 2023-05-12 Pat Name: Emery Ramires Department: Room: Gender: Male Computer Systems Software Architect: : 1945 Requested By: Durga Egan Order Number: [id number] Ulises MD: Brendan Zhang M.D. Measurements Intervals [place] Rate: 69 P: 29 SD: 239 QRS: 27 QRSD: 110 T: 93 QT: 424 QTc: 455 Interpretive Statements SINUS RHYTHM WITH FIRST DEGREE AV BLOCK NONSPECIFIC T-WAVE ABNORMALITY Compared to ECG 04/09/2023 07:27:14 T-wave abnormality now present Intraventricular conduction delay no longer present Electronically Signed On 05-13-2023 8:36:27 CERTIFIED SOLID WASTE FACILITY OPERATOR by Brendan Zhang M.D. [id number]
[2023-05-12 21:00] VITALS: BP 119/64; PULSE 67; O2SAT 96
[2023-05-12 21:06] VITALS: BP 126/72; PULSE 69; O2SAT 96
[2023-05-12 21:06] LABS: Basophils # 0.1 10^3/uL (0.0-0.1); Basophils % 0.5 %; Eosinophils # 0.1 10^3/uL (0.0-0.8); Eosinophils % 1.3 %; Hematocrit 41.9 % (37-53); Lymphocytes # 1.1 10^3/uL (0.8-4.8); Lymphocytes % 10.6 %; Mean Corpuscular HGB Conc 31.7 g/dL (30-55); Mean Corpuscular Hemoglobin 29.1 pg (27-33); Mean Corpuscular Volume 91.7 fl (82-101); Mean Platelet Volume 10.2 fL (7.4-10.4); Monocytes # 0.9 10^3/uL (0.2-0.9); Monocytes % 8.3 %; Neutrophils # 8.01 10^3/uL (1.8-7.7); Neutrophils % 78.7 %; Nucleated Red Blood Cells % 0 %; Platelet Count 249 10^3/cmm (157-399); Red Blood Count 4.57 10^6/uL (3.85-5.65); Red Cell Distribution Width 16.9 % (12.1-15.1); White Blood Count 10.18 10^3/uL (3.29-11.43)
--- NOTE | 2023-05-12 21:14 | W.ED.GENADLT ---
HPI - General Adult General: Chief complaint: General Medical Stated complaint: Fluid Built up Time Seen by Provider: 05/12/23 20:48 History of Present Illness: 77-year-old male with a history of congestive heart failure, with significantly low EF. He had a CABG 3 and half months ago. He has noticed increased lower extremity edema despite using Lasix at home for the past several days. He states he has had a decrease in urine output. He is short of breath at baseline. He is having trouble lying down to sleep, because he gets short of breath. He denies chest discomfort. He denies fever. He notes that he is so swollen, his shoes are not fitting, and his pants feel tight. Associated symptoms: Reports dyspnea; Deny chest pain, nausea, rash, palpitations or vomiting Review of Systems Const: Denies: fever(s) ENMT: Denies: throat pain Card: Denies: chest pain or palpitations Resp: Reports: dyspnea; Denies: productive cough GI: Denies: abdominal pain, nausea or vomiting Skin/Breast: Denies: rash PFSH ED PFSH: Medical History CAD (coronary artery disease) Hypertension A-fib Diabetes Surgical History Hx of CABG Physical Exam Const: COMMON NORMALS: no acute distress GENERAL APPEARANCE: cooperative and frail appearing (Mildly) HENMT: COMMON NORMALS: normocephalic, atraumatic and Normal external nose present HEAD & SCALP: normocephalic and atraumatic FACE & SINUS: normal facial exam and face symmetric NOSE: Normal external nose present Eye: COMMON NORMALS: Equal, round and reactive pupils present and EOMs intact bilaterally PUPIL: Yes Equal, round and reactive pupils present Neck/C-Spine: GENERAL: Yes trachea midline Chest: CHEST: Yes Symmetrical chest wall rise Resp: COMMON NORMALS: normal respiratory effort, No retractions, No use of accessory muscles and clear to auscultation bilaterally AUSCULTATION: clear to auscultation bilaterally Cardio: COMMON NORMALS: regular rate and regular rhythm RATE: regular rate RHYTHM: regular rhythm GI: COMMON NORMALS: Normal to inspection, nondistended, normoactive bowel sounds present Extremity: GENERAL: Yes edema (3+) Neuro: JESSICA COMA SCALE: document GCS findings [place] coma scale eye opening: Spontaneous Jessica coma scale verbal response: Orientated Jessica coma scale motor response: Obey commands [place] coma scale total score: 15 SENSORY EXAM: Yes extremities (intact) Psych: COMMON NORMALS: speech normal SPEECH: Yes normal speech Skin: COMMON NORMALS: no rashes or lesions noted GENERAL SKIN EXAM: no rashes or lesions noted Course Vital Signs: Vital signs: Vital Signs Temperature 97.9 F 05/12/23 19:56 Pulse Rate 68 05/12/23 22:30 Respiratory Rate 16 05/12/23 19:56 Blood Pressure 123/65 05/12/23 22:30 Pulse Oximetry 95 05/12/23 22:30 Oxygen Delivery Me thod Room Air 05/12/23 22:30 [facility] - General Adult Medical Decision Making This patient has a history of congestive heart failure with quite low EF. He presents with increasing lower extremity swelling. He is stable on the monitor. No hypoxia. Blood pressures have been normal. He is given IV Bumex here with good diuresis of about 800 mL. We will discontinue his furosemide for the next 3 days or so, in favor of Bumex for the next 3 days. He will go back to his furosemide after he is finished with the Bumex. He was counseled on this. He knows to return for any worsening symptoms. His BNP is half that of his prior admission. His creatinine is stable. His chest x-ray is stable. Lab Data 05/12/23 21:00 05/12/23 21:00 Radiology Impressions Chest X-Ray 05/12/23 20:55 IMPRESSION: Stable chest from 04/05/2023. Laboratory Results WBC 10.18 10^3/uL (3.29-11.43) 05/12/23 21:00 RBC 4.57 10^6/uL (3.85-5.65) 05/12/23 21:00 Hgb 13.30 g/dL (11.27-16.99) 05/12/23 21:00 Hct 41.9 % (37-53) 05/12/23 21:00 MCV 91.7 fl (82-101) 05/12/23 21:00 MCH 29.1 pg (27-33) 05/12/23 21:00 MCHC 31.7 g/dL (30-55) 05/12/23 21:00 RDW 16.9 % (12.1-15.1) H 05/12/23 21:00 Plt Count 249 10^3/cmm (157-399) 05/12/23 21:00 MPV 10.2 fL (7.4-10.4) 05/12/23 21:00 Neut % (Auto) 78.7 % 05/12/23 21:00 Lymph % (Auto) 10.6 % 05/12/23 21:00 [place] % (Auto) 8.3 % 05/12/23 21:00 Eos % (Auto) 1.3 % 05/12/23 21:00 Baso % (Auto) 0.5 % 05/12/23 21:00 Neut # (Auto) 8.01 10^3/uL (1.8-7.7) H 05/12/23 21:00 Lymph # (Auto) 1.1 10^3/uL (0.8-4.8) 05/12/23 21:00 [place] # (Auto) 0.9 10^3/uL (0.2-0.9) 05/12/23 21:00 Eos # (Auto) 0.1 10^3/uL (0.0-0.8) 05/12/23 21:00 Baso # (Auto) 0.1 10^3/uL (0.0-0.1) 05/12/23 21:00 Nucleated RBC % (auto) 0 % 05/12/23 21:00 Nucleated RBCs # 0.0 /100WBC 05/12/23 21:00 PT 15.50 SECONDS (12.1-14.9) H 05/12/23 21:00 INR 1.19 (0.8-1.2) 05/12/23 21:00 APTT 29.5 SECONDS (23.9-36.7) 05/12/23 21:00 Sodium 138 mmol/L (136-145) 05/12/23 21:00 Potassium 5.1 mmol/L (3.5-5.1) 05/12/23 21:00 Chloride 102 mmol/L (98-107) 05/12/23 21:00 Carbon Dioxide 26 mmol/L (22-29) 05/12/23 21:00 Anion Gap 15.1 (5-19) 05/12/23 21:00 BUN 33 mg/dL (8-23) H 05/12/23 21:00 Creatinine 1.3 mg/dL (0.7-1.2) H 05/12/23 21:00 GFR Calculation Not Reportable 05/12/23 21:00 Glucose 160 mg/dL (65-115) H 05/12/23 21:00 Calculated Osmolality 297 mOsm/kg (285-295) H 05/12/23 21:00 Calcium 8.7 mg/dL (8.5-10.5) 05/12/23 21:00 Total Bilirubin 0.5 mg/dL (0.15-1.2) 05/12/23 21:00 AST 20 U/L (0-40) 05/12/23 21:00 ALT 21 U/L (0-41) 05/12/23 21:00 Alkaline Phosphatase 86 U/L (40-130) 05/12/23 21:00 Creatine Kinase 70 U/L (39-308) 05/12/23 21:00 Troponin T Baseline 25 ng/L (0-15) H 05/12/23 21:00 NT-Pro-B Natriuret Pep 93729 pg/mL (0-450) H 05/12/23 21:00 Total Protein 6.5 g/dL (6.6-8.7) L 05/12/23 21:00 Albumin 4.0 g/dL (3.5-5.2) 05/12/23 21:00 Globulin 2.5 g/dL (1.3-4.6) 05/12/23 21:00 Urine Color Yellow (Yellow) 05/12/23 22:28 Urine Appearance Clear (CLEAR) 05/12/23 22:28 Urine pH 5 (5-7) 05/12/23 22:28 Ur Specific [place] 1.015 (1.005-1.030) 05/12/23 22:28 Urine Protein Neg (Negative) 05/12/23 22:28 Urine Glucose (UA) 4+ (Normal) H 05/12/23 22:28 Urine Ketones Negative (Negative) 05/12/23 22:28 Urine Blood Neg (Negative) 05/12/23 22:28 Urine Nitrate Negative (Negative) 05/12/23 22:28 Urine Bilirubin Neg (Negative) 05/12/23 22:28 Urine Urobilinogen Norm mg/dL (Negative) 05/12/23 22:28 Ur Leukocyte Esterase Negative (Negative) 05/12/23 22:28 All radiology interpretation(s) finalized by discharge Discharge Plan Discharge Patient Disposition: Home Clinical Impression: Bilateral edema of lower extremity CHF (congestive heart failure) Qualifiers: Heart failure type: systolic Heart failure chronicity: acute on chronic Qualified Code(s): I50.23 - Acute on chronic systolic (congestive) heart failure Condition: Stable Prescriptions: New bumetanide 2 mg tablet 2 mg PO TID Qty: 10 0RF No Action Novolog FlexPen U-100 Insulin 100 unit/mL (3 mL) insulin pen See Rx Instructions .ROUTE .COMPLEX Qty: 15 0RF Rx Instructions: PER SLIDING SCALE: BS 181-220= 2 units/sq, 221-260= 4 units/sq, 261-300= 6 units/sq, 301-350= 8 units/sq, 351-400= 10 units/sq, 401-450= 12 units/sq, >450= 14 units/sq amiodarone 200 mg tablet 200 mg PO DAILY Qty: 90 3RF Rx Instructions: begin on 03/20/23 Klor-Con 10 10 mEq tablet extended release 10 meq PO BID 30 Days Qty: 180 1RF apixaban 2.5 mg tablet 2.5 mg PO Q12H Qty: 180 3RF clopidogrel 75 mg tablet 75 mg PO DAILY furosemide 40 mg Tablet 40 mg PO BID 30 Days Qty: 60 0RF Entresto 24-26 mg tablet 1 tab PO BID Qty: 60 0RF timolol maleate 0.5 % Drops 1 drp ophthalmic (eye) BEDTIME Qty: 10 0RF Rx Instructions: IN LEFT EYE difluprednate 0.05 % Drops 1 drp OPHTHALMIC (EYE) QID Qty: 5 0RF bromfenac 0.07 % Drops 1 drp OPHTHALMIC (EYE) DAILY Qty: 3 0RF Rx Instructions: IN LEFT EYE empagliflozin 25 mg Tablet 12.5 mg PO DAILY 30 Days Qty: 30 0RF (DME) glucometer testing kit See Rx Instructions .Route .MEDSUPPLY Qty: 1 0RF Rx Instructions: lancets#100 strips#100 paroxetine HCl [Paxil] 30 mg Tablet 15 mg PO DAILY 30 Days Qty: 15 0RF metoprolol tartrate 25 mg Tablet 12.5 mg PO BID 30 Days Qty: 30 0RF Discharge Orders: Discharge ED (Routine); Ordered 05/12/23 Ordered By: Durga Carter Referrals: Diana Neal APN [Primary Care Provider] - 1-3 days Patient Instructions: Heart Failure (ED), Leg Edema (ED), Opioid Safety, Pain Management Activity Restrictions/Additional Instructions: Stop your furosemide for now. Use the bumetanide 3 times daily as instructed until they are gone. Return to your furosemide the next day for continued therapy. Return for worsening shortness of breath, worsening leg swelling despite treatment, other concerning symptoms. See your doctor this week. Coding Level of Care Code ED Appeals Specialist for Jason Dunlap
[2023-05-12 21:22] LABS: INR 1.19 (0.8-1.2)
[2023-05-12 21:23] LABS: Partial Thromboplastin Time 29.5 SECONDS (23.9-36.7)
[2023-05-12 21:26] LABS: Troponin(5th) Baseline 25 ng/L (0-15)
[2023-05-12] MEDS: bumetanide 0.25 mg/mL SDV 10 mL 2 MG IVP (21:32)
[2023-05-12 21:34] LABS: Alanine Aminotransferase 21 U/L (0-41); Alkaline Phosphatase 86 U/L (40-130); Anion Gap 15.1 (5-19); Aspartate Amino Transferase 20 U/L (0-40); Blood Urea Nitrogen 33 mg/dL (8-23); Calcium 8.7 mg/dL (8.5-10.5); Carbon Dioxide 26 mmol/L (22-29); Chloride 102 mmol/L (98-107); Creatine Phosphokinase 70 U/L (39-308); Globulin 2.5 g/dL (1.3-4.6); Glucose 160 mg/dL (65-115); NT Pro B Type Natriuretic Pept 12022 pg/mL (0-450); Osmolality Calculated 297 mOsm/kg (285-295); Potassium 5.1 mmol/L (3.5-5.1); Sodium 138 mmol/L (136-145); Total Bilirubin 0.5 mg/dL (0.15-1.2); Total Protein 6.5 g/dL (6.6-8.7)
[2023-05-12 22:30] VITALS: BP 123/65; PULSE 68; O2SAT 95
[2023-05-12 22:41] LABS: Add Urine Microscopic? NO; Charge for UA Resulting for Rev
[2023-05-12 22:45] LABS: Bilirubin Urine Neg (Negative); Blood Urine Neg (Negative); Glucose Urine UA 4+ (Normal); Ketones Urine Negative (Negative); Leukocyte Esterase Urine Negative (Negative); Nitrate Urine Negative (Negative); Protein Urine Neg (Negative); Specific Gravity, Urine 1.015 (1.005-1.030); Urine Appearance Clear (CLEAR); Urine Color Yellow (Yellow); Urobilinogen Urine Norm (Negative); pH Urine 5 (5-7)
[2023-05-12 23:46] VITALS: BP 134/72; PULSE 70; O2SAT 96
== END 2023-05-12 23:53 | disposition home or self-care (01) ==
PROVIDERS: Emergency Provider Emergency Medicine; PCP Nurse Practitioner Family
DX: I11.0 Hypertensive heart disease with heart failure (principal); I50.23 Acute on chronic systolic (congestive) heart failure; Z79.4 Long term (current) use of insulin; Z79.02 Long term (current) use of antithrombotics/antiplatelets; I25.10 Atherosclerotic heart disease of native coronary artery without angina pectoris; I10 Essential (primary) hypertension; E11.9 Type 2 diabetes mellitus without complications; Z95.1 Presence of aortocoronary bypass graft
CPT/HCPCS: 71045; 80053; 81003; 82550; 83880; 84484; 85025; 85610; 85730; 93005; 96374; 99285; J3490

== ENCOUNTER → 2023-06-24 13:03 | Outpatient (BNVA) | payer OTHER, SELFPAY | PROVIDERS: Visit Provider Nurse Practitioner Family | DX: I96 Gangrene, not elsewhere classified (principal); L97.822 Non-pressure chronic ulcer of other part of left lower leg with fat layer exposed | CPT/HCPCS: 97597; 99213; A6197; A6251 ==

== ENCOUNTER → 2023-07-01 13:07 | Outpatient (BNVA) | payer OTHER, SELFPAY | PROVIDERS: Visit Provider Nurse Practitioner Family | DX: I96 Gangrene, not elsewhere classified (principal); L97.821 Non-pressure chronic ulcer of other part of left lower leg limited to breakdown of skin | CPT/HCPCS: 97597; A6197; A6220; A6251 ==

== ENCOUNTER 2023-09-15 16:07 | Emergency (ER) | payer OTHER, MEDICARE, SELFPAY ==
[2023-09-15 16:14] VITALS: BP 130/70; PULSE 69; RESP 16; TEMP 36.4; O2SAT 98; BMI 29.7
--- NOTE | 2023-09-15 16:38 | W.ED.EXTPRO ---
HPI - Extremity Problem General: Chief complaint: Extremity Problem,Nontraumatic Stated complaint: fluid build up in legs Time Seen by Provider: 09/15/23 16:28 History of Present Illness: Patient presents to the ER with complaints of bilateral lower extremity edema. Patient is normally on Lasix 40 mg twice a day but decided to stop it approximately 5 days ago. He did noted the swelling to get worse. Patient started back up on it and said the swelling has not improved. Patient is also noting mild shortness of breath when he lays flat. Patient denies any coughs colds fever chills. [facility] [place] Review of Systems General: Reports: 10 or more systems reviewed and unremarkable except in HPI and below PFSH ED PFSH: Medical History CAD (coronary artery disease) Hypertension A-fib Diabetes Surgical History H/O elbow surgery left elbow Hx of cataract surgery Right eye Hx of right inguinal hernia repair Hx of CABG Family History Mother Leukemia Father Diabetes mellitus, type 2 Other Learning disability Social History Smoking and tobacco/nicotine status: never used tobacco/nicotine Alcohol intake: former Substance/Drug Use: never Physical Exam Const: COMMON NORMALS: no acute distress, average body habitus, patient oriented x3, no limitations, healthy appearing, alert and well nourished HENMT: COMMON NORMALS: normocephalic, atraumatic, hearing grossly normal bilaterally, external ears normal, Normal external nose present and moist oral mucous membranes HEAD & SCALP: normocephalic and atraumatic NOSE: Normal external nose present EXTERNAL EAR: Yes external ears normal Neck/C-Spine: COMMON NORMALS: no JVD Chest: COMMONS NORMALS: normal inspection of the chest and normal palpation of entire chest wall Resp: COMMON NORMALS: normal respiratory effort, No retractions, No use of accessory muscles and clear to auscultation bilaterally AUSCULTATION: clear to auscultation bilaterally Cardio: COMMON NORMALS: no JVD, regular rate, regular rhythm, S1 normal heart sound present, S2 normal heart sound present, No gallops present (Cardio), No clicks present (Cardio) and No murmurs present (Cardio) RATE: regular rate RHYTHM: regular rhythm HEART SOUNDS: S1 normal heart sound present and S2 normal heart sound present GI: COMMON NORMALS: Normal to inspection, nondistended, normoactive bowel sounds present, Soft to palpation, non-tender, No hepatosplenomegaly present and no masses PALPATION: Yes Soft to palpation and Yes No hepatosplenomegaly present Extremity: NARRATIVE EXTREMITY EXAM: 1-2+ pitting edema bilateral lower extremities, Neuro: COMMON NORMALS: patient oriented x3 SENSORIUM/ORIENTATION: Yes alert Course Vital Signs: Vital signs: Vital Signs Temperature 97.6 F 09/15/23 16:14 Pulse Rate 68 09/15/23 16:49 Respiratory Rate 29 H 09/15/23 16:49 Blood Pressure 138/78 09/15/23 16:49 Pulse Oximetry 95 09/15/23 16:49 Oxygen Delivery Me thod Room Air 09/15/23 16:49 MDM - Extremity (Nontraumatic) Medical Decision Making Patient was evaluated and had lab work done included CBC CMP and BN, BNP was elevated at approximately 20,000, this patient's edema and the fact that he stopped his Lasix could be indicative of fluid overload. Patient be given an additional 40 mg Lasix IV and instructed to take 80 mg Lasix in the morning and 40 mg Lasix at noon for the next 5 days. Patient is to follow-up with his PCP within the next 7 to 10 days. Differential Diagnosis Likely lower extremity edema; Unlikely herpes zoster, gout, cellulitis, superficial thrombophlebitis, deep venous thrombosis of upper extremity or deep vein thrombosis of lower extremity Medical Records I reviewed the patient's medical records. Lab Data I reviewed the patient's lab results. 09/15/23 16:39 09/15/23 16:39 Laboratory Results WBC 10.63 10^3/uL (3.29-11.43) 09/15/23 16:39 RBC 5.02 10^6/uL (3.85-5.65) 09/15/23 16:39 Hgb 15.20 g/dL (11.27-16.99) 09/15/23 16:39 Hct 47.1 % (37-53) 09/15/23 16:39 MCV 93.8 fl (82-101) 09/15/23 16:39 MCH 30.3 pg (27-33) 09/15/23 16:39 MCHC 32.3 g/dL (30-55) 09/15/23 16:39 RDW 14.0 % (12.1-15.1) 09/15/23 16:39 Plt Count 340 10^3/cmm (157-399) 09/15/23 16:39 MPV 10.4 fL (7.4-10.4) 09/15/23 16:39 Neut % (Auto) 73.9 % 09/15/23 16:39 Lymph % (Auto) 14.0 % 09/15/23 16:39 [place] % (Auto) 8.9 % 09/15/23 16:39 Eos % (Auto) 1.5 % 09/15/23 16:39 Baso % (Auto) 0.9 % 09/15/23 16:39 Neut # (Auto) 7.85 10^3/uL (1.8-7.7) H 09/15/23 16:39 Lymph # (Auto) 1.5 10^3/uL (0.8-4.8) 09/15/23 16:39 [place] # (Auto) 1.0 10^3/uL (0.2-0.9) H 09/15/23 16:39 Eos # (Auto) 0.2 10^3/uL (0.0-0.8) 09/15/23 16:39 Baso # (Auto) 0.1 10^3/uL (0.0-0.1) 09/15/23 16:39 Nucleated RBC % (auto) 0 % 09/15/23 16:39 Nucleated RBCs # 0.0 /100WBC 09/15/23 16:39 Sodium 138 mmol/L (136-145) 09/15/23 16:39 Potassium 4.3 mmol/L (3.5-5.1) 09/15/23 16:39 Chloride 99 mmol/L (98-107) 09/15/23 16:39 Carbon Dioxide 27 mmol/L (22-29) 09/15/23 16:39 Anion Gap 16.3 (5-19) 09/15/23 16:39 BUN 26 mg/dL (8-23) H 09/15/23 16:39 Creatinine 1.4 mg/dL (0.7-1.2) H 09/15/23 16:39 GFR Calculation Not Reportable 09/15/23 16:39 Glucose 225 mg/dL (65-115) H 09/15/23 16:39 Calculated Osmolality 298 mOsm/kg (285-295) H 09/15/23 16:39 Calcium 8.9 mg/dL (8.5-10.5) 09/15/23 16:39 Total Bilirubin 0.8 mg/dL (0.15-1.2) 09/15/23 16:39 AST 32 U/L (0-40) 09/15/23 16:39 ALT 32 U/L (0-41) 09/15/23 16:39 Alkaline Phosphatase 109 U/L (40-130) 09/15/23 16:39 NT-Pro-B Natriuret Pep 52299 pg/mL (0-450) H 09/15/23 16:39 Total Protein 7.7 g/dL (6.6-8.7) 09/15/23 16:39 Albumin 4.2 g/dL (3.5-5.2) 09/15/23 16:39 Globulin 3.5 g/dL (1.3-4.6) 09/15/23 16:39 No radiology studies performed this visit Discharge Plan Discharge Patient Disposition: Home Clinical Impression: Lower extremity edema Condition: Stable Prescriptions: No Action amiodarone 200 mg tablet 200 mg PO DAILY Qty: 90 3RF Klor-Con 10 10 mEq tablet extended release 10 meq PO BID 30 Days Qty: 180 1RF doxycycline hyclate 100 mg capsule 100 mg PO BID Qty: 20 0RF clopidogrel 75 mg tablet 75 mg PO DAILY furosemide 40 mg tablet 40 mg PO BID atorvastatin 80 mg Tablet 40 mg PO QPM loperamide 2 mg Capsule 2 mg PO QID PRN (Reason: Diarrhea) glipizide 10 mg Tablet 10 mg PO BID timolol maleate 0.5 % Drops, Once Daily 1 drp OPHTHALMIC (EYE) BEDTIME Voltaren 1 % Gel 4 g TOPICAL QID Rx Instructions: apply to single knee, ankle, foot; for foot includes sole/toes/top of foot sacubitril-valsartan 49-51 mg Tablet 0.5 tab PO BID empagliflozin 25 mg Tablet 12.5 mg PO DAILY 30 Days Qty: 30 0RF (DME) glucometer testing kit See Rx Instructions .Route .MEDSUPPLY Qty: 1 0RF Rx Instructions: lancets#100 strips#100 paroxetine HCl [Paxil] 30 mg Tablet 15 mg PO DAILY 30 Days Qty: 15 0RF metoprolol tartrate 25 mg Tablet 12.5 mg PO BID 30 Days Qty: 30 0RF apixaban 2.5 mg tablet 2.5 mg PO BID insulin aspart U-100 [Novolog FlexPen U-100 Insulin] 100 unit/mL (3 mL) insulin pen See Rx Instructions .ROUTE .COMPLEX Qty: 15 0RF Rx Instructions: Inject, subcut, 3 times daily, after meals, based on sliding scale provided Discharge Orders: Discharge ED (Routine); Ordered 09/15/23 Ordered By: Issa Benton Referrals: Diana Neal APN [Primary Care Provider] - 1 week Patient Instructions: Leg Edema (ED) Activity Restrictions/Additional Instructions: Your evaluation in the ER included lab work. Your your labs showed your kidneys are stable, your BNP was elevated which shows you are probably fluid overloaded as well as your edema. You are given additional 40 mg Lasix in the IV here in the ER. Please take an additional 40 mg of Lasix every day for the next 5 days. Please take 80 mg of Lasix in the morning and 40 mg Lasix at noon for the next 5 days. Please follow-up with your family practitioner within next 7 to 10 days for further evaluation and treatment. Coding Level of Care Code ED Substitute Bus Driver for Jason Dunlap
[2023-09-15 16:46] LABS: Basophils # 0.1 10^3/uL (0.0-0.1); Basophils % 0.9 %; Eosinophils # 0.2 10^3/uL (0.0-0.8); Eosinophils % 1.5 %; Hematocrit 47.1 % (37-53); Lymphocytes # 1.5 10^3/uL (0.8-4.8); Mean Corpuscular HGB Conc 32.3 g/dL (30-55); Mean Corpuscular Hemoglobin 30.3 pg (27-33); Mean Corpuscular Volume 93.8 fl (82-101); Mean Platelet Volume 10.4 fL (7.4-10.4); Monocytes % 8.9 %; Neutrophils # 7.85 10^3/uL (1.8-7.7); Neutrophils % 73.9 %; Nucleated Red Blood Cells % 0 %; Platelet Count 340 10^3/cmm (157-399); Red Blood Count 5.02 10^6/uL (3.85-5.65); White Blood Count 10.63 10^3/uL (3.29-11.43)
[2023-09-15 16:49] VITALS: BP 138/78; PULSE 68; RESP 29; O2SAT 95
[2023-09-15 17:15] LABS: Alanine Aminotransferase 32 U/L (0-41); Albumin Level 4.2 g/dL (3.5-5.2); Alkaline Phosphatase 109 U/L (40-130); Anion Gap 16.3 (5-19); Aspartate Amino Transferase 32 U/L (0-40); Blood Urea Nitrogen 26 mg/dL (8-23); Calcium 8.9 mg/dL (8.5-10.5); Carbon Dioxide 27 mmol/L (22-29); Chloride 99 mmol/L (98-107); Globulin 3.5 g/dL (1.3-4.6); Glucose 225 mg/dL (65-115); NT Pro B Type Natriuretic Pept 19986 pg/mL (0-450); Osmolality Calculated 298 mOsm/kg (285-295); Potassium 4.3 mmol/L (3.5-5.1); Sodium 138 mmol/L (136-145); Total Bilirubin 0.8 mg/dL (0.15-1.2); Total Protein 7.7 g/dL (6.6-8.7)
[2023-09-15 17:23] LABS: Creatinine Clr Calc Pharmacy 47.1161
[2023-09-15] MEDS: FUROsemide 10 mg/mL SDV 4mL 40 MG IVP (17:39)
[2023-09-15 17:41] VITALS: BP 136/78; PULSE 67; RESP 22; O2SAT 96
== END 2023-09-15 17:52 | disposition home or self-care (01) ==
PROVIDERS: Emergency Provider Emergency Medicine; PCP Nurse Practitioner Family
DX: R60.0 Localized edema (principal); Z79.02 Long term (current) use of antithrombotics/antiplatelets; Z79.84 Long term (current) use of oral hypoglycemic drugs; Z79.4 Long term (current) use of insulin; I25.10 Atherosclerotic heart disease of native coronary artery without angina pectoris; I10 Essential (primary) hypertension; E11.9 Type 2 diabetes mellitus without complications; Z95.1 Presence of aortocoronary bypass graft
CPT/HCPCS: 80053; 83880; 85025; 96374; 99284; J1940